=== PATIENT | female | born 1975 | race Caucasian/White ===

== ENCOUNTER 2023-04-07 10:57 | Outpatient (AMB) | payer OTHER, SELFPAY ==
--- NOTE | 2023-04-07 11:19 | MHC.PC.OV ---
Vital Signs 04/07/23 11:20 Height 5 ft 3.75 in Weight 238 lb 6 oz BMI 41.2 BP 120/68 Blood Pressure Location Lt brachial Position Sitting Pulse 79 Pulse Source Pulse Oximeter Temp 96.8 F Temp Source Oral Pulse Oximetry (%) 97 Oxygen Delivery Method Room Air Intake Visit Reasons: New patient-Lower back pain Intake Note: Patient is here as a new patient with lower back pain, she has degenerative disc disease. Allergies amoxicillin [From Augmentin] Adverse Reaction (Mild, Verified 04/07/23 12:15) yeast infection clavulanic acid [From Augmentin] Adverse Reaction (Mild, Verified 04/07/23 12:15) yeast infection amoxicillin Adverse Reaction (Mild, Uncoded 04/07/23 12:15) yeast infection Medication List - Last Reviewed 04/07/23 by Cary Kc, SOBEIDA dextroamphetamine-amphetamine 20 mg (Adderall) 20 mg PO DAILY gabapentin 300 mg PO TID metaxalone 800 mg PO TID phentermine 37.5 mg PO DAILY temazepam 15 mg PO BEDTIME temazepam 7.5 mg PO .PRN for anxiety topiramate (Topamax) 100 mg PO .AM topiramate (Topamax) 50 mg PO .PM tramadol 100 mg PO TID PRN 20 days Tobacco use date assessed: 04/07/23 Dental Screening Dental Screen Date: 04/07/23 Did you have a dental visit in the last 12 months?: No Did you have a dental problem in the last 6 months where you did not have access to dental care?: No Was dental information given to patient?: No HPI HPI Comments History of Present Illness Details 47-year-old female presents to [facility]. She relocated from [place], [place] in Dec, 2022. She notes the last time she her former PCP was in Dec, 2022. She notes she had routine blood work done in November,; her cholesterol levels were elevated. She has PMH significant for LBP secondary to DJD and compression fracture at L4 and L5, ADHD, insomnia, anxiety, and depression. She states she has had LBP for the past 20 years and her symptoms has worsened the past 2 years. She notes she was followed by ortho surgery, PT, and pain management until she moved to [facility]. She states she was on tramadol 100 mg 3 times daily until she relocated in January. She requests referrals for pain management. She notes she is followed by a therapist and a psychiatrist weekly and that her psychiatrist manages her psychotropic medications. [facility] Medical History (Updated 04/07/23 @ 14:27 by Jacoby Francis CNP) Aftercare following right ankle joint replacement surgery Anxiety Degenerative disc disease, lumbar Depression Necrotizing fasciitis Surgical History (Updated 04/07/23 @ 11:39 by Cary Kc CMA) History of throat surgery S/P lumpectomy, right breast Family History (Updated 04/07/23 @ 11:41 by Cary Kc CMA) Mother COPD (chronic obstructive pulmonary disease) Emphysema lung Mental health disorder Social History (Updated 04/07/23 @ 11:44 by Cary Kc CMA) Household Members: Friend(s) Both parents involved: No Caregiver staying overnight: No Housing: House Are you a primary ambulatory care coordinator to a significant other at home: No Do you presently have visiting nurse or other home services: No 75 years or older and lives alone: No Alcohol intake: current Patient Tobacco Use Status: Former Tobacco user e-Cigarette/Vaping Use: Former Use service: No Current occupational status: disabled Cognitive needs: No Hearing needs: No Vision needs: Yes (glasses) Questionnaire PHQ-9 Over the last 2 weeks, how often have you been bothered by any of the following problems? 1. Little interest or pleasure in doing things: more than half the days 2. Feeling down, depressed, or hopeless: several days 3. Trouble falling or staying asleep, or sleeping too much: nearly every day 4. Feeling tired or having little energy: nearly every day 5. Poor appetite or overeating: nearly every day 6. Feeling bad about yourself - or that you are a failure or have let yourself or your family down: nearly every day 7. Trouble concentrating on things, such as reading the newspaper or watching television: several days 8. Moving or speaking so slowly that other people could have noticed. Or the opposite - being so fidgety or restless that you have been moving around a lot more than usual: not at all 9. Thoughts that you would be better off or of hurting yourself in some way: not at all Total score: 16 Depression Screening Interpretation: Positive Depression Screening Follow-up: Existing condition and In treatment Source: Developed by Drs. Contreras Velazquez, Gisselle Reyna, Javed Lee and colleagues, with an educational earline from [employer]. Thrive Questionnaire I am a: Patient What is your living situation today?: I have a steady place to live Within the past 12 months, did the food you bought not last and you didn't have the money to get more?: Never true Within the past 12 months, did you worry whether your food would run out before you got money to buy more?: Never true Do you have trouble paying for medicines?: No Do you have trouble getting transportation to medical appointments?: No Do you have trouble paying your heating and electricity bill?: No Do you have trouble taking care of your child, family member or friend?: No Do you have trouble with day-to-day activities such as bathing, preparing meals, shopping, managing finances, etc.?: No Are you currently unemployed and looking for a job?: No Are you interested in more education?: No BAYRON-7 AMB Questionnaire BAYRON-7 Date BAYRON - 7 assessed: 04/07/23 Feeling nervous, anxious, or on edge: 3 = Nearly every day Not being able to stop or control worryin = Nearly every day Worrying too much about different things: 3 = Nearly every day Trouble relaxin = Nearly every day Being so restless that it is hard to sit still: 1 = Several days Becoming easily annoyed or irritable: 3 = Nearly every day Feeling afraid as if something awful might happen: 3 = Nearly every day Total BAYRON-7 score (0-4 normal; 5-9 mild; 10-14 moderate; 15-21 severe): 19 Source: Developed by Drs. Contreras Velazquez, Javed Alvarez and colleagues, with an educational earline from [employer]. Review of Systems Const Details: Const Denies chills, Denies fatigue, Denies fever(s), Denies headache(s) and Denies weakness ENT Denies dizziness and Denies headache(s) Card Denies chest pain, Denies lightheadedness, Denies dyspnea and Denies other (Palpitations) Resp Denies cough, Denies dyspnea, Denies wheezing and Denies other ( shortness of breath) GI Denies abdominal pain, Denies melena, Denies hematochezia, Denies change in bowel habits, Denies dyspepsia and Denies nausea Denies hematuria and Denies dysuria Musc Reports low back pain, Denies abnormal gait, Denies myalgias, Denies arthralgias, Denies numbness and Denies tingling Skin/Breast Denies rash, Denies unusual bruising and Denies wounds Neuro Denies abnormal gait, Denies dizziness, Denies headache(s), Denies memory loss, Denies numbness, Denies Sensory deficit (Neuro), Denies tingling and Denies weakness Psych Reports anxiety, Reports depression, Denies memory loss Endo Denies cold intolerance, Denies fatigue, Denies heat intolerance, Denies polydipsia and Denies polyuria Aller/Immun Denies wheezing Physical exam (Primary Care) Vital Signs: Last Vital Signs Temp 96.8 F 04/07/23 11:20 Pulse 79 04/07/23 11:20 BP 120/68 04/07/23 11:20 Pulse Ox 97 04/07/23 11:20 Oxygen Delivery Method Room Air 04/07/23 11:20 BMI result Body Mass Index 41.2 Tobacco/Smoking Status: Tobacco use Status Tobacco use date assessed 04/07/23 04/07/23 11:50 Patient Tobacco Use Status Former Tobacco user 04/07/23 11:50 e-Cigarette/Vaping Use Former Use 04/07/23 11:50 PHQ-9: PHQ-9 Score PHQ-9: Total score 16 04/07/23 15:37 Depression Screening Interpretation: Positive Depression Screening Follow-up: Existing condition and In treatment Const Other: General: no acute distress and well developed Nutritional Appearance: well nourished Orientation/consciousness: patient oriented x3 HENMT Head: Yes normocephalic and Yes atraumatic Eyes General: appearance normal, both eyes and all related structures Pupils: Equal, round and reactive pupils present EOM: EOMs intact bilaterally Resp Effort & Inspection: normal respiratory effort Auscultation: clear to auscultation bilaterally Cardio Rate: regular rate Rhythm: regular rhythm Heart sounds: S1 normal heart sound present, S2 normal heart sound present, no gallops, no murmurs and no rubs GI Palpation (GI): No Abdominal aortic bruit present, Soft to palpation, nontender, No hepatosplenomegaly present and No Rebound tenderness present Auscultation: normal bowel sounds General: Yes no CVA tenderness Back/Spine/Pelvis Back: no CVA tenderness Cervical Spine: cervical ROM normal and No Cervical spine tenderness Thoracic/Lumbar Spine: thoraco-lumbar ROM normal, No pain with thoraco-lumbar ROM, thoracic spinal tenderness and lumbar spinal tenderness Extrem General: Yes normal to inspection, No edema and No calf tenderness Negative straight leg raise bilaterally Skin General: warm and dry. Normal skin color. Normal skin turgor Lesions: no lesions Rashes: no rashes Trauma: no lacerations or abrasions Wounds: no wounds Nails: normal Neuro General: patient oriented x3, gait normal and no focal neuro deficit Cranial nerves: Yes Equal, round and reactive pupils present Cognition (Neuro): normal cognition Gait exam (Neuro): Normal gait present Sensory Exam: No Sensory deficit (Neuro) Psych Appearance: grossly normal Affect: normal affect Attitude: cooperative Thought process: Normal thought process present Assessment and Plan Assessment & Plan (1) Chronic back pain: Code(s): M54.9 - Dorsalgia, unspecified; G89.29 - Other chronic pain Plan: Reports chronic LBP for the past 20 years; her symptoms has worsened the past 2 years. She attributes the pain to history of DJD and compression fracture at L4 and L5. Continue with current treatment regimen Tramadol verified by [facility] and refilled. Take as prescribed Warm/cool compresses encouraged Referred to orthopedic surgery and physical therapy Follow-up in 1 month or return sooner with worsening or new symptoms Verbalized understanding and agreed with treatment plan. (2) Morbid obesity with BMI of 40.0-44.9, adult: Code(s): E66.01 - Morbid (severe) obesity due to excess calories; Z68.41 - Body mass index [BMI] 40.0-44.9, adult Plan: Encouraged routine exercise as tolerable Healthy diet encouraged Referred to nutrition/dietitian and with management (3) Depression: Code(s): F32.A - Depression, unspecified Plan: She notes she is followed by a therapist and a psychiatrist weekly and that her psychiatrist manages her psychotropic medications. PHQ-9 and BAYRON-7 scores revealed moderately severe depression and severe anxiety respectively Continue with current treatment regimen Continue follow-up with therapist and psychiatrist as planned Follow-up with worsening or new symptoms Verbalized understanding and agreed with treatment plan. (4) Anxiety: Code(s): F41.9 - Anxiety disorder, unspecified Plan: As above (5) Laboratory tests ordered as part of a complete physical exam (CPE): Code(s): Z00.00 - Encounter for general adult medical examination without abnormal findings Plan: Fasting labs ordered as part of a complete physical exam. Advised to fast for at least 10 hours before getting labs drawn. May drink water Verbalized understanding and agreed with treatment plan. Orders: Orders Comprehensive [place]. Panel Fast Today Z00.00 - Encounter for general adult medical examination without abnormal findings Lipid Panel Today Z00.00 - Encounter for general adult medical examination without abnormal findings TSH reflex Free T4 Today Z00.00 - Encounter for general adult medical examination without abnormal findings Complete Blood Count Auto Diff Today Z00.00 - Encounter for general adult medical examination without abnormal findings UA CC w/rflx Micro + Cult Today Z00.00 - Encounter for general adult medical examination without abnormal findings PT Evaluation and Treatment Today G89.29 - Other chronic pain, M54.9 - Dorsalgia, unspecified Referrals Medical Weight Management Referral E66.01 - Morbid (severe) obesity due to excess calories, Z68.41 - Body mass index [BMI] 40.0-44.9, adult Orthopedics Referral G89.29 - Other chronic pain, M54.9 - Dorsalgia, unspecified Nutrition/Dietitian Referral E66.01 - Morbid (severe) obesity due to excess calories, Z68.41 - Body mass index [BMI] 40.0-44.9, adult Medications: New tramadol 100 mg PO TID PRN 60 tabs 0RF pain tramadol 100 mg PO TID 20 days PRN 60 tabs 0RF pain Coding Level of Care Code New Pt Level 3 (02031) Diagnoses Chronic back pain M54.9; G89.29 Morbid obesity with BMI of 40.0-44.9, adult E66.01; Z68.41 Depression F32.A Anxiety F41.9 Laboratory tests ordered as part of a complete physical exam (CPE) Z00.00 Time Spent (min) 35
[2023-04-07 11:20] VITALS: BP 120/68; PULSE 79; TEMP 36; O2SAT 97; BMI 41.2
== END 2023-04-07 12:45 | disposition home or self-care (01) ==
PROVIDERS: PCP Nurse Practitioner Family; Visit Provider Nurse Practitioner Family
DX: M54.9 Dorsalgia, unspecified (principal); E66.01 Morbid (severe) obesity due to excess calories; Z68.41 Body mass index [BMI] 40.0-44.9, adult; F41.9 Anxiety disorder, unspecified; G89.29 Other chronic pain; F32.A Depression, unspecified
CPT/HCPCS: 99203

== ENCOUNTER 2023-04-28 10:04 | Outpatient (REF) | payer OTHER, SELFPAY ==
--- NOTE | ~2023-04-28 | XR_ITS ---
EXAMINATION: XR FOOT, RIGHT CLINICAL INFORMATION: Aftercare following joint replacement surgery COMPARISON: None available. TECHNIQUE: AP, lateral, and oblique views of the right foot. FINDINGS: No evidence for acute fracture or dislocation. There is hallux valgus deformity. Slight narrowing of the right first MTP joint. No distinct erosive process. The midfoot is intact. Postsurgical changes of the distal right fibula again seen. There is a small plantar calcaneal spur. XR/XR foot RT 2V IMPRESSION: 1. No acute process. Hallux valgus deformity. 2. Slight degenerative changes. 3. Other incidental findings as noted above.
--- NOTE | ~2023-04-28 | XR_ITS ---
EXAMINATION: XR ANKLE, RIGHT CLINICAL INFORMATION: Aftercare following joint replacement surgery. COMPARISON: None available. TECHNIQUE: 3 views of the right ankle. FINDINGS: No acute fracture or dislocation seen. There is a small lucency in the medial dome of the talus which may reflect a small subchondral cyst. Postsurgical changes of the distal right fibula with plate and screw fixation and an obliquely directed screw. No erosive process. The posterior distal tibia appears to be intact. There is a small plantar calcaneal spur. XR/XR ankle RT min 3V IMPRESSION: 1. Postoperative changes of the distal right fibula. No acute fracture or dislocation. 2. Small lucency in the medial dome of the talus may reflect a small subchondral cyst.
--- NOTE | ~2023-04-28 | XR_ITS ---
EXAMINATION: XR CERVICAL SPINE CLINICAL INFORMATION: Radiculopathy, cervical region COMPARISON: None available. TECHNIQUE: 3 views of the cervical spine were obtained. FINDINGS: The odontoid is intact. No prevertebral swelling. There is reversal of normal lordosis which is suggestive of spasm. No acute cervical compression fractures. There is multilevel spondylosis and degenerative disc space narrowing. Slight anterolisthesis C7-T1. Multilevel facet arthrosis observed. XR/XR cervical spine 3V IMPRESSION: 1. Cervical spasm. No acute compression fractures. 2. Multilevel spondylosis and degenerative disc space narrowing. Slight anterolisthesis C7-T1. 3. Multilevel facet arthrosis.
== END 2023-04-28 10:05 | disposition home or self-care (01) ==
LOC: HO.HOSX 10:04
PROVIDERS: PCP Nurse Practitioner Family; Visit Provider Physical Medicine & Rehabilitation
DX: M54.12 Radiculopathy, cervical region (principal); M51.26 Other intervertebral disc displacement, lumbar region; Z47.1 Aftercare following joint replacement surgery; Z96.661 Presence of right artificial ankle joint; Z79.899 Other long term (current) drug therapy
CPT/HCPCS: 72040; 73610; 73620; 99202

== ENCOUNTER 2023-04-28 10:04 | Outpatient (AMB) | payer OTHER, SELFPAY ==
[2023-04-28 10:12] VITALS: BMI 41.2
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
== END 2023-04-28 12:13 | disposition home or self-care (01) ==
PROVIDERS: PCP Nurse Practitioner Family; Visit Provider Physical Medicine & Rehabilitation
DX: M51.26 Other intervertebral disc displacement, lumbar region (principal); M54.12 Radiculopathy, cervical region; Z47.1 Aftercare following joint replacement surgery; Z96.661 Presence of right artificial ankle joint
CPT/HCPCS: 99204

== ENCOUNTER 2023-05-03 07:30 | Outpatient (REF) | payer OTHER, SELFPAY ==
[2023-05-03 11:28] LABS: MANUAL DIFF FLAG NO
[2023-05-03 11:33] LABS: Basophils Absolute Auto 0.1 X10*3/uL (0.0-0.2); Basophils Percent Auto 1.1 % (0-2); Eosinophils Absolute Auto 0.2 X10*3/uL (0.0-0.4); Eosinophils Percent Auto 2.9 % (0-4); Hematocrit 30.9 % (37.0-47.0); Hemoglobin 9.7 g/dl (12.0-16.0); Imm Gran Abs Auto 0.02 X10*3/uL (0.00-0.03); Imm Gran Pct Auto 0.3 % (0.0-0.4); Lymphocytes Absolute Auto 1.6 X10*3/uL (1.2-4.9); Lymphocytes Percent Auto 25.8 % (20-40); Mean Corpuscular HGB Conc 31.4 g/dl (31.0-35.0); Mean Corpuscular Hemoglobin 26.4 pg (27.0-33.0); Mean Corpuscular Volume 84.2 fL (80.0-98.0); Mean Platelet Volume 9.8 fL (9.4-12.3); Monocytes Absolute Auto 0.5 X10*3/uL (0.1-1.2); Monocytes Percent Auto 8.1 % (2-11); Neutrophils Absolute Auto 3.8 x10*3/uL (2.0-8.3); Neutrophils Percent Auto 61.8 % (45-73); Platelet Count 394 X10*3/uL (160-400); Red Blood Count 3.67 X10*6/uL (4.20-5.50); Red Cell Distribution Width 17.2 % (11.0-16.0); White Blood Count 6.2 X10*3/uL (4.8-10.8)
[2023-05-03 11:42] LABS: Appearance Urine Clear; Color Urine Yellow; Glucose Urine UA Negative (Negative); Leukocyte Esterase Urine Small (1+) (Negative); Nitrite Urine Negative (Negative); PH 5.5 (5.0-9.0); Specific Gravity - Urine 1.015 (1.005-1.025); UMIC TRIGGER UACC YES; Urine Blood Negative (Negative); Urine Ketones Negative (Negative); Urine Protein Negative (Neg-Trace)
[2023-05-03 11:55] LABS: Bacteria Urine Trace (None Seen); Hyaline Casts Urine 0-2 /LPF (0-2); RBC Urine 0-2 /HPF (0-2); Squamous Epithelial Cell Urine 0-2 /HPF (0-2); UACC Culture Trigger YES; WBC Urine 0-5 /HPF (0-5)
[2023-05-03 12:47] LABS: Immature Retic Fraction 16.8 % (3.0-15.9); Retic HGB Equivalent 25.6 pg (30.0-35.0); Reticulocyte Percent 1.2 % (0.5-1.8); Reticulocytes Absolute 0.044 X10*6/uL (0.026-0.095)
[2023-05-03 14:56] LABS: Alanine Aminotransferase 12 U/L (0-31); Alkaline Phosphatase 52 U/L (39-117); Anion Gap 10 (12-20); Aspartate Amino Transferase 17 U/L (5-31); Bilirubin Total 0.1 mg/dL (0.0-1.0); Blood Urea Nitrogen 15 mg/dL (9-16); Calcium 9.3 mg/dL (8.4-10.2); Carbon Dioxide 21 mmol/L (22-29); Chloride 112 mmol/L (96-108); Cholesterol 166 mg/dL (<200); Estimated Glomerular Filt Rate > 60; Glucose Fasting 93 mg/dL (60-99); HDL Cholesterol 49 mg/dL (>40); Iron 27 mcg/dL (30-160); LDL Cholesterol Calculated 99 mg/dL (<100); Percent Iron Saturation 7 % (15-50); Potassium 4.3 mmol/L (3.3-5.1); Sodium 139 mmol/L (135-145); TSH reflex Free T4 0.94 uIU/mL (0.32-4.0); Total Iron Binding Capacity 370 mcg/dL (228-428); Total Protein 6.9 g/dL (6.5-8.0); Triglycerides 92 mg/dL (<150); Unsaturated Iron Binding 343 ug/dL
== END 2023-05-03 07:31 | disposition home or self-care (01) ==
LOC: HO.WFDLDS 07:30
PROVIDERS: Visit Provider Nurse Practitioner Family
DX: Z00.00 Encounter for general adult medical examination without abnormal findings (principal); D64.9 Anemia, unspecified
CPT/HCPCS: 36415; 80053; 80061; 81001; 83540; 84443; 85025; 85045; 87086

== ENCOUNTER 2023-05-11 14:15 | Outpatient (AMB) | payer OTHER, SELFPAY ==
--- NOTE | 2023-05-11 14:56 | MHC.OFFVIS ---
Intake Vital Signs 05/11/23 14:58 Height 5 ft 3.75 in Weight 225 lb BMI 38.9 BP 120/84 Blood Pressure Location Rt brachial Position Sitting Respiration 16 Pulse 88 Pulse Source Pulse Oximeter Pulse Oximetry (%) 99 Oxygen Delivery Method Room Air Intake Visit Reasons: Other intervertebral disc displacement Intake Note: patient comes in for initial visit was referred by physiatry Allergies amoxicillin [From Augmentin] Adverse Reaction (Mild, Verified 05/11/23 15:01) yeast infection clavulanic acid [From Augmentin] Adverse Reaction (Mild, Verified 05/11/23 15:01) yeast infection amoxicillin Adverse Reaction (Mild, Uncoded 04/28/23 10:16) yeast infection HPI HPI Comments History of Present Illness Details Cary is very pleasant 47 years old female who presents herself in my office with 2 distinct pain generators. She reports pain in the cervical spine with sensation of the numbness of bilateral upper extremities as well as axial pain in lower back which is aggravated by prolonged standing and sitting and aggravated by flexing back forward but alleviated when she flex her back backwards. She reports that her pain started many years ago however became aggravated recently reports pain in neck 4 to 6/10 and pain in lower back is 10+ out of 10. She reports that that she cannot sleep normally because of her pain cannot do activities of daily living she can take care of herself but she cannot function normally. She reports that she is unemployed. She is self mobile. She reports that cold applications weather changes in movements aggravate her pain and heat applications and topical medications make her pain better. She reports her pain is worse in morning in the evening and the leads severe during the middle of the day. In terms of tissue damage she reports her pain is sharp, cutting, lacerating, tugging, pulling, ranging, hot burning, scalding, searing, suffocating, tiring, staring, freezing. She was under care of pains physician in [facility] she received MRI of the lumbar spine she was not recommended to go for the surgery by neurosurgeon. Never was evaluated by MRI of the cervical spine she is taking gabapentin for her pain and 100 mg 3 times a day maximal does she is taking tramadol 50 mg once a day and muscle relaxant methalaxon. She reports that she received sacroiliac joint injections in the past those were done by Dr. Markham in [facility] she reports very minimal help for 1 or 2 days from steroid sacroiliac joint injection however no prolonged pain relief. She had multiple attempts at physical therapy which aggravated her pain and she refused to go to physical therapy she denies chiropractic manipulations massage therapy or 10s unit. Her past medical history significant for headaches anxiety depression . She reports past medical history of compression fracture probably of the thoracic spine which was treated conservatively, no kyphosis/vertebral plasty was done. She had ankle joint replacement procedure for which she had very significant physical therapy. She brought with herself and MRI done on her lumbar spine in [facility] in [facility] which is suspicious for Modic type changes. I would like to send this MRI disc for the review with Radiology to evaluate this MRI for Modic type changes. Social history she is unemployed individual she states that she stop smoking in December of 2022 she admits rare use of alcohol she drinks 2 cups of coffee daily she denies recreational drugs. [facility] Medical History (Updated 05/11/23 @ 15:52 by Abdelrahman Richards MD) Lumbar disc herniation Aftercare following right ankle joint replacement surgery Necrotizing fasciitis Degenerative disc disease, lumbar Depression Anxiety Surgical History (Updated 04/07/23 @ 11:39 by Cary Kc CMA) History of throat surgery S/P lumpectomy, right breast Family History (Updated 04/07/23 @ 11:41 by Cary Kc CMA) Mother COPD (chronic obstructive pulmonary disease) Emphysema lung Mental health disorder Social History Household Members: Friend(s) Both parents involved: No Caregiver staying overnight: No Housing: House Are you a primary residential care officer to a significant other at home: No Do you presently have visiting nurse or other home services: No 75 years or older and lives alone: No Alcohol intake: current Patient Tobacco Use Status: Former Tobacco user e-Cigarette/Vaping Use: Former Use service: No Current occupational status: disabled 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 Cognitive needs: No Hearing needs: No Vision needs: Yes (glasses) Review of Systems Const All systems reviewed & are unremarkable except as noted in HPI and below Reports no additional complaints and Reports weight gain Card Reports no additional complaints Resp Reports no additional complaints GI Reports no additional complaints Musc Reports as per HPI Neuro Reports as per HPI Psych Reports as per HPI Physical Exam Vital Signs: Last Vital Signs Pulse 88 05/11/23 14:58 Resp 16 05/11/23 14:58 BP 120/84 05/11/23 14:58 Pulse Ox 99 05/11/23 14:58 Oxygen Delivery Method Room Air 05/11/23 14:58 BMI result Body Mass Index 38.9 Constitutional: Patient appears to be in no acute distress, well nourished and well developed. Patient was appropriately conversant and oriented. Good historian. MSK: Inspection reveals appropriate head and neck positioning. No pain with palpation over the neck musculature. Cervical ROM was full. Spurling's sign positive with radiation to left arm. Bilateral shoulder, elbow and wrist ROM WNL. No ligamentous laxity or crepitance. No increased effusion. No specific abnormalities or instability found on inspection and palpation of the spine and extremities. No point tenderness on spinous processes, facets, SI or GT. Unable to do lumbar extension due to pain. Negative SLR. Positive MARCOS for back pain bilateral. Strength is 5/5 in all muscle groups tested. No increased tone noted. Right toes go into spasms while extended with pain. This limits her ankle range of motion. No redness or swelling on right foot or ankle. Neurological: Neurologic examination of the upper and lower extremities was nonfocal with intact sensation, muscle stretch reflexes and without focal motor deficits . Hunter?s negative bilaterally. Babinski was down going bilaterally. Clonus was negative. Gait is non-antalgic without loss of balance. Can stand on heels but cannot do toe walk. No foot drop while seated. Neck Other: Negative Lhermitte sign, positive Spurling sign on the right negative Valsalva maneuver 2 point differentiation is positive on bilateral hands Assessment & Plan Assessment & Plan (1) Lumbar disc herniation: Code(s): M51.26 - Other intervertebral disc displacement, lumbar region Plan: Patient denies pain of the lower extremities radiating down the legs. She admits that pain is mostly axial and stays in her back. She admits that the pain is increased with prolong sitting and standing and greater more increased with flexing forward but not backwards. Fact she reports that flexing backwards greatly alleviates her pain. These are the signs of vertebro genic/discogenic pain. I examined the MRI the patient brought with herself and I think the might be Modic type changes in her back. I will have this MRI to be read by our radiologist department to confirm or deny Modic type changes. (2) Cervical radiculitis: Code(s): M54.12 - Radiculopathy, cervical region Plan: I am very concerned about the numbness which is objective on the exam on bilateral hands. With her pain in the neck with radiation into the bilateral upper extremities likely the pain is coming from secondary to spinal cord compression versus nerve root compressions. In the order to establish that I think it is necessary to send this patient for the MRI of the cervical spine. (3) Spondylosis of lumbar spine: Code(s): M47.816 - Spondylosis without myelopathy or radiculopathy, lumbar region (4) Vertebrogenic low back pain: Code(s): M54.51 - Vertebrogenic low back pain Plan: I will see this patient in the office after MRI will be ready we will discuss cervical changes as well as possibly changes in her lumbar spine. The procedures will be discussed after the patient complete the study. (5) Cervical stenosis of spinal canal: Code(s): M48.02 - Spinal stenosis, cervical region Orders: Orders MR cervical spine wo con Today M48.02 - Spinal stenosis, cervical region, M54.12 - Radiculopathy, cervical region Coding Level of Care Code New Pt Level 4 (36129) Diagnoses Lumbar disc herniation M51.26 Cervical radiculitis M54.12 Spondylosis of lumbar spine M47.816 Vertebrogenic low back pain M54.51 Cervical stenosis of spinal canal M48.02
[2023-05-11 14:58] VITALS: BP 120/84; PULSE 88; RESP 16; O2SAT 99; BMI 38.9
== END 2023-05-11 15:23 | disposition home or self-care (01) ==
PROVIDERS: PCP Nurse Practitioner Family; Visit Provider Anesthesiology
DX: M51.26 Other intervertebral disc displacement, lumbar region (principal); M54.12 Radiculopathy, cervical region; M47.816 Spondylosis without myelopathy or radiculopathy, lumbar region; M48.02 Spinal stenosis, cervical region
CPT/HCPCS: 99204

== ENCOUNTER → 2023-05-11 14:15 | Outpatient (BNVA) | payer OTHER, SELFPAY | PROVIDERS: PCP Nurse Practitioner Family; Visit Provider Anesthesiology ==

== ENCOUNTER 2023-05-12 12:25 | Outpatient (AMB) | payer OTHER, SELFPAY ==
--- NOTE | 2023-05-12 12:40 | A.OFFPC_ITS ---
Vital Signs 05/12/23 12:41 Height 5 ft 3.5 in Weight 228 lb 2 oz BMI 39.8 BP 124/66 Blood Pressure Location Rt brachial Position Sitting Respiration 12 Pulse 86 Pulse Source Pulse Oximeter Temp 97.6 F Temp Source Temporal Artery Scan Pulse Oximetry (%) 99 Oxygen Delivery Method Room Air Intake Visit Reasons: Back pain, mood disorder Intake Note: Patient states that she would like to clear up the quantity issue with her Tramadol and she would like to get that fixed today. Patient states that she will be having procedures and surgery soon and would like her script. Patient also states that she was seen by Ortho and told that they found quite a few things that were concerning (notes should be in chart). Patient PT May 19 @ 3:00 PM for her lower back. 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 Required: No Accompanied by: Self / Same As Patient Allergies amoxicillin [From Augmentin] Adverse Reaction (Mild, Verified 05/12/23 13:02) yeast infection clavulanic acid [From Augmentin] Adverse Reaction (Mild, Verified 05/12/23 13:02) yeast infection amoxicillin Adverse Reaction (Mild, Uncoded 05/12/23 13:02) yeast infection Medication List - Last Reconciled 05/12/23 by Jacoby Francis CNP dextroamphetamine-amphetamine 20 mg (Adderall) 20 mg PO DAILY ferrous sulfate 325 mg PO DAILY 30 days gabapentin 300 mg PO TID metaxalone 800 mg PO TID temazepam 15 mg PO BEDTIME temazepam 7.5 mg PO .PRN for anxiety topiramate (Topamax) 100 mg PO .AM topiramate (Topamax) 50 mg PO .PM tramadol 50 mg PO BID PRN 30 days Tobacco use date assessed: 04/07/23 Dental Screening Dental Screen Date: 05/12/23 Did you have a dental visit in the last 12 months?: No Did you have a dental problem in the last 6 months where you did not have access to dental care?: No Was dental information given to patient?: Patient has dentist HPI HPI Comments History of Present Illness Details 47-year-old female presents for low back and mood disorders follow up. She establish care on 04/07/2023. She was referred to orthopedic surgery and physical therapy for back pain. She was evaluated by orthopedic surgery and referred to physiatry. She was evaluated by physiatry, MRI was ordered, and patient should return for treatment modalities once MRI is complete and reviewed. She notes she is scheduled to start physical therapy later this month. She is on tramadol and metaxalone for pain. She requests that her tramadol ordered be changed back to previous order 3 times daily for 20 days; she notes her health plan will cover two 50 mg tablets 3 times daily instead of 100 mg tablets 3 times daily. She states she continues to follow up with her therapist and psychiatrist weekly. She had blood work done earlier this month; RBC, H&H, and iron levels were low. She was ordered ferrous sulfate which she notes she has been taking as prescribed. [facility] Medical History Lumbar disc herniation Aftercare following right ankle joint replacement surgery Necrotizing fasciitis Degenerative disc disease, lumbar Depression Anxiety Surgical History History of throat surgery S/P lumpectomy, right breast Family History Mother COPD (chronic obstructive pulmonary disease) Emphysema lung Mental health disorder Social History Household Members: Friend(s) Both parents involved: No Caregiver staying overnight: No Housing: House Are you a primary auto care center manager to a significant other at home: No Do you presently have visiting nurse or other home services: No 75 years or older and lives alone: No Alcohol intake: current Patient Tobacco Use Status: Former Tobacco user e-Cigarette/Vaping Use: Former Use service: No Current occupational status: disabled 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 1. Little interest or pleasure in doing things: several days 2. Feeling down, depressed, or hopeless: several days 3. Trouble falling or staying asleep, or sleeping too much: nearly every day 4. Feeling tired or having little energy: nearly every day 5. Poor appetite or overeating: nearly every day 6. Feeling bad about yourself - or that you are a failure or have let yourself or your family down: more than half the days 7. Trouble concentrating on things, such as reading the newspaper or watching television: nearly every day 8. Moving or speaking so slowly that other people could have noticed. Or the opposite - being so fidgety or restless that you have been moving around a lot more than usual: not at all 9. Thoughts that you would be better off or of hurting yourself in some way: not at all Total score: 16 Depression Screening Interpretation: Positive Depression Screening Follow-up: Existing condition and In treatment Source: Developed by Drs. Contreras Velazquez, Gisselle Reyna, Javed Lee and colleagues, with an educational earline from [employer]. BAYRON-7 AMB Questionnaire BAYRON-7 Date BAYRON - 7 assessed: 04/07/23 Feeling nervous, anxious, or on edge: 3 = Nearly every day Not being able to stop or control worryin = Nearly every day Worrying too much about different things: 3 = Nearly every day Trouble relaxin = Nearly every day Being so restless that it is hard to sit still: 3 = Nearly every day Becoming easily annoyed or irritable: 3 = Nearly every day Feeling afraid as if something awful might happen: 3 = Nearly every day Total BAYRON-7 score (0-4 normal; 5-9 mild; 10-14 moderate; 15-21 severe): 21 Source: Developed by Drs. Contreras Velazquez, Giseslle Reyna, Javed Lee and colleagues, with an educational earline from [employer]. Review of Systems Const Details: Const Denies chills, Denies fatigue, Denies fever(s), Denies headache(s) and Denies weakness ENT Denies dizziness and Denies headache(s) Card Denies chest pain, Denies lightheadedness, Denies dyspnea and Denies other ( Palpitations) Resp Denies cough, Denies dyspnea, Denies wheezing and Denies other ( shortness of breath) GI Denies abdominal pain, Denies melena, Denies hematochezia, Denies change in bowel habits, Denies dyspepsia and Denies nausea Denies hematuria and Denies dysuria Musc Reports as per HPI Skin/Breast Denies rash, Denies unusual bruising and Denies wounds Neuro Denies abnormal gait, Denies dizziness, Denies headache(s), Denies memory loss, Denies numbness, Denies Sensory deficit (Neuro), Denies tingling and Denies weakness Psych Reports anxiety, Reports depression, Denies memory loss Endo Denies cold intolerance, Denies fatigue, Denies heat intolerance, Denies polydipsia and Denies polyuria Aller/Immun Denies wheezing Physical exam (Primary Care) Vital Signs: Last Vital Signs Temp 97.6 F 05/12/23 12:41 Pulse 86 05/12/23 12:41 Resp 12 05/12/23 12:41 BP 124/66 05/12/23 12:41 Pulse Ox 99 05/12/23 12:41 Oxygen Delivery Method Room Air 05/12/23 12:41 BMI result Body Mass Index 39.8 Tobacco/Smoking Status: Tobacco use Status Tobacco use date assessed 04/07/23 05/12/23 12:54 Patient Tobacco Use Status Former Tobacco user 05/12/23 12:54 e-Cigarette/Vaping Use Former Use 05/12/23 12:54 PHQ-9: PHQ-9 Score PHQ-9: Total score 16 05/12/23 12:54 Depression Screening Interpretation: Positive Depression Screening Follow-up: Existing condition and In treatment Const Other: General: no acute distress and well developed Nutritional Appearance: well nourished Orientation/consciousness: patient oriented x3 HENMT Head: Yes normocephalic and Yes atraumatic Eyes General: appearance normal, both eyes and all related structures Pupils: Equal, round and reactive pupils present EOM: EOMs intact bilaterally Resp Effort & Inspection: normal respiratory effort Auscultation: clear to auscultation bilaterally Cardio Rate: regular rate Rhythm: regular rhythm Heart sounds: S1 normal heart sound present, S2 normal heart sound present, no gallops, no murmurs and no rubs GI Palpation (GI): No Abdominal aortic bruit present, Soft to palpation, nontender, No hepatosplenomegaly present and No Rebound tenderness present Auscultation: normal bowel sounds General: Yes no CVA tenderness Back/Spine/Pelvis Back: no CVA tenderness Cervical Spine: cervical ROM normal and No Cervical spine tenderness Thoracic/Lumbar Spine: thoraco-lumbar ROM normal, No pain with thoraco-lumbar ROM, No thoracic spinal tenderness and lumbar spinal tenderness Extrem General: Yes normal to inspection, No edema and No calf tenderness Negative straight leg raise bilaterally Skin General: warm and dry. Normal skin color. Normal skin turgor Lesions: no lesions Rashes: no rashes Trauma: no lacerations or abrasions Wounds: no wounds Nails: normal Neuro General: patient oriented x3, gait normal and no focal neuro deficit Cranial nerves: Yes Equal, round and reactive pupils present Cognition (Neuro): normal cognition Gait exam (Neuro): Normal gait present Sensory Exam: No Sensory deficit (Neuro) Psych Appearance: grossly normal Affect: normal affect Attitude: cooperative Thought process: Normal thought process present Assessment and Plan Assessment & Plan (1) Chronic back pain: Code(s): M54.9 - Dorsalgia, unspecified; G89.29 - Other chronic pain Qualifiers: Back pain location: low back pain Sciatica presence: without sciatica Plan: Reports continued low back pain Lumbar spine tenderness to palpation Tramadol, gabapentin, and metaxalone as prescribed Continue follow-up with Orthopedic surgery and physiatry Follow-up with physical therapy as planned Return with worsening or new symptoms Verbalized understanding and agreed with treatment plan. (2) Anxiety: Code(s): F41.9 - Anxiety disorder, unspecified Plan: PHQ-9 and BAYRON-7 scores revealed moderately severe depression and severe anxiety respectively Continue with current treatment regimen Continue follow-up with psychiatrist and therapist as planned Routine exercise encouraged Return with new or worsening symptoms Verbalized understanding and agreed with treatment plan. (3) Depression: Code(s): F32.A - Depression, unspecified Qualifiers: Depression Type: unspecified Qualified Code(s): F32.A - Depression, unspecified Plan: As above (4) Iron deficiency anemia: Code(s): D50.9 - Iron deficiency anemia, unspecified Plan: She had blood work done earlier this month; RBC, H&H, and iron levels were low. She was ordered ferrous sulfate which she notes she has been taking as prescribed. Continue to take ferrous sulfate as prescribed Repeat CBC and iron profile ordered. Advised to get blood work done before next visit Follow-up in 5 weeks for iron deficiency anemia and a complete physical exam Return sooner with symptoms or concerns Verbalized understanding and agreed with treatment plan. Orders: Orders IRON PROFILE 5 Weeks D50.9 - Iron deficiency anemia, unspecified Complete Blood Count no Diff 5 Weeks D50.9 - Iron deficiency anemia, unspecified Ferritin 5 Weeks D50.9 - Iron deficiency anemia, unspecified Medications: Changed From tramadol 50 mg PO BID 30 days PRN 60 tabs 0RF pain To tramadol 100 mg (2 x 50 mg) PO TID 20 days PRN 60 tabs 0RF pain Refilled tramadol 50 mg PO BID 30 days PRN 60 tabs 0RF pain Coding Level of Care Code Est Pt Level 3 (38284) Diagnoses Chronic back pain M54.9; G89.29 Back pain location: low back pain Sciatica presence: without sciatica Anxiety F41.9 Depression, unspecified depression type F32.A Depression Type: unspecified Iron deficiency anemia D50.9
[2023-05-12 12:41] VITALS: BP 124/66; PULSE 86; RESP 12; TEMP 36.4; O2SAT 99; BMI 39.8
== END 2023-05-12 13:29 | disposition home or self-care (01) ==
PROVIDERS: PCP Nurse Practitioner Family; Visit Provider Nurse Practitioner Family
DX: M54.9 Dorsalgia, unspecified (principal); G89.29 Other chronic pain; F41.9 Anxiety disorder, unspecified; F32.A Depression, unspecified; D50.9 Iron deficiency anemia, unspecified
CPT/HCPCS: 99213

== ENCOUNTER 2023-05-25 12:57 | Outpatient (AMB) | payer OTHER, SELFPAY ==
--- NOTE | 2023-05-25 13:02 | MHC.AMNUTRGE ---
Intake VS Expanded 05/25/23 13:05 06/01/23 08:34 Height 5 ft 3.5 in 5 ft 3.5 in Weight 222 lb 14.197 oz 223 lb BMI 38.9 38.9 Intake Visit Reasons: Obesity/lvm Allergies amoxicillin [From Augmentin] Adverse Reaction (Mild, Verified 05/12/23 13:02) yeast infection clavulanic acid [From Augmentin] Adverse Reaction (Mild, Verified 05/12/23 13:02) yeast infection amoxicillin Adverse Reaction (Mild, Uncoded 05/12/23 13:02) yeast infection HPI Nutrition Presentation Details Pt presents for MNT for obesity. The Pt was referred by PCP, Danish Salinas. Pt reports she has started to work on reducing portion sizes. Reports wt in 2012 between 160-170 lbs and gradually gained weight related to lack of physical activity from broken ankle in 2019 and reports having gained about 10 lbs since started Depakote Food frequency fruits: 0-1/d vegetables: 3 -4 serving/d dairy : > 4 serving/d starches > 20 serving/d protein foods > 15 oz/d fluids: water, coffee, diluted juices w water physical activity: sedentary ETOH/SMoking ----- IFA-Pnxhaac-Fj.Jeor Equation Height 5 ft 3.5 in Weight 223 lb Resting Metabolic Rate 1636.16 Calculated Activity Level Sedentary Calories Needed to Maintain Weight 1963.39 Diagnosis Nutrition problem #1 overweight/obesity As related to (etiology) #1 excess energy intake and physical inactivity As evidenced by (sign/symptom) #1 high BMI (38.9 on 05/25/23) Monitoring/Goals Nutrition problem monitoring total energy intake and weight Most Recent Diabetes Results: Cholesterol 166 mg/dL (<200) 05/03/23 HDL Cholesterol 49 mg/dL (>40) 05/03/23 Triglycerides 92 mg/dL (<150) 05/03/23 Creatinine 0.82 mg/dL (0.5-1.4) 05/03/23 Blood Urea Nitrogen 15 mg/dL (9-16) 05/03/23 Sodium 139 mmol/L (135-145) 05/03/23 Potassium 4.3 mmol/L (3.3-5.1) 05/03/23 Chloride 112 mmol/L (96-108) H 05/03/23 Carbon Dioxide 21 mmol/L (22-29) L 05/03/23 Calcium 9.3 mg/dL (8.4-10.2) 05/03/23 AST 17 U/L (5-31) 05/03/23 ALT 12 U/L (0-31) 05/03/23 Total Protein 6.9 g/dL (6.5-8.0) 05/03/23 Albumin 4.0 g/dL (3.5-5.0) 05/03/23 [facility] Medical History (Updated 05/12/23 @ 17:01 by Daksha Adams MD) Lumbar disc herniation Aftercare following right ankle joint replacement surgery Necrotizing fasciitis Degenerative disc disease, lumbar Depression Anxiety Surgical History History of throat surgery S/P lumpectomy, right breast Family History Mother COPD (chronic obstructive pulmonary disease) Emphysema lung Mental health disorder Social History Household Members: Friend(s) Housing: House Are you a primary career and transition teacher to a significant other at home: No Do you presently have visiting nurse or other home services: No Alcohol intake: current Patient Tobacco Use Status: Former Tobacco user e-Cigarette/Vaping Use: Former Use service: No Current occupational status: disabled 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 Cognitive needs: No Hearing needs: No Vision needs: Yes (glasses) Assessment & Plan Assessment & Plan (1) Morbid obesity with BMI of 40.0-44.9, adult: Code(s): E66.01 - Morbid (severe) obesity due to excess calories; Z68.41 - Body mass index [BMI] 40.0-44.9, adult Plan wt 101kg Est kcal needs as per MSJ: 1900 (40% carb, 30% protein/fat) Est fluid needs as per 30 ml/d: 3000 Est prot per day as per 1 g/kg bw: 101 Recommend fiber intake : 8-10 g per day and gradually increase to 25-28 g per day for women and 35-38 g for men or as tolerated Recommend sodium intake per day : less than 2000 mg Educated patient on: ( R = reviewed V = verbalizes understanding N/R = needs review N/A = not applicable Food sources of carbohydrate, adequate serving sizes and its role in various health conditions: R Differences between complex carbohydrates a simple carbohydrates, role of fiber in diet: R protein sources of foods and portion sizes: R Differences between types of fats and role in diet (mono on saturated fat fatty acids, saturated fatty acids, trans fats): NR Food sources of sodium in salt and healthy modifications for heart health in kidney health: NR Vitamins and minerals: R Healthy plate method concept: R V Physical activity: Benefits a precaution: NR Patient Instructions: Work at having 3 meals per day, scheduled Include lean protein in your meals following healthy plate method see 2000 calorie meal plan as reference practice mindful eating strategies Coding Level of Care Code Nutr Indiv Intake (94645) Diagnoses Morbid obesity with BMI of 40.0-44.9, adult E66.01; Z68.41 Time Spent (min) 30
[2023-05-25 13:05] VITALS: BMI 38.9
[2023-06-01 08:34] VITALS: BMI 38.9
== END 2023-05-25 13:35 | disposition home or self-care (01) ==
PROVIDERS: PCP Nurse Practitioner Family; Visit Provider Dietitian, Registered
DX: E66.01 Morbid (severe) obesity due to excess calories (principal); Z68.41 Body mass index [BMI] 40.0-44.9, adult

== ENCOUNTER → 2023-05-25 12:57 | Outpatient (BNVA) | payer OTHER, SELFPAY | PROVIDERS: PCP Nurse Practitioner Family; Visit Provider Dietitian, Registered | DX: E66.01 Morbid (severe) obesity due to excess calories (principal); Z68.38 Body mass index [BMI] 38.0-38.9, adult | CPT/HCPCS: 97802 ==

== ENCOUNTER 2023-06-09 11:23 | Outpatient (REF) | payer OTHER, SELFPAY ==
--- NOTE | ~2023-06-09 | MR_ITS ---
EXAMINATION: MR CERVICAL SPINE WITHOUT CONTRAST CLINICAL INFORMATION: Radiculopathy and neck pain with tingling in arms. COMPARISON: X-ray dated 04/28/2023. TECHNIQUE: Multiplanar, multisequential imaging of the cervical spine was performed without contrast. FINDINGS: VERTEBRAL BODIES AND PARASPINAL SOFT TISSUES: Moderate multilevel disc space narrowing noted throughout the cervicothoracic spine. The marrow signal is mildly heterogeneous with regions of fatty change. There is a leftward curvature of the spine as well. No compression fractures. There are mixed chronic and edematous endplate changes visible at the C3-C4, T2-T3, T3-T4, and T4-T5 levels with disc bulges and endplate spurring. At the upper thoracic levels, there are small right foraminal disc protrusions resulting in moderate foraminal encroachment at the T1-T2, T2-T3, and T3-T4 levels. The paraspinal soft tissues are normal. The vertebral artery flow-voids are maintained. The imaged lung apices are grossly clear. CERVICOMEDULLARY JUNCTION AND VISUALIZED POSTERIOR FOSSA: The craniovertebral junction and imaged portions of the brain parenchyma appear normal. No cord signal abnormality or syrinx is seen. SPINAL LEVELS: C2-C3: No disc pathology. Mild facet arthrosis without central canal stenosis or foraminal narrowing. C3-C4: Moderate loss of disc height and retrosubluxation with a disc-osteophyte complex and mild endplate edema. Severe left foraminal narrowing. No central canal stenosis. C4-C5: Fqimhctc-qk-derkfu loss of disc height and mild posterior subluxation with a shallow disc-osteophyte complex. No central canal stenosis. Irft-qw-qmbdgyou foraminal narrowing, more so on the right side. C5-C6: Disc-osteophyte complex mildly impresses upon the ventral thecal sac without central canal stenosis. Severe left foraminal narrowing and moderate right foraminal encroachment. C6-C7: Rtdljxms-cq-unowjv loss of disc height with a posterior disc bulge and uncovertebral joint spurring resulting in severe left foraminal encroachment. No central canal stenosis. C7-T1: Mild disc bulge and endplate spurring without central canal stenosis. Moderate left foraminal narrowing and milder right foraminal encroachment. MR/MR cervical spine wo con IMPRESSION: Moderate multilevel cervical spondylosis with mixed chronic and edematous endplate changes. No focal disc protrusion or central canal stenosis. Multilevel foraminal narrowing due to disc-osteophyte complexes. Leftward curvature of the cervical spine. Lgyn-iq-ciaoosdg endplate edematous changes lateralized to the right side at the upper thoracic levels with right foraminal disc protrusion resulting in moderate right foraminal encroachment, particularly at the T1-T2, T2-T3, and T3-T4 levels.
== END 2023-06-09 11:24 | disposition home or self-care (01) ==
LOC: HO.MRI 11:23
PROVIDERS: PCP Nurse Practitioner Family; Visit Provider Nurse Practitioner Family
DX: M54.12 Radiculopathy, cervical region (principal); M48.02 Spinal stenosis, cervical region
CPT/HCPCS: 72141

== ENCOUNTER 2023-06-13 13:19 | Outpatient (AMB) | payer OTHER, SELFPAY ==
--- NOTE | 2023-06-13 14:03 | A.OFFVIS_ITS ---
Intake Vital Signs 06/13/23 14:08 Height 5 ft 3.5 in Weight 210 lb BMI 36.6 BP 112/76 Blood Pressure Location Rt brachial Position Sitting Respiration 14 Pulse 86 Pulse Source Pulse Oximeter Pulse Oximetry (%) 100 Oxygen Delivery Method Room Air Intake Visit Reasons: Cervical MRI Results Allergies amoxicillin [From Augmentin] Adverse Reaction (Mild, Verified 06/13/23 14:11) yeast infection clavulanic acid [From Augmentin] Adverse Reaction (Mild, Verified 06/13/23 14:11) yeast infection amoxicillin Adverse Reaction (Mild, Uncoded 05/12/23 13:02) yeast infection HPI HPI Comments History of Present Illness Details Cary is very pleasant 47 years old female who presents herself in my office with 2 distinct pain generators. She went for MRI of the cervical spine and the MRI results dictated as below. There are several levels of severe foraminal stenosis as dictated as below. Considering that this patient has numbness on bilateral upper extremities I will send her for evaluation by neuro surgery. Meanwhile I offered her to perform interlaminar epidural steroid injection which should be done at C6-C7 level. C/o pain in the cervical spine with sensation of the numbness of bilateral upper extremities as well as axial pain in lower back which is aggravated by prolonged standing and sitting and aggravated by flexing back forward but alleviated when she flex her back backwards. She reports that her pain started many years ago however became aggravated recently reports pain in neck 4 to 6/10 and pain in lower back is 10+ out of 10. She was under care of pains physician in [facility] she received MRI of the lumbar spine she was not recommended to go for the surgery by neurosurgeon. Never was evaluated by MRI of the cervical spine she is taking gabapentin for her pain and 100 mg 3 times a day maximal does she is taking tramadol 50 mg once a day and muscle relaxant methalaxon. She reports that she received sacroiliac joint injections in the past those were done by Dr. Markham in [facility] she reports very minimal help for 1 or 2 days from steroid sacroiliac joint injection however no prolonged pain relief. She had multiple attempts at physical therapy which aggravated her pain and she refused to go to physical therapy she denies chiropractic manipulations massage therapy or 10s unit. She brought with herself and MRI done on her lumbar spine in [facility] in [facility] which is suspicious for Modic type changes. I would like to send this MRI disc for the review with Radiology to evaluate this MRI for Modic type changes. [facility] Medical History (Updated 06/13/23 @ 14:42 by Abdelrahman Richards MD) Lumbar disc herniation Aftercare following right ankle joint replacement surgery Necrotizing fasciitis Degenerative disc disease, lumbar Depression Anxiety Surgical History History of throat surgery S/P lumpectomy, right breast Family History Mother COPD (chronic obstructive pulmonary disease) Emphysema lung Mental health disorder Social History Household Members: Friend(s) Both parents involved: No Caregiver staying overnight: No Housing: House Are you a primary healthcare business analyst to a significant other at home: No Do you presently have visiting nurse or other home services: No 75 years or older and lives alone: No Alcohol intake: current Patient Tobacco Use Status: Former Tobacco user e-Cigarette/Vaping Use: Former Use service: No Current occupational status: disabled 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 Patient was appropriately conversant and oriented. Good historian. MSK: Inspection reveals appropriate head and neck positioning. No pain with palpation over the neck musculature. Cervical ROM was full. Spurling's sign positive with radiation to left arm. Bilateral shoulder, elbow and wrist ROM WNL. No ligamentous laxity or crepitance. No increased effusion. No specific abnormalities or instability found on inspection and palpation of the spine and extremities. No point tenderness on spinous processes, facets, SI or GT. Unable to do lumbar extension due to pain. Negative SLR. Positive MARCOS for back pain bilateral. Strength is 5/5 in all muscle groups tested. No increased tone noted. Right toes go into spasms while extended with pain. This limits her ankle range of motion. No redness or swelling on right foot or ankle. Neurological: Neurologic examination of the upper and lower extremities was nonfocal with intact sensation, muscle stretch reflexes and without focal motor deficits . Hunter?s negative bilaterally. Babinski was down going bilaterally. Clonus was negative. Gait is non-antalgic without loss of balance. Can stand on heels but cannot do toe walk. No foot drop while seated. Neck Other: Negative Lhermitte sign, positive Spurling sign on the right negative Valsalva maneuver 2 point differentiation is positive on bilateral hands Back/Spine/Pelvis Other: Flexing forward greatly aggravate her pain. In fact she cannot flex forward more than 45 degrees. Flexing backwards alleviates her pain. Prolonged sitting aggravates her pain. Results Reviewed Results Reviewed: MRI of the cervical spine 06/09/2023: VERTEBRAL BODIES AND PARASPINAL SOFT TISSUES: Moderate multilevel disc space narrowing noted throughout the cervicothoracic spine. The marrow signal is mildly heterogeneous with regions of fatty change. There is a leftward curvature of the spine as well. No compression fractures. There are mixed chronic and edematous endplate changes visible at the C3-C4, T2-T3, T3-T4, and T4-T5 levels with disc bulges and endplate spurring. At the upper thoracic levels, there are small right foraminal disc protrusions resulting in moderate foraminal encroachment at the T1-T2, T2-T3, and T3-T4 levels. The paraspinal soft tissues are normal. The vertebral artery flow-voids are maintained. The imaged lung apices are grossly clear. CERVICOMEDULLARY JUNCTION AND VISUALIZED POSTERIOR FOSSA: The craniovertebral junction and imaged portions of the brain parenchyma appear normal. No cord signal abnormality or syrinx is seen. SPINAL LEVELS: C2-C3: No disc pathology. Mild facet arthrosis without central canal stenosis or foraminal narrowing. C3-C4: Moderate loss of disc height and retrosubluxation with a disc-osteophyte complex and mild endplate edema. Severe left foraminal narrowing. No central canal stenosis. C4-C5: Bhicciqt-yo-mtrcdi loss of disc height and mild posterior subluxation with a shallow disc-osteophyte complex. No central canal stenosis. Qlqg-nv-hqzhitwp foraminal narrowing, more so on the right side. C5-C6: Disc-osteophyte complex mildly impresses upon the ventral thecal sac without central canal stenosis. Severe left foraminal narrowing and moderate right foraminal encroachment. C6-C7: Ehrhuaed-ng-howzmw loss of disc height with a posterior disc bulge and uncovertebral joint spurring resulting in severe left foraminal encroachment. No central canal stenosis. C7-T1: Mild disc bulge and endplate spurring without central canal stenosis. Moderate left foraminal narrowing and milder right foraminal encroachment. MR/MR cervical spine wo con IMPRESSION: Moderate multilevel cervical spondylosis with mixed chronic and edematous endplate changes. No focal disc protrusion or central canal stenosis. Multilevel foraminal narrowing due to disc-osteophyte complexes. Leftward curvature of the cervical spine. Ispv-hb-flhhjgqw endplate edematous changes lateralized to the right side at the upper thoracic levels with right foraminal disc protrusion resulting in moderate right foraminal encroachment, particularly at the T1-T2, T2-T3, and T3-T4 levels. Assessment & Plan Assessment & Plan (1) Lumbar disc herniation: Code(s): M51.26 - Other intervertebral disc displacement, lumbar region Plan: Patient denies pain of the lower extremities radiating down the legs. She admits that pain is mostly axial and stays in her back. She admits that the pain is increased with prolong sitting and standing and greater more increased with flexing forward but not backwards. Fact she reports that flexing backwards greatly alleviates her pain. These are the signs of vertebro genic/discogenic pain. I examined the MRI the patient brought with herself and I think the might be Modic type changes in her back. I will have this MRI to be read by our radiologist department to confirm or deny Modic type changes. (2) Cervical radiculitis: Code(s): M54.12 - Radiculopathy, cervical region Plan: I am very concerned about the numbness which is objective on the exam on bilateral hands. Cervical spine MRI demonstrates several levels of foraminal stenosis especially on C5-C6 and C6-C7 level. I offered her C6-C7 epidural steroid injection interlaminar while I a.m. referring her to a neurosurgeon. She agreed to go for the epidural steroid injection. We need to find out what is the comments on the MRI of the lumbar spine and Modic type changes would be from Radiology Department. I will evaluate this patient after the steroid injection in the cervical spine. (3) Spondylosis of lumbar spine: Code(s): M47.816 - Spondylosis without myelopathy or radiculopathy, lumbar region (4) Vertebrogenic low back pain: Code(s): M54.51 - Vertebrogenic low back pain (5) Cervical stenosis of spinal canal: Code(s): M48.02 - Spinal stenosis, cervical region (6) Degeneration, intervertebral disc, cervical: Code(s): M50.30 - Other cervical disc degeneration, unspecified cervical region Orders: Referrals Neurosurgery Referral M50.30 - Other cervical disc degeneration, unspecified cervical region, M54.12 - Radiculopathy, cervical region Coding Level of Care Code Est Pt Level 4 (98143) Diagnoses Lumbar disc herniation M51.26 Cervical radiculitis M54.12 Spondylosis of lumbar spine M47.816 Vertebrogenic low back pain M54.51 Cervical stenosis of spinal canal M48.02 Degeneration, intervertebral disc, cervical M50.30
[2023-06-13 14:08] VITALS: BP 112/76; PULSE 86; RESP 14; O2SAT 100; BMI 36.6
== END 2023-06-13 14:38 | disposition home or self-care (01) ==
PROVIDERS: PCP Nurse Practitioner Family; Visit Provider Anesthesiology
DX: M54.12 Radiculopathy, cervical region (principal); M47.816 Spondylosis without myelopathy or radiculopathy, lumbar region; M54.51 Vertebrogenic low back pain; M48.02 Spinal stenosis, cervical region; M50.30 Other cervical disc degeneration, unspecified cervical region
CPT/HCPCS: 99214

== ENCOUNTER → 2023-06-13 13:19 | Outpatient (BNVA) | payer OTHER, SELFPAY | PROVIDERS: PCP Nurse Practitioner Family; Visit Provider Anesthesiology | DX: M51.26 Other intervertebral disc displacement, lumbar region (principal); M54.12 Radiculopathy, cervical region; M47.816 Spondylosis without myelopathy or radiculopathy, lumbar region; M54.51 Vertebrogenic low back pain; M48.02 Spinal stenosis, cervical region; M50.30 Other cervical disc degeneration, unspecified cervical region | CPT/HCPCS: 99212 ==

== ENCOUNTER 2023-06-15 11:47 | Outpatient (REF) | payer OTHER, SELFPAY ==
[2023-06-15 14:55] LABS: Hematocrit 34.8 % (37.0-47.0); Mean Corpuscular HGB Conc 31.6 g/dl (31.0-35.0); Mean Corpuscular Hemoglobin 25.9 pg (27.0-33.0); Mean Corpuscular Volume 81.9 fL (80.0-98.0); Mean Platelet Volume 10.3 fL (9.4-12.3); Platelet Count 388 X10*3/uL (160-400); Red Blood Count 4.25 X10*6/uL (4.20-5.50); Red Cell Distribution Width 15.9 % (11.0-16.0)
[2023-06-15 15:29] LABS: Ferritin 5 ng/mL (10-250); Iron 71 mcg/dL (30-160); Percent Iron Saturation 19 % (15-50); Total Iron Binding Capacity 383 mcg/dL (228-428); Unsaturated Iron Binding 312 ug/dL
[2023-06-15 15:38] LABS: Folate 10.3 ng/mL (> or = 4.0); Vitamin B12 702 pg/mL (200-900)
== END 2023-06-15 11:48 | disposition home or self-care (01) ==
LOC: HO.WFDLDS 11:47
PROVIDERS: Visit Provider Nurse Practitioner Family
DX: D50.9 Iron deficiency anemia, unspecified (principal)
CPT/HCPCS: 36415; 82607; 82728; 82746; 83540; 85027

== ENCOUNTER 2023-06-16 10:34 | Outpatient (AMB) | payer OTHER, SELFPAY ==
[2023-06-16 10:47] VITALS: BP 112/74; PULSE 68; RESP 12; TEMP 36.3; O2SAT 99; BMI 36.6
--- NOTE | 2023-06-16 10:47 | A.OFFPC_ITS ---
Vital Signs 06/16/23 10:47 Height 5 ft 3.5 in Weight 210 lb BMI 36.6 BP 112/74 Blood Pressure Location Rt brachial Position Sitting Respiration 12 Pulse 68 Pulse Source Pulse Oximeter Temp 97.4 F Temp Source Temporal Artery Scan Pulse Oximetry (%) 99 Oxygen Delivery Method Room Air Intake Visit Reasons: anemia, CPE Intake Note: Patient states that she got only half of the script that she should of had for tramadol. Patient needs meds rewrote and resent to say that she is taking 2 50 Mg TID for 20 days in order for insurance to cover. Patient states that she is suppose to have 120 ct with that dosing and has only been receiving 60 which is only covering her for 10 days. Cardiology Physician Required: No Accompanied by: Self / Same As Patient Allergies amoxicillin [From Augmentin] Adverse Reaction (Mild, Verified 06/16/23 11:16) yeast infection clavulanic acid [From Augmentin] Adverse Reaction (Mild, Verified 06/16/23 11:16) yeast infection amoxicillin Adverse Reaction (Mild, Uncoded 06/16/23 11:16) yeast infection Medication List - Last Reconciled 06/16/23 by Jacoby Francis, SHERRIE alprazolam 0.5 mg PO DAILY PRN aripiprazole mg PO dextroamphetamine-amphetamine 20 mg (Adderall) 20 mg PO DAILY escitalopram oxalate 15 mg PO DAILY ferrous sulfate 325 mg PO DAILY 30 days gabapentin 300 mg PO TID metaxalone 800 mg PO TID tramadol 100 mg (2 x 50 mg) PO TID PRN 20 days zolpidem ER 12.5 mg PO BEDTIME PRN Tobacco use date assessed: 04/07/23 Dental Screening Dental Screen Date: 06/16/23 Did you have a dental visit in the last 12 months?: No Did you have a dental problem in the last 6 months where you did not have access to dental care?: No Was dental information given to patient?: Patient has dentist HPI HPI Comments History of Present Illness Details 47-year-old female presents for complete physical exam. She establish care in March 2023. She has PMH significant for LBP secondary to DJD and compression fracture at L4 and L5, ADHD, insomnia, anxiety, and depression. She was referred to orthopedics. She is currently followed by Ortho, pain m anagement, and was referred to Neurosurgery by pain management. She is on tramadol and metaxalone for pain. She has been going to PT twice weekly. She had blood work last month which revealed iron deficiency anemia. She was started on ferrous sulfate. Her recent labs revealed marked improvement of her anemia. Her RBC has normalized. H&H has significantly improved but slightly low, 11.0/34.8. Iron profile level has normalized. Ferritin level is low, 5. She reports continued chronic posterior neck and back pain with new onset of tingling and warm sensation from to her BLE (from knees down) which started 2 weeks days. She is working with dietitian for to improve her diet. She states she has not been contacted by management. She notes that she is awaiting to be contacted by neurosurgery to schedule an appointment. She notes that her last pap smear test was 1 year ago: normal [facility] Medical History Lumbar disc herniation Aftercare following right ankle joint replacement surgery Necrotizing fasciitis Degenerative disc disease, lumbar Depression Anxiety Surgical History History of throat surgery S/P lumpectomy, right breast Family History Mother COPD (chronic obstructive pulmonary disease) Emphysema lung Mental health disorder Social History Household Members: Friend(s) Both parents involved: No Caregiver staying overnight: No Housing: House Are you a primary home care music therapist to a significant other at home: No Do you presently have visiting nurse or other home services: No 75 years or older and lives alone: No Alcohol intake: current Patient Tobacco Use Status: Former Tobacco user e-Cigarette/Vaping Use: Former Use service: No Current occupational status: disabled 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 Contreras Velazquez, Gisselle Reyna, Javed Lee and colleagues, with an educational earline from [employer]. Review of Systems Const Details: Denies chills, Denies fatigue, Denies fever(s), Denies headache(s) and Denies weakness HEENT Denies change in vision, Denies dizziness, Denies headache(s), Denies hearing loss, Denies nasal congestion, Denies sinus pain, Denies sinus pressure and Denies sore throat Card Denies chest pain, Denies lightheadedness, Denies dyspnea and Denies other (palpitations) Resp Denies cough, Denies dyspnea and Denies wheezing GI Denies abdominal pain, Denies melena, Denies hematochezia, Denies change in bowel habits, Denies dyspepsia and Denies nausea Denies hematuria and Denies dysuria Musc Reports as per HPI Skin/Breast Denies rash, Denies unusual bruising and Denies wounds Neuro Denies abnormal gait, Denies dizziness, Denies headache(s), Denies memory loss, Denies numbness, Denies Sensory deficit (Neuro), Denies tingling and Denies weakness Psych Denies anxiety, Denies depression and Denies memory loss Endo Denies cold intolerance, Denies fatigue, Denies heat intolerance, Denies polydipsia and Denies polyuria Marc/Lymph Denies easy bleeding and Denies easy bruising Aller/Immun Denies wheezing Physical exam (Primary Care) Vital Signs: Last Vital Signs Temp 97.4 F 06/16/23 10:47 Pulse 68 06/16/23 10:47 Resp 12 06/16/23 10:47 BP 112/74 06/16/23 10:47 Pulse Ox 99 06/16/23 10:47 Oxygen Delivery Method Room Air 06/16/23 10:47 BMI result Body Mass Index 36.6 Tobacco/Smoking Status: Tobacco use Status Tobacco use date assessed 04/07/23 06/16/23 11:04 Patient Tobacco Use Status Former Tobacco user 06/16/23 11:04 e-Cigarette/Vaping Use Former Use 06/16/23 11:04 Const Other: General: no acute distress, well developed, alert and awake Nutritional Appearance: well nourished Orientation/consciousness: patient oriented x3 HENMT Head: Yes normocephalic and Yes atraumatic Ears: hearing grossly normal bilaterally and TM's normal bilaterally General nose exam: Normal external nose present and Normal nares present Mouth: Normal oral and palatal mucosa present and moist mucous membranes Teeth and gingiva: dentition normal Throat: Yes oropharynx normal Eyes Pupils: Equal, round and reactive pupils present and Pupil accommodation reflex normal EOM: EOMs intact bilaterally Neck Neck: Yes normal visual inspection, Yes no lymphadenopathy and Yes trachea midline Thyroid: Thyroid normal Carotids: no bruits Lymphatic: no lymphadenopathy noted Chest Chest palpation & inspection: normal inspection of the chest Resp Effort & Inspection: normal respiratory effort Auscultation: clear to auscultation bilaterally Cardio Rate: regular rate Rhythm: regular rhythm Heart sounds: S1 normal heart sound present, S2 normal heart sound present, no gallops, no murmurs and no rubs Bruits: no abdominal aortic bruits and no carotid bruits GI Palpation (GI): No Abdominal aortic bruit present, Soft to palpation, nontender, No hepatosplenomegaly present and No Rebound tenderness present Auscultation: normal bowel sounds General: Yes no CVA tenderness Back/Spine/Pelvis Back: no CVA tenderness Cervical Spine: cervical ROM normal and Cervical spine tenderness Thoracic/Lumbar Spine: thoraco-lumbar ROM normal, No pain with thoraco-lumbar ROM, No thoracic spinal tenderness and lumbar spinal tenderness Skin General: warm and dry. Normal skin color. Normal skin turgor Lesions: no lesions Rashes: no rashes Trauma: no lacerations or abrasions Wounds: no wounds Nails: normal Neuro General: patient oriented x3, gait normal and CN's II-XI intact bilaterally Cranial nerves: Yes Equal, round and reactive pupils present Cognition (Neuro): normal cognition Gait exam (Neuro): Normal gait present Motor exam (neuro): 5/5 motor strength present throughout Sensory Exam: No Sensory deficit (Neuro) Deep tendon reflexes (DTR's): Right patellar reflex intensity grade: 2+ and Left patellar reflex intensity grade: 2+ Extrem General: Yes normal to inspection, No edema and No calf tenderness Psych Appearance: grossly normal Affect: normal affect Attitude: cooperative Thought process: Normal thought process present Assessment and Plan Assessment & Plan (1) Normal physical examination, routine: Code(s): Z00.00 - Encounter for general adult medical examination without abnormal findings Plan: Mild physical restrictions or limitations noted due to chronic pain Advised to get blood work done before her next visit Follow-up for iron deficiency anemia in 2 months Return with symptoms or concerns Verbalized understanding and agreed with treatment plan. (2) Anemia: Code(s): D64.9 - Anemia, unspecified Qualifiers: Anemia type: iron deficiency Plan: She had blood work last month which revealed iron deficiency anemia. She was started on ferrous sulfate. Her recent labs revealed marked improvement of her anemia. Her RBC has normalized. H&H has significantly improved but slightly low, 11.0/34.8. Iron profile level has normalized. Ferritin level is low, 5. Continue to take ferrous sulfate as prescribed Will repeat CBC, iron profile, and ferritin levels. Perform blood work before next visit Follow-up in 2 months or return sooner with symptoms or concerns Verbalized understanding and agreed with treatment plan. (3) Chronic back pain: Code(s): M54.9 - Dorsalgia, unspecified; G89.29 - Other chronic pain Qualifiers: Back pain location: low back pain Sciatica presence: without sciatica Plan: She reports continued chronic posterior neck and back pain with new onset of tingling and warm sensation from to her BLE (from knees down) which started 2 weeks days. Tenderness to palpation of the cervical and lumbar spine Metaxalone, gabapentin, and tramadol as prescribed Physical therapy as planned Follow-up with Ortho and physiatry as planned Schedule an appointment with Neurosurgery with contacted and follow-up Return with worsening or new symptoms Verbalized understanding and agreed with treatment plan. (4) Cervical radiculitis: Code(s): M54.12 - Radiculopathy, cervical region Plan: She reports continued chronic posterior neck and back pain with new onset of tingling and warm sensation from to her BLE (from knees down) which started 2 weeks days. Metaxalone, gabapentin, and tramadol as prescribed Follow-up with Ortho and physiatry as planned Schedule an appointment with Neurosurgery with contacted and follow-up Return with worsening or new symptoms Verbalized understanding and agreed with treatment plan. (5) Morbid obesity with BMI of 40.0-44.9, adult: Code(s): E66.01 - Morbid (severe) obesity due to excess calories; Z68.41 - Body mass index [BMI] 40.0-44.9, adult Plan: She is working with dietitian for to improve her diet. She states she has not b een contacted by management. Healthy diet and routine exercise encouraged Continue follow-up with dietitian as planned Informed that weight reduction may alleviate spine/back pain The MA contacted weight management on was informed that the patient has a current appointment with dietitian has to cancel that appointment in order to be followed by weight management. Patient informed. She notes that she would contact weight management to remedy the situation Verbalized understanding and agreed with treatment plan. Orders: Orders IRON PROFILE 2 Months D64.9 - Anemia, unspecified Complete Blood Count no Diff 2 Months D64.9 - Anemia, unspecified Ferritin 2 Months D64.9 - Anemia, unspecified Medications: Refilled tramadol 100 mg (2 x 50 mg) PO TID 20 days PRN 120 tabs 0RF pain Coding Level of Care Code Est Pt Prev Care 40-64y(67619) Diagnoses Normal physical examination, routine Z00.00 Anemia D64.9 Anemia type: iron deficiency Chronic back pain M54.9; G89.29 Back pain location: low back pain Sciatica presence: without sciatica Cervical radiculitis M54.12 Morbid obesity with BMI of 40.0-44.9, adult E66.01; Z68.41
== END 2023-06-16 11:50 | disposition home or self-care (01) ==
PROVIDERS: PCP Nurse Practitioner Family; Visit Provider Nurse Practitioner Family
DX: Z00.00 Encounter for general adult medical examination without abnormal findings (principal); E66.01 Morbid (severe) obesity due to excess calories; Z68.41 Body mass index [BMI] 40.0-44.9, adult; D64.9 Anemia, unspecified; M54.9 Dorsalgia, unspecified; G89.29 Other chronic pain; M54.12 Radiculopathy, cervical region
CPT/HCPCS: 99396

== ENCOUNTER 2023-06-27 11:00 | Outpatient (RCR) | payer OTHER, SELFPAY ==
--- NOTE | 2023-05-27 16:27 | MHC.PT.EP ---
[facility] [place] [facility] [place] [facility] [place] [facility] [address] [place] [address] [phone] F: [phone] F: [phone] F: [phone] F: [phone] Physical Therapy Plan of Care Date of Evaluation: 05/27/23 Date of Surgery: Diagnosis: dorsalgia, chronic back pain (MD Dx) Hx of scoliosis, lumbar DDD, lumbar disc protrusions (pt unclear what levels, awaiting new MRI) (PT Dx) Assessment: Patient is a pleasant 47 y.o. female who is referred to PT by Dr. Jacoby Francis MD (pt also seen by Dr. Maurice MD) with Dx of dorsalgia, chronic back pain. PT diagnosis is Hx of scoliosis, lumbar DDD, lumbar disc protrusions (pt unclear what levels, awaiting new MRI). Patient also presents with cervical radiculopathy (not referred for PT for this but will impact treatment). Patient impairments include pain, poor posture, weak core and hips, limited lumbar AROM, scoliosis. Patient current functional limitations are unable to stand more than 10 mins to wash dishes, difficulty sleeping/needs to change positions, walking long distances, unable to work. Patient will benefit from skilled PT to address aforementioned impairments and functional limitations to meet established goals. Frequency and Duration: The patient will be seen 2x/week for 4 weeks Short Term Goals: 2 weeks Patient demonstrates consistency and independence with HEP to self manage symptoms. Senior Care Goals: 4 weeks Patient presents with increased bilateral glute med strength 4+/5 to improve standing tolerance to wash dishes. Patient presents with increased lumbar extension 15 degrees to improve walking endurance. Treatment Plan: Modalities to reduce pain, spasms and effusion. Manual therapy to restore motion and function. Therapeutic exercise to improve strength and flexibility. Neuromuscular re-education for posture and balance. Therapeutic activities to return to functional activities of daily living. Electronically signed by: Tanesha Chun, PT, DPT Please sign and return to therapist. Thank you for your referral.
--- NOTE | 2023-08-04 14:34 | MHC.PT.DC ---
[facility] [place] Office [place] Office [place] Office [address] [place] [address] [phone] F: [phone] F: [phone] F: [phone] F: [phone] Physical Therapy Discharge Report Diagnosis: dorsalgia, chronic back pain (MD Dx) Hx of scoliosis, lumbar DDD, lumbar disc protrusions (pt unclear what levels, awaiting new MRI) (PT Dx) Date of Surgery: Date of Evaluation: 05/27/23 Date of Discharge: 08/04/23 Treatments to Date: 6 Cancellations to Date: No Shows to Date: Discharge Status: Patient Elected to Stop Recommend MD Follow-up Discharge Summary: Cary ceased attended PT after visit on 06/27/23 as she was receiving C5-C6 intralaminar epidural steroid injection on 06/28/23 for pain management. She was also awaiting more treatment from pain management and visit to Spine Surgeon once MRI of lumbar spine was re-read. Due to this she is discharged from PT at this time. Electronically signed by: Tanesha Chun, PT, DPT Please sign and return to therapist. Thank you for your referral.
== END 2023-08-04 14:35 | disposition home or self-care (01) ==
LOC: HO.PT 11:00
PROVIDERS: PCP Nurse Practitioner Family; Visit Provider Nurse Practitioner Family
DX: M54.9 Dorsalgia, unspecified (principal); G89.29 Other chronic pain
CPT/HCPCS: 97014; 97110; 97140; 97162

== ENCOUNTER 2023-06-28 06:11 | Outpatient (REF) | payer OTHER, SELFPAY ==
--- NOTE | ~2023-06-28 | FL_ITS ---
EXAMINATION: XR FLUOROSCOPY WITH IMAGES CLINICAL INFORMATION: Radiculopathy, cervical region. COMPARISON: None available. TECHNIQUE: Fluoroscopy Supervised By: Dr. Abdelrahman Richards. Fluoroscopy Time: 0.3 minutes. Cumulative Dose: 11.1 mGy. DAP: 0.0815 Gycm2. Images: 2. FINDINGS: Image demonstrates needle projecting over the midline cervical spine. FL/FL guidance in treatment room IMPRESSION: Fluoroscopy guidance for pain management procedure
== END 2023-06-28 06:12 | disposition home or self-care (01) ==
LOC: CF 06:11
PROVIDERS: Visit Provider Anesthesiology
DX: M54.12 Radiculopathy, cervical region (principal); M50.30 Other cervical disc degeneration, unspecified cervical region; M48.02 Spinal stenosis, cervical region
CPT/HCPCS: 62321; J1100; J2795; Q9967

== ENCOUNTER 2023-06-28 08:02 | Outpatient (AMB) | payer OTHER, SELFPAY ==
[2023-06-28 08:09] VITALS: BP 110/66; PULSE 89; RESP 12; O2SAT 100; BMI 36.6
--- NOTE | 2023-06-28 08:09 | MHC.OFFVIS ---
Intake Vital Signs 06/28/23 08:09 06/28/23 09:43 Height 5 ft 3.5 in 5 ft 3.5 in Weight 210 lb 210 lb BMI 36.6 36.6 BP 110/66 104/68 Blood Pressure Location Rt brachial Lt brachial Position Sitting Sitting Respiration 12 12 Pulse 89 73 Pulse Source Pulse Oximeter Pulse Oximeter Pulse Oximetry (%) 100 100 Oxygen Delivery Method Room Air Room Air Comment pre-op post-op Intake Visit Reasons: C6-C7 CARMEN/LOCAL Allergies amoxicillin [From Augmentin] Adverse Reaction (Mild, Verified 06/28/23 08:10) yeast infection clavulanic acid [From Augmentin] Adverse Reaction (Mild, Verified 06/28/23 08:10) yeast infection amoxicillin Adverse Reaction (Mild, Uncoded 06/28/23 08:10) yeast infection PFSH Medical History Lumbar disc herniation Aftercare following right ankle joint replacement surgery Necrotizing fasciitis Degenerative disc disease, lumbar Depression Anxiety Surgical History History of throat surgery S/P lumpectomy, right breast Family History Mother COPD (chronic obstructive pulmonary disease) Emphysema lung Mental health disorder Social History Household Members: Friend(s) Both parents involved: No Caregiver staying overnight: No Housing: House Are you a primary overnight caregiver to a significant other at home: No Do you presently have visiting nurse or other home services: No 75 years or older and lives alone: No Alcohol intake: current Patient Tobacco Use Status: Former Tobacco user e-Cigarette/Vaping Use: Former Use service: No Current occupational status: disabled 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 ?Informed consent was explained to the patient. All questions were explained and answered.? The patient was taken inside the operating room where she was positioned prone on the operating table. Time-out was performed delineating correct site, side, the nature of the procedure, patient's allergy, preoperative antibiotic if needed.? All operating room staff was participating in OR time-out procedure. The back of the neck and upper back were prepped with ChloraPrep and draped with sterile towels.? Sterilely draped C-arm was brought over the operating field and sq picture of? C4-C5-C6 -C7 vertebrae were delineated on the screen.? The planned C6- C7 intervertebral interval appeared to be too narrow to needle advancement . The decision was made to address one level above C5- C6. Upper border of the right C6 lamina was chosen as a target of the needle advancement. The projection of the point of interest to the skin was injected with 4 mls of lidocaine 1% PF using 25 g 1 inch needle. After that 22g Touhy needle was inserted through the skin wheal and advanced to the point of interest under intermittent AP, contralateral oblique and lateral views. When the tip of the needle contacted the bone the needle was deviated cephalad and further advancement into the epidural space was made on the lateral view using KAILEE to saline technique. When the loss of resistance was felt the contrast was injected into the needle demonstrating posterior epidurogram. After that injection of treatment solution of NS 0.9% 5 mls mixed with dexamethasone 10 mg was made into the needle . After that the needle was removed and bandaid was applied. The patient tolerated the procedure well, she was taken to recovery room where she recovered uneventfully. Orders: Orders FL guidance in treatment room Today M54.12 - Radiculopathy, cervical region Coding Level of Care Code Procedure Only Diagnoses Degeneration, intervertebral disc, cervical M50.30 Cervical stenosis of spinal canal M48.02
[2023-06-28 09:43] VITALS: BP 104/68; PULSE 73; RESP 12; O2SAT 100; BMI 36.6
== END 2023-06-28 09:04 | disposition home or self-care (01) ==
LOC: HO.PMCPRC 08:02
PROVIDERS: PCP Nurse Practitioner Family; Visit Provider Anesthesiology
DX: M54.12 Radiculopathy, cervical region (principal); M48.02 Spinal stenosis, cervical region
CPT/HCPCS: 62321

== ENCOUNTER 2023-07-06 10:58 | Outpatient (AMB) | payer OTHER, SELFPAY ==
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
[2023-07-06 11:23] VITALS: BMI 36.6
== END 2023-07-06 11:53 | disposition home or self-care (01) ==
PROVIDERS: PCP Nurse Practitioner Family; Visit Provider Physical Medicine & Rehabilitation
DX: M47.812 Spondylosis without myelopathy or radiculopathy, cervical region (principal); M53.3 Sacrococcygeal disorders, not elsewhere classified; M79.18 Myalgia, other site; R20.0 Anesthesia of skin
CPT/HCPCS: 20553; 99214

== ENCOUNTER → 2023-07-06 10:58 | Outpatient (BNVA) | payer OTHER, SELFPAY | PROVIDERS: PCP Nurse Practitioner Family; Visit Provider Physical Medicine & Rehabilitation | DX: M79.18 Myalgia, other site (principal); M47.812 Spondylosis without myelopathy or radiculopathy, cervical region; M53.3 Sacrococcygeal disorders, not elsewhere classified; R20.0 Anesthesia of skin | CPT/HCPCS: 20553; 99212 ==

== ENCOUNTER 2023-07-27 10:19 | Outpatient (AMB) | payer OTHER, SELFPAY ==
--- NOTE | 2023-07-27 11:03 | HO.SPINEOV ---
Intake Intake Visit Reasons: neck pain Intake Note: Ms. Sanchez is here today c/o neck pain radiating into both arms and low and mid back pain. MRI done @ [facility]. 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 HPI: This 47-year-old female states that she went to see a physician for her back pain in February of this year. The doctor had a move her head in a certain direction and since that time she suffering from a discomfort in the cervicothoracic area and with tingling down her arms. To focus of attention switched to the cervical spine instead of the lumbar spine and an MRI of the cervical spine was ordered. She underwent a cervical injection which helped with the right arm tingling. Currently she only has mild tingling in the right thumb . The left arm displays tingling all the way down into the dorsum of her hand. She denies weakness. She denies dropping objects. She scheduled to undergo an EMG to rule out carpal tunnel syndrome. Her main complaint is actually her lower spine with low back pain and radiation into both legs for which she is being evaluated by of pain management. s PMH: Echo to sizing fasciitis, lumpectomy, focal cord repair Medications: Gabapentin, Ambien, Adderall, escitalopram, iron, tramadol, aripiprazole Allergies: NKDA Social history: Nonsmoker Physical Exam: Pleasant female. She is able to move her neck in all directions without difficulties. She can elicit mild discomfort in the cervicothoracic area with lateral flexion towards the left side an extension. Motor exam is 5/5 throughout. Sensory exam produces paresthesias in her right thumb and over the dorsum of her left hand. Reflexes are symmetrically intact. No pathological reflexes. She has an antalgic gait from back pain. She is wearing a back brace Radiological Studies: MRI done at [facility] shows cervical degenerative disc disease with bilateral C6 nerve root compression where the left side is more affected than the right side. In addition there is a left C7 nerve compression. Impression/Plan: This patient is possibly suffering from a bilateral C6 radiculopathy although this is not her main complaint. Her main issue is back pain with bilateral leg discomfort. My advice is to focus on the back discomfort for now with pain management. She will return to my office if her neck symptoms reached a point where she would consider surgery. Thank you for allowing me to participate in your patients care. total time spent was 50 minutes in counseling ,coordination of plan, personal review of imaging, surgical decision making and subsequent plan Moses Coon MD, PhD Spine Fellowship Trained Neurosurgeon Director, [facility] (2) Numbness in both hands: Code(s): R20.0 - Anesthesia of skin Coding Level of Care Code New Pt Level 4 (23915) Diagnoses Cervical spondylosis M47.812 Numbness in both hands R20.0
== END 2023-07-27 12:02 | disposition home or self-care (01) ==
PROVIDERS: PCP Nurse Practitioner Family; Referring Provider Anesthesiology; Visit Provider Neurological Surgery
DX: M47.812 Spondylosis without myelopathy or radiculopathy, cervical region (principal); R20.0 Anesthesia of skin
CPT/HCPCS: 99204

== ENCOUNTER → 2023-07-27 10:19 | Outpatient (BNVA) | payer OTHER, SELFPAY | PROVIDERS: PCP Nurse Practitioner Family; Referring Provider Anesthesiology; Visit Provider Neurological Surgery | DX: M47.812 Spondylosis without myelopathy or radiculopathy, cervical region (principal); R20.0 Anesthesia of skin | CPT/HCPCS: 99202 ==

== ENCOUNTER 2023-08-01 11:23 | Outpatient (AMB) | payer OTHER, SELFPAY ==
--- NOTE | 2023-08-01 11:52 | A.OFFVIS_ITS ---
Intake Vital Signs 08/01/23 12:02 Height 5 ft 3.5 in Weight 215 lb BMI 37.5 BP 122/74 Blood Pressure Location Rt brachial Position Sitting Respiration 14 Pulse 77 Pulse Source Pulse Oximeter Pulse Oximetry (%) 98 Oxygen Delivery Method Room Air Intake Visit Reasons: C6-C7 CARMEN 06/28/23/lvm Allergies amoxicillin [From Augmentin] Adverse Reaction (Mild, Verified 08/01/23 12:03) yeast infection clavulanic acid [From Augmentin] Adverse Reaction (Mild, Verified 08/01/23 12:03) yeast infection amoxicillin Adverse Reaction (Mild, Uncoded 07/06/23 11:23) yeast infection HPI HPI Comments History of Present Illness Details Cary is very pleasant 47 years old female who presents herself in my office with 2 distinct pain generators. She went for MRI of the cervical spine and the MRI results dictated as below. There are several levels of severe foraminal stenosis as dictated as below. I performed epidural steroid injection on the level C6-C7 for this patient and she reported significant pain improvement and significant numbness in tingling improvement in the right upper extremity. She reports less improvement in the left upper extremity. She would like to consider these injection again in the future. As of her lower back pain the MRI disc was submitted to the Radiology Department however it is not uploaded, neither it is read for Modic type changes as it was requested. Prior: C/o pain in the cervical spine with sensation of the numbness of bilateral upper extremities as well as axial pain in lower back which is aggravated by prolonged standing and sitting and aggravated by flexing back forward but alleviated when she flex her back backwards. She reports that her pain started many years ago however became aggravated recently reports pain in neck 4 to 6/10 and pain in lower back is 10+ out of 10. She was under care of pains physician in [facility] she received MRI of the lumbar spine she was not recommended to go for the surgery by neurosurgeon. Never was evaluated by MRI of the cervical spine she is taking gabapentin for her pain and 100 mg 3 times a day maximal does she is taking tramadol 50 mg once a day and muscle relaxant methalaxon. She reports that she received sacroiliac joint injections in the past those were done by Dr. Markham in [facility] she reports very minimal help for 1 or 2 days from steroid sacroiliac joint injection however no prolonged pain relief. She had multiple attempts at physical therapy which aggravated her pain and she refused to go to physical therapy she denies chiropractic manipulations massage therapy or 10s unit. She brought with herself and MRI done on her lumbar spine in [facility] in [facility] which is suspicious for Modic type changes. I would like to send this MRI disc for the review with Radiology to evaluate this MRI for Modic type changes. [facility] Medical History (Updated 07/06/23 @ 11:57 by Daksha Adams MD) Sacroiliac joint dysfunction Cervical spondylosis Myofascial pain Lumbar disc herniation Aftercare following right ankle joint replacement surgery Necrotizing fasciitis Degenerative disc disease, lumbar Depression Anxiety Surgical History History of throat surgery S/P lumpectomy, right breast Family History Mother COPD (chronic obstructive pulmonary disease) Emphysema lung Mental health disorder Social History Household Members: Friend(s) Both parents involved: No Caregiver staying overnight: No Housing: House Are you a primary patient care secretary to a significant other at home: No Do you presently have visiting nurse or other home services: No 75 years or older and lives alone: No Alcohol intake: current Patient Tobacco Use Status: Former Tobacco user e-Cigarette/Vaping Use: Former Use service: No Current occupational status: disabled 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 Patient was appropriately conversant and oriented. Good historian. MSK: Inspection reveals appropriate head and neck positioning. No pain with palpation over the neck musculature. Cervical ROM was full. Spurling's sign positive with radiation to left arm. Bilateral shoulder, elbow and wrist ROM WNL. No ligamentous laxity or crepitance. No increased effusion. No specific abnormalities or instability found on inspection and palpation of the spine and extremities. No point tenderness on spinous processes, facets, SI or GT. Unable to do lumbar extension due to pain. Negative SLR. Positive MARCOS for back pain bilateral. Strength is 5/5 in all muscle groups tested. No increased tone noted. Right toes go into spasms while extended with pain. This limits her ankle range of motion. No redness or swelling on right foot or ankle. Neurological: Neurologic examination of the upper and lower extremities was nonfocal with intact sensation, muscle stretch reflexes and without focal motor deficits . Hunter?s negative bilaterally. Babinski was down going bilaterally. Clonus was negative. Gait is non-antalgic without loss of balance. Can stand on heels but cannot do toe walk. No foot drop while seated. Neck Other: Negative Lhermitte sign, positive Spurling sign on the right negative Valsalva maneuver 2 point differentiation is positive on bilateral hands Back/Spine/Pelvis Other: Flexing forward greatly aggravate her pain. In fact she cannot flex forward more than 45 degrees. Flexing backwards alleviates her pain. Prolonged sitting aggravates her pain. Assessment & Plan Assessment & Plan (1) Degeneration, intervertebral disc, cervical: Code(s): M50.30 - Other cervical disc degeneration, unspecified cervical region (2) Cervical stenosis of spinal canal: Code(s): M48.02 - Spinal stenosis, cervical region Plan: C5-C6 interlaminar epidural steroid injection. Good results of the interlaminar C6-C7 epidural steroid injection. The numbness and tingling in the right upper extremity is all but gone. There are some residual numbness and tingling in the left upper extremity. Considering that the injection was done more on the right side this is typical finding. We can repeat this procedure in the future. (3) Lumbar disc herniation: Code(s): M51.26 - Other intervertebral disc displacement, lumbar region Plan: Patient admits that pain the lower back is mostly axial and stays in her back. She admits that the pain is increased with prolong sitting and standing and greater more increased with flexing forward but not backwards. Fact she reports that flexing backwards greatly alleviates her pain. These are the signs of vertebro genic/discogenic pain. I examined the MRI the patient brought with herself and I think the might be Modic type changes in her back. I brought this MRI to be read by our Radiology Department however it is not uploaded nor it is read he yet. (4) Cervical radiculitis: Code(s): M54.12 - Radiculopathy, cervical region Plan: She was sent for evaluation by neuro surgery, her major concern at that office was about her lower back pain. She was referred back to our office for further management of her pain. (5) Spondylosis of lumbar spine: Code(s): M47.816 - Spondylosis without myelopathy or radiculopathy, lumbar region (6) Vertebrogenic low back pain: Code(s): M54.51 - Vertebrogenic low back pain Plan Patient Instructions: I here by testify that I spent 30 minutes in conversation with this patient as well as planning her care organizing her note and discussing with Radiology missing report. Coding Level of Care Code Est Pt Level 4 (37565) Diagnoses Degeneration, intervertebral disc, cervical M50.30 Cervical stenosis of spinal canal M48.02 Lumbar disc herniation M51.26 Cervical radiculitis M54.12 Spondylosis of lumbar spine M47.816 Vertebrogenic low back pain M54.51
[2023-08-01 12:02] VITALS: BP 122/74; PULSE 77; RESP 14; O2SAT 98; BMI 37.5
== END 2023-08-01 12:40 | disposition home or self-care (01) ==
PROVIDERS: PCP Nurse Practitioner Family; Visit Provider Anesthesiology
DX: M50.30 Other cervical disc degeneration, unspecified cervical region (principal); M48.02 Spinal stenosis, cervical region; M51.26 Other intervertebral disc displacement, lumbar region; M54.12 Radiculopathy, cervical region; M47.816 Spondylosis without myelopathy or radiculopathy, lumbar region; M54.51 Vertebrogenic low back pain
CPT/HCPCS: 99214

== ENCOUNTER → 2023-08-01 11:23 | Outpatient (BNVA) | payer OTHER, SELFPAY | PROVIDERS: PCP Nurse Practitioner Family; Visit Provider Anesthesiology | DX: M50.30 Other cervical disc degeneration, unspecified cervical region (principal); M48.02 Spinal stenosis, cervical region; M54.12 Radiculopathy, cervical region; M47.816 Spondylosis without myelopathy or radiculopathy, lumbar region; M54.51 Vertebrogenic low back pain | CPT/HCPCS: 99212 ==

== ENCOUNTER 2023-08-17 14:30 | Outpatient (REF) | payer OTHER, SELFPAY ==
--- NOTE | 2023-08-17 14:33 | EMG_ITS ---
Chief complaint: Since last time I saw her, she reports that cervical epidural injection finally kicked in. There is no more numbness on the left upper extremity. Still with numbness in right upper extremity, noted with bringing up her hands. Reason for referral: Evaluate for Carpal Tunnel Syndrome versus radiculopathy Procedure done: Bilateral upper extremities NCS/EMG Precautions and/or limitations: None The limb temperature was monitored continuously and remained between 32-36 degrees C during the performance of the NCS. Nerve Conduction Studies Anti Sensory Summary Table ?Stim Site NR Onset (ms) Norm Onset (ms) Peak (ms) Norm Peak (ms) O-P Amp (?V) Norm O-P Amp Site1 Site2 Delta-0 (ms) Dist (cm) Jose Ramon (m/s) Norm Jose Ramon (m/s) Left Median Anti Sensory (2nd Digit) Wrist ? 2.6 3.3 <3.6 31.0 >10 Wrist 2nd Digit 2.6 14.0 54 Right Median Anti Sensory (2nd Digit) Wrist ? 2.7 3.3 <3.6 22.1 >10 Wrist 2nd Digit 2.7 14.0 52 Right Radial Anti Sensory (Thumb) Forearm ? 0.9 1.8 <3.1 22.9 Forearm Thumb 0.9 0.0 Left Ulnar Anti Sensory (5th Digit) Wrist ? 2.7 3.3 <3.7 15.4 >15.0 Wrist 5th Digit 2.7 14.0 52 Right Ulnar Anti Sensory (5th Digit) Wrist ? 2.6 3.1 <3.7 7.6 >15.0 Wrist 5th Digit 2.6 14.0 54 Motor Summary Table ?Stim Site NR Onset (ms) Norm Onset (ms) O-P Amp (mV) Norm O-P Amp iAmp (mV) Amp (1st) (%) Site1 Site2 Delta-0 (ms) Dist (cm) Jose Ramon (m/s) Norm Jose Ramon (m/s) Left Median Motor (Abd Poll Brev) Wrist ? 3.5 <3.9 8.0 >4.5 9.2 100.0 Elbow Wrist 3.7 20.0 54 >45 Elbow ? 7.2 7.4 8.5 92.5 Right Median Motor (Abd Poll Brev) Wrist ? 3.3 <3.9 12.2 >4.5 15.3 100.0 Elbow Wrist 3.3 19.5 59 >45 Elbow ? 6.6 11.1 14.2 91.0 Left Ulnar Motor (Abd Dig Minimi) Wrist ? 2.4 <3.0 9.0 >5 10.1 100.0 B Elbow Wrist 3.0 16.0 53 >45 B Elbow ? 5.4 8.2 9.5 91.1 A Elbow B Elbow 1.2 10.0 83 >45 A Elbow ? 6.6 8.8 10.4 97.8 Right Ulnar Motor (Abd Dig Minimi) Wrist ? 2.5 <3.0 11.4 >5 14.3 100.0 B Elbow Wrist 2.9 18.0 62 >45 B Elbow ? 5.4 9.9 12.6 86.8 A Elbow B Elbow 1.3 10.0 77 >45 A Elbow ? 6.7 9.7 12.4 85.1 EMG ?Side Muscle Nerve Root Ins Act Fibs Psw Amp Dur Poly Recrt Int Pat Comment Right 1stDorInt Ulnar C8-T1 Nml Nml Nml Nml Nml 0 Nml Complete Right FlexCarRad Median C6-7 Nml Nml Nml Nml Nml 0 Nml Complete Right Biceps Musculocut C5-6 Nml Nml Nml Nml Nml 0 Nml Complete Right Triceps Radial C6-7-8 Nml Nml Nml Nml Nml 0 Nml Complete Right Deltoid Axillary C5-6 Nml Nml Nml Nml Nml 0 Nml Complete Left 1stDorInt Ulnar C8-T1 Nml Nml Nml Nml Nml 0 Nml Complete Left FlexCarRad Median C6-7 Nml Nml Nml Nml Nml 0 Nml Complete Left Biceps Musculocut C5-6 Nml Nml Nml Nml Nml 0 Nml Complete Left Triceps Radial C6-7-8 Nml Nml Nml Nml Nml 0 Nml Complete Left Deltoid Axillary C5-6 Nml Nml Nml Nml Nml 0 Nml Complete FINDINGS: All motor and sensory nerves tested showed normal latencies, amplitudes and conduction velocities. Concentric needle EMG was performed in selected muscles of the bilateral upper extremities. Study did not reveal signs of electric abnormalities as shown in the table below. IMPRESSION: 1. This is a normal study. 2. There is no electrodiagnostic evidence for median neuropathy, ulnar neuropathy, brachial plexopathy, or cervical radiculopathy. Thank you for your kind referral. Daksha Adams MD, MÓNICA Board Certified, [place] Board of Physical [employer] and Rehabilitation (ABPMR) Board Certified, [place] Board of Electrodiagnostic Medicine (ABEM) CODIN [id number] x2 MTDD
== END 2023-08-17 14:31 | disposition home or self-care (01) ==
LOC: HO.NEURO 14:30
PROVIDERS: PCP Nurse Practitioner Family; Visit Provider Physical Medicine & Rehabilitation
DX: R20.0 Anesthesia of skin (principal)
CPT/HCPCS: 95886; 95911

== ENCOUNTER → 2023-08-17 14:33 | Outpatient (BNV) | payer OTHER, SELFPAY | PROVIDERS: PCP Nurse Practitioner Family; Visit Provider Physical Medicine & Rehabilitation | DX: R20.2 Paresthesia of skin (principal) | CPT/HCPCS: 95886; 95911 ==

== ENCOUNTER 2023-08-18 08:32 | Outpatient (RCR) | payer OTHER, SELFPAY ==
--- NOTE | 2023-08-18 13:58 | MHC.PT.EP ---
[facility] [place] Office [place] Office [place] Office [address] [place] [address] [phone] F: [phone] F: [phone] F: [phone] F: [phone] Physical Therapy Plan of Care Date of Evaluation: 08/18/23 Date of Surgery: 2020 Diagnosis: right foot pain (RL) Assessment: pt is a 47 y/o female presenting to physical therapy w/ referring diagnosis of right foot pain. pt presents w/ signs and symptoms consistent w/ plantar fasciopathy. Impairments include pain, decreased range of motion, decreased strength, impaired functional mobility, impaired postural awareness, and altered ambulation mechanics. pt is a fair candidate for skilled PT due to age, potential remediation of impairments, typical disease/condition progression and prognosis, comorbidities, and motivation. pt would benefit from skilled PT intervention to provide a tailored strengthening and stretching exercise program, functional training, gait training, postural re-training, neuromuscular re-education, modalities as needed for pain, equipment safety demonstration. Frequency and Duration: The patient will be seen 2x/wk for 4 wks Short Term Goals: pt will be I w/ HEP to promote self-management of condition. pt will improve B dorsiflexion by at least 10 degrees to normalize gait pattern on even ground. Halfway Goals: pt will improve B PF strength by 1 MMT grade to promote ease w/ stair navigation. pt will report a statistically significant improvement in self-reported outcome measure, LEFI, to promote return to PLOF. Treatment Plan: Modalities to reduce pain, spasms and effusion. Manual therapy to restore motion and function. Therapeutic exercise to improve strength and flexibility. Neuromuscular re-education for posture and balance. Therapeutic activities to return to functional activities of daily living. Electronically signed by: Lina Corona PT, DPT Please sign and return to therapist. Thank you for your referral.
--- NOTE | 2023-09-09 11:22 | MHC.PT.DC ---
[facility] [place] Office [place] Office [place] Office [address] [place] [address] [facility] [phone] F: [phone] F: [phone] F: [phone] F: [phone] Physical Therapy Discharge Report Diagnosis: right foot pain (RL) Date of Surgery: 2020 Date of Evaluation: 08/18/23 Date of Discharge: 09/09/23 Treatments to Date: 1 Cancellations to Date: 2 No Shows to Date: 3 Discharge Status: Visit Non-compliance Discharge Summary: The patient has missed five consecutive visits with three of them being no shows. Per [facility] attendance policy the patient is being discharged for visit non-compliance. Electronically signed by: Lina Corona PT, DPT Please sign and return to therapist. Thank you for your referral.
== END 2023-09-09 11:22 | disposition home or self-care (01) ==
LOC: HO.PT 08:32
PROVIDERS: PCP Nurse Practitioner Family; Visit Provider Physical Medicine & Rehabilitation
DX: Z96.661 Presence of right artificial ankle joint (principal)
CPT/HCPCS: 97110; 97162

== ENCOUNTER 2023-09-09 09:55 | Outpatient (REF) | payer OTHER, SELFPAY ==
[2023-09-09 11:39] LABS: Appearance Urine Clear; Color Urine Yellow; Glucose Urine UA Negative (Negative); Leukocyte Esterase Urine Trace (Negative); Nitrite Urine Negative (Negative); PH 5.5 (5.0-9.0); UMIC TRIGGER UACC YES; Urine Blood Negative (Negative); Urine Ketones Negative (Negative); Urine Protein Negative (Neg-Trace)
[2023-09-09 11:40] LABS: Hematocrit 30.8 % (37.0-47.0); Mean Corpuscular HGB Conc 32.5 g/dl (31.0-35.0); Mean Corpuscular Hemoglobin 28.2 pg (27.0-33.0); Mean Corpuscular Volume 86.8 fL (80.0-98.0); Mean Platelet Volume 9.6 fL (9.4-12.3); Platelet Count 194 X10*3/uL (160-400); Red Blood Count 3.55 X10*6/uL (4.20-5.50); Red Cell Distribution Width 15.2 % (11.0-16.0); White Blood Count 5.9 X10*3/uL (4.8-10.8)
[2023-09-09 11:43] LABS: Bacteria Urine None Seen (None Seen); Hyaline Casts Urine 0-2 /LPF (0-2); RBC Urine 0-2 /HPF (0-2); Squamous Epithelial Cell Urine 0-2 /HPF (0-2); WBC Urine 0-5 /HPF (0-5)
[2023-09-09 12:25] LABS: Iron 34 mcg/dL (30-160); Percent Iron Saturation 10 % (15-50); Total Iron Binding Capacity 345 mcg/dL (228-428); Unsaturated Iron Binding 311 ug/dL
[2023-09-09 12:36] LABS: Ferritin 10 ng/mL (10-250)
== END 2023-09-09 09:56 | disposition home or self-care (01) ==
LOC: HO.WFDLDS 09:55
PROVIDERS: Visit Provider Nurse Practitioner Family
DX: Z00.00 Encounter for general adult medical examination without abnormal findings (principal); D64.9 Anemia, unspecified
CPT/HCPCS: 36415; 81001; 82728; 83540; 85027

== ENCOUNTER 2023-09-12 16:59 | Outpatient (AMB) | payer OTHER, SELFPAY ==
[2023-09-12 17:11] VITALS: BP 100/64; PULSE 89; TEMP 35.9; O2SAT 99
--- NOTE | 2023-09-12 17:11 | A.OFFPC_ITS ---
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 Required: No Master Control Supervisor: Offered and Declined Accompanied by: Self / Same As Patient Allergies amoxicillin [From Augmentin] Adverse Reaction (Mild, Verified 09/12/23 17:22) yeast infection clavulanic acid [From Augmentin] Adverse Reaction (Mild, Verified 09/12/23 17:22) yeast infection amoxicillin Adverse Reaction (Mild, Uncoded 09/12/23 17:22) yeast infection Medication List - Last Reconciled 09/12/23 by Jacoby Francis CNP alprazolam 0.5 mg PO DAILY PRN aripiprazole mg PO dextroamphetamine-amphetamine 20 mg (Adderall) 20 mg PO DAILY escitalopram oxalate 15 mg PO DAILY ferrous sulfate 325 mg PO DAILY 30 days gabapentin 300 mg PO TID 30 days metaxalone 800 mg PO TID tramadol 100 mg (2 x 50 mg) PO TID PRN 20 days zolpidem ER 12.5 mg PO BEDTIME PRN Tobacco use date assessed: 04/07/23 Dental Screening Did you have a dental visit in the last 12 months?: Yes HPI HPI Comments History of Present Illness Details 48-year-old female presents for anemia f ollow-up She notes that she has been taking Ferrous Sulfate 5 times instead of 7 times per week in the past 4 weeks, as advised by her pharmacist, due to constipation and stomach discomfort. She notes she has been taking OTC stool softener, eating fruits and vegetables without relief Her current RBC and H&H level are low and trending down, 3.55 and 10.0/30.8 respectively, iron level is low, 10 She denies acute symptoms at this time [facility] Medical History (Updated 07/06/23 @ 11:57 by Daksha Adams MD) Sacroiliac joint dysfunction Cervical spondylosis Myofascial pain Lumbar disc herniation Aftercare following right ankle joint replacement surgery Necrotizing fasciitis Degenerative disc disease, lumbar Depression Anxiety Surgical History History of throat surgery S/P lumpectomy, right breast Family History Mother COPD (chronic obstructive pulmonary disease) Emphysema lung Mental health disorder Social History Household Members: Friend(s) Both parents involved: No Caregiver staying overnight: No Housing: House Are you a primary healthcare management consultant to a significant other at home: No Do you presently have visiting nurse or other home services: No 75 years or older and lives alone: No Alcohol intake: current Patient Tobacco Use Status: Former Tobacco user e-Cigarette/Vaping Use: Former Use service: No Current occupational status: disabled 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 Contreras Velazquez, Gisselle Reyna, Javed Lee and colleagues, with an educational earline from [employer]. Review of Systems Const Details: Const Denies chills, Denies fatigue, Denies fever(s), Denies headache(s) and Denies weakness ENT Denies dizziness and Denies headache(s) Card Denies chest pain, Denies lightheadedness, Denies dyspnea and Denies other (Palpitations) Resp Denies cough, Denies dyspnea, Denies wheezing and Denies other ( shortness of breath) GI Denies abdominal pain, Denies melena, Denies hematochezia, Denies change in bowel habits, Denies dyspepsia and Denies nausea Denies hematuria and Denies dysuria Musc Denies abnormal gait, Denies myalgias, Denies arthralgias, Denies numbness and Denies tingling Skin/Breast Denies rash, Denies unusual bruising and Denies wounds Neuro Denies abnormal gait, Denies dizziness, Denies headache(s), Denies memory loss, Denies numbness, Denies Sensory deficit (Neuro), Denies tingling and Denies weakness Psych Denies anxiety, Denies depression, Denies memory loss Endo Denies cold intolerance, Denies fatigue, Denies heat intolerance, Denies polydipsia and Denies polyuria Aller/Immun Denies wheezing Physical exam (Primary Care) Vital Signs: Last Vital Signs Temp 96.7 F L 09/12/23 17:11 Pulse 89 09/12/23 17:11 BP 100/64 09/12/23 17:11 Pulse Ox 99 09/12/23 17:11 Oxygen Delivery Method Room Air 09/12/23 17:11 Tobacco/Smoking Status: Tobacco use Status Tobacco use date assessed 04/07/23 09/12/23 17:19 Patient Tobacco Use Status Former Tobacco user 09/12/23 17:19 e-Cigarette/Vaping Use Former Use 09/12/23 17:19 Const Other: General: no acute distress and well developed Nutritional Appearance: well nourished Orientation/consciousness: patient oriented x3 HENMT Head: Yes normocephalic and Yes atraumatic Eyes General: appearance normal, both eyes and all related structures Pupils: Equal, round and reactive pupils present EOM: EOMs intact bilaterally Resp Effort & Inspection: normal respiratory effort Auscultation: clear to auscultation bilaterally Cardio Rate: regular rate Rhythm: regular rhythm Heart sounds: S1 normal heart sound present, S2 normal heart sound present, no gallops, no murmurs and no rubs GI Palpation (GI): No Abdominal aortic bruit present, Soft to palpation, nontender, No hepatosplenomegaly present and No Rebound tenderness present Auscultation: normal bowel sounds General: Yes no CVA tenderness Back/Spine/Pelvis Back: no CVA tenderness Cervical Spine: cervical ROM normal and No Cervical spine tenderness Thoracic/Lumbar Spine: thoraco-lumbar ROM normal, No pain with thoraco-lumbar ROM, No thoracic spinal tenderness and No lumbar spinal tenderness Extrem General: Yes normal to inspection, No edema and No calf tenderness Skin General: warm and dry. Normal skin color. Normal skin turgor Neuro General: patient oriented x3, gait normal and no focal neuro deficit Cranial nerves: Yes Equal, round and reactive pupils present Cognition (Neuro): normal cognition Gait exam (Neuro): Normal gait present Sensory Exam: No Sensory deficit (Neuro) Psych Appearance: grossly normal Affect: normal affect Attitude: cooperative Thought process: Normal thought process present Assessment and Plan Assessment & Plan (1) Iron deficiency anemia: Code(s): D50.9 - Iron deficiency anemia, unspecified Plan: Current RBC and H&H level are low and trending down, 3.55 and 10.0/30.8 respectively, iron level is low, 10 Will increase ferrous sulfate to 325 mg twice daily. Take as prescribed Continue to take [id number] stool softener and include fruits and vegetable in diet Will recheck CBC, iron profile, and retic count in 6 weeks Referred to Hematology Follow-up in 6 weeks or return sooner with symptoms or concerns Verbalized understanding and agreed with treatment plan Orders: Orders Complete Blood Count no Diff 6 Weeks D50.9 - Iron deficiency anemia, unspecified Reticulocyte Count 6 Weeks D50.9 - Iron deficiency anemia, unspecified IRON PROFILE 6 Weeks D50.9 - Iron deficiency anemia, unspecified Referrals Hematology & Oncology Referral D50.9 - Iron deficiency anemia, unspecified Medications: Changed From ferrous sulfate 325 mg PO DAILY 30 days 30 tabs 3RF To ferrous sulfate 325 mg PO BID 60 tabs 3RF 30 days Coding Level of Care Code Est Pt Level 3 (52023) Diagnoses Iron deficiency anemia D50.9
== END 2023-09-12 17:42 | disposition home or self-care (01) ==
PROVIDERS: PCP Nurse Practitioner Family; Visit Provider Nurse Practitioner Family
DX: D50.9 Iron deficiency anemia, unspecified (principal)
CPT/HCPCS: 99213

== ENCOUNTER → 2023-09-29 10:30 | Outpatient (BNV) | payer OTHER, SELFPAY | PROVIDERS: PCP Nurse Practitioner Family; Visit Provider Internal Medicine Medical Oncology | DX: D64.9 Anemia, unspecified (principal) | CPT/HCPCS: 99204; 99213 ==

== ENCOUNTER 2023-10-05 11:20 | Outpatient (REF) | payer OTHER, SELFPAY | END 2023-10-05 11:21 | disposition home or self-care (01) | LOC: HO.MDS 11:20 | PROVIDERS: Visit Provider Internal Medicine Medical Oncology | DX: D50.9 Iron deficiency anemia, unspecified (principal) | CPT/HCPCS: 96365; J1756 ==

== ENCOUNTER 2023-10-19 11:20 | Outpatient (REF) | payer OTHER, SELFPAY | END 2023-10-19 11:21 | disposition home or self-care (01) | LOC: HO.MDS 11:20 | PROVIDERS: Visit Provider Internal Medicine Medical Oncology | DX: D50.9 Iron deficiency anemia, unspecified (principal) | CPT/HCPCS: 96365; J1756 ==

== ENCOUNTER 2023-11-02 11:38 | Outpatient (AMB) | payer OTHER, SELFPAY ==
--- NOTE | 2023-11-02 11:44 | A.OFFVIS_ITS ---
Intake Vital Signs 11/02/23 11:46 Height 5 ft 3 in Weight 213 lb BMI 37.7 BP 135/89 Blood Pressure Location Lt brachial Position Sitting Pulse 116 H Intake Visit Reasons: Colonoscopy screening Intake Note: Patient new consult for 1st pre Colonoscopy screening. Patient cc: Anemia, and some abdominal pain due a miscarriage. Denies any other GI issues. [employer] Teacher Required: No Accompanied by: Self / Same As Patient Allergies amoxicillin [From Augmentin] Adverse Reaction (Mild, Verified 11/02/23 11:43) yeast infection clavulanic acid [From Augmentin] Adverse Reaction (Mild, Verified 11/02/23 11:43) yeast infection amoxicillin Adverse Reaction (Mild, Uncoded 09/29/23 10:45) yeast infection Medication List - Last Reconciled 11/02/23 by Danuta Pathak PA-C alprazolam 0.5 mg PO DAILY PRN aripiprazole 10 mg PO DAILY dextroamphetamine-amphetamine 20 mg (Adderall) 20 mg PO DAILY escitalopram oxalate 15 mg PO DAILY ferrous sulfate 325 mg PO BID 30 days gabapentin 300 mg PO TID 30 days tramadol 100 mg (2 x 50 mg) PO TID PRN 20 days zolpidem ER 12.5 mg PO BEDTIME PRN HPI HPI Comments History of Present Illness Details A 48-year-old female with anemia referred for screening colonoscopy. She expresses her dislike to the idea- of procedure -maternal aunt CRC@ 58- currently being txd However she has been seen by Hematology Her appetite is not great, she associates to bad anxiety and depression she says she is lost about 30 lb over the past 5 months or so, intentionally.. However she has been exercising more, since back pain bettter controlled She has heavy menses they seem to have somewhat decreased of recent. But she has just undergoing miscarriage currenlty- she says this is her 7th- over the years She had a positive home test 10/14 and has been bleeding since- She has been taking oral iron supplements back a few months ago she increased to taking 2 daily however caused her nausea and abdominal cramping. Since Dc'd - iron infusions weekly- She does note dizziness if she stands up quickly, she does have headaches in which she is taking Topamax for however takes Aleve as well She typically has a constipated stool pattern- however has improved bowel pattern since dc'd oral iron. Arthralgias most her life. No further nausea,vomiting,acid reflux, abdomianl pain- fever chills PFSH Medical History (Updated 11/03/23 @ 15:04 by Danuta Pathak PA-C) Sacroiliac joint dysfunction Cervical spondylosis Myofascial pain Lumbar disc herniation Aftercare following right ankle joint replacement surgery Necrotizing fasciitis Degenerative disc disease, lumbar Depression Anxiety Surgical History History of throat surgery S/P lumpectomy, right breast Family History Mother COPD (chronic obstructive pulmonary disease) Emphysema lung Mental health disorder Social History Household Members: Friend(s) Housing: House Are you a primary critical care clinical nurse specialist to a significant other at home: No Do you presently have visiting nurse or other home services: No Alcohol intake: current Patient Tobacco Use Status: Former Tobacco user e-Cigarette/Vaping Use: Former Use service: No Current occupational status: disabled 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 Cognitive needs: No Hearing needs: No Vision needs: Yes (glasses) Review of Systems Const All systems reviewed & are unremarkable except as noted in HPI and below Denies chills, Denies fever(s) and Reports headache(s) ENT Reports dizziness and Reports headache(s) Card Denies chest pain, Denies chest pain at rest, Denies diaphoresis, Denies syncope, Denies rapid heart rate and Denies dyspnea Resp Denies dyspnea GI Denies melena, Denies hematochezia, Denies constipation, Denies heartburn, Denies diarrhea, Denies nausea and Denies vomiting Reports as per HPI, Reports abnormal vaginal bleeding, Denies hematuria and Denies urinary frequency Neuro Reports dizziness, Denies syncope and Reports headache(s) Physical Exam Vital Signs: Last Vital Signs Pulse 116 H 11/02/23 11:46 BP 135/89 11/02/23 11:46 BMI result Body Mass Index 37.7 Const General: cooperative Nutritional Appearance: overweight Orientation/consciousness: patient oriented x3 Limitations: no limitations Resp Effort & Inspection: normal respiratory effort and able to speak in complete sentences Auscultation: clear to auscultation bilaterally, no rales, no rhonchi and no wheezes Cardio Rate: regular rate (APR92) Rhythm: regular rhythm Heart sounds: S1 normal heart sound present and S2 normal heart sound present GI Palpation (GI): Soft to palpation and nontender Auscultation: normal bowel sounds Neuro General: patient oriented x3 Extrem General: Yes full ROM Psych Speech and movement: Clear speech present Affect: Labile affect present Attitude: cooperative and Guarded attititude/behavior present Assessment & Plan Assessment & Plan (1) Anemia: Comment: heavy menses/ 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 - unclear- get HCG- call her w/ result Code(s): D64.9 - Anemia, unspecified Qualifiers: Anemia type: iron deficiency Plan: HCG - if neg- colon- (2) Encounter for screening colonoscopy: Comment: index screening-discussed procedure, rare risks need for escorted due to anes thesia Code(s): Z12.11 - Encounter for screening for malignant neoplasm of colon Plan: MG prep Plan colonoscopy MG prep Orders: Orders HCG Quantitative Today R11.0 - Nausea Colonoscopy - GI Use Only 11/02/23 Z12.11 - Encounter for screening for malignant neoplasm of colon Medications: New polyethylene glycol 3350 (Miralax) Take as directed by mouth the day before your procedure. 238 grams PO ONCE 1 day PRN 238 grams 0RF laxative effect bisacodyl (Dulcolax (bisacodyl)) Day before procedure @ 12 noon Take 4 tablets by mouth followed by large glass of water 20 mg (4 x 5 mg) PO ONCE 1 day PRN 4 tabs 0RF colonoscopy prep Z12.11 - Encounter for screening for malignant neoplasm of colon Patient Instructions: HCG if neg proceed to colonoscopy- Discussed procedure, rare MiraLax Gatorade prep, reviewed literature given Encouraged to call questions or concerns Reinforced importance of following up with humanities and languages professor Importance of follow back with Dr. Negron as scheduled Declines EGD-if reconsiders may add Coding Level of Care Code New Pt Level 4 (36737) Diagnoses Anemia D64.9 Anemia type: iron deficiency Encounter for screening colonoscopy Z12.11 Time Spent (min) 35
[2023-11-02 11:46] VITALS: BP 135/89; PULSE 116; BMI 37.7
== END 2023-11-02 12:28 | disposition home or self-care (01) ==
PROVIDERS: PCP Nurse Practitioner Family; Visit Provider Physician Assistant
DX: D64.9 Anemia, unspecified (principal); Z12.11 Encounter for screening for malignant neoplasm of colon
CPT/HCPCS: 99204

== ENCOUNTER → 2023-11-02 11:38 | Outpatient (BNVA) | payer OTHER, SELFPAY | PROVIDERS: PCP Nurse Practitioner Family; Visit Provider Physician Assistant | DX: Z12.11 Encounter for screening for malignant neoplasm of colon (principal); D64.9 Anemia, unspecified | CPT/HCPCS: 99202 ==

== ENCOUNTER 2023-11-03 11:21 | Outpatient (REF) | payer OTHER, SELFPAY ==
[2023-11-03 11:23] VITALS: BP 149/83; PULSE 97; RESP 18; TEMP 36.6; O2SAT 100
[2023-11-03] MEDS: Iron Sucrose Complex 200 MG in 0.9 % Sodium Chloride 100 ML 440 MG IV (11:30)
[2023-11-03 13:42] LABS: HCG Quantitative < 2 mIU/mL
== END 2023-11-03 11:22 | disposition home or self-care (01) ==
LOC: HO.MDS 11:21
PROVIDERS: Physician Assistant; Visit Provider Internal Medicine Medical Oncology
DX: D50.9 Iron deficiency anemia, unspecified (principal); R11.0 Nausea
CPT/HCPCS: 36415; 84702; 96372; 96374; J1756

== ENCOUNTER 2023-11-11 12:56 | Outpatient (REF) | payer OTHER, SELFPAY ==
[2023-11-11 13:02] VITALS: BP 115/68; PULSE 100; RESP 20; TEMP 36.7; O2SAT 96
[2023-11-11] MEDS: Iron Sucrose Complex 200 MG in 0.9 % Sodium Chloride 100 ML 440 MG IV (13:25)
--- NOTE | 2023-11-11 13:48 | HO.INF ---
blood work after 4th dose of venofer - lab collected at 13:54pm
[2023-11-11 13:52] LABS: MANUAL DIFF FLAG NO
[2023-11-11 13:54] LABS: Basophils Absolute Auto 0.1 X10*3/uL (0.0-0.2); Eosinophils Absolute Auto 0.1 X10*3/uL (0.0-0.4); Eosinophils Percent Auto 1.1 % (0-4); Hematocrit 27.1 % (37.0-47.0); Hemoglobin 8.9 g/dl (12.0-16.0); Imm Gran Abs Auto 0.05 X10*3/uL (0.00-0.03); Imm Gran Pct Auto 0.8 % (0.0-0.4); Lymphocytes Absolute Auto 1.5 X10*3/uL (1.2-4.9); Lymphocytes Percent Auto 24.1 % (20-40); Mean Corpuscular HGB Conc 32.8 g/dl (31.0-35.0); Mean Corpuscular Volume 91.2 fL (80.0-98.0); Mean Platelet Volume 8.5 fL (9.4-12.3); Monocytes Absolute Auto 0.6 X10*3/uL (0.1-1.2); Monocytes Percent Auto 9.4 % (2-11); Neutrophils Absolute Auto 3.9 x10*3/uL (2.0-8.3); Neutrophils Percent Auto 63.6 % (45-73); Platelet Count 272 X10*3/uL (160-400); Red Blood Count 2.97 X10*6/uL (4.20-5.50); Red Cell Distribution Width 17.9 % (11.0-16.0); White Blood Count 6.1 X10*3/uL (4.8-10.8)
[2023-11-11 14:28] LABS: Ferritin 50 ng/mL (10-250)
== END 2023-11-11 12:57 | disposition home or self-care (01) ==
LOC: HO.MDS 12:56
PROVIDERS: Visit Provider Internal Medicine Medical Oncology
DX: D50.9 Iron deficiency anemia, unspecified (principal)
CPT/HCPCS: 36415; 82728; 85025; 96365; J1756

== ENCOUNTER 2023-11-15 13:34 | Outpatient (REF) | payer OTHER, SELFPAY ==
[2023-11-15 13:39] VITALS: BP 140/78; PULSE 97; RESP 20; TEMP 36.6; O2SAT 99
[2023-11-15] MEDS: Iron Sucrose Complex 200 MG in 0.9 % Sodium Chloride 100 ML 440 MG IV (13:47)
== END 2023-11-15 13:35 | disposition home or self-care (01) ==
LOC: HO.MDS 13:34
PROVIDERS: Visit Provider Internal Medicine Medical Oncology
DX: D50.9 Iron deficiency anemia, unspecified (principal)
CPT/HCPCS: 96374; J1756

== ENCOUNTER 2023-11-22 13:25 | Outpatient (REF) | payer OTHER, SELFPAY ==
[2023-11-22 14:13] VITALS: BP 142/92; PULSE 75; RESP 20; TEMP 36.8; O2SAT 97
[2023-11-22] MEDS: Iron Sucrose Complex 200 MG in 0.9 % Sodium Chloride 100 ML 440 MG IV (14:22)
== END 2023-11-22 13:26 | disposition home or self-care (01) ==
LOC: HO.MDS 13:25
PROVIDERS: Visit Provider Internal Medicine Medical Oncology
DX: D50.9 Iron deficiency anemia, unspecified (principal)
CPT/HCPCS: 96365; J1756

== ENCOUNTER 2023-12-06 06:16 | Outpatient (REF) | payer OTHER, SELFPAY ==
--- NOTE | ~2023-12-06 | FL_ITS ---
EXAMINATION: XR FLUOROSCOPY WITH IMAGES CLINICAL INFORMATION: Cervical degenerative disc disease. COMPARISON: Intraoperative fluoroscopy dated 06/28/2023. TECHNIQUE: Fluoroscopy Supervised By: Dr. Abdelrahman Richards. Fluoroscopy Time: 0.2 minutes. Cumulative Dose: 7.5. mGy. DAP: 1.55 Gycm2. Images: 2. FINDINGS: The submitted images show an injection needle projecting over the mid cervical spine. FL/FL guidance in treatment room IMPRESSION: Intraoperative fluoroscopic guidance is provided during cervical pain management procedure. Please see the patient's Operative Report for full procedural details.
== END 2023-12-06 06:17 | disposition home or self-care (01) ==
LOC: CF 06:16
PROVIDERS: Visit Provider Anesthesiology
DX: M50.30 Other cervical disc degeneration, unspecified cervical region (principal); M48.02 Spinal stenosis, cervical region
CPT/HCPCS: 62321; J1100; Q9967

== ENCOUNTER 2023-12-06 10:53 | Outpatient (AMB) | payer OTHER, SELFPAY ==
[2023-12-06 10:54] VITALS: BP 120/62; PULSE 73; RESP 14; O2SAT 100
--- NOTE | 2023-12-06 10:54 | MHC.OFFVIS ---
Intake Vital Signs 12/06/23 10:54 12/06/23 11:54 BP 120/62 138/82 Blood Pressure Location Lt brachial Lt brachial Position Sitting Sitting Respiration 14 14 Pulse 73 61 Pulse Source Pulse Oximeter Pulse Oximeter Pulse Oximetry (%) 100 99 Oxygen Delivery Method Room Air Room Air Intake Visit Reasons: C6,C7 INTERLAMINAR CARMEN Allergies amoxicillin [From Augmentin] Adverse Reaction (Mild, Verified 12/06/23 10:54) yeast infection clavulanic acid [From Augmentin] Adverse Reaction (Mild, Verified 12/06/23 10:54) yeast infection amoxicillin Adverse Reaction (Mild, Uncoded 12/06/23 10:54) yeast infection PFSH Medical History (Updated 11/03/23 @ 15:04 by Danuta Pathak PA-C) Sacroiliac joint dysfunction Cervical spondylosis Myofascial pain Lumbar disc herniation Aftercare following right ankle joint replacement surgery Necrotizing fasciitis Degenerative disc disease, lumbar Depression Anxiety Surgical History History of throat surgery S/P lumpectomy, right breast Family History Mother COPD (chronic obstructive pulmonary disease) Emphysema lung Mental health disorder Social History Household Members: Friend(s) Housing: House Are you a primary transitions rn care coordinator to a significant other at home: No Do you presently have visiting nurse or other home services: No Alcohol intake: current Patient Tobacco Use Status: Former Tobacco user e-Cigarette/Vaping Use: Former Use service: No Current occupational status: disabled 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 ?Informed consent was explained to the patient. All questions were explained and answered.? The patient was taken inside the operating room where she was positioned prone on the operating table. Time-out was performed delineating correct site, side, the nature of the procedure, patient's allergy, preoperative antibiotic if needed.? All operating room staff was participating in OR time-out procedure. The back of the neck and upper back were prepped with ChloraPrep and draped with sterile towels.? Sterilely draped C-arm was brought over the operating field and sq picture of? C4-C5-C6 -C7 vertebrae were delineated on the screen.? The planned C6- C7 intervertebral interval appeared to be too narrow to needle advancement . The decision was made to address one level above C5- C6. Upper border of the right C6 lamina was chosen as a target of the needle advancement. The projection of the point of interest to the skin was injected with 4 mls of lidocaine 1% PF using 25 g 1 inch needle. After that 22g Touhy needle was inserted through the skin wheal and advanced to the point of interest under intermittent AP, contralateral oblique and lateral views. When the tip of the needle contacted the bone the needle was deviated cephalad and further advancement into the epidural space was made on the lateral view using KAILEE to air technique. When the loss of resistance was felt the contrast was injected into the needle demonstrating posterior epidurogram. After that injection of treatment solution of NS 0.9% 5 mls mixed with dexamethasone 10 mg was made into the needle . After that the needle was removed and bandaid was applied. The patient tolerated the procedure well, she was taken to recovery room where she recovered uneventfully. Plan 1 the procedure was performed as above Orders: Orders FL guidance in treatment room 12/06/23 M50.30 - Other cervical disc degeneration, unspecified cervical region Coding Level of Care Code Procedure Only Diagnoses Degeneration, intervertebral disc, cervical M50.30 Cervical stenosis of spinal canal M48.02
[2023-12-06 11:54] VITALS: BP 138/82; PULSE 61; RESP 14; O2SAT 99
== END 2023-12-06 11:54 | disposition home or self-care (01) ==
LOC: HO.PMCPRC 10:53
PROVIDERS: PCP Nurse Practitioner Family; Visit Provider Anesthesiology
DX: M54.12 Radiculopathy, cervical region (principal)
CPT/HCPCS: 62321

== ENCOUNTER 2023-12-06 12:30 | Outpatient (RCR) | payer OTHER, SELFPAY ==
[2023-11-29 13:15] VITALS: BP 151/107; PULSE 86; RESP 18; TEMP 36.3; O2SAT 100; BMI 37.7
[2023-11-29] MEDS: Iron Sucrose Complex 200 MG in 0.9 % Sodium Chloride 100 ML 440 MG IV (13:22)
[2023-12-06 12:02] VITALS: BP 145/69; PULSE 81; RESP 16; TEMP 36.3; O2SAT 100
[2023-12-06] MEDS: Iron Sucrose Complex 200 MG in 0.9 % Sodium Chloride 100 ML 440 MG IV (12:10)
[2023-12-06 12:27] LABS: MANUAL DIFF FLAG NO
[2023-12-06 12:35] LABS: Basophils Percent Auto 0.8 % (0-2); Eosinophils Absolute Auto 0.1 X10*3/uL (0.0-0.4); Hematocrit 33.2 % (37.0-47.0); Hemoglobin 10.7 g/dl (12.0-16.0); Imm Gran Abs Auto 0.02 X10*3/uL (0.00-0.03); Imm Gran Pct Auto 0.4 % (0.0-0.4); Lymphocytes Absolute Auto 1.4 X10*3/uL (1.2-4.9); Lymphocytes Percent Auto 27.7 % (20-40); Mean Corpuscular HGB Conc 32.2 g/dl (31.0-35.0); Mean Corpuscular Hemoglobin 29.6 pg (27.0-33.0); Mean Platelet Volume 9.1 fL (9.4-12.3); Monocytes Absolute Auto 0.5 X10*3/uL (0.1-1.2); Monocytes Percent Auto 9.8 % (2-11); Neutrophils Percent Auto 59.3 % (45-73); Platelet Count 292 X10*3/uL (160-400); Red Blood Count 3.61 X10*6/uL (4.20-5.50); Red Cell Distribution Width 15.3 % (11.0-16.0)
[2023-12-06 13:21] LABS: Ferritin 79 ng/mL (10-250)
== END 2023-12-06 12:31 | disposition home or self-care (01) ==
LOC: HO.INF 12:30
PROVIDERS: Visit Provider Internal Medicine Medical Oncology
DX: D50.9 Iron deficiency anemia, unspecified (principal)
CPT/HCPCS: 36415; 82728; 85025; 96365; J1756

== ENCOUNTER 2023-12-14 13:29 | Outpatient (AMB) | payer OTHER, SELFPAY ==
--- NOTE | 2023-12-14 13:44 | A.OFFVIS_ITS ---
Intake Vital Signs 12/14/23 13:49 Height 5 ft 3 in Weight 240 lb BMI 42.5 BP 136/77 Blood Pressure Location Lt brachial Position Sitting Respiration 18 Pulse 89 Pulse Source Pulse Oximeter Pulse Oximetry (%) 98 Oxygen Delivery Method Room Air Intake Visit Reasons: increased lower back pain Intake Note: Patient comes in for increased lower back pain. Reports pain 10/10. Allergies amoxicillin [From Augmentin] Adverse Reaction (Mild, Verified 12/14/23 13:48) yeast infection clavulanic acid [From Augmentin] Adverse Reaction (Mild, Verified 12/14/23 13:48) yeast infection amoxicillin Adverse Reaction (Mild, Uncoded 12/06/23 10:54) yeast infection HPI HPI Comments History of Present Illness Details Cary is very pleasant 47 years old female who presents herself in my office with 2 distinct pain generators. She went for MRI of the cervical spine and the MRI results dictated as below. There are several levels of severe foraminal stenosis as dictated as below. I performed epidural steroid injection on the level C6-C7 for this patient and she reported significant pain improvement and significant numbness in tingling improvement in the right upper extremity. She reports less improvement in the left upper extremity. She would like to consider these injection again in the future. As of her lower back pain MRI is available and then there are subtle Modic type changes on the MRI. The mostly pronounced MRI changes are at L2-L3 maybe L4 level however the patient reports pain mostly in the projection of the sacral bone. Shaji test, Gaenslen test, pelvic compression and pelvic distraction tests bilaterally positive. I suspect the patient has sacroiliitis. Alternatively radiculopathy of the sacral vertebra could not be excluded. We decided that I will start her treatment diagnostic procedure by performing bilateral diagnostic sacroiliac joint injection. If this injection will be negative for pain resolution I will offer her caudal dural steroid injection. Neuromodulation with retrograde inserted [employer] scientific stimulator into caudal canal could be discussed if none of the above will be helpful for the patient. Prior: C/o pain in the cervical spine with sensation of the numbness of bilateral upper extremities as well as axial pain in lower back which is aggravated by prolonged standing and sitting and aggravated by flexing back forward but alleviated when she flex her back backwards. She reports that her pain started many years ago however became aggravated recently reports pain in neck 4 to 6/10 and pain in lower back is 10+ out of 10. She was under care of pains physician in [facility] she received MRI of the lumbar spine she was not recommended to go for the surgery by neurosurgeon. Never was evaluated by MRI of the cervical spine she is taking gabapentin for her pain and 100 mg 3 times a day maximal does she is taking tramadol 50 mg once a day and muscle relaxant methalaxon. She reports that she received sacroiliac joint injections in the past those were done by Dr. Markham in [facility] she reports very minimal help for 1 or 2 days from steroid sacroiliac joint injection however no prolonged pain relief. She had multiple attempts at physical therapy which aggravated her pain and she refused to go to physical therapy she denies chiropractic manipulations massage therapy or 10s unit. She brought with herself and MRI done on her lumbar spine in [facility] in [facility] which is suspicious for Modic type changes. I would like to send this MRI disc for the review with Radiology to evaluate this MRI for Modic type changes. [facility] Medical History (Updated 11/03/23 @ 15:04 by Danuta Pathak PA-C) Sacroiliac joint dysfunction Cervical spondylosis Myofascial pain Lumbar disc herniation Aftercare following right ankle joint replacement surgery Necrotizing fasciitis Degenerative disc disease, lumbar Depression Anxiety Surgical History History of throat surgery S/P lumpectomy, right breast Family History Mother COPD (chronic obstructive pulmonary disease) Emphysema lung Mental health disorder Social History Household Members: Friend(s) Both parents involved: No Caregiver staying overnight: No Housing: House Are you a primary complex care nurse practitioner to a significant other at home: No Do you presently have visiting nurse or other home services: No 75 years or older and lives alone: No Alcohol intake: current Patient Tobacco Use Status: Former Tobacco user e-Cigarette/Vaping Use: Former Use service: No Current occupational status: disabled 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 Patient was appropriately conversant and oriented. Good historian. MSK: Inspection reveals appropriate head and neck positioning. No pain with palpation over the neck musculature. Cervical ROM was full. Spurling's sign positive with radiation to left arm. Bilateral shoulder, elbow and wrist ROM WNL. No ligamentous laxity or crepitance. No increased effusion. No specific abnormalities or instability found on inspection and palpation of the spine and extremities. No point tenderness on spinous processes, facets, SI or GT. Unable to do lumbar extension due to pain. Negative SLR. Positive MARCOS for back pain bilateral. Strength is 5/5 in all muscle groups tested. No increased tone noted. Right toes go into spasms while extended with pain. This limits her ankle range of motion. No redness or swelling on right foot or ankle. Neurological: Neurologic examination of the upper and lower extremities was nonfocal with intact sensation, muscle stretch reflexes and without focal motor deficits . Hunter?s negative bilaterally. Babinski was down going bilaterally. Clonus was negative. Gait is non-antalgic without loss of balance. Can stand on heels but cannot do toe walk. No foot drop while seated. Neck Other: Negative Lhermitte sign, positive Spurling sign on the right negative Valsalva maneuver 2 point differentiation is positive on bilateral hands Back/Spine/Pelvis Other: Flexing forward greatly aggravate her pain. In fact she cannot flex forward more than 45 degrees. Flexing backwards alleviates her pain. Prolonged sitting aggravates her pain. Shaji test is positive bilaterally, Gaenslen test is positive bilaterally, pelvic distraction and pelvis compression test as well as 14 finger test are positive bilaterally. Assessment & Plan Assessment & Plan (1) Degeneration, intervertebral disc, cervical: Code(s): M50.30 - Other cervical disc degeneration, unspecified cervical region (2) Cervical stenosis of spinal canal: Code(s): M48.02 - Spinal stenosis, cervical region (3) Lumbar disc herniation: Code(s): M51.26 - Other intervertebral disc displacement, lumbar region Plan: The Modic type changes a very subtle on the MRI and mostly pronounced in L2-L3 maybe L4 vertebra. However the pain of the patient complains on the pain in the projection of the sacral bone. The tests for sacroiliitis are positive as above. Sacroiliac joint injection bilateral diagnostic will be scheduled. Radiculopathy of the sacral nerve roots can not be excluded either. I will consider caudal epidural steroid injection if SI joint injection will not be helpful for the pain control of this patient. (4) Cervical radiculitis: Code(s): M54.12 - Radiculopathy, cervical region Plan: She was sent for evaluation by neuro surgery, her major concern at that office was about her lower back pain. She was referred back to our office for further management of her pain. (5) Spondylosis of lumbar spine: Code(s): M47.816 - Spondylosis without myelopathy or radiculopathy, lumbar region (6) Vertebrogenic low back pain: Code(s): M54.51 - Vertebrogenic low back pain Plan Patient Instructions: I here by testify that I spent 34 minutes in conversation with this patient as well as planning her care evaluating her prior records and diagnostic studies and organizing this note. Coding Level of Care Code Est Pt Level 4 (29575) Diagnoses Degeneration, intervertebral disc, cervical M50.30 Cervical stenosis of spinal canal M48.02 Lumbar disc herniation M51.26 Cervical radiculitis M54.12 Spondylosis of lumbar spine M47.816 Vertebrogenic low back pain M54.51
[2023-12-14 13:49] VITALS: BP 136/77; PULSE 89; RESP 18; O2SAT 98; BMI 42.5
== END 2023-12-14 14:37 | disposition home or self-care (01) ==
PROVIDERS: PCP Nurse Practitioner Family; Visit Provider Anesthesiology
DX: M46.1 Sacroiliitis, not elsewhere classified (principal); M53.3 Sacrococcygeal disorders, not elsewhere classified; M50.30 Other cervical disc degeneration, unspecified cervical region; M48.02 Spinal stenosis, cervical region; M51.26 Other intervertebral disc displacement, lumbar region; M54.12 Radiculopathy, cervical region; M47.816 Spondylosis without myelopathy or radiculopathy, lumbar region; M54.51 Vertebrogenic low back pain
CPT/HCPCS: 99214

== ENCOUNTER → 2023-12-14 13:29 | Outpatient (BNVA) | payer OTHER, SELFPAY | PROVIDERS: PCP Nurse Practitioner Family; Visit Provider Anesthesiology | DX: M50.30 Other cervical disc degeneration, unspecified cervical region (principal); M48.02 Spinal stenosis, cervical region; M51.26 Other intervertebral disc displacement, lumbar region; M54.12 Radiculopathy, cervical region; M47.816 Spondylosis without myelopathy or radiculopathy, lumbar region; M54.51 Vertebrogenic low back pain | CPT/HCPCS: 99212 ==

== ENCOUNTER 2024-01-02 10:50 | Outpatient (AMB) | payer OTHER, SELFPAY ==
--- NOTE | 2024-01-02 10:53 | A.OFFVIS_ITS ---
Vital Signs 01/02/24 10:58 Height 5 ft 3 in Weight 236 lb 8 oz BMI 41.9 BP 140/96 H Blood Pressure Location Lt brachial Position Sitting Respiration 18 Pulse 100 Pulse Source Pulse Oximeter Pulse Oximetry (%) 96 Oxygen Delivery Method Room Air Intake Visit Reasons: C6,C7 INTERLAMINAR CARMEN Intake Note: Patient comes in for post-op appointment. Reports pain 03/07. Allergies amoxicillin [From Augmentin] Adverse Reaction (Mild, Verified 01/02/24 10:58) yeast infection clavulanic acid [From Augmentin] Adverse Reaction (Mild, Verified 01/02/24 10:58) yeast infection amoxicillin Adverse Reaction (Mild, Uncoded 12/06/23 10:54) yeast infection HPI Comments Details: Cary is very pleasant 47 years old female who presents herself in my office with 2 distinct pain generators. She went for MRI of the cervical spine and the MRI results dictated as below. There are several levels of severe foraminal stenosis dictated as below. I performed epidural steroid injection on the level C6-C7 for this patient and she reported significant pain improvement and significant numbness in tingling improvement in the right upper extremity. This is the 2nd injection and it again demonstrates very good results. However unfortunately the patient was denied by her insurance company sacroiliac joint injection. They denied sacroiliac joint injection based on the fact that patient did not have physical therapy. In fact the patient had 3 months ago very extensive physical therapy for her lower back with stretching, aerobic exercises, core strength improvement, mobility and occupational therapy modifications. She in fact continues those exercises at this time. I will schedule her again for diagnostic bilateral sacroiliac joint injection. As of her lower back pain MRI is available and then there are subtle Modic type changes on the MRI. The mostly pronounced MRI changes are at L2-L3 maybe L4 level however the patient reports pain mostly in the projection of the sacral bone. Shaji test, Gaenslen test, pelvic compression and pelvic distraction tests bilaterally positive. I suspect the patient has sacroiliitis. Alternatively radiculopathy of the sacral vertebra could not be excluded. We decided that I will start her treatment diagnostic procedure by performing bilateral diagnostic sacroiliac joint injection. If this injection will be negative for pain resolution I will offer her caudal dural steroid injection. Neuromodulation with retrograde inserted [employer] stimulator into caudal canal could be discussed if none of the above will be helpful for the patient. Prior: C/o pain in the cervical spine with sensation of the numbness of bilateral upper extremities as well as axial pain in lower back which is aggravated by prolonged standing and sitting and aggravated by flexing back forward but alleviated when she flex her back backwards. She reports that her pain started many years ago however became aggravated recently reports pain in neck 4 to 6/10 and pain in lower back is 10+ out of 10. She was under care of pains physician in [facility] she received MRI of the lumbar spine she was not recommended to go for the surgery by neurosurgeon. Never was evaluated by MRI of the cervical spine she is taking gabapentin for her pain and 100 mg 3 times a day maximal does she is taking tramadol 50 mg once a day and muscle relaxant methalaxon. She reports that she received sacroiliac joint injections in the past those were done by Dr. Markham in [facility] she reports very minimal help for 1 or 2 days from steroid sacroiliac joint injection however no prolonged pain relief. She had multiple attempts at physical therapy which aggravated her pain and she refused to go to physical therapy she denies chiropractic manipulations massage therapy or 10s unit. She brought with herself and MRI done on her lumbar spine in [facility] in [facility] which is suspicious for Modic type changes. I would like to send this MRI disc for the review with Radiology to evaluate this MRI for Modic type changes. [facility] Medical History (Updated 01/02/24 @ 11:14 by Abdelrahman Richards MD) Sacroiliac joint dysfunction Cervical spondylosis Myofascial pain Lumbar disc herniation Aftercare following right ankle joint replacement surgery Necrotizing fasciitis Degenerative disc disease, lumbar Depression Anxiety Surgical History History of throat surgery S/P lumpectomy, right breast Family History Mother COPD (chronic obstructive pulmonary disease) Emphysema lung Mental health disorder Social History Household Members: Friend(s) Both parents involved: No Caregiver staying overnight: No Housing: House Are you a primary personal care home administrator to a significant other at home: No Do you presently have visiting nurse or other home services: No 75 years or older and lives alone: No Alcohol intake: current Patient Tobacco Use Status: Former Tobacco user e-Cigarette/Vaping Use: Former Use service: No Current occupational status: disabled 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 Patient was appropriately conversant and oriented. Good historian. MSK: Inspection reveals appropriate head and neck positioning. No pain with palpation over the neck musculature. Cervical ROM was full. Spurling's sign positive with radiation to left arm. Bilateral shoulder, elbow and wrist ROM WNL. No ligamentous laxity or crepitance. No increased effusion. No specific abnormalities or instability found on inspection and palpation of the spine and extremities. No point tenderness on spinous processes, facets, SI or GT. Unable to do lumbar extension due to pain. Negative SLR. Positive MARCOS for back pain bilateral. Strength is 5/5 in all muscle groups tested. No increased tone noted. Right toes go into spasms while extended with pain. This limits her ankle range of motion. No redness or swelling on right foot or ankle. Neurological: Neurologic examination of the upper and lower extremities was nonfocal with intact sensation, muscle stretch reflexes and without focal motor deficits . Hunter?s negative bilaterally. Babinski was down going bilaterally. Clonus was negative. Gait is non-antalgic without loss of balance. Can stand on heels but cannot do toe walk. No foot drop while seated. Neck Other: Negative Lhermitte sign, positive Spurling sign on the right negative Valsalva maneuver 2 point differentiation is positive on bilateral hands Back/Spine/Pelvis Other: Flexing forward greatly aggravate her pain. In fact she cannot flex forward more than 45 degrees. Flexing backwards alleviates her pain. Prolonged sitting aggravates her pain. Shaji test is positive bilaterally, Gaenslen test is positive bilaterally, pelvic distraction and pelvis compression test as well as 14 finger test are positive bilaterally. Results Reviewed Results Reviewed: MRI of the cervical spine 06/09/2023: VERTEBRAL BODIES AND PARASPINAL SOFT TISSUES: Moderate multilevel disc space narrowing noted throughout the cervicothoracic spine. The marrow signal is mildly heterogeneous with regions of fatty change. There is a leftward curvature of the spine as well. No compression fractures. There are mixed chronic and edematous endplate changes visible at the C3-C4, T2-T3, T3-T4, and T4-T5 levels with disc bulges and endplate spurring. At the upper thoracic levels, there are small right foraminal disc protrusions resulting in moderate foraminal encroachment at the T1-T2, T2-T3, and T3-T4 levels. The paraspinal soft tissues are normal. The vertebral artery flow-voids are maintained. The imaged lung apices are grossly clear. CERVICOMEDULLARY JUNCTION AND VISUALIZED POSTERIOR FOSSA: The craniovertebral junction and imaged portions of the brain parenchyma appear normal. No cord signal abnormality or syrinx is seen. SPINAL LEVELS: C2-C3: No disc pathology. Mild facet arthrosis without central canal stenosis or foraminal narrowing. C3-C4: Moderate loss of disc height and retrosubluxation with a disc-osteophyte complex and mild endplate edema. Severe left foraminal narrowing. No central canal stenosis. C4-C5: Yclhizsf-cm-ulkgyr loss of disc height and mild posterior subluxation with a shallow disc-osteophyte complex. No central canal stenosis. Agby-jn-yqipzjbr foraminal narrowing, more so on the right side. C5-C6: Disc-osteophyte complex mildly impresses upon the ventral thecal sac without central canal stenosis. Severe left foraminal narrowing and moderate right foraminal encroachment. C6-C7: Dnnyiole-be-ooaeiy loss of disc height with a posterior disc bulge and uncovertebral joint spurring resulting in severe left foraminal encroachment. No central canal stenosis. C7-T1: Mild disc bulge and endplate spurring without central canal stenosis. Moderate left foraminal narrowing and milder right foraminal encroachment. MR/MR cervical spine wo con IMPRESSION: Moderate multilevel cervical spondylosis with mixed chronic and edematous endplate changes. No focal disc protrusion or central canal stenosis. Multilevel foraminal narrowing due to disc-osteophyte complexes. Leftward curvature of the cervical spine. Twov-je-firljhsh endplate edematous changes lateralized to the right side at the upper thoracic levels with right foraminal disc protrusion resulting in moderate right foraminal encroachment, particularly at the T1-T2, T2-T3, and T3-T4 levels. Assessment & Plan Assessment & Plan (1) Degeneration, intervertebral disc, cervical: Code(s): M50.30 - Other cervical disc degeneration, unspecified cervical region Category: Medical (2) Cervical stenosis of spinal canal: Code(s): M48.02 - Spinal stenosis, cervical region Category: Medical (3) Lumbar disc herniation: Code(s): M51.26 - Other intervertebral disc displacement, lumbar region Category: Medical Plan: The Modic type changes a very subtle on the MRI and mostly pronounced in L2-L3 maybe L4 vertebra. However the pain of the patient complains on the pain in the projection of the sacral bone. The tests for sacroiliitis are positive as above. Sacroiliac joint injection bilateral diagnostic will be scheduled. Radiculopathy of the sacral nerve roots can not be excluded either. I will consider caudal epidural steroid injection if SI joint injection will not be helpful for the pain control of this patient. (4) Cervical radiculitis: Code(s): M54.12 - Radiculopathy, cervical region Category: Medical Plan: She was sent for evaluation by neuro surgery, her major concern at that office was about her lower back pain. She was referred back to our office for further management of her pain. (5) Spondylosis of lumbar spine: Code(s): M47.816 - Spondylosis without myelopathy or radiculopathy, lumbar region Category: Medical (6) Vertebrogenic low back pain: Code(s): M54.51 - Vertebrogenic low back pain Category: Medical (7) Chronic sacroiliac joint pain: Code(s): M53.3 - Sacrococcygeal disorders, not elsewhere classified; G89.29 - Other chronic pain Category: Medical (8) Sacroiliitis: Code(s): M46.1 - Sacroiliitis, not elsewhere classified Category: Medical Plan This patient was very much involved in extensive course of physical therapy at least 8 weeks of exercises at the office at least twice a week and she is well continued home exercise program which she reports doing at least 2 to 3 times a day at least 15-20 minutes at a time. She still reports severe pain in the projection of the lower lumbar spine. I will attempt to schedule her again for diagnostic sacroiliac joint injection in the office injection area. Very good results of therapeutic C6-C7 epidural steroid injection. The patient reports disappearance of pins and needles tingling and burning sensation in bilateral extremities, much better pain in the lower cervical spine. Reports pain in the base of her skull with had motions. She probably has arthritis in this area. I recommended her some stretching exercises for her neck as well. Coding Level of Care Code Est Pt Level 3 (60988) Diagnoses Degeneration, intervertebral disc, cervical M50.30 Cervical stenosis of spinal canal M48.02 Lumbar disc herniation M51.26 Cervical radiculitis M54.12 Spondylosis of lumbar spine M47.816 Vertebrogenic low back pain M54.51 Chronic sacroiliac joint pain M53.3; G89.29 Sacroiliitis M46.1
[2024-01-02 10:58] VITALS: BP 140/96; PULSE 100; RESP 18; O2SAT 96; BMI 41.9
== END 2024-01-02 11:30 | disposition home or self-care (01) ==
PROVIDERS: PCP Nurse Practitioner Family; Visit Provider Anesthesiology
DX: M50.30 Other cervical disc degeneration, unspecified cervical region (principal); M48.02 Spinal stenosis, cervical region; M51.26 Other intervertebral disc displacement, lumbar region; M54.12 Radiculopathy, cervical region; M47.816 Spondylosis without myelopathy or radiculopathy, lumbar region; M54.51 Vertebrogenic low back pain; M53.3 Sacrococcygeal disorders, not elsewhere classified; G89.29 Other chronic pain; M46.1 Sacroiliitis, not elsewhere classified
CPT/HCPCS: 99213

== ENCOUNTER → 2024-01-02 10:50 | Outpatient (BNVA) | payer OTHER, SELFPAY | PROVIDERS: PCP Nurse Practitioner Family; Visit Provider Anesthesiology | DX: M50.30 Other cervical disc degeneration, unspecified cervical region (principal); M48.02 Spinal stenosis, cervical region; M51.26 Other intervertebral disc displacement, lumbar region; M54.12 Radiculopathy, cervical region; M47.816 Spondylosis without myelopathy or radiculopathy, lumbar region; M54.51 Vertebrogenic low back pain; M53.3 Sacrococcygeal disorders, not elsewhere classified; M46.1 Sacroiliitis, not elsewhere classified; G89.29 Other chronic pain | CPT/HCPCS: 99212 ==

== ENCOUNTER 2024-01-24 11:36 | Outpatient (AMB) | payer OTHER, SELFPAY ==
[2024-01-24 11:47] VITALS: BP 134/80; PULSE 106; RESP 14; TEMP 36.6; O2SAT 93; BMI 43.0
--- NOTE | 2024-01-24 11:47 | A.OFFPC_ITS ---
Vital Signs 01/24/24 11:47 Height 5 ft 3 in Weight 243 lb BMI 43.0 BP 134/80 Blood Pressure Location Rt brachial Position Sitting Respiration 14 Pulse 106 H Pulse Source Pulse Oximeter Temp 97.8 F Temp Source Temporal Artery Scan Pulse Oximetry (%) 93 Oxygen Delivery Method Room Air Intake Visit Reasons: Med management Manager Intensive Care Required: No Accompanied by: Self / Same As Patient Allergies amoxicillin [From Augmentin] Adverse Reaction (Mild, Verified 01/24/24 12:31) yeast infection clavulanic acid [From Augmentin] Adverse Reaction (Mild, Verified 01/24/24 12:31) yeast infection amoxicillin Adverse Reaction (Mild, Uncoded 01/24/24 12:31) yeast infection Medication List - Last Reconciled 01/24/24 by Jacoby Francis CNP alprazolam 0.5 mg PO DAILY PRN aripiprazole 10 mg PO DAILY bisacodyl (Dulcolax (bisacodyl)) 20 mg (4 x 5 mg) PO ONCE PRN 1 day dextroamphetamine-amphetamine 20 mg (Adderall) 20 mg PO DAILY escitalopram oxalate 15 mg PO DAILY ferrous sulfate 325 mg PO BID 30 days gabapentin 900 mg (3 x 300 mg) PO TID 30 days polyethylene glycol 3350 (Miralax) 238 grams PO ONCE PRN 1 day tramadol 100 mg (2 x 50 mg) PO TID PRN 20 days zolpidem ER 12.5 mg PO BEDTIME PRN Tobacco use date assessed: 01/24/24 Dental Screening Dental Screen Date: 01/24/24 Did you have a dental visit in the last 12 months?: Yes Did you have a dental problem in the last 6 months where you did not have access to dental care?: No Was dental information given to patient?: Patient has dentist HPI HPI Comments History of Present Illness Details 48 y/o female presents for chronic persi stent low back pain follow up She is on Tramadol 100mg TID PRN which she admits to taking as prescribed without adverse reactions; she still has a few doses left. She is followed [facility] pain management. She notes that she is awaiting her health plan to approve epidural steroid injection for her lower back She admits to making healthy dietary choices and walking daily. She notes she has on a wait list for [facility] weight management. She notes that her goal is to eventually come off pain medications She is followed by [facility] hematology. The plan is to initiate IV iron therapy She is followed by a psychiatrist once a month and a therapist weekly for mental illness [facility] Medical History Sacroiliac joint dysfunction Cervical spondylosis Myofascial pain Lumbar disc herniation Aftercare following right ankle joint replacement surgery Necrotizing fasciitis Degenerative disc disease, lumbar Depression Anxiety Surgical History History of throat surgery S/P lumpectomy, right breast Family History Mother COPD (chronic obstructive pulmonary disease) Emphysema lung Mental health disorder Social History Household Members: Friend(s) Both parents involved: No Caregiver staying overnight: No Housing: House Are you a primary child care center administrator to a significant other at home: No Do you presently have visiting nurse or other home services: No 75 years or older and lives alone: No Alcohol intake: current Patient Tobacco Use Status: Former Tobacco user e-Cigarette/Vaping Use: Former Use service: No Current occupational status: disabled 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 Contreras Velazquez, Gisselle Reyna, Javed Lee and colleagues, with an educational earline from [employer]. Review of Systems Const Details: Const Denies chills, Denies fatigue, Denies fever(s), Denies headache(s) and Denies weakness ENT Denies dizziness and Denies headache(s) Card Denies chest pain, Denies lightheadedness, Denies dyspnea and Denies other (Palpitations) Resp Denies cough, Denies dyspnea, Denies wheezing and Denies other ( shortness of breath) GI Denies abdominal pain, Denies melena, Denies hematochezia, Denies change in bowel habits, Denies dyspepsia and Denies nausea Denies hematuria and Denies dysuria Musc Reports low back pain, Denies abnormal gait, Denies numbness and Denies tingling Skin/Breast Denies rash, Denies unusual bruising and Denies wounds Neuro Denies abnormal gait, Denies dizziness, Denies headache(s), Denies memory loss, Denies numbness, Denies Sensory deficit (Neuro), Denies tingling and Denies weakness Psych Denies anxiety, Denies depression, Denies memory loss Endo Denies cold intolerance, Denies fatigue, Denies heat intolerance, Denies polydipsia and Denies polyuria Aller/Immun Denies wheezing Physical exam (Primary Care) Vital Signs: Last Vital Signs Temp 97.8 F 01/24/24 11:47 Pulse 106 H 01/24/24 11:47 Resp 14 01/24/24 11:47 BP 134/80 01/24/24 11:47 Pulse Ox 93 01/24/24 11:47 Oxygen Delivery Method Room Air 01/24/24 11:47 BMI result Body Mass Index 43.0 Tobacco/Smoking Status: Tobacco use Status Tobacco use date assessed 01/24/24 01/24/24 11:59 Patient Tobacco Use Status Former Tobacco user 01/24/24 11:59 e-Cigarette/Vaping Use Former Use 01/24/24 11:59 Const Other: General: no acute distress and well developed Nutritional Appearance: well nourished Orientation/consciousness: patient oriented x3 HENMT Head: Yes normocephalic and Yes atraumatic Eyes General: appearance normal, both eyes and all related structures Pupils: Equal, round and reactive pupils present EOM: EOMs intact bilaterally Resp Effort & Inspection: normal respiratory effort Auscultation: clear to auscultation bilaterally Cardio Rate: regular rate Rhythm: regular rhythm Heart sounds: S1 normal heart sound present, S2 normal heart sound present, no gallops, no murmurs and no rubs GI Palpation (GI): No Abdominal aortic bruit present, Soft to palpation, nontender, No hepatosplenomegaly present and No Rebound tenderness present Auscultation: normal bowel sounds General: Yes no CVA tenderness Back/Spine/Pelvis Back: no CVA tenderness Cervical Spine: cervical ROM normal and No Cervical spine tenderness Thoracic/Lumbar Spine: thoraco-lumbar ROM normal, No pain with thoraco-lumbar ROM, No thoracic spinal tenderness and No lumbar spinal tenderness Extrem General: Yes normal to inspection, No edema and No calf tenderness Skin General: warm and dry. Normal skin color. Normal skin turgor Neuro General: patient oriented x3, gait normal and no focal neuro deficit Cranial nerves: Yes Equal, round and reactive pupils present Cognition (Neuro): normal cognition Gait exam (Neuro): Normal gait present Sensory Exam: No Sensory deficit (Neuro) Psych Appearance: grossly normal Affect: normal affect Attitude: cooperative Thought process: Normal thought process present Assessment and Plan Assessment & Plan (1) Chronic back pain: Code(s): M54.9 - Dorsalgia, unspecified; G89.29 - Other chronic pain Qualifiers: Back pain location: low back pain Sciatica presence: without sciatica Plan: Chronic persistent low back pain Continue to take tramadol as prescribed Random urine collected for [facility]ox screen. Will refill tramadol based on [facility]ox screen screen results Routine exercise encouraged Advised to call [facility] weight management regarding place on wait list Continue follow-up with pain management as planned Return in 5 months for an extended physical exam or sooner with symptoms or concerns Verbalized understanding and agreed with treatment plan (2) Morbid obesity with BMI of 40.0-44.9, adult: Code(s): E66.01 - Morbid (severe) obesity due to excess calories; Z68.41 - Body mass index [BMI] 40.0-44.9, adult Plan: She currently weighs 243 lb, BMI is 43.0 Informed that weight loss may alleviate back pain Routine exercise encouraged Advised to call [facility] weight management regarding place on wait list Verbalized understanding and agreed with the plan Orders: Orders AMB 12 Panel Urine Drug Screen Today Z51.81 - Encounter for therapeutic drug level monitoring Coding Level of Care Code Est Pt Level 4 (24625) Complex EM visit Add On G2211 Diagnoses Chronic back pain M54.9; G89.29 Back pain location: low back pain Sciatica presence: without sciatica Morbid obesity with BMI of 40.0-44.9, adult E66.01; Z68.41
== END 2024-01-24 12:56 | disposition home or self-care (01) ==
PROVIDERS: PCP Nurse Practitioner Family; Visit Provider Nurse Practitioner Family
DX: M54.9 Dorsalgia, unspecified (principal); G89.29 Other chronic pain; E66.01 Morbid (severe) obesity due to excess calories; Z68.41 Body mass index [BMI] 40.0-44.9, adult
CPT/HCPCS: 99214; G2211

== ENCOUNTER 2024-01-24 14:49 | Outpatient (REF) | payer OTHER, SELFPAY ==
[2024-01-24 15:31] LABS: Appearance Urine Clear; Color Urine Yellow; Glucose Urine UA Negative (Negative); Leukocyte Esterase Urine Moderate (2+) (Negative); Nitrite Urine Negative (Negative); Specific Gravity - Urine <= 1.005 (1.005-1.025); UMIC TRIGGER UACC YES; Urine Blood Large (3+) (Negative); Urine Ketones Negative (Negative); Urine Protein Negative (Neg-Trace)
[2024-01-24 15:56] LABS: Bacteria Urine Trace (None Seen); Hyaline Casts Urine 0-2 /LPF (0-2); UACC Culture Trigger YES
== END 2024-01-24 14:50 | disposition home or self-care (01) ==
LOC: HO.LNP 14:49
PROVIDERS: Visit Provider Nurse Practitioner Family
DX: Z51.81 Encounter for therapeutic drug level monitoring (principal)
CPT/HCPCS: 81001; 81003; 87086

== ENCOUNTER 2024-04-23 10:00 | Outpatient (RCR) | payer OTHER, SELFPAY ==
[2024-03-05 10:04] VITALS: BP 129/81; PULSE 82; RESP 14; TEMP 36.3; O2SAT 96
[2024-03-05] MEDS: Iron Sucrose Complex 200 MG in 0.9 % Sodium Chloride 100 ML 440 MG IV (10:16)
[2024-03-05] MEDS: 0.9 % Sodium Chloride Flush 10 ML SYRINGE 5 ML IVFLUSH (10:37)
[2024-03-12 14:58] VITALS: BP 124/80; PULSE 82; RESP 18; TEMP 36.1; O2SAT 98
[2024-03-12] MEDS: Iron Sucrose Complex 200 MG in 0.9 % Sodium Chloride 100 ML 440 MG IV (15:00)
--- NOTE | 2024-03-12 15:15 | PC.NURSE ---
SPOKE WITH DR LUI MULTIPLE NEEDLE STITCHER RE PTS NEW ORDER MAKING 9 TOTAL IN[address] PT AWARE [address] LUI WROTE NEW ORDER LAST WK FOR 8 MORE INFUSIONS AFTER RECIEVING A DOSE ON 03/05
[2024-03-12] MEDS: 0.9 % Sodium Chloride Flush 10 ML SYRINGE 5 ML IVFLUSH (15:26)
[2024-03-19 12:14] VITALS: BP 136/66; PULSE 83; RESP 18; TEMP 36.4; O2SAT 97
[2024-03-19] MEDS: Iron Sucrose Complex 200 MG in 0.9 % Sodium Chloride 100 ML 440 MG IV (12:22)
[2024-03-19] MEDS: 0.9 % Sodium Chloride Flush 10 ML SYRINGE 5 ML IVFLUSH (12:43)
[2024-03-26 09:52] VITALS: BP 131/71; PULSE 83; RESP 20; TEMP 36.9; O2SAT 98
[2024-03-26] MEDS: Iron Sucrose Complex 200 MG in 0.9 % Sodium Chloride 100 ML 440 MG IV (10:09)
--- NOTE | 2024-03-26 10:12 | HO.INF ---
10:10AM- LAB IN - BLOOD DRAWN.
[2024-03-26 10:28] LABS: MANUAL DIFF FLAG NO
[2024-03-26] MEDS: 0.9 % Sodium Chloride Flush 10 ML SYRINGE 5 ML IVFLUSH (10:28)
[2024-03-26 10:31] LABS: Basophils Percent Auto 0.6 % (0-2); Eosinophils Absolute Auto 0.2 X10*3/uL (0.0-0.4); Eosinophils Percent Auto 2.6 % (0-4); Hematocrit 32.6 % (37.0-47.0); Hemoglobin 10.3 g/dl (12.0-16.0); Imm Gran Abs Auto 0.03 X10*3/uL (0.00-0.03); Imm Gran Pct Auto 0.5 % (0.0-0.4); Lymphocytes Absolute Auto 1.9 X10*3/uL (1.2-4.9); Lymphocytes Percent Auto 28.8 % (20-40); Mean Corpuscular HGB Conc 31.6 g/dl (31.0-35.0); Mean Corpuscular Hemoglobin 28.1 pg (27.0-33.0); Mean Corpuscular Volume 89.1 fL (80.0-98.0); Mean Platelet Volume 9.6 fL (9.4-12.3); Monocytes Absolute Auto 0.7 X10*3/uL (0.1-1.2); Monocytes Percent Auto 10.4 % (2-11); Neutrophils Absolute Auto 3.8 x10*3/uL (2.0-8.3); Neutrophils Percent Auto 57.1 % (45-73); Platelet Count 315 X10*3/uL (160-400); Red Blood Count 3.66 X10*6/uL (4.20-5.50); Red Cell Distribution Width 17.5 % (11.0-16.0); White Blood Count 6.6 X10*3/uL (4.8-10.8)
[2024-03-26 11:07] LABS: Ferritin 68 ng/mL (10-250)
[2024-04-02 11:17] VITALS: BP 123/80; PULSE 79; RESP 18; TEMP 36.8; O2SAT 97
[2024-04-02] MEDS: Iron Sucrose Complex 200 MG in 0.9 % Sodium Chloride 100 ML 440 MG IV (11:35)
[2024-04-02] MEDS: 0.9 % Sodium Chloride Flush 10 ML SYRINGE 5 ML IVFLUSH (12:05)
[2024-04-09 09:48] VITALS: BP 143/79; PULSE 72; RESP 18; TEMP 36.1; O2SAT 98
[2024-04-09] MEDS: Iron Sucrose Complex 200 MG in 0.9 % Sodium Chloride 100 ML 440 MG IV (10:04)
[2024-04-09] MEDS: 0.9 % Sodium Chloride Flush 10 ML SYRINGE 5 ML IVFLUSH (10:21)
[2024-04-16 10:00] VITALS: BP 121/62; PULSE 80; RESP 14; TEMP 36.6; O2SAT 93
[2024-04-16] MEDS: Iron Sucrose Complex 200 MG in 0.9 % Sodium Chloride 100 ML 440 MG IV (11:25)
[2024-04-16] MEDS: 0.9 % Sodium Chloride Flush 10 ML SYRINGE 5 ML IVFLUSH (11:45)
[2024-04-23 10:06] VITALS: BP 138/79; PULSE 79; RESP 20; TEMP 36.6; O2SAT 97
[2024-04-23] MEDS: Iron Sucrose Complex 200 MG in 0.9 % Sodium Chloride 100 ML 440 MG IV (10:20)
--- NOTE | 2024-04-23 10:37 | HO.INF ---
phlebotomy at bedside for lab draw
[2024-04-23 10:43] LABS: MANUAL DIFF FLAG NO
[2024-04-23 10:44] LABS: Basophils Absolute Auto 0.1 X10*3/uL (0.0-0.2); Basophils Percent Auto 0.9 % (0-2); Eosinophils Absolute Auto 0.2 X10*3/uL (0.0-0.4); Eosinophils Percent Auto 2.3 % (0-4); Hematocrit 33.8 % (37.0-47.0); Imm Gran Abs Auto 0.02 X10*3/uL (0.00-0.03); Imm Gran Pct Auto 0.3 % (0.0-0.4); Lymphocytes Absolute Auto 1.7 X10*3/uL (1.2-4.9); Lymphocytes Percent Auto 26.1 % (20-40); Mean Corpuscular HGB Conc 32.5 g/dl (31.0-35.0); Mean Corpuscular Hemoglobin 29.6 pg (27.0-33.0); Mean Corpuscular Volume 90.9 fL (80.0-98.0); Monocytes Absolute Auto 0.6 X10*3/uL (0.1-1.2); Monocytes Percent Auto 8.8 % (2-11); Neutrophils Percent Auto 61.6 % (45-73); Platelet Count 312 X10*3/uL (160-400); Red Blood Count 3.72 X10*6/uL (4.20-5.50); Red Cell Distribution Width 17.5 % (11.0-16.0); White Blood Count 6.6 X10*3/uL (4.8-10.8)
[2024-04-23 11:19] LABS: Ferritin 119 ng/mL (10-250)
== END 2024-04-23 10:40 | disposition home or self-care (01) ==
LOC: HO.INF 10:00
PROVIDERS: Visit Provider Internal Medicine Medical Oncology
DX: D50.9 Iron deficiency anemia, unspecified (principal)
CPT/HCPCS: 36415; 82728; 85025; 96365; 96374; J1756

== ENCOUNTER 2024-05-10 11:16 | Outpatient (AMB) | payer OTHER, SELFPAY ==
[2024-05-10 11:21] VITALS: BP 141/72; PULSE 112; O2SAT 99
--- NOTE | 2024-05-10 11:21 | A.OFFVIS_ITS ---
Vital Signs 05/10/24 11:21 Weight 246 lb BP 141/72 H Blood Pressure Location Rt brachial Position Sitting Pulse 112 H Pulse Source Pulse Oximeter Pulse Oximetry (%) 99 Oxygen Delivery Method Room Air Intake Visit Reasons: F/U for injections Allergies amoxicillin [From Augmentin] Adverse Reaction (Mild, Verified 05/10/24 11:22) yeast infection clavulanic acid [From Augmentin] Adverse Reaction (Mild, Verified 05/10/24 11:22) yeast infection amoxicillin Adverse Reaction (Mild, Uncoded 05/10/24 11:22) yeast infection Medication List - Last Reconciled 05/10/24 by Nicole Feliciano aripiprazole 10 mg PO DAILY bisacodyl (Dulcolax (bisacodyl)) 20 mg (4 x 5 mg) PO ONCE PRN 1 day dextroamphetamine-amphetamine 20 mg (Adderall) 20 mg PO DAILY escitalopram oxalate 15 mg PO DAILY ferrous sulfate 325 mg PO BID 30 days gabapentin 900 mg (3 x 300 mg) PO TID 30 days polyethylene glycol 3350 (Miralax) 238 grams PO ONCE PRN 1 day tramadol 100 mg (2 x 50 mg) PO TID PRN 20 days zolpidem ER 12.5 mg PO BEDTIME PRN HPI Comments Details: Cary returns to the office today for follow-up to discuss her chronic back pain She underwent epidural steroid injection at C6-7 4 months ago, she had great relief with improvement in the burning, numbness and tingling that was radiating down her left hand. For reports the numbness and tingling is starting to return, pain is also starting to increase. She would like to repeat the injection Pain today is rated as a 910, constant, worse in the evenings and at night Previously on Robaxin that provided her good relief. This was discontinued due to black box warnings. She has not tried any other muscle relaxers. Has been taking ibuprofen twice daily as needed with some improvement but pain has progressively get worse. Prior visit with Dr. Richards: Cary is very pleasant 47 years old female who presents herself in my office with 2 distinct pain generators. She went for MRI of the cervical spine and the MRI results dictated as below. There are several levels of severe foraminal stenosis dictated as below. I performed epidural steroid injection on the level C6-C7 for this patient and she reported significant pain improvement and significant numbness in tingling improvement in the right upper extremity. This is the 2nd injection and it again demonstrates very good results. However unfortunately the patient was denied by her insurance company sacroiliac joint injection. They denied sacroiliac joint injection based on the fact that patient did not have physical therapy. In fact the patient had 3 months ago very extensive physical therapy for her lower back with stretching, aerobic exercises, core strength improvement, mobility and occupational therapy modifications. She in fact continues those exercises at this time. I will schedule her again for diagnostic bilateral sacroiliac joint injection. As of her lower back pain MRI is available and then there are subtle Modic type changes on the MRI. The mostly pronounced MRI changes are at L2-L3 maybe L4 level however the patient reports pain mostly in the projection of the sacral bone. Shaji test, Gaenslen test, pelvic compression and pelvic distraction tests bilaterally positive. I suspect the patient has sacroiliitis. Alternatively radiculopathy of the sacral vertebra could not be excluded. We decided that I will start her treatment diagnostic procedure by performing bilateral diagnostic sacroiliac joint injection. If this injection will be negative for pain resolution I will offer her caudal dural steroid injection. Neuromodulation with retrograde inserted WIDIP stimulator into caudal canal could be discussed if none of the above will be helpful for the patient. Prior: C/o pain in the cervical spine with sensation of the numbness of bilateral upper extremities as well as axial pain in lower back which is aggravated by prolonged standing and sitting and aggravated by flexing back forward but alleviated when she flex her back backwards. She reports that her pain started many years ago however became aggravated recently reports pain in neck 4 to 6/10 and pain in lower back is 10+ out of 10. She was under care of pains physician in [facility] she received MRI of the lumbar spine she was not recommended to go for the surgery by neurosurgeon. Never was evaluated by MRI of the cervical spine she is taking gabapentin for her pain and 100 mg 3 times a day maximal does she is taking tramadol 50 mg once a day and muscle relaxant methalaxon. She reports that she received sacroiliac joint injections in the past those were done by Dr. Markham in [facility] she reports very minimal help for 1 or 2 days from steroid sacroiliac joint injection however no prolonged pain relief. She had multiple attempts at physical therapy which aggravated her pain and she refused to go to physical therapy she denies chiropractic manipulations massage therapy or 10s unit. She brought with herself and MRI done on her lumbar spine in [facility] in [facility] which is suspicious for Modic type changes. I would like to send this MRI disc for the review with Radiology to evaluate this MRI for Modic type changes. [facility] Medical History Sacroiliac joint dysfunction Cervical spondylosis Myofascial pain Lumbar disc herniation Aftercare following right ankle joint replacement surgery Necrotizing fasciitis Degenerative disc disease, lumbar Depression Anxiety Surgical History History of throat surgery S/P lumpectomy, right breast Family History Mother COPD (chronic obstructive pulmonary disease) Emphysema lung Mental health disorder Social History Household Members: Friend(s) Both parents involved: No Caregiver staying overnight: No Housing: House Are you a primary date night caregiver to a significant other at home: No Do you presently have visiting nurse or other home services: No 75 years or older and lives alone: No Alcohol intake: current Patient Tobacco Use Status: Former Tobacco user e-Cigarette/Vaping Use: Former Use service: No Current occupational status: disabled 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 Answers questions appropriately. Fully engaged in examination. Skin: warm, dry, intact HEENT: Normocephalic. Hearing intact. Cardiac: External chest normal in appearance. Respiratory: No cough, audible wheezing or stridor. Abdomen: without gross distension. MS: No obvious swelling or deformities. Decreased cervical range of motion in all planes Tenderness to palpation bilateral upper middle trapezius Spurling positive Neurological: Oriented to person, place, time and situation. Thought process intact. No gait abnormalities appreciated. Psychiatric: Appropriate mood and affect. Good judgment and insight. Results Reviewed Results Reviewed: MRI of the cervical spine 06/09/2023: VERTEBRAL BODIES AND PARASPINAL SOFT TISSUES: Moderate multilevel disc space narrowing noted throughout the cervicothoracic spine. The marrow signal is mildly heterogeneous with regions of fatty change. There is a leftward curvature of the spine as well. No compression fractures. There are mixed chronic and edematous endplate changes visible at the C3-C4, T2-T3, T3-T4, and T4-T5 levels with disc bulges and endplate spurring. At the upper thoracic levels, there are small right foraminal disc protrusions resulting in moderate foraminal encroachment at the T1-T2, T2-T3, and T3-T4 levels. The paraspinal soft tissues are normal. The vertebral artery flow-voids are maintained. The imaged lung apices are grossly clear. CERVICOMEDULLARY JUNCTION AND VISUALIZED POSTERIOR FOSSA: The craniovertebral junction and imaged portions of the brain parenchyma appear normal. No cord signal abnormality or syrinx is seen. SPINAL LEVELS: C2-C3: No disc pathology. Mild facet arthrosis without central canal stenosis or foraminal narrowing. C3-C4: Moderate loss of disc height and retrosubluxation with a disc-osteophyte complex and mild endplate edema. Severe left foraminal narrowing. No central canal stenosis. C4-C5: Ikpuwfmh-ak-kdkvfz loss of disc height and mild posterior subluxation with a shallow disc-osteophyte complex. No central canal stenosis. Jizk-gq-llywdpjt foraminal narrowing, more so on the right side. C5-C6: Disc-osteophyte complex mildly impresses upon the ventral thecal sac without central canal stenosis. Severe left foraminal narrowing and moderate right foraminal encroachment. C6-C7: Dkzhscfp-bi-dpgbnj loss of disc height with a posterior disc bulge and uncovertebral joint spurring resulting in severe left foraminal encroachment. No central canal stenosis. C7-T1: Mild disc bulge and endplate spurring without central canal stenosis. Moderate left foraminal narrowing and milder right foraminal encroachment. MR/MR cervical spine wo con IMPRESSION: Moderate multilevel cervical spondylosis with mixed chronic and edematous endplate changes. No focal disc protrusion or central canal stenosis. Multilevel foraminal narrowing due to disc-osteophyte complexes. Leftward curvature of the cervical spine. Evav-aw-cmaabjco endplate edematous changes lateralized to the right side at the upper thoracic levels with right foraminal disc protrusion resulting in moderate right foraminal encroachment, particularly at the T1-T2, T2-T3, and T3-T4 levels. Assessment & Plan Assessment & Plan (1) Degeneration, intervertebral disc, cervical: Code(s): M50.30 - Other cervical disc degeneration, unspecified cervical region Category: Medical (2) Cervical stenosis of spinal canal: Code(s): M48.02 - Spinal stenosis, cervical region Category: Medical Plan Patient presented to the office today for follow-up cervical radiculopathy Excellent results with previous C6-7 epidural steroid injection. She would like to repeat this procedure. Will schedule for fluoroscopy guided left C6-7 parasagittal CARMEN with local anesthetic Methocarbamol 500 mg p.o. t.i.d. as needed. Questions and concerns were answered, patient agrees with the plan. Follow up after procedure, sooner if needed. Coding Level of Care Code Est Pt Level 3 (23034) Complex EM visit Add On G2211 Diagnoses Degeneration, intervertebral disc, cervical M50.30 Cervical stenosis of spinal canal M48.02
== END 2024-05-10 11:34 | disposition home or self-care (01) ==
PROVIDERS: PCP Nurse Practitioner Family; Visit Provider Registered Nurse Emergency
DX: M50.30 Other cervical disc degeneration, unspecified cervical region (principal); M48.02 Spinal stenosis, cervical region
CPT/HCPCS: 99213; G2211

== ENCOUNTER → 2024-05-10 11:16 | Outpatient (BNVA) | payer OTHER, SELFPAY | PROVIDERS: PCP Nurse Practitioner Family; Visit Provider Registered Nurse Emergency | DX: M50.30 Other cervical disc degeneration, unspecified cervical region (principal); M48.02 Spinal stenosis, cervical region | CPT/HCPCS: 99212 ==

== ENCOUNTER 2024-05-29 06:18 | Outpatient (REF) | payer OTHER, SELFPAY | END 2024-05-29 06:19 | disposition home or self-care (01) | LOC: CF 06:18 | PROVIDERS: Visit Provider Anesthesiology | DX: M46.1 Sacroiliitis, not elsewhere classified (principal); M53.3 Sacrococcygeal disorders, not elsewhere classified; G89.29 Other chronic pain | CPT/HCPCS: 27096; J2795; Q9967 ==

== ENCOUNTER 2024-05-29 13:27 | Outpatient (AMB) | payer OTHER, SELFPAY ==
--- NOTE | 2024-05-29 13:34 | A.OFFVIS_ITS ---
Vital Signs 05/29/24 14:07 05/29/24 14:08 Height 5 ft 3 in 5 ft 3 in Weight 252 lb 252 lb BMI 44.6 44.6 BP 148/84 H 109/77 Blood Pressure Location Lt brachial Lt brachial Position Sitting Sitting Respiration 16 16 Pulse 87 76 Pulse Source Pulse Oximeter Pulse Oximeter Pulse Oximetry (%) 97 100 Oxygen Delivery Method Room Air Room Air Comment pre-op post-op Intake Visit Reasons: BILATERAL DIAGNOSTIC SIJ INJECTIONS Allergies amoxicillin [From Augmentin] Adverse Reaction (Mild, Verified 05/29/24 14:09) yeast infection clavulanic acid [From Augmentin] Adverse Reaction (Mild, Verified 05/29/24 14:09) yeast infection amoxicillin Adverse Reaction (Mild, Uncoded 05/15/24 10:56) yeast infection PFSH Medical History Sacroiliac joint dysfunction Cervical spondylosis Myofascial pain Lumbar disc herniation Aftercare following right ankle joint replacement surgery Necrotizing fasciitis Degenerative disc disease, lumbar Depression Anxiety Surgical History History of throat surgery S/P lumpectomy, right breast Family History Mother COPD (chronic obstructive pulmonary disease) Emphysema lung Mental health disorder Social History Household Members: Friend(s) Both parents involved: No Caregiver staying overnight: No Housing: House Are you a primary school childcare attendant to a significant other at home: No Do you presently have visiting nurse or other home services: No 75 years or older and lives alone: No Alcohol intake: current Patient Tobacco Use Status: Former Tobacco user e-Cigarette/Vaping Use: Former Use service: No Current occupational status: disabled 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 All questions about benefits and risks for the procedure were answered. Patient came to the operating room and was positioned prone on the operating table with the pillow under the abdomen. The lower back and buttocks of the patient were prepped with ChloraPrep prepped and draped with sterile utility towels.? Sterilely draped C-arm was brought over the operating field and sq picture of patient's pelvis was demonstrated on the screen.? For the right joint tilting C-arm contralateral to the site of the joint the most posterior portion of the joints was superimposed with anterior silhouette of the joint.? Skin was injected in the projection of the joint slightly medial to the location of the joint with 25 gauge 1/2 inch needle using local lidocaine 2% . After that 22 gauge 3 and 1/2 inch needle was driven to the right joint in tunnel vision fashion.? When needle entered the joint capsule injection of the contrast was performed demonstrating intra-articular and minimally periarticular spread of the contrast.? After that 4 cc. of ropivacaine 0.5% was injected in the joint. After that procedure was repeated on the left side in mirroring fashion. Same dose of ropivacaine was injected into the joint. Upon completion of the injections the needle was removed and Band-Aid was applied.? Upon completion of the injection patient was taken outside of the operating room to the recovery room where recovered uneventfully. Orders: Orders FL guidance in treatment room Today M46.1 - Sacroiliitis, not elsewhere classified Coding Level of Care Code Procedure Only Diagnoses Chronic sacroiliac joint pain M53.3; G89.29
[2024-05-29 14:07] VITALS: BP 148/84; PULSE 87; RESP 16; O2SAT 97; BMI 44.6
[2024-05-29 14:08] VITALS: BP 109/77; PULSE 76; RESP 16; O2SAT 100; BMI 44.6
== END 2024-05-29 14:12 | disposition home or self-care (01) ==
LOC: HO.PMCPRC 13:27
PROVIDERS: PCP Nurse Practitioner Family; Visit Provider Anesthesiology
DX: M53.3 Sacrococcygeal disorders, not elsewhere classified (principal); G89.29 Other chronic pain
CPT/HCPCS: 27096

== ENCOUNTER 2024-05-31 08:52 | Outpatient (AMB) | payer OTHER, SELFPAY ==
[2024-05-31 09:18] VITALS: BMI 43.1
--- NOTE | 2024-05-31 09:18 | A.OFFVIS_ITS ---
VS Expanded 05/31/24 09:18 05/31/24 09:23 Height 5 ft 3 in 5 ft 3 in Weight 243 lb 2.718 oz 243 lb BMI 43.1 43.0 Intake Visit Reasons: Obesity/CONFIRMED Allergies amoxicillin [From Augmentin] Adverse Reaction (Mild, Verified 05/29/24 14:09) yeast infection clavulanic acid [From Augmentin] Adverse Reaction (Mild, Verified 05/29/24 14:09) yeast infection amoxicillin Adverse Reaction (Mild, Uncoded 05/15/24 10:56) yeast infection Nutrition Presentation Details: Pt presents for MNT for obesity Pt reports having no meal routine or having one meal a day and large cup of coffee in AM Food frequency fruits: 0-1/d ve serving/d dairy> 5 serving/d fish not including starches > 20 serving/d physical activity: daily life activities BS Monitoring Most Recent Diabetes Results: Creatinine 0.75 mg/dL (0.5-1.4) 05/15/24 Blood Urea Nitrogen 17 mg/dL (9-16) H 05/15/24 Sodium 137 mmol/L (135-145) 05/15/24 Potassium 4.2 mmol/L (3.3-5.1) 05/15/24 Chloride 103 mmol/L (96-108) 05/15/24 Carbon Dioxide 25 mmol/L (22-29) 05/15/24 Calcium 9.6 mg/dL (8.4-10.2) 05/15/24 AST 18 U/L (5-31) 05/15/24 ALT 15 U/L (0-31) 05/15/24 Total Protein 7.1 g/dL (6.5-8.0) 05/15/24 Albumin 4.2 g/dL (3.5-5.0) 05/15/24 ARR-Ekzjytu-Ru.Jeor Equation Height: 5 ft 3 in Weight: 243 lb Resting Metabolic Rate: 1713.93 Calculated Activity Level: Sedentary Calories Needed to Maintain Weight: 6.72 Diagnosis Nutrition problem #1: excessive energy intake As related to (etiology) #1: diagnosis As evidenced by (sign/symptom) #1: knowledge deficit of diet [facility] Medical History Sacroiliac joint dysfunction Cervical spondylosis Myofascial pain Lumbar disc herniation Aftercare following right ankle joint replacement surgery Necrotizing fasciitis Degenerative disc disease, lumbar Depression Anxiety Surgical History History of throat surgery S/P lumpectomy, right breast Family History Mother COPD (chronic obstructive pulmonary disease) Emphysema lung Mental health disorder Social History Household Members: Friend(s) Both parents involved: No Caregiver staying overnight: No Housing: House Are you a primary childbirth and infant care teacher to a significant other at home: No Do you presently have visiting nurse or other home services: No 75 years or older and lives alone: No Alcohol intake: current Patient Tobacco Use Status: Former Tobacco user e-Cigarette/Vaping Use: Former Use service: No Current occupational status: disabled 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 Cognitive needs: No Hearing needs: No Vision needs: Yes (glasses) Assessment & Plan Assessment & Plan (1) Morbid obesity with BMI of 40.0-44.9, adult: Code(s): E66.01 - Morbid (severe) obesity due to excess calories; Z68.41 - Body mass index [BMI] 40.0-44.9, adult Category: Medical Plan: Wt: 110 Kg ( 05/2024 ) Est kcal needs as per MSJ: 2000 (40% carb, 30% protein/fat) Est fluid needs as per 25-30 ml/d: 3300 Est prot per day as per 1 g/kg bw: 110 Recommend fiber intake : 8-10 g per day and gradually increase to 25-28 g per day for women and 35-38 g for men or as tolerated Recommend sodium intake per day : l less than 2300 mg Educated patient on: ( R = reviewed V = verbalizes understanding N/R = needs review N/A = not applicable * Food sources of carbohydrate, adequate serving sizes and its role in various health conditions: R V N/R * Differences between complex carbohydrates a simple carbohydrates, role of fiber in diet: R V N/R * Lean protein sources of foods: R V NR * Differences between types of fats and role in diet (mono on saturated fat fatty acids, saturated fatty acids, trans fats): R V N/R * Food sources of sodium in salt and healthy modifications for heart health in kidney health: R V R/V * Vitamins and minerals: R V N/R * Healthy plate method concept: R * Physical activity: Benefits a precaution: R V N/R * Patient Instructions: HAve a meal replacement at lunch - see list of options , instead of skipping the meal Coding Level of Care Code Nutr Indiv Intake (68906) Diagnoses Morbid obesity with BMI of 40.0-44.9, adult E66.01; Z68.41 Time Spent (min) 30
[2024-05-31 09:23] VITALS: BMI 43.0
== END 2024-05-31 09:32 | disposition home or self-care (01) ==
PROVIDERS: PCP Nurse Practitioner Family; Visit Provider Dietitian, Registered
DX: E66.01 Morbid (severe) obesity due to excess calories (principal); Z68.41 Body mass index [BMI] 40.0-44.9, adult

== ENCOUNTER → 2024-05-31 08:52 | Outpatient (BNVA) | payer OTHER, SELFPAY | PROVIDERS: PCP Nurse Practitioner Family; Visit Provider Dietitian, Registered | DX: E66.01 Morbid (severe) obesity due to excess calories (principal); Z68.41 Body mass index [BMI] 40.0-44.9, adult | CPT/HCPCS: 97802 ==

== ENCOUNTER 2024-06-04 13:40 | Outpatient (AMB) | payer OTHER, SELFPAY ==
--- NOTE | 2024-06-04 13:43 | A.OFFVIS_ITS ---
Vital Signs 06/04/24 13:50 Height 5 ft 3 in Weight 243 lb BMI 43.0 BP 142/70 H Blood Pressure Location Lt brachial Position Sitting Respiration 16 Pulse 87 Pulse Source Pulse Oximeter Pulse Oximetry (%) 99 Oxygen Delivery Method Room Air Intake Visit Reasons: BILATERAL DIAGNOSTIC SIJ INJECTIONS Intake Note: Patient come sin for post-op. Reports pain 10/08. Allergies amoxicillin [From Augmentin] Adverse Reaction (Mild, Verified 06/04/24 13:49) yeast infection clavulanic acid [From Augmentin] Adverse Reaction (Mild, Verified 06/04/24 13:49) yeast infection amoxicillin Adverse Reaction (Mild, Uncoded 05/15/24 10:56) yeast infection HPI Comments Details: Cary is back in my office to discuss results of diagnostic bilateral sacroiliac joint injection was performed on 05/29/2024. She reports that immediately after the injection she felt absolutely no pain. She reported excellent mobility good activities of daily living good social interactions. She still experiences significant pain relief from those injections. I explained to her about sacroiliac joint steroid injections, I briefly mentioned sacroiliac joint innervation stimulation and sacroiliac joint fusion if steroid injections will not help for extended period of time. The patient will call us and schedule appointment for the follow-up and we will schedule her for the sacroiliac joint injection with steroids as soon as her pain will return. Prior: She underwent epidural steroid injection at C6-7 4 months ago, she had great relief with improvement in the burning, numbness and tingling that was radiating down her left hand. For reports the numbness and tingling is starting to return, pain is also starting to increase. She would like to repeat the injection Pain today is rated as a 910, constant, worse in the evenings and at night Previously on Robaxin that provided her good relief. This was discontinued due to black box warnings. She has not tried any other muscle relaxers. Has been taking ibuprofen twice daily as needed with some improvement but pain has progressively get worse. Cary is very pleasant 47 years old female who presents herself in my office with 2 distinct pain generators. She went for MRI of the cervical spine and the MRI results dictated as below. There are several levels of severe foraminal stenosis dictated as below. I performed epidural steroid injection on the level C6-C7 for this patient and she reported significant pain improvement and significant numbness in tingling improvement in the right upper extremity. This is the 2nd injection and it again demonstrates very good results. However unfortunately the patient was denied by her insurance company sacroiliac joint injection. They denied sacroiliac joint injection based on the fact that patient did not have physical therapy. In fact the patient had 3 months ago very extensive physical therapy for her lower back with stretching, aerobic exercises, core strength improvement, mobility and occupational therapy modifications. She in fact continues those exercises at this time. I will schedule her again for diagnostic bilateral sacroiliac joint injection. As of her lower back pain MRI is available and then there are subtle Modic type changes on the MRI. The mostly pronounced MRI changes are at L2-L3 maybe L4 level however the patient reports pain mostly in the projection of the sacral bone. Shaji test, Gaenslen test, pelvic compression and pelvic distraction tests bilaterally positive. I suspect the patient has sacroiliitis. Alternatively radiculopathy of the sacral vertebra could not be excluded. We decided that I will start her treatment diagnostic procedure by performing bilateral diagnostic sacroiliac joint injection. If this injection will be negative for pain resolution I will offer her caudal dural steroid injection. Neuromodulation with retrograde inserted Taxi 24/7 stimulator into caudal canal could be discussed if none of the above will be helpful for the patient. Prior: C/o pain in the cervical spine with sensation of the numbness of bilateral upper extremities as well as axial pain in lower back which is aggravated by prolonged standing and sitting and aggravated by flexing back forward but alleviated when she flex her back backwards. She reports that her pain started many years ago however became aggravated recently reports pain in neck 4 to 6/10 and pain in lower back is 10+ out of 10. She was under care of pains physician in [facility] she received MRI of the lumbar spine she was not recommended to go for the surgery by neurosurgeon. Never was evaluated by MRI of the cervical spine she is taking gabapentin for her pain and 100 mg 3 times a day maximal does she is taking tramadol 50 mg once a day and muscle relaxant methalaxon. She reports that she received sacroiliac joint injections in the past those were done by Dr. Markham in [facility] she reports very minimal help for 1 or 2 days from steroid sacroiliac joint injection however no prolonged pain relief. She had multiple attempts at physical therapy which aggravated her pain and she refused to go to physical therapy she denies chiropractic manipulations massage therapy or 10s unit. She brought with herself and MRI done on her lumbar spine in [place] in [facility] which is suspicious for Modic type changes. I would like to send this MRI disc for the review with Radiology to evaluate this MRI for Modic type changes. [facility] [place] Medical History Sacroiliac joint dysfunction Cervical spondylosis Myofascial pain Lumbar disc herniation Aftercare following right ankle joint replacement surgery Necrotizing fasciitis Degenerative disc disease, lumbar Depression Anxiety Surgical History History of throat surgery S/P lumpectomy, right breast Family History Mother COPD (chronic obstructive pulmonary disease) Emphysema lung Mental health disorder Social History Household Members: Friend(s) Both parents involved: No Caregiver staying overnight: No Housing: House Are you a primary customer care representative to a significant other at home: No Do you presently have visiting nurse or other home services: No 75 years or older and lives alone: No Alcohol intake: current Patient Tobacco Use Status: Former Tobacco user e-Cigarette/Vaping Use: Former Use service: No Current occupational status: disabled 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 Patient was appropriately conversant and oriented. Good historian. MSK: Inspection reveals appropriate head and neck positioning. No pain with palpation over the neck musculature. Cervical ROM was full. Spurling's sign positive with radiation to left arm. Bilateral shoulder, elbow and wrist ROM WNL. No ligamentous laxity or crepitance. No increased effusion. No specific abnormalities or instability found on inspection and palpation of the spine and extremities. No point tenderness on spinous processes, facets, SI or GT. Unable to do lumbar extension due to pain. Negative SLR. Positive MARCOS for back pain bilateral. Strength is 5/5 in all muscle groups tested. No increased tone noted. Right toes go into spasms while extended with pain. This limits her ankle range of motion. No redness or swelling on right foot or ankle. Neurological: Neurologic examination of the upper and lower extremities was nonfocal with intact sensation, muscle stretch reflexes and without focal motor deficits . Hunter?s negative bilaterally. Babinski was down going bilaterally. Clonus was negative. Gait is non-antalgic without loss of balance. Can stand on heels but cannot do toe walk. No foot drop while seated. Neck Other: Negative Lhermitte sign, positive Spurling sign on the right negative Valsalva maneuver 2 point differentiation is positive on bilateral hands Back/Spine/Pelvis Other: Flexing forward greatly aggravate her pain. In fact she cannot flex forward more than 45 degrees. Flexing backwards alleviates her pain. Prolonged sitting aggravates her pain. Shaji test is positive bilaterally, Gaenslen test is positive bilaterally, pelvic distraction and pelvis compression test as well as 14 finger test are positive bilaterally. Assessment & Plan Assessment & Plan (1) Degeneration, intervertebral disc, cervical: Code(s): M50.30 - Other cervical disc degeneration, unspecified cervical region Category: Medical (2) Cervical stenosis of spinal canal: Code(s): M48.02 - Spinal stenosis, cervical region Category: Medical (3) Lumbar disc herniation: Code(s): M51.26 - Other intervertebral disc displacement, lumbar region Category: Medical Plan: The Modic type changes a very subtle on the MRI and mostly pronounced in L2-L3 maybe L4 vertebra. However the pain of the patient complains on the pain in the projection of the sacral bone. The tests for sacroiliitis are positive as above. Excellent results of the sacroiliac joint injection. Patient denies pain in the projection of sacroiliac joint after 4-5 cc of ropivacaine injected into the joint. She was explained about sacroiliac joint steroid injections when her pain will be back. She also was explained about SI joint fusion briefly. Now we can say with certainty that most of her pain in the lower back is coming from sacroiliac joints. (4) Cervical radiculitis: Code(s): M54.12 - Radiculopathy, cervical region Category: Medical Plan: She was sent for evaluation by neuro surgery, her major concern at that office was about her lower back pain. She was referred back to our office for further management of her pain. (5) Spondylosis of lumbar spine: Code(s): M47.816 - Spondylosis without myelopathy or radiculopathy, lumbar region Category: Medical (6) Vertebrogenic low back pain: Code(s): M54.51 - Vertebrogenic low back pain Category: Medical (7) Chronic sacroiliac joint pain: Code(s): M53.3 - Sacrococcygeal disorders, not elsewhere classified; G89.29 - Other chronic pain Category: Medical (8) Sacroiliitis: Code(s): M46.1 - Sacroiliitis, not elsewhere classified Category: Medical Plan This patient was very much involved in extensive course of physical therapy at least 8 weeks of exercises at the office at least twice a week and she is well continued home exercise program which she reports doing at least 2 to 3 times a day at least 15-20 minutes at a time. She still reports severe pain in the projection of the lower lumbar spine. Sacroiliac joint injection diagnostic resulted with very profound pain relief. It lasted up to 6 days for now. We agreed that next time we will perform therapeutic SI joint injection when her pain will be back. Next appointment will be scheduled when her pain returns. Very good results of therapeutic C6-C7 epidural steroid injection. The patient reports disappearance of pins and needles tingling and burning sensation in bilateral extremities, much better pain in the lower cervical spine. Reports pain in the base of her skull with had motions. She probably has arthritis in this area. I recommended her some stretching exercises for her neck as well. Coding Level of Care Code Est Pt Level 3 (30219) Diagnoses Degeneration, intervertebral disc, cervical M50.30 Cervical stenosis of spinal canal M48.02 Lumbar disc herniation M51.26 Cervical radiculitis M54.12 Spondylosis of lumbar spine M47.816 Vertebrogenic low back pain M54.51 Chronic sacroiliac joint pain M53.3; G89.29 Sacroiliitis M46.1
[2024-06-04 13:50] VITALS: BP 142/70; PULSE 87; RESP 16; O2SAT 99; BMI 43.0
== END 2024-06-04 13:53 | disposition home or self-care (01) ==
PROVIDERS: PCP Nurse Practitioner Family; Visit Provider Anesthesiology
DX: M50.30 Other cervical disc degeneration, unspecified cervical region (principal); M48.02 Spinal stenosis, cervical region; M51.26 Other intervertebral disc displacement, lumbar region; M54.12 Radiculopathy, cervical region; M47.816 Spondylosis without myelopathy or radiculopathy, lumbar region; M54.51 Vertebrogenic low back pain; M53.3 Sacrococcygeal disorders, not elsewhere classified; G89.29 Other chronic pain; M46.1 Sacroiliitis, not elsewhere classified
CPT/HCPCS: 99213

== ENCOUNTER → 2024-06-04 13:40 | Outpatient (BNVA) | payer OTHER, SELFPAY | PROVIDERS: PCP Nurse Practitioner Family; Visit Provider Anesthesiology | DX: M48.02 Spinal stenosis, cervical region (principal); M50.30 Other cervical disc degeneration, unspecified cervical region; M46.1 Sacroiliitis, not elsewhere classified; M53.3 Sacrococcygeal disorders, not elsewhere classified; G89.29 Other chronic pain; M51.26 Other intervertebral disc displacement, lumbar region; M54.12 Radiculopathy, cervical region; M47.816 Spondylosis without myelopathy or radiculopathy, lumbar region | CPT/HCPCS: 99212 ==

== ENCOUNTER 2024-06-19 09:59 | Outpatient (AMB) | payer OTHER, SELFPAY ==
--- NOTE | 2024-06-19 10:02 | MHC.PC.OV ---
Vital Signs 06/19/24 10:08 Height 5 ft 3 in Weight 245 lb 6 oz BMI 43.5 BP 118/72 Blood Pressure Location Lt brachial Position Sitting Respiration 16 Pulse 73 Pulse Source Pulse Oximeter Temp 98.8 F Temp Source Oral Pulse Oximetry (%) 98 Oxygen Delivery Method Room Air Intake Visit Reasons: Physical Intake Note: patient is here for CPE College Sports [employer] Required: No Is last menstrual period known: Yes Last menstrual period: 06/05/24 Post menopausal: No Patient : No Allergies amoxicillin [From Augmentin] Adverse Reaction (Mild, Verified 06/19/24 10:17) yeast infection clavulanic acid [From Augmentin] Adverse Reaction (Mild, Verified 06/19/24 10:17) yeast infection amoxicillin Adverse Reaction (Mild, Uncoded 06/19/24 10:17) yeast infection Medication List - Last Reconciled 06/19/24 by Jacoby Francis CNP bisacodyl (Dulcolax (bisacodyl)) 20 mg (4 x 5 mg) PO ONCE PRN 1 day dextroamphetamine-amphetamine 20 mg (Adderall) 20 mg PO DAILY escitalopram oxalate 15 mg PO DAILY gabapentin 900 mg (3 x 300 mg) PO TID 30 days methocarbamol 500 mg PO TID PRN polyethylene glycol 3350 (Miralax) 238 grams PO ONCE PRN 1 day tramadol 100 mg (2 x 50 mg) PO TID PRN 20 days zolpidem ER 12.5 mg PO BEDTIME PRN Tobacco use date assessed: 06/19/24 Dental Screening Dental Screen Date: 06/19/24 Did you have a dental visit in the last 12 months?: Yes Did you have a dental problem in the last 6 months where you did not have access to dental care?: No Was dental information given to patient?: Patient has dentist HPI HPI Comments History of Present Illness Details 48-year-old female presents for complete physical exam She has PMH significant for LBP secondary to DJD and compression fracture at L4 and L5, ADHD, insomnia, anxiety, and depression. She admits to taking her medications as prescribed without adverse reactions She admits to making healthy lifestyle changes, including diet and exercise. She notes that she sleeps an average of 3-4 hours nightly and her sleep is usually interrupted. Zolpidem helps her fall asleep but not maintain sleep.l Sleep hygiene has not improved. Her psychiatrist ordered sleep study and she notes that she is on a wait list sleep at [facility] for sleep study Reports anxiety and depressive symptoms. However, she notes that her anxiety and depressive symptoms are well manage Former smoker. She drinks 2 glasses of rum 1-2 times yearly . No recreational drug She is followed by a therapist weekly and [facility] She is followed by pain management, hematology/oncology, and dietitian She is on a wait list for [facility] [place] [place] weight management Last eye exam 2 months ago with Jayda karen [facility]. She will sign a release or her PCP to obtain record She is never had a colonoscopy. She is scheduled for a colonoscopy in 2 days Last pap smear test was at [facility] a year ago. She will sign a release for her PCP to obtain record Last tetanus vaccine was 4 years ago She has not been vaccinated for covid and flu this season and does not want the vaccines [facility] Medical History Sacroiliac joint dysfunction Cervical spondylosis Myofascial pain Lumbar disc herniation Aftercare following right ankle joint replacement surgery Necrotizing fasciitis Degenerative disc disease, lumbar Depression Anxiety Surgical History History of throat surgery S/P lumpectomy, right breast Family History (Updated 06/19/24 @ 10:13 by Priscilla Gutierrez MA) Mother COPD (chronic obstructive pulmonary disease) Emphysema lung Mental health disorder Social History Household Members: Friend(s) Both parents involved: No Caregiver staying overnight: No Housing: House Are you a primary intensive care anaesthetist to a significant other at home: No Do you presently have visiting nurse or other home services: No 75 years or older and lives alone: No Alcohol intake: current Patient Tobacco Use Status: Former Tobacco user e-Cigarette/Vaping Use: Former Use Second Hand Smoke Exposure: No service: No Current occupational status: disabled 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 1. Little interest or pleasure in doing things: nearly every day 2. Feeling down, depressed, or hopeless: nearly every day 3. Trouble falling or staying asleep, or sleeping too much: nearly every day 4. Feeling tired or having little energy: nearly every day 5. Poor appetite or overeating: nearly every day 6. Feeling bad about yourself - or that you are a failure or have let yourself or your family down: nearly every day 7. Trouble concentrating on things, such as reading the newspaper or watching television: nearly every day 8. Moving or speaking so slowly that other people could have noticed. Or the opposite - being so fidgety or restless that you have been moving around a lot more than usual: nearly every day 9. Thoughts that you would be better off or of hurting yourself in some way: not at all Total score: 24 Depression Screening Interpretation: Positive Depression Screening Follow-up: Existing condition and In treatment Depression Screening Done: Yes 32298 - PHQ-9 Billing: Yes Source: Developed by Drs. Contreras Velazquez, Gisselle Reyna, Javed Lee and colleagues, with an educational earline from [employer]. Thrive Questionnaire Date Thrive assessed: 06/19/24 I am a: Patient What is your living situation today?: I have a steady place to live Within the past 12 months, did the food you bought not last and you didn't have the money to get more?: Never true Within the past 12 months, did you worry whether your food would run out before you got money to buy more?: Never true Do you have trouble paying for medicines?: No Do you have trouble getting transportation to medical appointments?: No Do you have trouble paying your heating and electricity bill?: No Do you have trouble taking care of your child, family member or friend?: No Do you have trouble with day-to-day activities such as bathing, preparing meals, shopping, managing finances, etc.?: No Are you currently unemployed and looking for a job?: No Are you interested in more education?: No Please select the resources that you would like help with: None Currently or been in a relationship where the following occur: No concerns reported THRIVE Score: 0 AUDIT C Alcohol Use Questionnaire (AUDIT-C) 1. How often do you have a drink containing alcohol?: Monthly or less 2. How many drinks containing alcohol do you have on a typical day when you are drinking?: 1 or 2 3. How often do you have six or more drinks on one occasion?: Never Total Score: 1 BAYRON-7 AMB Questionnaire BAYRON-7 Date BAYRON - 7 assessed: 06/19/24 Feeling nervous, anxious, or on edge: 3 = Nearly every day Not being able to stop or control worryin = Nearly every day Worrying too much about different things: 3 = Nearly every day Trouble relaxin = Nearly every day Being so restless that it is hard to sit still: 3 = Nearly every day Becoming easily annoyed or irritable: 3 = Nearly every day Feeling afraid as if something awful might happen: 3 = Nearly every day Total BAYRON-7 score (0-4 normal; 5-9 mild; 10-14 moderate; 15-21 severe): 21 Source: Developed by Drs. Contreras Velazquez, Gisselle Reyna, Javed Lee and colleagues, with an educational earline from [employer]. BAYRON-7 Assessment Billing BAYRON-7 Assessment Tool: BAYRON-7 Assessment 21394 Review of Systems Const Details: Denies chills, Denies fatigue, Denies fever(s), Denies headache(s) and Denies weakness HEENT Denies change in vision, Denies dizziness, Denies headache(s), Denies hearing loss, Denies nasal congestion, Denies sinus pain, Denies sinus pressure and Denies sore throat Card Denies chest pain, Denies lightheadedness, Denies dyspnea and Denies other (palpitations) Resp Denies cough, Denies dyspnea and Denies wheezing GI Denies abdominal pain, Denies melena, Denies hematochezia, Denies change in bowel habits, Denies dyspepsia and Denies nausea Denies hematuria and Denies dysuria Musc Denies abnormal gait, Denies myalgias, Denies arthralgias, Denies numbness and Denies tingling Skin/Breast Denies rash, Denies unusual bruising and Denies wounds Neuro Denies abnormal gait, Denies dizziness, Denies headache(s), Denies memory loss, Denies numbness, Denies Sensory deficit (Neuro), Denies tingling and Denies weakness Psych Reports anxiety, Reports depression and Denies memory loss Endo Denies cold intolerance, Denies fatigue, Denies heat intolerance, Denies polydipsia and Denies polyuria Marc/Lymph Denies easy bleeding and Denies easy bruising Aller/Immun Denies wheezing Physical exam (Primary Care) Vital Signs: Last Vital Signs Temp 98.8 F 06/19/24 10:08 Pulse 73 06/19/24 10:08 Resp 16 06/19/24 10:08 BP 118/72 06/19/24 10:08 Pulse Ox 98 06/19/24 10:08 Oxygen Delivery Method Room Air 06/19/24 10:08 BMI result Body Mass Index 43.5 Tobacco/Smoking Status: Tobacco use Status Tobacco use date assessed 06/19/24 06/19/24 10:07 Patient Tobacco Use Status Former Tobacco user 06/19/24 10:04 e-Cigarette/Vaping Use Former Use 06/19/24 10:04 PHQ-9: PHQ-9 Score PHQ-9: Total score 24 06/19/24 10:49 Depression Screening Interpretation: Positive Depression Screening Follow-up: Existing condition and In treatment Thrive Assessment: Date of Thrive Assessment Date Thrive assessed 06/19/24 06/19/24 10:14 Currently or been in a relationship where the following occur: No concerns reported Const Other: General: no acute distress, well developed, alert and awake Nutritional Appearance: well nourished Orientation/consciousness: patient oriented x3 HENMT Head: Yes normocephalic and Yes atraumatic Ears: hearing grossly normal bilaterally and TM's normal bilaterally General nose exam: Normal external nose present and Normal nares present Mouth: Normal oral and palatal mucosa present and moist mucous membranes Teeth and gingiva: dentition normal Throat: Yes oropharynx normal Eyes Pupils: Equal, round and reactive pupils present and Pupil accommodation reflex normal EOM: EOMs intact bilaterally Neck Neck: Yes normal visual inspection, Yes no lymphadenopathy and Yes trachea midline Thyroid: Thyroid normal Carotids: no bruits Lymphatic: no lymphadenopathy noted Chest Chest palpation & inspection: normal inspection of the chest Resp Effort & Inspection: normal respiratory effort Auscultation: clear to auscultation bilaterally Cardio Rate: regular rate Rhythm: regular rhythm Heart sounds: S1 normal heart sound present, S2 normal heart sound present, no gallops, no murmurs and no rubs Bruits: no abdominal aortic bruits and no carotid bruits GI Palpation (GI): No Abdominal aortic bruit present, Soft to palpation, nontender, No hepatosplenomegaly present and No Rebound tenderness present Auscultation: normal bowel sounds General: Yes no CVA tenderness Back/Spine/Pelvis Back: no CVA tenderness Cervical Spine: cervical ROM normal and + Cervical spine tenderness Thoracic/Lumbar Spine: thoraco-lumbar ROM normal, No pain with thoraco-lumbar ROM, No thoracic spinal tenderness and + lumbar spinal tenderness Skin General: warm and dry. Normal skin color. Normal skin turgor Lesions: no lesions Rashes: no rashes Trauma: no lacerations or abrasions Wounds: no wounds Nails: normal Neuro General: patient oriented x3, gait normal and CN's II-XI intact bilaterally Cranial nerves: Yes Equal, round and reactive pupils present Cognition (Neuro): normal cognition Gait exam (Neuro): Normal gait present Motor exam (neuro): 5/5 motor strength present throughout Sensory Exam: No Sensory deficit (Neuro) Deep tendon reflexes (DTR's): Right patellar reflex intensity grade: 2+ and Left patellar reflex intensity grade: 2+ Extrem General: Yes normal to inspection, No edema and No calf tenderness Psych Appearance: grossly normal Affect: normal affect Attitude: cooperative Thought process: Normal thought process present Coding Level of Care Code Est Pt Prev Care 40-64y(58864) Diagnoses Normal physical examination, routine Z00.00 Anxiety F41.9 Depression, unspecified depression type F32.A Depression Type: unspecified Cervical radiculitis M54.12 Lumbar disc herniation M51.26 Morbid obesity with BMI of 40.0-44.9, adult E66.01; Z68.41 Laboratory tests ordered as part of a complete physical exam (CPE) Z00.00 Additional Codes BAYRON-7 Assessment Billing - BAYRON-7 Assessment Tool: BAYRON-7 Assessment 04242 ([id number]) Assessment & Plan Assessment & Plan (1) Normal physical examination, routine: Code(s): Z00.00 - Encounter for general adult medical examination without abnormal findings Category: Medical Plan: Normal physical exam except for cervical and lumbar spine tenderness to palpation Continue current treatment regimen Healthy diet and routine exercise encouraged Advised to get lab work done and follow-up in 2-3 weeks for telehealth visit for labs review Return sooner with symptoms or concerns Verbalized understanding and agreed with treatment plan (2) Anxiety: Code(s): F41.9 - Anxiety disorder, unspecified Category: Medical Plan: She notes that her anxiety and depressive symptoms are well managed PHQ-9 and BAYRON-7 scores revealed severe depression and anxiety Continue current treatment regimen Follow-up with psychiatrist and therapist as planned Verbalized understanding and agreed with the treatment plan (3) Depression: Code(s): F32.A - Depression, unspecified Category: Medical Qualifiers: Depression Type: unspecified Qualified Code(s): F32.A - Depression, unspecified Plan: Plan as above (4) Cervical radiculitis: Code(s): M54.12 - Radiculopathy, cervical region Category: Medical Plan: She has chronic pain to her spine Cervical and lumbar spine tenderness with palpation Continue current treatment regimen Follow-up with pain management as planned Return with worsening or new symptoms Verbalized understanding and agreed with treatment plan (5) Lumbar disc herniation: Code(s): M51.26 - Other intervertebral disc displacement, lumbar region Category: Medical Plan: Plan as above (6) Morbid obesity with BMI of 40.0-44.9, adult: Code(s): E66.01 - Morbid (severe) obesity due to excess calories; Z68.41 - Body mass index [BMI] 40.0-44.9, adult Category: Medical Plan: He currently weighs 245 lb, BMI is 43.5 Healthy diet and routine exercise encouraged He is on a wait list with [facility] [place] [place] weight management Continue follow-up with dietitian as planned Verbalized understanding and agreed with the plan (7) Laboratory tests ordered as part of a complete physical exam (CPE): Code(s): Z00.00 - Encounter for general adult medical examination without abnormal findings Category: Medical Plan: Fasting labs ordered as part of a complete physical exam. Advised to fast for at least 10 hours before getting labs drawn. May drink water Verbalized understanding and agreed with treatment plan. Orders: Orders Lipid Panel Today Z00.00 - Encounter for general adult medical examination without abnormal findings TSH reflex Free T4 Today Z00.00 - Encounter for general adult medical examination without abnormal findings Microalbumin, Random (w Creat) Today Z00.00 - Encounter for general adult medical examination without abnormal findings UA CC w/rflx Micro + Cult Today Z00.00 - Encounter for general adult medical examination without abnormal findings
[2024-06-19 10:08] VITALS: BP 118/72; PULSE 73; RESP 16; TEMP 37.1; O2SAT 98; BMI 43.5
== END 2024-06-19 10:45 | disposition home or self-care (01) ==
PROVIDERS: PCP Nurse Practitioner Family; Visit Provider Nurse Practitioner Family
DX: Z00.00 Encounter for general adult medical examination without abnormal findings (principal); E66.01 Morbid (severe) obesity due to excess calories; Z68.41 Body mass index [BMI] 40.0-44.9, adult; F41.9 Anxiety disorder, unspecified; F32.A Depression, unspecified; M54.12 Radiculopathy, cervical region; M51.26 Other intervertebral disc displacement, lumbar region

== ENCOUNTER → 2024-06-19 09:59 | Outpatient (BNVA) | payer OTHER, SELFPAY | PROVIDERS: PCP Nurse Practitioner Family; Visit Provider Nurse Practitioner Family | DX: Z00.00 Encounter for general adult medical examination without abnormal findings (principal); F41.9 Anxiety disorder, unspecified; F32.A Depression, unspecified; M54.12 Radiculopathy, cervical region; M51.26 Other intervertebral disc displacement, lumbar region; E66.01 Morbid (severe) obesity due to excess calories; Z68.41 Body mass index [BMI] 40.0-44.9, adult | CPT/HCPCS: 96127; 99396 ==

== ENCOUNTER 2024-06-21 07:26 | Day surgery (SDC) | payer OTHER, SELFPAY ==
[2024-06-19 14:05] VITALS: BMI 43.4
--- NOTE | 2024-06-20 10:52 | P.CONAN_ITS ---
HPI - Anesthesia Eval Consult details Narrative: 48yo F for Colonoscopy PMFSH Active Problems Active Problems: All Active Problems Sacroiliitis (Acute) Chronic sacroiliac joint pain (Acute) Encounter for screening colonoscopy (Acute) Numbness in both hands (Acute) Normal physical examination, routine (Acute) Degeneration, intervertebral disc, cervical (Acute) Cervical stenosis of spinal canal (Acute) Vertebrogenic low back pain (Acute) Spondylosis of lumbar spine (Acute) Iron deficiency anemia (Acute) Anemia (Acute) Cervical radiculitis (Acute) Morbid obesity with BMI of 40.0-44.9, adult (Acute) Chronic back pain (Acute) Laboratory tests ordered as part of a complete physical exam (CPE) (Acute) Aftercare following right ankle joint replacement surgery (Acute) Sacroiliac joint dysfunction (Acute) Cervical spondylosis (Acute) Myofascial pain (Acute) Lumbar disc herniation (Acute) Depression (Acute) Anxiety (Acute) Past Medical History Medical History Sacroiliac joint dysfunction Cervical spondylosis Myofascial pain Lumbar disc herniation Necrotizing fasciitis Degenerative disc disease, lumbar Depression Anxiety Family History Family History Mother COPD (chronic obstructive pulmonary disease) Emphysema lung Mental health disorder Surgical History Surgical History History of throat surgery S/P lumpectomy, right breast Social History Social History Household Members: Friend(s) Housing: House Are you a primary career development facilitator to a significant other at home: No Do you presently have visiting nurse or other home services: No Alcohol intake: current Alcohol intake frequency: holidays/special occasions only Patient Tobacco Use Status: Former Tobacco user Tobacco use type: Cigarette e-Cigarette/Vaping Use: Former Use Second Hand Smoke Exposure: No service: No Current occupational status: disabled 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 Cognitive needs: No Hearing needs: No Vision needs: Yes (glasses) Meds Allergies Allergy/AdvReac Type Severity Reaction Status Date / Time amoxicillin [From Augmentin] AdvReac Mild yeast Verified 06/21/24 09:04 infection clavulanic acid AdvReac Mild yeast Verified 06/21/24 09:04 [From Augmentin] infection Home Medications ?Medication ?Instructions ?Recorded ?Confirmed ?Last Taken ?Type dextroamphetamine-amphetamine 20 20 mg PO DAILY 04/07/23 06/21/24 Unknown History mg tablet (Adderall) escitalopram oxalate 10 mg tablet 15 mg PO DAILY 06/16/23 06/21/24 Unknown History zolpidem 12.5 mg tablet,extended 12.5 mg PO BEDTIME PRN Sleep 06/16/23 06/21/24 Unknown History release,multiphase Exam Height,Weight and Vital Signs: Height 5 ft 3 in Weight 111.13 kg Pertinent Lab Results Pertinent Lab Results: Laboratory Tests 05/15/24 10:55 WBC 6.4 Hgb 11.5 L Hct 34.4 L Plt Count 327 Sodium 137 Potassium 4.2 Chloride 103 Carbon Dioxide 25 BUN 17 H Creatinine 0.75 Assessment and Plan Assessment Anesthesia Assessment: Chart Reviewed
[2024-06-21 08:57] LABS: UPreg QC Valid YES; Urine Pregnancy NEGATIVE (NEGATIVE)
--- NOTE | 2024-06-21 09:00 | MHC.SHP ---
Pre-Procedural Eval Section A - 24 Hr Update-Section A only Date of Service: 06/21/24 Section B - Complete if H&P > 30 days Chief Complaint: screening Details of Present Illness: History of throat surgery S/P lumpectomy, right breast Family History Mother COPD (chronic obstructive pulmonary disease) Emphysema lung Mental health disorder Allergies: Allergies Allergy/AdvReac Type Severity Reaction Status Date / Time amoxicillin [From Augmentin] AdvReac Mild yeast Verified 06/19/24 10:17 infection clavulanic acid AdvReac Mild yeast Verified 06/19/24 10:17 [From Augmentin] infection Review of Systems Review of Systems Comment: Ten point ROS negative Exam Exam Comment: Gen appear: No acute distress HEENT: no icterus Chest: No overt resp distress Abd: soft, nontender, nondistended Psych: Stable affect, answering questions appropriately Neuro: A/Ox3 noted to move all extremities spontaneously Ext: no peripheral edema Plan Diagnosis/Plan: Unchanged I have reviewed the history and physical and performed a pertinent physical examination on my patient. No changes have occurred unless specified. Time Spent With Patient Time: Total time managing care of this patient today ____ minutes.
[2024-06-21 09:04] VITALS: BP 140/85; PULSE 87; RESP 18; TEMP 36.6; O2SAT 100; BMI 42.9
--- NOTE | 2024-06-21 09:13 | HO.ANESPROP2 ---
[facility] Active Problems Active Problems: All Active Problems Sacroiliitis (Acute) Chronic sacroiliac joint pain (Acute) Encounter for screening colonoscopy (Acute) Numbness in both hands (Acute) Normal physical examination, routine (Acute) Degeneration, intervertebral disc, cervical (Acute) Cervical stenosis of spinal canal (Acute) Vertebrogenic low back pain (Acute) Spondylosis of lumbar spine (Acute) Iron deficiency anemia (Acute) Anemia (Acute) Cervical radiculitis (Acute) Morbid obesity with BMI of 40.0-44.9, adult (Acute) Chronic back pain (Acute) Laboratory tests ordered as part of a complete physical exam (CPE) (Acute) Aftercare following right ankle joint replacement surgery (Acute) Sacroiliac joint dysfunction (Acute) Cervical spondylosis (Acute) Myofascial pain (Acute) Lumbar disc herniation (Acute) Depression (Acute) Anxiety (Acute) Past Medical History Medical History Sacroiliac joint dysfunction Cervical spondylosis Myofascial pain Lumbar disc herniation Necrotizing fasciitis Degenerative disc disease, lumbar Depression Anxiety Functional capacity: independent ambulation Patient : No Family History Family History Mother COPD (chronic obstructive pulmonary disease) Emphysema lung Mental health disorder Family history of problems with anesthesia: No Surgical History Surgical History History of throat surgery S/P lumpectomy, right breast History of Problems with Anesthesia: No Social History Social History Household Members: Friend(s) Housing: House Are you a primary care advocate to a significant other at home: No Do you presently have visiting nurse or other home services: No Alcohol intake: current Alcohol intake frequency: holidays/special occasions only Patient Tobacco Use Status: Former Tobacco user Tobacco use type: Cigarette e-Cigarette/Vaping Use: Former Use Second Hand Smoke Exposure: No service: No Current occupational status: disabled 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 Cognitive needs: No Hearing needs: No Vision needs: Yes (glasses) Meds Allergies Allergy/AdvReac Type Severity Reaction Status Date / Time amoxicillin [From Augmentin] AdvReac Mild yeast Verified 10/24/24 09:04 infection clavulanic acid AdvReac Mild yeast Verified 06/21/24 09:04 [From Augmentin] infection Active Medications: Current Medications Lactated Ringer's (Lr) 1,000 mls @ 100 mls/hr IVCONT .Q10H WAQAS Home Medications ?Medication ?Instructions ?Recorded ?Confirmed ?Last Taken ?Type dextroamphetamine-amphetamine 20 20 mg PO DAILY 04/07/23 06/21/24 Unknown History mg tablet (Adderall) escitalopram oxalate 10 mg tablet 15 mg PO DAILY 06/16/23 06/21/24 Unknown History zolpidem 12.5 mg tablet,extended 12.5 mg PO BEDTIME PRN Sleep 06/16/23 06/21/24 Unknown History release,multiphase Exam Height,Weight and Vital Signs: Height 5 ft 3 in Weight 109.769 kg Last Vital Signs Temp 97.9 F 06/21/24 09:04 Pulse 87 06/21/24 09:04 Resp 18 06/21/24 09:04 BP 140/85 H 06/21/24 09:04 Pulse Ox 100 06/21/24 09:04 O2 Del Method Room Air 06/21/24 09:04 Pertinent Lab Results Pertinent Lab Results: Laboratory Tests 06/21/24 08:40 Urine Test NEGATIVE Airway Mallampati Class: III TM Dist: >3cm Neck ROM: Full Heart: RRR Lungs: CTA Assessment and Plan Assessment Anesthesia Assessment: Anesthesia Plan Discussed and Chart Reviewed Final Anesthetic Review Family History of Problems with Anesthesia: No History of Problems with Anesthesia: No NPO: Yes ASA Class: III Final Preanesthetic Review: Meds/Allgs Chart Reviewed, Consent Obtained/Reviewed and Anes Risks/Benef Reviewed Patient Risk: Intermediate Procedure Risk: Low Anesthetic Plan Anesthetic Plan: MAC: Disposition: Standard PACU
[2024-06-21] MEDS: Lactated Ringers 1,000 ML 100 ML IVCONT (09:15)
[2024-06-21 10:01] VITALS: BP 125/77; PULSE 78; RESP 18; TEMP 36.8; O2SAT 100
--- NOTE | 2024-06-21 10:07 | P.OPN-COLO_ITS ---
Colonoscopy Operative Note Operative Note Date of Service: 06/21/24 Narrative: Procedure: Colonoscopy Indication: Screening Endoscopist: Kelle Walton MD Anesthesia Provider: Dr Zara Chang Anesthesia type: MAC Instrument: Olympus [id number]-[id number] Consent: Indication, risks vs benefits, and alternatives were discussed with the patient who gave written informed consent to proceed. Monitoring: EKG, pulse, pulse oximetry and blood pressure were monitored throughout the procedure. Please see anesthesia flowsheet. Procedure: The patient was brought to the procedure room and placed in the left lateral decubitus position. IV medications were administered by the anesthesia provider in attendance. A digital rectal exam was performed which was abnormal due to finding of hemorrhoids. A distal attachment cap was affixed to the tip of the colonoscope which was then inserted through the anus and advanced through the colon to the cecum at 75 cm,and terminal ileum. Appendiceal orifice and ileocecal valve were identified. Mucosa was carefully examined under high definition white light as the instrument was slowly withdrawn in a retrograde panoramic fashion. Retroflexion was performed in rectum. The procedure was not difficult. There were no immediate obvious complications. The quality of the prep was BBPS: 2+2+3 = adequate Withdrawal time 11 minutes. Limitations: No limitations. Findings: Mucosa: Normal to cecum and terminal ileum. Protruding lesions: * Small internal hemorrhoids without stigmata of recent bleeding. Excavated lesions: * Mild diverticulosis of sigmoid colon. Impression: 1. Normal colon and terminal ileum mucosa 2. Internal hemorrhoids 3. Diverticulosis Recommendations: - Repeat colonoscopy in 10 years for asymptomatic colorectal ca screening.
[2024-06-21 10:16] VITALS: BP 116/77; PULSE 83; RESP 18; TEMP 36.6; O2SAT 100
--- NOTE | 2024-06-21 11:19 | HO.POSTANES ---
Post Anesthesia Evaluation Post Anesthesia Evaluation Date of Service: 06/21/24 Vital Signs: Vital Signs Temp Pulse Resp BP Pulse Ox O2 Del Method 06/21/24 10:16 97.9 F 83 18 116/77 100 Room Air 06/21/24 10:01 98.2 F 78 18 125/77 100 Room Air 06/21/24 09:04 97.9 F 87 18 140/85 H 100 Room Air Anesthesia: Monitored Mental Status: Awake Pain Control: Satisfactory Nausea/Vomiting: None Hydration: Adequate Anesthesia-Related Issues: No Anes. Related Issues
== END 2024-06-21 10:52 | disposition home or self-care (01) ==
PROVIDERS: Nurse Practitioner; PCP Nurse Practitioner Family; Visit Provider Internal Medicine
PROC: 0DJD8ZZ Inspection of Lower Intestinal Tract, Via Natural or Artificial Opening Endoscopic (ICD-10-PCS; CPT 45378; principal; 2024-06-21 10:10)
DX: Z12.11 Encounter for screening for malignant neoplasm of colon (principal); K57.30 Diverticulosis of large intestine without perforation or abscess without bleeding; K64.8 Other hemorrhoids; D64.9 Anemia, unspecified; M53.3 Sacrococcygeal disorders, not elsewhere classified; M51.369 Other intervertebral disc degeneration, lumbar region without mention of lumbar back pain or lower extremity pain; F32.A Depression, unspecified; F41.9 Anxiety disorder, unspecified; N92.0 Excessive and frequent menstruation with regular cycle; Z79.899 Other long term (current) drug therapy; Z88.1 Allergy status to other antibiotic agents; Z87.891 Personal history of nicotine dependence; Z98.890 Other specified postprocedural states
CPT/HCPCS: 45378; 81025; J2003; J2704

== ENCOUNTER → 2024-06-21 07:26 | Outpatient (BNV) | payer OTHER, SELFPAY | PROVIDERS: PCP Nurse Practitioner Family; Visit Provider Internal Medicine | DX: Z12.11 Encounter for screening for malignant neoplasm of colon (principal); K64.8 Other hemorrhoids; K57.30 Diverticulosis of large intestine without perforation or abscess without bleeding | CPT/HCPCS: 45378 ==

== ENCOUNTER 2024-06-27 08:42 | Outpatient (REF) | payer OTHER, SELFPAY ==
[2024-06-27 11:35] LABS: Appearance Urine Clear; Color Urine Yellow; Glucose Urine UA Negative (Negative); Leukocyte Esterase Urine Trace (Negative); Nitrite Urine Negative (Negative); PH >= 9.0 (5.0-9.0); UMIC TRIGGER UACC YES; Urine Blood Negative (Negative); Urine Ketones Negative (Negative); Urine Protein Negative (Neg-Trace)
[2024-06-27 11:39] LABS: Bacteria Urine 2+ (None Seen); Hyaline Casts Urine 0-2 /LPF (0-2); RBC Urine 0-2 /HPF (0-2); UACC Culture Trigger YES
[2024-06-27 12:04] LABS: Creatinine Urine 103.49 mg/dL; Microalbum/Creatinine Ratio Ur 9.6 ug/mg cr (<30)
[2024-06-27 12:26] LABS: Cholesterol 186 mg/dL (<200); HDL Cholesterol 49 mg/dL (>40); LDL Cholesterol Calculated 113 mg/dL (<100); Triglycerides 121 mg/dL (<150)
[2024-06-27 13:00] LABS: TSH reflex Free T4 0.74 uIU/mL (0.32-4.0)
== END 2024-06-27 08:43 | disposition home or self-care (01) ==
LOC: HO.WFDLDS 08:42
PROVIDERS: Visit Provider Nurse Practitioner Family
DX: Z00.00 Encounter for general adult medical examination without abnormal findings (principal)
CPT/HCPCS: 36415; 80061; 81001; 82043; 82570; 84443; 87086

== ENCOUNTER 2024-07-12 09:25 | Outpatient (AMB) | payer OTHER, SELFPAY ==
[2024-07-12 09:31] VITALS: BMI 43.0
--- NOTE | 2024-07-12 09:31 | A.OFFVIS_ITS ---
VS Expanded 07/12/24 09:31 Height 5 ft 3 in Weight 242 lb 15.19 oz BMI 43.0 Intake Visit Reasons: obesity/CONFIRMED Allergies amoxicillin [From Augmentin] Adverse Reaction (Mild, Verified 06/21/24 09:04) yeast infection clavulanic acid [From Augmentin] Adverse Reaction (Mild, Verified 06/21/24 09:04) yeast infection Nutrition Presentation Details: Pt presents for MNT f/u for obesity Pt reports no diet modifications walking 3 times a day , 3 miles BS Monitoring Most Recent Diabetes Results: Microalb/Creat Ratio 9.6 ug/mg cr (<30) 06/27/24 Cholesterol 186 mg/dL (<200) 06/27/24 HDL Cholesterol 49 mg/dL (>40) 06/27/24 Triglycerides 121 mg/dL (<150) 06/27/24 PFSH Medical History Sacroiliac joint dysfunction Cervical spondylosis Myofascial pain Lumbar disc herniation Necrotizing fasciitis Degenerative disc disease, lumbar Depression Anxiety Surgical History History of throat surgery S/P lumpectomy, right breast Family History Mother COPD (chronic obstructive pulmonary disease) Emphysema lung Mental health disorder Social History Household Members: Friend(s) Both parents involved: No Caregiver staying overnight: No Housing: House Are you a primary infant caregiver to a significant other at home: No Do you presently have visiting nurse or other home services: No 75 years or older and lives alone: No Alcohol intake: current Alcohol intake frequency: holidays/special occasions only Patient Tobacco Use Status: Former Tobacco user Tobacco use type: Cigarette e-Cigarette/Vaping Use: Former Use Second Hand Smoke Exposure: No service: No Current occupational status: disabled 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 Cognitive needs: No Hearing needs: No Vision needs: Yes (glasses) Assessment & Plan Assessment & Plan (1) Morbid obesity with BMI of 40.0-44.9, adult: Code(s): E66.01 - Morbid (severe) obesity due to excess calories; Z68.41 - Body mass index [BMI] 40.0-44.9, adult Category: Medical Plan: Wt: 110 Kg ( 05/2024 ), 07/22 Est kcal needs as per MSJ: 2000 (40% carb, 30% protein/fat) Est fluid needs as per 25-30 ml/d: 3300 Est prot per day as per 1 g/kg bw: 110 Recommend fiber intake : 8-10 g per day and gradually increase to 25-28 g per day for women and 35-38 g for men or as tolerated Recommend sodium intake per day : l less than 2300 mg Educated patient on: ( R = reviewed V = verbalizes understanding N/R = needs review N/A = not applicable * Food sources of carbohydrate, adequate serving sizes and its role in various health conditions: R V N/R * Differences between complex carbohydrates a simple carbohydrates, role of fiber in diet: R V N/R * Lean protein sources of foods: R * Differences between types of fats and role in diet (mono on saturated fat fatty acids, saturated fatty acids, trans fats): R V N/R * Food sources of sodium in salt and healthy modifications for heart health in kidney health: R V R/V * Vitamins and minerals: R V N/R * Healthy plate method concept: R * Physical activity: Benefits a precaution: R * Patient Instructions: keep a food record (phone julianne, tracking calories) Have a yogurt with nuts at 11 am including probiotic Coding Level of Care Code Nutr Indiv Subseq (91027) Diagnoses Morbid obesity with BMI of 40.0-44.9, adult E66.01; Z68.41 Time Spent (min) 20
== END 2024-07-12 09:52 | disposition home or self-care (01) ==
PROVIDERS: PCP Nurse Practitioner Family; Visit Provider Dietitian, Registered
DX: E66.01 Morbid (severe) obesity due to excess calories (principal); Z68.41 Body mass index [BMI] 40.0-44.9, adult

== ENCOUNTER → 2024-07-12 09:25 | Outpatient (BNVA) | payer OTHER, SELFPAY | PROVIDERS: PCP Nurse Practitioner Family; Visit Provider Dietitian, Registered | DX: E66.01 Morbid (severe) obesity due to excess calories (principal); Z71.3 Dietary counseling and surveillance; Z68.43 Body mass index [BMI] 50.0-59.9, adult | CPT/HCPCS: 97803 ==

== ENCOUNTER 2024-08-27 12:05 | Emergency (ER) | payer OTHER, SELFPAY ==
--- NOTE | ~2024-08-27 | CT_ITS ---
CLINICAL HISTORY: ?Left peritonsillar abscess CT soft tissue neck with IV contrast. COMPARISON: None FINDINGS: Diffuse enlargement of the left palatine tonsil with the adjacent edema. Organizing fluid collection along the inferior aspect with peripheral enhancement measuring 1.8 x 0.9 x 1.6 cm (series 3, image 234 and series coronal/6, image 36). There is mild mass effect upon the oropharynx by the enlarged palatine tonsil. Visualized lung apices are clear. Normal thyroid gland. There is mild edema along the left submandibular gland. Parotid glands appear unremarkable. Orbital soft tissues are unremarkable. Mild edema within the parapharyngeal fat pad on the left. Normal epiglottis. Visualized portions of the trachea and esophagus are unremarkable. Multiple normal-sized and prominent jugular chain and submandibular lymph nodes, [id number]-right. Leftward curvature of the upper thoracic spine. [id number] spondylosis. No acute fracture identified. Major vascular structures enhance normally. Visualized intracranial structures are unremarkable. IMPRESSION: 1. Probable peritonsillar abscess along the inferior aspect of the left palatine tonsil measuring 1.8 x 0.9 x 1.6 cm. There is associated diffuse enlargement of the left palatine tonsil with the adjacent edema and mass effect upon the oropharynx consistent with tonsillitis. 2. Multiple normal-sized and prominent jugular chain and submandibular lymph nodes on the left, likely reactive. This document has been electronically signed by: Owen Tafoya MD on 08/27/2024 19:22:50
[2024-08-27 12:51] VITALS: BP 135/97; PULSE 114; RESP 18; TEMP 36.8; O2SAT 93; BMI 44.4
--- NOTE | 2024-08-27 12:53 | ED_ITS ---
HPI - General Adult General Chief complaint: General Medical Stated complaint: Strep Throat Diff Breathing Time Seen by Provider: 08/27/24 17:12 History of Present Illness ED Provider: Juana VASQUES narrative: The patient is a 48-year-old woman who has had a worsening sore throat over the last 4 or 5 days. It has been very severe over the last 2 days. She feels it more in the left side. She has felt mildly feverish but has not measured any actual fever. She has never had a sore throat like this before. She went to an urgent care center where she was diagnosed with strep throat but because of her complaint of difficulty swallowing and a sense in a change of her voice she was advised to come to the emergency room for further evaluation. Related Data Home Medications ?Medication ?Instructions ?Recorded ?Confirmed dextroamphetamine-amphetamine 20 20 mg PO DAILY 04/07/23 06/21/24 mg tablet (Adderall) escitalopram oxalate 10 mg tablet 15 mg PO DAILY 06/16/23 06/21/24 zolpidem 12.5 mg tablet,extended 12.5 mg PO BEDTIME PRN Sleep 06/16/23 06/21/24 release,multiphase Previous Rx's ?Medication ?Instructions ?Recorded methocarbamol 500 mg tablet 500 mg PO TID PRN muscle spasm #90 05/11/24 tabs gabapentin 300 mg capsule 900 mg (3 x 300 mg) PO TID 30 days 07/17/24 #270 caps tramadol 50 mg tablet 100 mg (2 x 50 mg) PO TID PRN pain 08/23/24 20 days #120 tabs amoxicillin 875 mg-potassium 1 tab PO BID #20 tabs 08/27/24 clavulanate 125 mg tablet fluconazole 150 mg tablet 150 mg PO ONCE 1 day #1 tab 08/27/24 ibuprofen 400 mg tablet 400 mg PO Q6H PRN pain #14 tabs 08/27/24 morphine 15 mg immediate release 15 mg PO Q6H PRN pain #14 tabs 08/27/24 tablet Allergies Allergy/AdvReac Type Severity Reaction Status Date / Time amoxicillin [From Augmentin] AdvReac Mild yeast Verified 08/27/24 12:54 infection clavulanic acid AdvReac Mild yeast Verified 08/27/24 12:54 [From Augmentin] infection Review of Systems 2 Review of Systems: Yes all other systems are reviewed and are negative PMFSH Past Medical History Medical History Sacroiliac joint dysfunction Cervical spondylosis Myofascial pain Lumbar disc herniation Necrotizing fasciitis Degenerative disc disease, lumbar Depression Anxiety Surgical History History of throat surgery S/P lumpectomy, right breast Family History Family History Mother COPD (chronic obstructive pulmonary disease) Emphysema lung Mental health disorder Social History Social History Household Members: Friend(s) Both parents involved: No Caregiver staying overnight: No Housing: House Are you a primary rn coronary care unit to a significant other at home: No Do you presently have visiting nurse or other home services: No 75 years or older and lives alone: No Alcohol intake: current Alcohol intake frequency: holidays/special occasions only Patient Tobacco Use Status: Former Tobacco user Tobacco use type: Cigarette e-Cigarette/Vaping Use: Former Use Second Hand Smoke Exposure: No service: No Current occupational status: disabled 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 She has a normal mental status. She has a hot potato voice. She does not appear short of breath. She seems to swallow her secretions adequately but has visible discomfort when swallowing. HENMT Other: The patient does not have marked trismus. She has significant swelling to the left soft palate. Eyes General: appearance normal, both eyes and all related structures Neck Other: The patient has left jugular digastric tenderness. Resp Effort & Inspection: normal respiratory effort Auscultation: clear to auscultation bilaterally Cardio Rate: regular rate Rhythm: regular rhythm Heart sounds: S1 normal heart sound present and S2 normal heart sound present Skin Other: Skin is dry and unremarkable Neuro Other: the patient is awake and alert with normal mental status. She has a hot potato voice but her speech is clear and comprehensible. The face is symmetrical. She moves her extremities normally. Extrem Other: No peripheral edema Course Course Course Narrative: RME, this is a rapid medical exam performed by Hank Lacey please refer to primary provider for complete H&P- 48-year-old female presents for evaluation of throat pain and difficulty breathing. She was diagnosed with strep throat 4 days ago. She reports taking cephalexin without any improvement. She reports that having difficulty breathing. Difficult to visualize retropharynx in triage Medications Administered Discontinued Medications Generic Name Dose Route Start Last Admin Trade Name Freq PRN Reason Stop Dose Admin Amoxicillin/Clavulanate Potassium 875 mg 08/27/24 20:08 08/27/24 20:25 Amoxicillin/Potassium Clav 875 Mg Tablet PO 08/27/24 20:09 875 mg ONCE ONE Administration Dexamethasone Sodium Phosphate 10 mg 08/27/24 17:18 08/27/24 18:17 Dexamethasone Sod Phosphate 10 Mg/Ml Vial IVPUSH 08/27/24 17:19 10 mg ONCE ONE Administration Hydromorphone HCl 0.5 mg 08/27/24 19:39 08/27/24 20:20 Hydromorphone Hcl 0.5 Mg/0.5 Ml Syringe IVPUSH 08/27/24 19:40 0.5 mg ONCE ONE Administration Protocol Ampicillin Sodium/Sulbactam 100 mls @ 200 mls/hr 08/27/24 17:18 08/27/24 18:30 Sodium 3 gm/ Sodium Chloride IV 08/27/24 17:47 Infused ONCE ONE Infusion Sodium Chloride 1,000 mls @ 999 mls/hr 08/27/24 17:30 08/27/24 19:30 Ns IV 08/27/24 18:30 Infused .Q1H1M WAQAS Infusion Iohexol 100 ml 08/27/24 18:48 08/27/24 18:48 Iohexol 350 Mg/Ml 100 Ml Infus..Btl IV 08/27/24 18:49 60 ml ONCE ONE Administration Ketorolac Tromethamine 10 mg 08/27/24 17:18 08/27/24 18:17 Ketorolac Tromethamine 15 Mg/Ml Vial IVPUSH 08/27/24 17:19 10 mg ONCE ONE Administration Lidocaine/Epinephrine 10 ml 08/27/24 17:23 08/27/24 18:17 Lidocaine Hcl 1%/Epi 1:100,000 10 Ml Vial INFILTRATI 08/27/24 17:24 10 ml ONCE ONE Administration Medical Decision Making Medical Decision Making [facility] Narrative: the patient is a 48-year-old woman who presents with 5 days of worsening sore throat, particularly bad over the last 2 days. She went to an urgent care center and was diagnosed with strep but was advised to come the emergency room because of a hot potato voice. On physical exam the patient has significant swelling of the left soft palate suggestive of a peritonsillar abscess. Interestingly the patient said that she has felt a pop sensation a little time before my evaluation which gave her some relief of the discomfort she had been having previously. She says that since the pop she has been able to open her mouth more easily. Since the patient's clinical exam was clearly suggestive of a left-sided peritonsillar abscess I attempted bedside drainage after first ordering IV antibiotics, dexamethasone, and ketorolac. The patient has amoxicillin and clavulanic acid listed as an allergy. She says that she does not actually have an allergy she simply has a tendency to get yeast infections. We therefore proceeded with Unasyn as an antibiotic. After the patient had received ketorolac and dexamethasone and her 1st dose of antibiotics she was feeling somewhat better and allowed me to attempt a bedside drainage. I used a 30 gauge needle to inject 1% lidocaine with epinephrine in several places on the left soft palate which was very full and plump. I then used an 18 gauge needle to attempt to aspirate pus from several locations in the soft palate. On none of these passes of the needle did I aspirate any pus. I began superiorly near the midline and moved laterally and inferiorly with several passes of the 18 gauge needle but all of these passes revealed no pus. After my attempt had needle aspiration I then ordered a CT of the soft tissue of the neck with IV contrast. This revealed what the radiologist thought was a left-sided peritonsillar abscess that was very low down, near the level of the epiglottis. It measured 1.8 x 0.9 x 1.6 cm. I re-examined the patient. I did not think I would likely be successful in any additional attempts at needle aspiration or drainage. By that time the patient had been in the emergency room for many hours and was feeling considerably better. Her voice sounded more normal. She was swallowing her secretions more easily. At that point the patient did not wish for me to make any additional attempts at drainage. Since there is some evidence that peritonsillar abscesses of less than 2 cm in diameter can do well with medical management alone I felt that a trial of antibiotics was not unreasonable. She will be discharged with a prescription for Augmentin. She also requested a prescription for fluconazole in case she develops yeast infection. If she worsens she should probably go to a hospital which has ENT coverage. She was then discharged. Lab Data 08/27/24 14:18 08/27/24 14:18 Labs: Lab Results 08/27/24 Range/Units 14:18 WBC 20.6 H (4.8-10.8) X10*3/uL RBC 3.85 L (4.20-5.50) X10*6/uL Hgb 11.3 L (12.0-16.0) g/dl Hct 33.5 L (37.0-47.0) % MCV 87.0 (80.0-98.0) fL MCH 29.4 (27.0-33.0) pg MCHC 33.7 (31.0-35.0) g/dl RDW 12.5 (11.0-16.0) % Plt Count 349 (160-400) X10*3/uL MPV 8.8 L (9.4-12.3) fL Immature Gran % (Auto) 0.5 H (0.0-0.4) % Neut % (Auto) 87.4 H (45-73) % Lymph % (Auto) 4.8 L (20-40) % [place] % (Auto) 7.1 (2-11) % Eos % (Auto) 0.0 (0-4) % Baso % (Auto) 0.2 (0-2) % Lymph # (Auto) 1.0 L (1.2-4.9) X10*3/uL [place] # (Auto) 1.5 H (0.1-1.2) X10*3/uL Eos # (Auto) 0.0 (0.0-0.4) X10*3/uL Baso # (Auto) 0.1 (0.0-0.2) X10*3/uL Abs Immat Gran (auto) 0.11 H (0.00-0.03) X10*3/uL Absolute Neuts (auto) 18.0 H (2.0-8.3) x10*3/uL Absolute Nucleated RBC 0.000 (0.0-0.012) X10*3/uL Nucleated RBC % (auto) 0.0 (0.0-0.2) /100WBC Sodium 137 (135-145) mmol/L Potassium 3.9 (3.3-5.1) mmol/L Chloride 103 (96-108) mmol/L Carbon Dioxide 26 (22-29) mmol/L Anion Gap 12 (12-20) BUN 6 L (9-16) mg/dL Creatinine 0.65 (0.5-1.4) mg/dL Estim Creat Clear Calc 131.2 Estimated GFR > 60 Random Glucose 116 H (60-115) mg/dL Calcium 9.4 (8.4-10.2) mg/dL Total Bilirubin 0.5 (0.0-1.0) mg/dL AST 20 (5-31) U/L ALT 10 (0-31) U/L Alkaline Phosphatase 94 (39-117) U/L Total Protein 7.9 (6.5-8.0) g/dL Albumin 4.3 (3.5-5.0) g/dL Lipase 6 L (8-78) U/L Beta HCG, Quant < 2 mIU/mL Monoscreen Negative (Negative) Discharge Plan Discharge Clinical Impression: Peritonsillar abscess Patient Disposition: Home, Self-Care Instructions: Peritonsillar Abscess (ED) Additional Instructions: You seem to have a peritonsillar abscess. On CT scan it seems this is below the area where I attempted to drain the abscess with a needle. Since you were doing better I am not certain that you will require any additional procedure to try to drain this abscess. It is possible you will do well with antibiotics alone at this point. Please take your next dose of antibiotic at around 08:00 in the morning. Your prescriptions have been sent to the [facility] on [address] in [place]. Please bulk picker your prescriptions this evening so that you will have all of your prescriptions including your pain medications. You may use the ibuprofen prescribed every 6 hours as needed. There is also a prescription for morphine tablets that you may use as well. Do your best to try to take fluids. A prescription for a tablet of fluconazole has been sent in case you feel you develop a yeast infection on the antibiotics. Please contact Dr. Galarza's office for a follow up appointment. He has an ENT doctor but he does not do work in the emergency room or in the hospital. Please try to get an outpatient appointment to see him. If at any point you feel that your throat is getting significantly worse and that you were having either worsening trouble swallowing or breathing or talking you should go [facility] directly. Prescriptions: New ibuprofen 400 mg tablet 400 mg PO Q6H PRN (Reason: pain) Qty: 14 0RF morphine 15 mg tablet 15 mg PO Q6H PRN (Reason: pain) Qty: 14 0RF Rx Instructions: Partial Fill upon patient request. fluconazole 150 mg tablet 150 mg PO ONCE 1 Days Qty: 1 0RF amoxicillin-pot clavulanate 875-125 mg tablet 1 tab PO BID Qty: 20 0RF No Action gabapentin 300 mg capsule 900 mg PO TID 30 Days Qty: 270 3RF Rx Instructions: 3 tabs 3 times a day. tramadol 50 mg tablet 100 mg PO TID PRN (Reason: pain) 20 Days Qty: 120 0RF dextroamphetamine-amphetamine [Adderall] 20 mg tablet 20 mg PO DAILY zolpidem 12.5 mg tablet,ext release multiphase 12.5 mg PO BEDTIME PRN (Reason: Sleep) escitalopram oxalate 10 mg tablet 15 mg PO DAILY methocarbamol 500 mg tablet 500 mg PO TID PRN (Reason: muscle spasm) Qty: 90 1RF Rx Instructions: No driving while taking this medication. Do no take with alcohol or other MEDIA JOB TITLES Depressants Referrals: Nahum Galarza [Physician] - (Peritonsillar abscess) Jacoby Francis CNP [Primary Care Provider] - (peritonsillar abscess) Interventions: ED Discharge Assessment Last Done: 08/27/24 20:39 Discharge Date/Time: 08/27/24 20:39 Print Language: Norwegian
[2024-08-27 14:23] LABS: MANUAL DIFF FLAG NO
[2024-08-27 14:27] LABS: Basophils Absolute Auto 0.1 X10*3/uL (0.0-0.2); Basophils Percent Auto 0.2 % (0-2); Hematocrit 33.5 % (37.0-47.0); Hemoglobin 11.3 g/dl (12.0-16.0); Imm Gran Abs Auto 0.11 X10*3/uL (0.00-0.03); Imm Gran Pct Auto 0.5 % (0.0-0.4); Lymphocytes Percent Auto 4.8 % (20-40); Mean Corpuscular HGB Conc 33.7 g/dl (31.0-35.0); Mean Corpuscular Hemoglobin 29.4 pg (27.0-33.0); Mean Platelet Volume 8.8 fL (9.4-12.3); Monocytes Absolute Auto 1.5 X10*3/uL (0.1-1.2); Monocytes Percent Auto 7.1 % (2-11); Neutrophils Percent Auto 87.4 % (45-73); Platelet Count 349 X10*3/uL (160-400); Red Blood Count 3.85 X10*6/uL (4.20-5.50); Red Cell Distribution Width 12.5 % (11.0-16.0); White Blood Count 20.6 X10*3/uL (4.8-10.8)
[2024-08-27 14:38] LABS: Alanine Aminotransferase 10 U/L (0-31); Albumin Level 4.3 g/dL (3.5-5.0); Alkaline Phosphatase 94 U/L (39-117); Anion Gap 12 (12-20); Aspartate Amino Transferase 20 U/L (5-31); Bilirubin Total 0.5 mg/dL (0.0-1.0); Blood Urea Nitrogen 6 mg/dL (9-16); Calcium 9.4 mg/dL (8.4-10.2); Carbon Dioxide 26 mmol/L (22-29); Chloride 103 mmol/L (96-108); Creatinine Clr Calc Pharmacy 131.2; Estimated Glomerular Filt Rate > 60; Glucose Random 116 mg/dL (60-115); Lipase 6 U/L (8-78); Potassium 3.9 mmol/L (3.3-5.1); Sodium 137 mmol/L (135-145); Total Protein 7.9 g/dL (6.5-8.0)
[2024-08-27 14:58] LABS: Monotest Negative (Negative)
[2024-08-27 17:40] LABS: HCG Quantitative < 2 mIU/mL
[2024-08-27] MEDS: Ampicillin Sodium/Sulbactam Na 3 GM in 0.9 % Sodium Chloride 100 ML IV (17:54)
[2024-08-27] MEDS: 0.9 % Sodium Chloride 1,000 ML 999 ML IV (17:54)
[2024-08-27] MEDS: Lidocaine HCl 1%/Epi 1:100,000 10 ML VIAL INFILTRATI (18:17)
[2024-08-27] MEDS: dexAMETHasone sod phosphate 10 MG/ML VIAL IVPUSH (18:17)
[2024-08-27] MEDS: Ketorolac Tromethamine 15 MG/ML VIAL 10 MG IVPUSH (18:17)
--- NOTE | 2024-08-27 18:38 | PC.NURSE ---
No blood cultures orders Per MD at this time.
[2024-08-27] MEDS: iohexoL 350 MG/ML 100 ML INFUS..BTL IV (18:48)
[2024-08-27 19:47] VITALS: BP 140/89; PULSE 99; RESP 16; TEMP 36.3; O2SAT 96
[2024-08-27] MEDS: HYDROmorphone HCl 0.5 MG/0.5 ML SYRINGE IVPUSH (20:20)
[2024-08-27] MEDS: Amoxicillin/Potassium Clav 875 MG TABLET PO (20:25)
[2024-08-27 20:39] VITALS: BP 140/89; PULSE 99; RESP 16; TEMP 36.3; O2SAT 96
== END 2024-08-27 20:39 | disposition home or self-care (01) ==
PROVIDERS: Physician Assistant; Emergency Provider Emergency Medicine; PCP Nurse Practitioner Family
DX: J36 Peritonsillar abscess (principal); Z79.899 Other long term (current) drug therapy
CPT/HCPCS: 36415; 42700; 70491; 80053; 83690; 84702; 85025; 86308; 96361; 96374; 96375; 99284; J0295; J1100; J1171; J1885; J2004; Q9967

== ENCOUNTER → 2024-08-27 18:35 | Outpatient (BNV) | payer OTHER, SELFPAY | PROVIDERS: Emergency Provider Emergency Medicine; PCP Nurse Practitioner Family; Visit Provider Radiology Diagnostic Radiology | DX: J02.0 Streptococcal pharyngitis (principal) | CPT/HCPCS: 70491 ==

== ENCOUNTER 2024-09-03 12:48 | Outpatient (AMB) | payer OTHER, SELFPAY ==
--- NOTE | 2024-09-03 12:54 | A.OFFPC_ITS ---
Vital Signs 09/03/24 13:04 Height 5 ft 3 in Weight 252 lb 4 oz BMI 44.7 BP 132/77 Blood Pressure Location Rt brachial Position Sitting Respiration 16 Pulse 96 Pulse Source Pulse Oximeter Temp 97.9 F Temp Source Oral Pulse Oximetry (%) 96 Oxygen Delivery Method Room Air Intake Visit Reasons: ED F/U Strep Throat Intake Note: patient here for ER follow up on strep throat. still having some sore throat Repeater Chief Required: No Is last menstrual period known: Yes Last menstrual period: 08/29/24 Post menopausal: No Patient : No Allergies No Known Allergies Allergy (Verified 09/03/24 13:35) Medication List - Last Reconciled 09/03/24 by Jacoby Francis CNP amoxicillin-pot clavulanate 875-125 mg 1 tab PO BID dextroamphetamine-amphetamine 20 mg (Adderall) 20 mg PO DAILY escitalopram oxalate 15 mg PO DAILY fluconazole 150 mg PO ONCE 1 day gabapentin 900 mg (3 x 300 mg) PO TID 30 days ibuprofen 400 mg PO Q6H PRN methocarbamol 500 mg PO TID PRN tramadol 100 mg (2 x 50 mg) PO TID PRN 20 days zolpidem ER 12.5 mg PO BEDTIME PRN Tobacco use date assessed: 09/03/24 Dental Screening Dental Screen Date: 09/03/24 Did you have a dental visit in the last 12 months?: Yes Did you have a dental problem in the last 6 months where you did not have access to dental care?: No Was dental information given to patient?: Patient has dentist HPI HPI Comments History of Present Illness Details 48-year-old female presents for ED follo w-up visit. She was evaluated and treated at [facility] ED on 08/27/2024 for peritonsillar abscess. She was discharged home on Augmentin and recommendations to follow-up with [facility] Monterroso. She notes that her sore throat have significantly improved and has been mild. She has not had difficulty breathing or swallowing. She has been taking her pain meds and Augmentin as prescribed and has 2 days coverage left for Augmentin. Red plan declined ONDINA Monterroso. She continues to experience anxiety and depressive symptoms. Symptoms her severe when she leaves the house and is around people. She denies SI or HI. She continues to follow her psychiatrist once a month and therapist weekly. She intends to lose weight. She has been on the [facility] weight management clinic wait list and calls them monthly for updates. She requests phentermine for weight management. [facility] Medical History Sacroiliac joint dysfunction Cervical spondylosis Myofascial pain Lumbar disc herniation Necrotizing fasciitis Degenerative disc disease, lumbar Depression Anxiety Surgical History History of throat surgery S/P lumpectomy, right breast Family History Mother COPD (chronic obstructive pulmonary disease) Emphysema lung Mental health disorder Social History Household Members: Friend(s) Housing: House Are you a primary child care provider to a significant other at home: No Do you presently have visiting nurse or other home services: No Alcohol intake: current Alcohol intake frequency: holidays/special occasions only Patient Tobacco Use Status: Former Tobacco user Tobacco use type: Cigarette e-Cigarette/Vaping Use: Former Use Second Hand Smoke Exposure: No service: No Current occupational status: disabled 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 1. Little interest or pleasure in doing things: more than half the days 2. Feeling down, depressed, or hopeless: nearly every day 3. Trouble falling or staying asleep, or sleeping too much: nearly every day 4. Feeling tired or having little energy: more than half the days 5. Poor appetite or overeating: nearly every day 6. Feeling bad about yourself - or that you are a failure or have let yourself or your family down: nearly every day 7. Trouble concentrating on things, such as reading the newspaper or watching television: nearly every day 8. Moving or speaking so slowly that other people could have noticed. Or the opposite - being so fidgety or restless that you have been moving around a lot more than usual: nearly every day 9. Thoughts that you would be better off or of hurting yourself in some way: not at all Total score: 22 Depression Screening Interpretation: Positive Depression Screening Follow-up: Existing condition and In treatment Depression Screening Done: Yes Source: Developed by Drs. Contreras Velazquez, Gisselle Reyna, Javed Lee and colleagues, with an educational earline from [employer]. Thrive Questionnaire Date Thrive assessed: 08/31/24 I am a: Patient What is your living situation today?: I have a steady place to live Within the past 12 months, did the food you bought not last and you didn't have the money to get more?: Never true Within the past 12 months, did you worry whether your food would run out before you got money to buy more?: Never true Do you have trouble paying for medicines?: No Do you have trouble getting transportation to medical appointments?: No Do you have trouble paying your heating and electricity bill?: No Do you have trouble taking care of your child, family member or friend?: No Do you have trouble with day-to-day activities such as bathing, preparing meals, shopping, managing finances, etc.?: No Are you currently unemployed and looking for a job?: No Are you interested in more education?: No Please select the resources that you would like help with: None Currently or been in a relationship where the following occur: No concerns reported THRIVE Score: 0 AUDIT C Alcohol Use Questionnaire (AUDIT-C) 1. How often do you have a drink containing alcohol?: Monthly or less 2. How many drinks containing alcohol do you have on a typical day when you are drinking?: 1 or 2 3. How often do you have six or more drinks on one occasion?: Never Total Score: 1 BAYRON-7 AMB Questionnaire BAYRON-7 Date BAYRON - 7 assessed: 06/19/24 Feeling nervous, anxious, or on edge: 3 = Nearly every day Not being able to stop or control worryin = Nearly every day Worrying too much about different things: 3 = Nearly every day Trouble relaxin = Nearly every day Being so restless that it is hard to sit still: 3 = Nearly every day Becoming easily annoyed or irritable: 3 = Nearly every day Feeling afraid as if something awful might happen: 2 = More than half the days Total BAYRON-7 score (0-4 normal; 5-9 mild; 10-14 moderate; 15-21 severe): 20 Source: Developed by Drs. Contreras Velazquez, Gisselle Reyna, Javed Lee and colleagues, with an educational earline from [employer]. Review of Systems Const Details: Const Denies chills, Denies fatigue, Denies fever(s), Denies headache(s) and Denies weakness ENT Reports as per HPI Card Denies chest pain, Denies lightheadedness, Denies dyspnea and Denies other (Palpitations) Resp Denies cough, Denies dyspnea, Denies wheezing and Denies other ( shortness of breath) GI Denies abdominal pain, Denies melena, Denies hematochezia, Denies change in bowel habits, Denies dyspepsia and Denies nausea Denies hematuria and Denies dysuria Musc Denies abnormal gait, Denies myalgias, Denies arthralgias, Denies numbness and Denies tingling Skin/Breast Denies rash, Denies unusual bruising and Denies wounds Neuro Denies abnormal gait, Denies dizziness, Denies headache(s), Denies memory loss, Denies numbness, Denies Sensory deficit (Neuro), Denies tingling and Denies weakness Psych Reports anxiety, Reports depression, Denies memory loss Endo Denies cold intolerance, Denies fatigue, Denies heat intolerance, Denies polydipsia and Denies polyuria Aller/Immun Denies wheezing Physical exam (Primary Care) Vital Signs: Last Vital Signs Temp 97.9 F 09/03/24 13:04 Pulse 96 09/03/24 13:04 Resp 16 09/03/24 13:04 BP 132/77 09/03/24 13:04 Pulse Ox 96 09/03/24 13:04 Oxygen Delivery Method Room Air 09/03/24 13:04 BMI result Body Mass Index 44.7 Tobacco/Smoking Status: Tobacco use Status Tobacco use date assessed 09/03/24 09/03/24 13:07 Patient Tobacco Use Status Former Tobacco user 09/03/24 12:55 Tobacco use type Cigarette 09/03/24 12:55 e-Cigarette/Vaping Use Former Use 09/03/24 12:55 PHQ-9: PHQ-9 Score PHQ-9: Total score 22 09/03/24 12:55 Depression Screening Interpretation: Positive Depression Screening Follow-up: Existing condition and In treatment Thrive Assessment: Date of Thrive Assessment Date Thrive assessed 08/31/24 09/03/24 12:55 Currently or been in a relationship where the following occur: No concerns reported Const Other: General: no acute distress and well developed Nutritional Appearance: well nourished Orientation/consciousness: patient oriented x3 HENMT Head is normocephalic Bilateral ear canal and TM are normal Nasal turbinates and oropharynx are pink and moist Sinuses are nontender with palpation No auricular or cervical lymphadenopathy Eyes General: appearance normal, both eyes and all related structures Pupils: Equal, round and reactive pupils present EOM: EOMs intact bilaterally Resp Effort & Inspection: normal respiratory effort Auscultation: clear to auscultation bilaterally Cardio Rate: regular rate Rhythm: regular rhythm Heart sounds: S1 normal heart sound present, S2 normal heart sound present, no gallops, no murmurs and no rubs GI Palpation (GI): No Abdominal aortic bruit present, Soft to palpation, nontender, No hepatosplenomegaly present and No Rebound tenderness present Auscultation: normal bowel sounds General: Yes no CVA tenderness Back/Spine/Pelvis Back: no CVA tenderness Cervical Spine: cervical ROM normal and No Cervical spine tenderness Thoracic/Lumbar Spine: thoraco-lumbar ROM normal, No pain with thoraco-lumbar ROM, No thoracic spinal tenderness and No lumbar spinal tenderness Extrem General: Yes normal to inspection, No edema and No calf tenderness Skin General: warm and dry. Normal skin color. Normal skin turgor Neuro General: patient oriented x3, gait normal and no focal neuro deficit Cranial nerves: Yes Equal, round and reactive pupils present Cognition (Neuro): normal cognition Gait exam (Neuro): Normal gait present Sensory Exam: No Sensory deficit (Neuro) Psych Appearance: grossly normal Affect: normal affect Attitude: cooperative Thought process: Normal thought process present Coding Level of Care Code Est Pt Level 4 (42515) Diagnoses Peritonsillar abscess J36 Leukocytosis D72.829 Elevated LDL cholesterol level E78.00 Iron deficiency anemia D50.9 Anxiety F41.9 Depression, unspecified depression type F32.A Depression Type: unspecified Encounter for weight management Z76.89 Assessment & Plan Assessment & Plan (1) Peritonsillar abscess: Code(s): J36 - Peritonsillar abscess Category: Medical Plan: Sore throat significantly improved since his ED discharge. She has not experienced any new difficulty swallowing or breathing. Normal throat exam. She was referred to Dr. Galarza, ENT; however, her health denied cover. Continue current treatment regimen. Advised to contact her health plan for list of ENT specialists that are covered and notify PCP to make a referral. Follow- up with worsening or new symptoms. Verbalized understanding and agreed with treatment plan. (2) Leukocytosis: Code(s): D72.829 - Elevated white blood cell count, unspecified Category: Medical Plan: Recent WBC in the ED is significantly elevated, 20.6; likely due to peritonsillar bacterial infection. Will repeat CBC and make changes as needed. Verbalized understanding and agreed with the plan. (3) Elevated LDL cholesterol level: Code(s): E78.00 - Pure hypercholesterolemia, unspecified Category: Medical Plan: Recent LDL level is slightly elevated, 113. Advised to limit foods high in saturated fat and avoid foods high in trans fat. Routine exercise encouraged. Will monitor lipid panel levels periodically or if symptomatic. Verbalized understanding and agreed with the plan. (4) Iron deficiency anemia: Code(s): D50.9 - Iron deficiency anemia, unspecified Category: Medical Plan: Recent RBC and H&H level are low. Her RBC and H&H levels have been chronically stable. No acute symptoms. She is followed by [facility] hematology/oncology. Follow-up with symptoms or concerns. Verbalized understanding and agreed with the plan. (5) Anxiety: Code(s): F41.9 - Anxiety disorder, unspecified Category: Medical Plan: Continued anxiety depressive symptoms. PHQ-9 and BAYRON-7 scores revealed severe depression and anxiety respectively. No SI/HI. Continue current treatment regimen. Routine exercise encouraged. Follow-up with therapist and psychiatrist as planned. Return with symptoms or concerns. Verbalized understanding and agreed with the plan. (6) Depression: Code(s): F32.A - Depression, unspecified Category: Medical Qualifiers: Depression Type: unspecified Qualified Code(s): F32.A - Depression, unspecified Plan: Plan as above. (7) Encounter for weight management: Code(s): Z76.89 - Persons encountering health services in other specified circumstances Category: Medical Plan: She intends to lose weight. She has been making healthy dietary choices. She has been on the [facility] weight management clinic wait list and calls them monthly for updates. Phentermine 15 mg daily ordered for weight management. Healthy diet and routine exercise encouraged. Informed that taking phentermine and Adderall may increase her blood pressure. Follow-up in 1 month for weight management and blood pressure monitoring or sooner with symptoms or concerns. Verbalized understanding and agreed with the plan. Orders: Orders WBC ONLY Today D72.829 - Elevated white blood cell count, unspecified
[2024-09-03 13:04] VITALS: BP 132/77; PULSE 96; RESP 16; TEMP 36.6; O2SAT 96; BMI 44.7
== END 2024-09-03 14:16 | disposition home or self-care (01) ==
PROVIDERS: PCP Nurse Practitioner Family; Visit Provider Nurse Practitioner Family
DX: J36 Peritonsillar abscess (principal); D72.829 Elevated white blood cell count, unspecified; E78.00 Pure hypercholesterolemia, unspecified; D50.9 Iron deficiency anemia, unspecified; F41.9 Anxiety disorder, unspecified; F32.A Depression, unspecified; Z76.89 Persons encountering health services in other specified circumstances

== ENCOUNTER → 2024-09-03 12:48 | Outpatient (BNVA) | payer OTHER, SELFPAY | PROVIDERS: PCP Nurse Practitioner Family; Visit Provider Nurse Practitioner Family ==

== ENCOUNTER 2024-09-03 14:12 | Outpatient (REF) | payer OTHER, SELFPAY ==
[2024-09-03 17:56] LABS: Neutrophils Absolute Auto 6.1 x10*3/uL (2.0-8.3); White Blood Count 9.8 X10*3/uL (4.8-10.8)
== END 2024-09-03 14:13 | disposition home or self-care (01) ==
LOC: HO.WFDLDS 14:12
PROVIDERS: Visit Provider Nurse Practitioner Family
DX: D72.829 Elevated white blood cell count, unspecified (principal); J36 Peritonsillar abscess; E78.00 Pure hypercholesterolemia, unspecified; D50.9 Iron deficiency anemia, unspecified; F41.9 Anxiety disorder, unspecified; F32.A Depression, unspecified; Z76.89 Persons encountering health services in other specified circumstances
CPT/HCPCS: 36415; 85048; 99212

== ENCOUNTER 2024-10-08 14:36 | Outpatient (AMB) | payer OTHER, SELFPAY ==
--- NOTE | 2024-10-08 14:39 | MHC.OFFVIS ---
Vital Signs 10/08/24 14:41 Height 5 ft 3 in Weight 262 lb BMI 46.4 BP 174/91 H Blood Pressure Location Lt brachial Position Sitting Respiration 16 Pulse 100 Pulse Source Pulse Oximeter Pulse Oximetry (%) 99 Oxygen Delivery Method Room Air Intake Visit Reasons: Neck Pain/Discuss Neck Inj Allergies No Known Allergies Allergy (Verified 10/08/24 14:42) Medication List - Last Reconciled 10/08/24 by Tanja Machado LPN aripiprazole 20 mg PO DAILY dextroamphetamine-amphetamine 20 mg (Adderall) 20 mg PO DAILY escitalopram oxalate 15 mg PO DAILY gabapentin 900 mg (3 x 300 mg) PO TID 30 days ibuprofen 400 mg PO Q6H PRN methocarbamol 500 mg PO TID PRN phentermine 15 mg PO DAILY 30 days topiramate XR (Qudexy XR) mg PO tramadol 100 mg (2 x 50 mg) PO TID PRN 20 days zolpidem ER 12.5 mg PO BEDTIME PRN HPI Comments Details: Cary is back in my office to discuss worsening of her pain syndrome. She reported today that she is scheduled for therapeutic bilateral sacroiliac joint steroid injection on 11/20/2024. However her main problem cervicalgia cervical pain. She was under my care for C6-C7 epidural steroid injections received in about 10 months ago. However if I will perform therapeutic sacroiliac joint on 11/20/2024 I will not be able to perform cervical injections sooner than 12/21/2024. Patient agreed with the plan. She also would like to see Dr. Amador about her cervicalgia. Prior: She underwent epidural steroid injection at C6-7 4 months ago, she had great relief with improvement in the burning, numbness and tingling that was radiating down her left hand. For reports the numbness and tingling is starting to return, pain is also starting to increase. She would like to repeat the injection Pain today is rated as a 910, constant, worse in the evenings and at night Previously on Robaxin that provided her good relief. This was discontinued due to black box warnings. She has not tried any other muscle relaxers. Has been taking ibuprofen twice daily as needed with some improvement but pain has progressively get worse. Cary is very pleasant 47 years old female who presents herself in my office with 2 distinct pain generators. She went for MRI of the cervical spine and the MRI results dictated as below. There are several levels of severe foraminal stenosis dictated as below. I performed epidural steroid injection on the level C6-C7 for this patient and she reported significant pain improvement and significant numbness in tingling improvement in the right upper extremity. This is the 2nd injection and it again demonstrates very good results. However unfortunately the patient was denied by her insurance company sacroiliac joint injection. They denied sacroiliac joint injection based on the fact that patient did not have physical therapy. In fact the patient had 3 months ago very extensive physical therapy for her lower back with stretching, aerobic exercises, core strength improvement, mobility and occupational therapy modifications. She in fact continues those exercises at this time. I will schedule her again for diagnostic bilateral sacroiliac joint injection. As of her lower back pain MRI is available and then there are subtle Modic type changes on the MRI. The mostly pronounced MRI changes are at L2-L3 maybe L4 level however the patient reports pain mostly in the projection of the sacral bone. Shaji test, Gaenslen test, pelvic compression and pelvic distraction tests bilaterally positive. I suspect the patient has sacroiliitis. Alternatively radiculopathy of the sacral vertebra could not be excluded. We decided that I will start her treatment diagnostic procedure by performing bilateral diagnostic sacroiliac joint injection. If this injection will be negative for pain resolution I will offer her caudal dural steroid injection. Neuromodulation with retrograde inserted [employer] scientific stimulator into caudal canal could be discussed if none of the above will be helpful for the patient. Prior: C/o pain in the cervical spine with sensation of the numbness of bilateral upper extremities as well as axial pain in lower back which is aggravated by prolonged standing and sitting and aggravated by flexing back forward but alleviated when she flex her back backwards. She reports that her pain started many years ago however became aggravated recently reports pain in neck 4 to 6/10 and pain in lower back is 10+ out of 10. She was under care of pains physician in [facility] she received MRI of the lumbar spine she was not recommended to go for the surgery by neurosurgeon. Never was evaluated by MRI of the cervical spine she is taking gabapentin for her pain and 100 mg 3 times a day maximal does she is taking tramadol 50 mg once a day and muscle relaxant methalaxon. She reports that she received sacroiliac joint injections in the past those were done by Dr. Markham in [facility] she reports very minimal help for 1 or 2 days from steroid sacroiliac joint injection however no prolonged pain relief. She had multiple attempts at physical therapy which aggravated her pain and she refused to go to physical therapy she denies chiropractic manipulations massage therapy or 10s unit. She brought with herself and MRI done on her lumbar spine in [facility] in [facility] which is suspicious for Modic type changes. I would like to send this MRI disc for the review with Radiology to evaluate this MRI for Modic type changes. [facility] Medical History Sacroiliac joint dysfunction Cervical spondylosis Myofascial pain Lumbar disc herniation Necrotizing fasciitis Degenerative disc disease, lumbar Depression Anxiety Surgical History History of throat surgery S/P lumpectomy, right breast Family History Mother COPD (chronic obstructive pulmonary disease) Emphysema lung Mental health disorder Social History Household Members: Friend(s) Both parents involved: No Caregiver staying overnight: No Housing: House Are you a primary care program resident to a significant other at home: No Do you presently have visiting nurse or other home services: No 75 years or older and lives alone: No Alcohol intake: current Alcohol intake frequency: holidays/special occasions only Patient Tobacco Use Status: Former Tobacco user Tobacco use type: Cigarette e-Cigarette/Vaping Use: Former Use Second Hand Smoke Exposure: No service: No Current occupational status: disabled 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 Patient was appropriately conversant and oriented. Good historian. MSK: Inspection reveals appropriate head and neck positioning. No pain with palpation over the neck musculature. Cervical ROM was full. Spurling's sign positive with radiation to left arm. Bilateral shoulder, elbow and wrist ROM WNL. No ligamentous laxity or crepitance. No increased effusion. No specific abnormalities or instability found on inspection and palpation of the spine and extremities. No point tenderness on spinous processes, facets, SI or GT. Unable to do lumbar extension due to pain. Negative SLR. Positive MARCOS for back pain bilateral. Strength is 5/5 in all muscle groups tested. No increased tone noted. Right toes go into spasms while extended with pain. This limits her ankle range of motion. No redness or swelling on right foot or ankle. Neurological: Neurologic examination of the upper and lower extremities was nonfocal with intact sensation, muscle stretch reflexes and without focal motor deficits . Hunter?s negative bilaterally. Babinski was down going bilaterally. Clonus was negative. Gait is non-antalgic without loss of balance. Can stand on heels but cannot do toe walk. No foot drop while seated. Neck Other: Negative Lhermitte sign, positive Spurling sign on the right negative Valsalva maneuver 2 point differentiation is positive on bilateral hands Back/Spine/Pelvis Other: Flexing forward greatly aggravate her pain. In fact she cannot flex forward more than 45 degrees. Flexing backwards alleviates her pain. Prolonged sitting aggravates her pain. Shaji test is positive bilaterally, Gaenslen test is positive bilaterally, pelvic distraction and pelvis compression test as well as 14 finger test are positive bilaterally. Assessment & Plan Assessment & Plan (1) Degeneration, intervertebral disc, cervical: Code(s): M50.30 - Other cervical disc degeneration, unspecified cervical region Category: Medical (2) Cervical stenosis of spinal canal: Code(s): M48.02 - Spinal stenosis, cervical region Category: Medical (3) Lumbar disc herniation: Code(s): M51.26 - Other intervertebral disc displacement, lumbar region Category: Medical Plan: The Modic type changes a very subtle on the MRI and mostly pronounced in L2-L3 maybe L4 vertebra. However the pain of the patient complains on the pain in the projection of the sacral bone. The tests for sacroiliitis are positive as above. Excellent results of the sacroiliac joint injection. Patient denies pain in the projection of sacroiliac joint after 4-5 cc of ropivacaine injected into the joint. She was explained about sacroiliac joint steroid injections when her pain will be back. The procedure is scheduled on 11/20/2024. However she complains mostly on the pain in the neck today. She requests me to repeat therapeutic C6-C7 interlaminar epidural steroid injection as we were doing in the past for her. Patient agreed with the plan I will schedule her for the interlaminar C6-C7 CARMEN procedure after 12/21/2024. (4) Cervical radiculitis: Code(s): M54.12 - Radiculopathy, cervical region Category: Medical (5) Spondylosis of lumbar spine: Code(s): M47.816 - Spondylosis without myelopathy or radiculopathy, lumbar region Category: Medical (6) Vertebrogenic low back pain: Code(s): M54.51 - Vertebrogenic low back pain Category: Medical (7) Chronic sacroiliac joint pain: Code(s): M53.3 - Sacrococcygeal disorders, not elsewhere classified; G89.29 - Other chronic pain Category: Medical (8) Sacroiliitis: Code(s): M46.1 - Sacroiliitis, not elsewhere classified Category: Medical Plan This patient was very much involved in extensive course of physical therapy at least 8 weeks of exercises at the office at least twice a week and she is well continued home exercise program which she reports doing at least 2 to 3 times a day at least 15-20 minutes at a time. She still reports severe pain in the projection of the lower lumbar spine. Sacroiliac joint injection diagnostic resulted with very profound pain relief. It lasted up to 6 days for now. We agreed that next time we will perform therapeutic SI joint injection when her pain will be back. Next appointment will be scheduled when her pain returns. Coding Level of Care Code Est Pt Level 3 (49193) Diagnoses Degeneration, intervertebral disc, cervical M50.30 Cervical stenosis of spinal canal M48.02 Lumbar disc herniation M51.26 Cervical radiculitis M54.12 Spondylosis of lumbar spine M47.816 Vertebrogenic low back pain M54.51 Chronic sacroiliac joint pain M53.3; G89.29 Sacroiliitis M46.1
[2024-10-08 14:41] VITALS: BP 174/91; PULSE 100; RESP 16; O2SAT 99; BMI 46.4
== END 2024-10-08 14:49 | disposition home or self-care (01) ==
PROVIDERS: PCP Nurse Practitioner Family; Visit Provider Anesthesiology
DX: M50.30 Other cervical disc degeneration, unspecified cervical region (principal); M48.02 Spinal stenosis, cervical region; M51.26 Other intervertebral disc displacement, lumbar region; M54.12 Radiculopathy, cervical region; M47.816 Spondylosis without myelopathy or radiculopathy, lumbar region; M54.51 Vertebrogenic low back pain; M53.3 Sacrococcygeal disorders, not elsewhere classified; G89.29 Other chronic pain; M46.1 Sacroiliitis, not elsewhere classified
CPT/HCPCS: 99213

== ENCOUNTER → 2024-10-08 14:36 | Outpatient (BNVA) | payer OTHER, SELFPAY | PROVIDERS: PCP Nurse Practitioner Family; Visit Provider Anesthesiology | DX: M50.30 Other cervical disc degeneration, unspecified cervical region (principal); M48.02 Spinal stenosis, cervical region; M51.26 Other intervertebral disc displacement, lumbar region; M54.12 Radiculopathy, cervical region; M47.816 Spondylosis without myelopathy or radiculopathy, lumbar region; M54.51 Vertebrogenic low back pain; M53.3 Sacrococcygeal disorders, not elsewhere classified; M46.1 Sacroiliitis, not elsewhere classified; G89.29 Other chronic pain | CPT/HCPCS: 99212 ==

== ENCOUNTER 2024-10-10 15:05 | Outpatient (AMB) | payer OTHER, SELFPAY ==
--- NOTE | 2024-10-10 15:08 | A.OFFPC_ITS ---
Vital Signs 10/10/24 15:12 10/10/24 15:52 Height 5 ft 3 in Weight 266 lb BMI 47.1 BP 140/92 H 124/82 Blood Pressure Location Rt brachial Rt brachial Position Sitting Sitting Respiration 16 Pulse 83 Pulse Source Pulse Oximeter Temp 99.0 F Temp Source Oral Pulse Oximetry (%) 97 Oxygen Delivery Method Room Air Intake Visit Reasons: 1 month weight management/bp Intake Note: patient here for 1 month weight and BP management Student Counsellor Required: No Is last menstrual period known: Yes Last menstrual period: 09/22/24 Post menopausal: No Patient : No Allergies No Known Allergies Allergy (Verified 10/10/24 15:47) Medication List - Last Reconciled 10/10/24 by Jacoby Francis CNP aripiprazole 20 mg PO DAILY dextroamphetamine-amphetamine 20 mg (Adderall) 20 mg PO DAILY escitalopram oxalate 15 mg PO DAILY gabapentin 900 mg (3 x 300 mg) PO TID 30 days ibuprofen 400 mg PO Q6H PRN methocarbamol 500 mg PO TID PRN phentermine 15 mg PO DAILY 30 days topiramate XR (Qudexy XR) mg PO tramadol 100 mg (2 x 50 mg) PO TID PRN 20 days zolpidem ER 12.5 mg PO BEDTIME PRN Tobacco use date assessed: 10/10/24 Dental Screening Dental Screen Date: 10/10/24 Did you have a dental visit in the last 12 months?: Yes Did you have a dental problem in the last 6 months where you did not have access to dental care?: No Was dental information given to patient?: Patient has dentist HPI HPI Comments History of Present Illness Details 50-year-old female presents for weight m anagement and blood pressure monitoring. She admits to taking her medications as prescribed without adverse reactions. She is frustrated that she gained 14 lb in about 3 weeks despite maintaining a healthy diet and walking routinely. She is on a wait list at [facility] weight management. She has significant, chronic neck pain and lower back pressure. She notes associated tingling to her hands. No numbness or loss of sensation. [facility] Medical History Sacroiliac joint dysfunction Cervical spondylosis Myofascial pain Lumbar disc herniation Necrotizing fasciitis Degenerative disc disease, lumbar Depression Anxiety Surgical History History of throat surgery S/P lumpectomy, right breast Family History Mother COPD (chronic obstructive pulmonary disease) Emphysema lung Mental health disorder Social History Household Members: Friend(s) Both parents involved: No Caregiver staying overnight: No Housing: House Are you a primary care team coordinator scheduler to a significant other at home: No Do you presently have visiting nurse or other home services: No 75 years or older and lives alone: No Alcohol intake: current Alcohol intake frequency: holidays/special occasions only Patient Tobacco Use Status: Former Tobacco user Tobacco use type: Cigarette e-Cigarette/Vaping Use: Former Use Second Hand Smoke Exposure: No service: No Current occupational status: disabled 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 Current occupational exposures/hazards: No Cognitive needs: No Hearing needs: No Vision needs: Yes (glasses) Female Reproductive History Menstrual Date of last menstrual period: 09/22/24 Questionnaire Thrive Questionnaire Date Thrive assessed: 08/31/24 I am a: Patient What is your living situation today?: I have a steady place to live Within the past 12 months, did the food you bought not last and you didn't have the money to get more?: Never true Within the past 12 months, did you worry whether your food would run out before you got money to buy more?: Never true Do you have trouble paying for medicines?: No Do you have trouble getting transportation to medical appointments?: No Do you have trouble paying your heating and electricity bill?: No Do you have trouble taking care of your child, family member or friend?: No Do you have trouble with day-to-day activities such as bathing, preparing meals, shopping, managing finances, etc.?: No Are you currently unemployed and looking for a job?: No Are you interested in more education?: No Please select the resources that you would like help with: None Currently or been in a relationship where the following occur: No concerns reported THRIVE Score: 0 BAYRON-7 AMB Questionnaire BAYRON-7 Date BAYRON - 7 assessed: 06/19/24 Source: Developed by Drs. Contreras Velazquez, Gisselle Reyna, Javde Lee and colleagues, with an educational earline from [employer]. Review of Systems Const Details: Const Denies chills, Denies fatigue, Denies fever(s), Denies headache(s) and Denies weakness ENT Denies dizziness and Denies headache(s) Card Denies chest pain, Denies lightheadedness, Denies dyspnea and Denies other (Palpitations) Resp Denies cough, Denies dyspnea, Denies wheezing and Denies other ( shortness of breath) GI Denies abdominal pain, Denies melena, Denies hematochezia, Denies change in bowel habits, Denies dyspepsia and Denies nausea Denies hematuria and Denies dysuria Musc Reports neck pain, Report back pain, Denies abnormal gait, Denies numbness, Reports tingling Skin/Breast Denies rash, Denies unusual bruising and Denies wounds Neuro Denies abnormal gait, Denies dizziness, Denies headache(s), Denies memory loss, Denies numbness, Denies Sensory deficit (Neuro), Denies tingling and Denies weak ness Psych Denies anxiety, Denies depression, Denies memory loss Endo Denies cold intolerance, Denies fatigue, Denies heat intolerance, Denies polydip david and Denies polyuria Aller/Immun Denies wheezing Physical exam (Primary Care) Vital Signs: Last Vital Signs Temp 99.0 F 10/10/24 15:12 Pulse 83 10/10/24 15:12 Resp 16 10/10/24 15:12 BP 140/92 H 10/10/24 15:12 Pulse Ox 97 10/10/24 15:12 Oxygen Delivery Method Room Air 10/10/24 15:12 BMI result Body Mass Index 47.1 Tobacco/Smoking Status: Tobacco use Status Tobacco use date assessed 10/10/24 10/10/24 15:15 Patient Tobacco Use Status Former Tobacco user 10/10/24 15:09 Tobacco use type Cigarette 10/10/24 15:09 e-Cigarette/Vaping Use Former Use 10/10/24 15:09 Thrive Assessment: Date of Thrive Assessment Date Thrive assessed 08/31/24 10/10/24 15:09 Currently or been in a relationship where the following occur: No concerns reported Const Other: General: no acute distress and well developed Nutritional Appearance: well nourished Orientation/consciousness: patient oriented x3 HENMT Head: Yes normocephalic and Yes atraumatic Eyes General: appearance normal, both eyes and all related structures Pupils: Equal, round and reactive pupils present EOM: EOMs intact bilaterally Resp Effort & Inspection: normal respiratory effort Auscultation: clear to auscultation bilaterally Cardio Rate: regular rate Rhythm: regular rhythm Heart sounds: S1 normal heart sound present, S2 normal heart sound present, no gallops, no murmurs and no rubs GI Palpation (GI): No Abdominal aortic bruit present, Soft to palpation, nontender, No hepatosplenomegaly present and No Rebound tenderness present Auscultation: normal bowel sounds General: Yes no CVA tenderness Back/Spine/Pelvis Back: no CVA tenderness Cervical Spine: cervical ROM normal and No Cervical spine tenderness Thoracic/Lumbar Spine: thoraco-lumbar ROM normal, No pain with thoraco-lumbar ROM, No thoracic spinal tenderness and No lumbar spinal tenderness Extrem General: Yes normal to inspection, No edema and No calf tenderness Skin General: warm and dry. Normal skin color. Normal skin turgor Neuro General: patient oriented x3, gait normal and no focal neuro deficit Cranial nerves: Yes Equal, round and reactive pupils present Cognition (Neuro): normal cognition Gait exam (Neuro): Normal gait present Sensory Exam: No Sensory deficit (Neuro) Psych Appearance: grossly normal Affect: normal affect Attitude: cooperative Thought process: Normal thought process present Coding Level of Care Code Est Pt Level 4 (16795) Diagnoses Morbid obesity with BMI of 45.0-49.9, adult E66.01; Z68.42 Leukocytosis D72.829 Degeneration, intervertebral disc, cervical M50.30 Chronic back pain M54.9; G89.29 Back pain location: low back pain Sciatica presence: without sciatica Assessment & Plan Assessment & Plan (1) Morbid obesity with BMI of 45.0-49.9, adult: Code(s): E66.01 - Morbid (severe) obesity due to excess calories; Z68.42 - Body mass index [BMI] 45.0-49.9, adult Category: Medical Plan: She gained 14 lb in the past 3 weeks despite making healthy dietary choices and walking routinely. Continue to take phentermine as prescribed. Healthy diet and routine exercise encouraged. She has on a wait list with [facility] weight management for several months. She was followed by bilingual executive assistant without improvement. Will refer to [facility] weight management. Follow-up in 2 months or sooner with symptoms or concerns. Verbalized understanding and agreed with treatment plan. (2) Leukocytosis: Code(s): D72.829 - Elevated white blood cell count, unspecified Category: Medical Plan: Resolved. Recent WBCs 9.8. (3) Degeneration, intervertebral disc, cervical: Code(s): M50.30 - Other cervical disc degeneration, unspecified cervical region Category: Medical Plan: Significant chronic neck pain and lower back pressure with associated tingling to her hands. No numbness or loss of sensation. Will increase gabapentin to 1200 mg 3 times daily; advised to take as prescribed. Continue to take tramadol, methocarbamol, and ibuprofen as prescribed She also uses lidocaine patch daily. Warm/cool compresses encouraged. Continue follow-up with [facility] weight management as planned. Return with worsening or new symptoms. Verbalized understanding and agreed with treatment plan. (4) Chronic back pain: Code(s): M54.9 - Dorsalgia, unspecified; G89.29 - Other chronic pain Category: Medical Qualifiers: Back pain location: low back pain Sciatica presence: without sciatica Plan: Plan as above. Orders: Referrals Medical Weight Management Referral E66.01 - Morbid (severe) obesity due to excess calories, Z68.42 - Body mass index [BMI] 45.0-49.9, adult Medications: New gabapentin 1,200 mg (2 x 600 mg) PO TID 30 days 180 tabs 3RF Discontinued gabapentin 3 tabs 3 times a day. Discontinued Reason: Doctor's Order 900 mg (3 x 300 mg) PO TID 30 days 270 caps 3RF
[2024-10-10 15:12] VITALS: BP 140/92; PULSE 83; RESP 16; TEMP 37.2; O2SAT 97; BMI 47.1
[2024-10-10 15:52] VITALS: BP 124/82
--- OUTSIDE RECORDS SUMMARY | 2024-10-10 16:10 | XMS_ITS | Continuity of Care Document ---
Author Organization [place] - [facility], [facility] Address [address] [place] [address] Assessment Encounter Date Assessment Date Assessment LastModified by Organization Details LastModified Time 10/04/2024 10/04/2024 Patient has recovered well from her left sided peritonsillar abscess that she experienced at the end of July. She has no further pain in her throat although occasionally when she gets anxious she describes she has difficulty with swallowing. On examination her tonsils are small, she has no palpable lymphadenopathy. I did not recommend removal of her tonsils as this was her first peritonsillar abscess. I explained if she has another with any ear that I would typically recommend proceeding to surgery. I described the risks and expectations of surgery and she was in agreement not to pursue at this time. She stopped smoking 2 yrs ago [email or web address] Not available 10/04/2024 09:06:59 Plan of Treatment Reminders Order Date Submit Date Provider Last Modified By Organization Details Last Modified Time Details Appointments None record ed. Lab None record ed. Referral None record ed. Procedures None record ed. Surgeries None record ed. Imaging None record ed. Medication Orders None record ed. Patient TargetsNo targets recorded. Patient InstructionsNo instructions recorded. Reason for Referral None Reported. Problems Name Problem SNOMED Code Status Onset Date Resolution Date Notes Provider Name and Address Organization Details Recorded Time Peritonsillar abscess [id number] Active 2024 GRIFFIN ALANIS MD [address] [place] [address], [id number] [place] - [facility] 09:05:51 Problem Notes None recorded. Medical Equipment None Reported. Medications Name Sig Start Date Stop Date Status Note LastModified by Organization Details LastModified Time methocarbamo l 500 mg tablet 600 mg as needed by oral route. active Not Available Not Available Not Available fluconazole 150 mg tablet TAKE 1 TABLET ORALLY ONCE FOR 1 DAY active Not Available Not Available No t Available phentermine 15 mg capsule TAKE ONE CAPSULE ORALLY DAILY FOR 30 DAYS MUST ADMINISTER 2 HOURS AFTER BREAKFAST active Not Available Not Available No t Available hydroxyzine HCl 50 mg tablet TAKE 2 TABLETS BY MOUTH AT BEDTIME active Not Available Not Available No t Available tramadol 50 mg tablet TAKE 2 TABLETS BY MOUTH 3 TIMES A DAY NEEDED FOR PAIN FOR 20 DAYS active Not Available Not Available Not Available ziprasidone 20 mg capsule TAKE 1 CAPSULE BY MOUTH TWICE A DAY active Not Available Not Available No t Available dextroamphet amine-amphet amine 20 mg tablet TAKE 1 TABLET BY MOUTH EVERY DAY active Not Available Not Available No t Available ibuprofen 400 mg tablet TAKE 1 TABLET BY MOUTH EVERY 6 HOURS NEEDED FOR PAIN active Not Available Not Available No t Available gabapentin 300 mg capsule TAKE 3 CAPSULES BY MOUTH 3 TIMES A DAY active Not Available Not Available Not Available cephalexin 500 mg tablet TAKE 1 TABLET BY MOUTH TWICE A DAY FOR 10 DAYS active Not Available Not Available No t Available bisacodyl 5 mg tablet,delay ed release THE DAY BEFORE COLONOSCOPY TAKE 2 PILLS AT 12PM AND 2 PILLS AT 5PM WITH PLENTY OF WATER active Not Available Not Available No t Available ziprasidone 40 mg capsule TAKE 1 CAPSULE BY MOUTH TWICE A DAY active Not Available Not Available No t Available morphine 15 mg immediate release tablet TAKE 1 TABLET BY MOUTH EVERY 6 HOURS NEEDED FOR PAIN. NOT COVERED active Not Available Not Available No t Available Ambien 10 mg tablet 10 mg as needed by oral route. active Not Available Not Available Not Available amoxicillin 875 mg-potassium clavulanate 125 mg tablet TAKE 1 TABLET BY MOUTH TWICE A DAY active Not Available Not Available No t Available hydroxyzine pamoate 25 mg capsule TAKE 1-2 CAPSULES BY MOUTH DIRECTED 1 TO 3 TIMES DAILY NEEDED active Not Available Not Available No t Available escitalopram 10 mg tablet TAKE 1 AND 1/2 TABLETS DAILY BY MOUTH active Not Available Not Available No t Available escitalopram 20 mg tablet TAKE 1 TABLET BY MOUTH EVERY DAY active Not Available Not Available No t Available aripiprazole 10 mg tablet TAKE 1/2 TAB BY MOUTH DAILY FOR 1 WEEK THEN INCREASE TO 1 TAB ONCE DAILY active Not Available Not Available No t Available aripiprazole 20 mg tablet 20 mg as needed by oral route. active Not Available Not Available Not Available tramadol hydrochlorid e (bulk) active Not Available Not Available Not Available phentermine HCl (bulk) 100 % powder 15 g every 24 hours by miscell. route. active Not Available Not Available No t Available Gavilax 17 gram/dose oral powder TAKE DIRECTED BY MOUTH THE DAY BEFORE YOUR PROCEDURE.M IX ENTIRE 238 GRAMS IN BEVERAGE DIRECTED active Not Available Not Available Not Available gabapentin enacarbil active Not Available Not Available No t Available Qudexy XR 200 mg capsule sprinkle,ext ended release TAKE 1 CAPSULE BY MOUTH EVERY DAY active Not Available Not Available No t Available escitalopram oxalate (bulk) 100 % powder 20 g every 24 hours by miscell. route. active Not Available Not Available No t Available Vitals Date Recorded Body height Body mass index (BMI) Body weight Provider Name and Address Organization Details Last Updated DateTime 10/04/2024 162.56 cm 42.6 kg/m2 434290.91 g Rosy Hutchins [place] - [facility] 10/04/2024 08:52:33 Social History None recorded. Functional Status None recorded. Mental Status None recorded. Family History Nothing Reported. Medical History Condition Response Allergies/Hayfever N Heart Problems N Anxiety Y Tonsil Infections N Emphysema N Migraines Y Thyroid Problems N Depression Y COPD N Developmental Delay N Glaucoma N Nasal or Sinus Problems N Anemia Y Immune System Disorder N Anesthesia Complications N Heart Attack (DC) N Other Skin Condition N Diabetes N Rhinitis N Bleeding Disorder N Food Allergy N Hearing Loss N Arthritis N Hyperlipidemia N Cancer N Stroke N Dementia N Nasal polyps N Asthma N Sleep Disorder Y High Cholesterol N GERD/Reflux N Liver Disease N Headaches Y Fibromyalgia N Hypertension N Speech Delay N Kidney Disease N Gynecological HistoryNo gynecological history recorded. Obstetrics History GPAL:G 0 P 0 0 0 0 Past Encounters Encounter ID Performer Location Encounter Start Date Encounter Closed Date Diagnosis/Indication Diagnosis SNOMED-CT Code Diagnosis ICD10 Code Diagnosis Note [id number] GRIFFIN ALANIS MD [facility] [address] [address] 10/04/2024 08:49:00 10/04/2024 09:06:59 Peritonsillar abscess 92680418 J36 Health Concerns Section Related Observation LastModified by Organization Detai ls LastModified Time None Recorded Concern Status LastModified by Organization Details LastModified Time None Recorded Payers Encounter Date Sequence Insurance Name Policy Number Policy Raygoza Covered Member ID Raygoza Member ID Guarantor Name 10/04/2024 1 [facility] - HEALTH NET PLAN (MEDICAID HMO) RADHA Sanchez [id number] Cary Sanchez Notes Date Note Type Note Provider Name and Address Organization Details Recorded Time 10/04/2024 text/html f/u PTA08/24/24 urgent care strep tonsil nlcerv17/30/24 [place] [facility] strep tonsillitis, rx augmentin and prednisoneCT neck w con left inferior peritonsillar abscess [id number] collectionunable to drain with needle aspiration in ER, but eventually imroved with medicineWBC 20.6was referred to Dr Galarza but he did not take her insurancetobacco stopped 2022 GRIFFIN ALANIS MD [address] [place] [address], [place], [address], [facility] - [facility] 10/04/2024 09:07:26 OBGyn Episode No OBEpisode recorded.
--- OUTSIDE RECORDS SUMMARY | 2024-10-10 16:10 | XMS_ITS | Continuity of Care Document ---
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 Name Role Phone Unavailable Unavailable Unavailable Allergies, Adverse Reactions, Alerts Substance Reaction Status Criticality No Known Allergies Active No Inform ation Procedures Procedure Date PREV VISIT, NEW, AGE 18-39 OFFICE/OUTPATIENT VISIT, EST Advance Directives Directive Yes / No Effective Date File Name No Information Encounters Encounter Description Practice Location Reason(s) For Visit Diagnoses Date Provider Providers Copied on Encounter [facility], [address] [place] [address],[address], [place], [place], [id number], tel:[phone] [facility] No Information No Information PREV VISIT, NEW, AGE 18-39 ankush [facility], [address] [place] [address],[address], [place], [place], [id number], tel:[phone] [facility] Follow Up of ED back pain [...]
--- OUTSIDE RECORDS SUMMARY | 2024-10-10 16:10 | XMS_ITS | Data Portability ---
Author Organization [place] - [facility], Allergy Address [address] [address] Assessment Encounter Date Assessment Date Assessment LastModified [...] Address Organization Details Recorded Time Peritonsillar abscess 37238471 Active 2024 GRIFFIN ALANIS MD [address], [address], [place] - [facility] 09:05:51 Problem Notes None recorded. Medical [...] Updated DateTime 10/04/2024 162.56 cm 42.6 kg/m2 316434.91 g Rosy Hutchins [place] - [facility] 10/04/2024 08:52:33 Social History None recorded. Functional Status None recorded. Mental Status None recorded. Family History Nothing Reported. Medical History Condition Response Allergies/Hayfever N Heart Problems N Anxiety Y Tonsil Infections N Emphysema N Migraines Y Thyroid Problems N Glaucoma N Depression Y COPD N Developmental Delay N Nasal or Sinus Problems N Anemia Y Immune System Disorder N Anesthesia Complications N Heart Attack (NM) N Other Skin Condition N Diabetes N Rhinitis N Bleeding Disorder N Food Allergy N Arthritis N Hearing Loss N Hyperlipidemia N Cancer N Stroke N Dementia N Nasal polyps N Asthma N Sleep Disorder Y GERD/Reflux N High Cholesterol N Liver Disease N Headaches Y Fibromyalgia N Hypertension N Speech Delay N Kidney Disease N Gynecological HistoryNo gynecological history recorded. Obstetrics History GPAL:G 0 P 0 0 0 0 Past Encounters Encounter ID Performer Location Encounter Start Date Encounter Closed Date Diagnosis/Indication Diagnosis SNOMED-CT Code Diagnosis ICD10 Code Diagnosis Note [id number] GRIFFIN ALANIS MD [facility] [address] [address] 10/04/2024 08:49:00 10/04/2024 09:06:59 Peritonsillar abscess [id number] J36 Health Concerns Section Related Observation LastModified by Organization Detai ls LastModified Time None Recorded Concern Status LastModified by Organization Details LastModified Time None Recorded Advance Directives Directive None Recorded Payers Encounter Date Sequence Insurance Name Policy Number Policy Raygoza Covered Member ID Raygoza Member ID Guarantor Name 10/04/2024 1 [facility] - HEALTH NET PLAN (MEDICAID HMO) RADHA Sanchez [id number] Cary Sanchez Notes Date Note Type Note Provider Name and Address Organization Details Recorded Time 10/04/2024 text/html f/u PTA08/24/24 urgent care strep tonsil fkhebv71/30/24 [place] [facility] strep tonsillitis, rx augmentin and prednisoneCT neck w con left inferior peritonsillar abscess [id number] collectionunable to drain with needle aspiration in ER, but eventually imroved with medicineWBC 20.6was referred to Dr Galarza but he did not take her insurancetobacco stopped 2022 GRIFFIN ALANIS MD [address] [place] [address], [address], [facility] - [facility] 10/04/2024 09:07:26 OBGyn Episode No OBEpisode recorded.
--- OUTSIDE RECORDS SUMMARY | 2024-10-10 16:10 | XMS_ITS | Patient Health Record ---
Author Organization [facility] Address [address] [facility] [address] [place] [address] Care Team Providers Care Director Of Medicare Name Role Phone Jovani Suárez Primary Care Provider Yang Blas MD MSc, Gisselle Unavailable [phone] Allergies Allergen (clinical drug ingredient) Drug/Non Drug Allergy documented on EMR Reaction Allergy Type Onset Date Status amoxicillin Amoxicillin rash Drug Allergy Act galina Penicillin rash Drug Allergy Active Substance with sulfonamide structure and antibacterial mechanism of action (substance) Sulfa Antibiotics rash Drug Allergy Active Reason For Referral No Information Medications Medication SIG (Take, Route, Frequency, Duration) Notes Start Date End Date Status lamoTRIgine 25 MG 2 tablet Orally Once a day Active Divalproex Sodium 500 MG 2 tablet Orally BID Active tiZANidine HCl 2 MG 1 tablet as needed Orally Three times a day Not-Taking Propranolol HCl 10 MG 1 tablet Orally On ce a day for 30 day(s) Not-Taking traMADol HCl 100 MG 1 tablet as needed Orally TID Active Gabapentin 300 MG 3 capsule Orally TID Active Topiramate 100 MG 1 tablet Orally Once a day for 30 day(s) Active ARIPiprazole 2 MG 1 tablet Orally Once a day for 30 day(s) Not-Taking Meloxicam 15 MG 1 tablet Orally Once a day for 30 day(s) Active Metaxalone 800 MG 1 tablet Orally Thre e times a day for 30 day(s) Active hydrOXYzine HCl 25 MG 1 tablet at bedtim e as needed Orally TID Not-Taking Ziprasidone HCl 60 MG 1 capsule with mercedes d Orally Twice a day for 30 day(s) Active Phentermine HCl 37.5 MG 1 capsule Orally Once a day Active [place] Carbonate 300 MG 1 tablet at bed time Orally Once a day for 30 day(s) Not-Taking Lithobid 300 MG 1 tablet at bedtime Orally Once a day for 30 day(s) Not-Taking Nicoderm CQ 21 MG/24HR 1 patch to skin Transdermal Once a day for 30 day(s) Not-Taking Calcium & Magnesium Carbonates Not-Taking Deltasone Active oxyCODONE HCl 5 MG 1-2 tablets Orally every 4 hrs Not-Taking Social History Alcohol screen Question Answer Notes Did you have a drink containing alcohol in the p ast year? Yes How often did you have a dri nk containing alcohol in the past year? Monthly or less How many drinks did you have on a typical day when you were drinking in the past year? 1 or 2 How often did you have six o r more drinks on one occasion in the past year? Never Points 1 Drug Question Answer Notes Have you used drugs other th an those for medical reasons in the past 12 months? No Problems Problem Type SNOMED Code ICD Code Onset Dates Problem Status W/U Status Risk Notes Problem 633392607 Low back pain, unspecified (M54.50) Active confirmed Plan Of Treatment Pending Test Test Name Order Date [facility] [facility] Profile 06/24/2022 Insurance Providers Payer Name Payer Address Payer Phone Subscriber Number Group Number Insured Name Patient Relationship to Insured Coverage Start Date Coverage End Date [facility] [address] [place] [phone] [id number] Cary Cedillo Self - patient is the insured Medical (General) History Medical History History ICD Code ADHD Lumbago with sciatica Insomnia Anxiety Bipolar Dz Surgical History Surgery Date(Month/Year) [facility] after miscarriage Right breast lumpectomy 2006 Necrotizing fasciitis x6 2012 larynx repair 2019 Right ankle rods placed 06/2020
== END 2024-10-10 16:11 | disposition home or self-care (01) ==
PROVIDERS: PCP Nurse Practitioner Family; Visit Provider Nurse Practitioner Family
DX: E66.01 Morbid (severe) obesity due to excess calories (principal); Z68.42 Body mass index [BMI] 45.0-49.9, adult; D72.829 Elevated white blood cell count, unspecified; M50.30 Other cervical disc degeneration, unspecified cervical region; M54.9 Dorsalgia, unspecified; G89.29 Other chronic pain

== ENCOUNTER → 2024-10-10 15:05 | Outpatient (BNVA) | payer OTHER, SELFPAY | PROVIDERS: PCP Nurse Practitioner Family; Visit Provider Nurse Practitioner Family | DX: E66.01 Morbid (severe) obesity due to excess calories (principal); Z68.42 Body mass index [BMI] 45.0-49.9, adult; D72.829 Elevated white blood cell count, unspecified; M50.30 Other cervical disc degeneration, unspecified cervical region; M54.9 Dorsalgia, unspecified; G89.29 Other chronic pain; Z71.3 Dietary counseling and surveillance | CPT/HCPCS: 99212 ==

== ENCOUNTER 2024-11-20 06:09 | Outpatient (REF) | payer OTHER, SELFPAY ==
--- NOTE | ~2024-11-20 | FL_ITS ---
EXAMINATION: FL GUIDANCE ONLY HISTORY: M46.1 - Sacroiliitis, not elsewhere classified COMPARISON: None available. TECHNIQUE: Fluoroscopy time: 0.2 minutes. Cumulative Dose: 7.79 mGy. DAP: 0.0728 mGym2 Images: 4. FINDINGS: Images demonstrate needles and contrast material in the regions of the bilateral sacroiliac joints. FL/FL guidance in treatment room IMPRESSION: Fluoroscopy during procedure. Please see procedure report for additional information. Electronically signed by: Contreras Hernandez MD 11/20/2024 08:46 AM EDT
== END 2024-11-20 06:10 | disposition home or self-care (01) ==
LOC: CF 06:09
PROVIDERS: Visit Provider Anesthesiology
DX: M46.1 Sacroiliitis, not elsewhere classified (principal); M53.3 Sacrococcygeal disorders, not elsewhere classified; G89.29 Other chronic pain
CPT/HCPCS: 27096; J2003; J2795; J3301; Q9967

== ENCOUNTER 2024-11-20 07:53 | Outpatient (AMB) | payer OTHER, SELFPAY ==
--- NOTE | 2024-11-20 08:00 | A.OFFVIS_ITS ---
Vital Signs 11/20/24 08:01 11/20/24 08:39 BP 147/81 H 137/78 Blood Pressure Location Lt brachial Lt brachial Position Sitting Sitting Pulse 88 82 Pulse Source Pulse Oximeter Pulse Oximeter Pulse Oximetry (%) 100 100 Oxygen Delivery Method Room Air Room Air Comment Pre-procedure Post-Procedure Intake Visit Reasons: BILATERAL THERAPEUTIC SIJ INJECTIONS Allergies No Known Allergies Allergy (Verified 11/12/24 11:59) PFSH Medical History Sacroiliac joint dysfunction Cervical spondylosis Myofascial pain Lumbar disc herniation Necrotizing fasciitis Degenerative disc disease, lumbar Depression Anxiety Surgical History History of throat surgery S/P lumpectomy, right breast Family History Mother COPD (chronic obstructive pulmonary disease) Emphysema lung Mental health disorder Social History Household Members: Friend(s) Both parents involved: No Caregiver staying overnight: No Housing: House Are you a primary career development associate to a significant other at home: No Do you presently have visiting nurse or other home services: No 75 years or older and lives alone: No Alcohol intake: current Alcohol intake frequency: holidays/special occasions only Patient Tobacco Use Status: Former Tobacco user Tobacco use type: Cigarette e-Cigarette/Vaping Use: Former Use Second Hand Smoke Exposure: No service: No Current occupational status: disabled 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 Current occupational exposures/hazards: No Cognitive needs: No Hearing needs: No Vision needs: Yes (glasses) Physical Exam Vital Signs: Last Vital Signs Pulse 82 11/20/24 08:39 BP 137/78 11/20/24 08:39 Pulse Ox 100 11/20/24 08:39 Oxygen Delivery Method Room Air 11/20/24 08:39 Assessment & Plan Assessment & Plan (1) Chronic sacroiliac joint pain: Code(s): M53.3 - Sacrococcygeal disorders, not elsewhere classified; G89.29 - Other chronic pain Category: Medical (2) Sacroiliitis: Code(s): M46.1 - Sacroiliitis, not elsewhere classified Category: Medical Plan Bilateral therapeutic sacroiliac joint injection. Informed consent was thoroughly explained to the patient before the procedure.? The patient came to the operating room.? She was positioned prone on operating table with a pillow under her abdomen.? Time-out was performed delineating correct site and side of the procedure, nature of the injection, name and date of of the patient. The lower back and upper buttocks of the patient was prepped with ChloraPrep and draped with sterile utility towels.? C-arm was brought over the operating field the image of the sacroiliac joint was demonstrated on the screen. Significant sacroiliac joint diastasis was noted on the screen more on the left but also on the right. Sacroiliac joint instability most likely is the cause of this patient's pain. Tilting machine contralateral to the left the anterior portion of sacroiliac joint was superimposed of the posterior portion of the sacroiliac joint. After that projection of the sacroiliac joint to the skin was injected with mixture of lidocaine 2 % and ropivacaine 0.5% to form a skin wheal. After that 22 gauge 3-1/2 inch needle was inserted through the skin wheal and advanced to the sacroiliac joint. After that injection of the contrast was performed delineating intrathecal spread of the contrast. After that injection of the ropivacaine 0.5% 5 cc mixed with Kenalog 40 mg was performed into the joint. Af ter that the procedure was repeated on the left side in the mirroring fashion. The needle was removed sterile Band-Aid was applied. Patient tolerated the procedure well Orders: Orders FL guidance in treatment room Today M46.1 - Sacroiliitis, not elsewhere classified Coding Level of Care Code Procedure Only Diagnoses Chronic sacroiliac joint pain M53.3; G89.29 Sacroiliitis M46.1
[2024-11-20 08:01] VITALS: BP 147/81; PULSE 88; O2SAT 100
[2024-11-20 08:39] VITALS: BP 137/78; PULSE 82; O2SAT 100
== END 2024-11-20 08:40 | disposition home or self-care (01) ==
PROVIDERS: PCP Nurse Practitioner Family; Visit Provider Anesthesiology
DX: M53.3 Sacrococcygeal disorders, not elsewhere classified (principal); G89.29 Other chronic pain; M46.1 Sacroiliitis, not elsewhere classified
CPT/HCPCS: 27096

== ENCOUNTER 2024-12-11 09:55 | Outpatient (AMB) | payer OTHER, SELFPAY ==
--- NOTE | 2024-12-11 09:58 | A.OFFPC_ITS ---
Vital Signs 12/11/24 10:02 Height 5 ft 3 in Weight 279 lb 4 oz BMI 49.5 BP 138/68 Blood Pressure Location Rt brachial Position Sitting Respiration 16 Pulse 85 Pulse Source Pulse Oximeter Temp 98.6 F Temp Source Oral Pulse Oximetry (%) 98 Oxygen Delivery Method Room Air Intake Visit Reasons: 2 mos weight management Intake Note: patient here for 2 months follow up on weight management Revenue Director Required: No Is last menstrual period known: Yes Last menstrual period: 12/11/24 Post menopausal: No Patient : No Allergies No Known Allergies Allergy (Verified 12/11/24 10:01) Tobacco use date assessed: 12/11/24 Dental Screening Dental Screen Date: 12/11/24 Did you have a dental visit in the last 12 months?: Yes Did you have a dental problem in the last 6 months where you did not have access to dental care?: No Was dental information given to patient?: Patient has dentist HPI HPI Comments History of Present Illness Details 49-year-old female presents for weight m anagement follow-up. She has been making healthy dietary choices and walking regularly. Her exercise is limited due to chronic low back pain. She currently weighs 279 lb, BMI is 49.5. She gained 13 lb since her last visit. She has an appointment tomorrow to be in a study for Zepbound trial. Only she has an appointment with [facility] weight management clinic in May. She has a follow-up appointment with pain management next week. No acute symptoms at this time. [facility] Medical History Sacroiliac joint dysfunction Cervical spondylosis Myofascial pain Lumbar disc herniation Necrotizing fasciitis Degenerative disc disease, lumbar Depression Anxiety Surgical History History of throat surgery S/P lumpectomy, right breast Family History Mother COPD (chronic obstructive pulmonary disease) Emphysema lung Mental health disorder Social History Household Members: Friend(s) Both parents involved: No Caregiver staying overnight: No Housing: House Are you a primary healthcare advisory services manager to a significant other at home: No Do you presently have visiting nurse or other home services: No 75 years or older and lives alone: No Alcohol intake: current Alcohol intake frequency: holidays/special occasions only Patient Tobacco Use Status: Former Tobacco user Tobacco use type: Cigarette e-Cigarette/Vaping Use: Former Use Second Hand Smoke Exposure: No Patient : No service: No Current occupational status: disabled 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 Contreras Velazquez, Gisselle Reyna, Javed Lee and colleagues, with an educational earline from [employer]. Review of Systems Const Details: Const Denies chills, Denies fatigue, Denies fever(s), Denies headache(s) and Denies weakness ENT Denies dizziness and Denies headache(s) Card Denies chest pain, Denies lightheadedness, Denies dyspnea and Denies other (Palpitations) Resp Denies cough, Denies dyspnea, Denies wheezing and Denies other ( shortness of breath) GI Denies abdominal pain, Denies melena, Denies hematochezia, Denies change in bowel habits, Denies dyspepsia and Denies nausea Denies hematuria and Denies dysuria Musc Reports as per HPI Skin/Breast Denies rash, Denies unusual bruising and Denies wounds Neuro Denies abnormal gait, Denies dizziness, Denies headache(s), Denies memory loss, Denies numbness, Denies Sensory deficit (Neuro), Denies tingling and Denies weakness Psych Denies anxiety, Denies depression, Denies memory loss Endo Denies cold intolerance, Denies fatigue, Denies heat intolerance, Denies polydipsia and Denies polyuria Aller/Immun Denies wheezing Physical exam (Primary Care) Vital Signs: Last Vital Signs Temp 98.6 F 12/11/24 10:02 Pulse 85 12/11/24 10:02 Resp 16 12/11/24 10:02 BP 138/68 12/11/24 10:02 Pulse Ox 98 12/11/24 10:02 Oxygen Delivery Method Room Air 12/11/24 10:02 BMI result Body Mass Index 49.5 Tobacco/Smoking Status: Tobacco use Status Tobacco use date assessed 12/11/24 12/11/24 10:04 Patient Tobacco Use Status Former Tobacco user 12/11/24 10:00 Tobacco use type Cigarette 12/11/24 10:00 e-Cigarette/Vaping Use Former Use 12/11/24 10:00 Thrive Assessment: Date of Thrive Assessment Date Thrive assessed 08/31/24 12/11/24 10:00 Const Other: General: no acute distress and well developed Nutritional Appearance: well nourished Orientation/consciousness: patient oriented x3 HENMT Head: Yes normocephalic and Yes atraumatic Eyes General: appearance normal, both eyes and all related structures Pupils: Equal, round and reactive pupils present EOM: EOMs intact bilaterally Resp Effort & Inspection: normal respiratory effort Auscultation: clear to auscultation bilaterally Cardio Rate: regular rate Rhythm: regular rhythm Heart sounds: S1 normal heart sound present, S2 normal heart sound present, no gallops, no murmurs and no rubs GI Palpation (GI): No Abdominal aortic bruit present, Soft to palpation, nontender, No hepatosplenomegaly present and No Rebound tenderness present Auscultation: normal bowel sounds General: Yes no CVA tenderness Back/Spine/Pelvis Back: no CVA tenderness Cervical Spine: cervical ROM normal and No Cervical spine tenderness Thoracic/Lumbar Spine: thoraco-lumbar ROM normal, No pain with thoraco-lumbar ROM, No thoracic spinal tenderness and No lumbar spinal tenderness Extrem General: Yes normal to inspection, No edema and No calf tenderness Skin General: warm and dry. Normal skin color. Normal skin turgor Neuro General: patient oriented x3, gait normal and no focal neuro deficit Cranial nerves: Yes Equal, round and reactive pupils present Cognition (Neuro): normal cognition Gait exam (Neuro): Normal gait present Sensory Exam: No Sensory deficit (Neuro) Psych Appearance: grossly normal Affect: normal affect Attitude: cooperative Thought process: Normal thought process present Coding Level of Care Code Est Pt Level 3 (18076) Diagnoses Encounter for weight management Z76.89 Spondylosis of lumbar spine M47.816 Assessment & Plan Assessment & Plan (1) Encounter for weight management: Code(s): Z76.89 - Persons encountering health services in other specified circumstances Category: Medical Plan: She has been making healthy dietary choices and walking regularly. Her exercise is limited due to chronic low back pain. She currently weighs 279 lb, BMI is 49.5. She gained 13 lb since her last visit. She has an appointment tomorrow to be in a study for Zepbound trial. Only she has an appointment with [facility] weight management clinic in May. Healthy diet and routine exercise encouraged. Follow-up with with management as planned. Return as needed. She has an appointment scheduled for an extended physical exam in March. Verbalized understanding and agreed with the plan. (2) Spondylosis of lumbar spine: Code(s): M47.816 - Spondylosis without myelopathy or radiculopathy, lumbar region Category: Medical Plan: Continue current treatment regimen. Follow-up with pain management as planned.
[2024-12-11 10:02] VITALS: BP 138/68; PULSE 85; RESP 16; TEMP 37; O2SAT 98; BMI 49.5
--- OUTSIDE RECORDS SUMMARY | 2024-12-11 11:29 | XMS_ITS | Patient Health Record ---
Author Organization [facility] Address [address] [facility] [address] [place] [address] Care Team Providers Care Automation Driver Name Role Phone Jovani Suárez Primary Care Provider Yang Blas MD MSc, Gisselle Unavailable [phone] Allergies Allergen (clinical drug ingredient) Drug/Non Drug [...] 1 capsule Orally Once a day Active [place] Carbonate 300 MG 1 tablet at bed [...] Problem Status W/U Status Risk Notes Problem [id number] Low back pain, unspecified (M54.50) Active confirmed Plan Of Treatment Pending Test Test Name Order Date [facility] Profile 06/24/2022 Insurance Providers Payer Name Payer Address Payer Phone Subscriber Number Group Number Insured Name Patient Relationship to Insured Coverage Start Date Coverage End Date [facility] [address] [place] [phone] [id number] Cary Cedillo Self - patient is the insured Medical (General) History Medical History History ICD Code ADHD Lumbago with sciatica Insomnia Anxiety Bipolar Dz Surgical History Surgery Date(Month/Year) [facility] after miscarriage Right breast lumpectomy 2006 Necrotizing fasciitis x6 2012 larynx repair 2019 Right ankle rods placed 06/2020
--- OUTSIDE RECORDS SUMMARY | 2024-12-11 11:29 | XMS_ITS | Clinical Summary ---
Author Organization [address] [place] [address] Address [address] [place] [address] Phone Care Team Providers Care Heel Padder Name Role Phone Jacoby Francis CHEMICAL STRENGTH TESTER Primary Care Provider [phone] Social History Tobacco Use Types Packs/Day Years Used Date Smoking Tobacco: Never Assessed Comments Unknown Sex and Gender Information Value Date Recorded Sex Assigned at Not on file Legal Sex Female 10:25 AM EST Gender Identity Not on file Sexual Orientation Not on file Plan of Treatment Upcoming Encounters Date Type Department Care Team ([facility] Contact Info) Description 06/25/2025 10:30 AM EDT Office Visit Bariatric Surgery [address] [address] Samantha Jones PA [address] [id number] Health Maintenance Due Date Last Done Comments Breast Cancer Screening 1977 DTaP,Tdap,and Td Vaccines (1 - Tdap) 1996 Hepatitis B Vaccines (1 of 3 - 19+ 3-dose series) 1996 Cervical Cancer Screening: P ap Smear 1998 COVID-19 Vaccine ( - 2023-2 5 season) 2024 Colorectal Cancer Screening: Colonoscopy 10/18/2024 Depression Screening 10/18/2024 HIV Screening 10/18/2024 Hepatitis C Screening 10/18/2024 Social Influencers of Health Screening 10/18/2024 Influenza Vaccine (Season Ended) 2025 HIB Vaccines Aged Out No longer eligi ble based on patient's age to complete this topic HPV Vaccines Aged Out No longer eligi ble based on patient's age to complete this topic Hepatitis A Vaccines Aged Out No long er eligible based on patient's age to complete this topic IPV Vaccines Aged Out No longer eligi ble based on patient's age to complete this topic MMR Vaccines Aged Out No longer eligi ble based on patient's age to complete this topic Meningococcal ACWY Vaccine Aged Out N o longer eligible based on patient's age to complete this topic Meningococcal B Vaccine Aged Out No l onger eligible based on patient's age to complete this topic Pneumococcal Vaccine: Pediat rics (0 to 5 Years) and At-Risk Patients (6 to 64 Years) Aged Out No longer eligible b ased on patient's age to complete this topic RSV Immunization Patients Un denis 20 months Aged Out No longer eligible b ased on patient's age to complete this topic Varicella Vaccines Aged Out No longer eligible based on patient's age to complete this topic Insurance [facility] Care Teams Heel Padder Relationship Specialty Start Date End Date Jacoby Francis FNP [address] [place] [address] PCP - General Family Medicine 10/18/24
== END 2024-12-11 10:43 | disposition home or self-care (01) ==
LOC: HO.HMCFM 09:55
PROVIDERS: PCP Nurse Practitioner Family; Visit Provider Nurse Practitioner Family
DX: Z76.89 Persons encountering health services in other specified circumstances (principal); M47.816 Spondylosis without myelopathy or radiculopathy, lumbar region

== ENCOUNTER → 2024-12-11 09:55 | Outpatient (BNVA) | payer OTHER, SELFPAY | PROVIDERS: PCP Nurse Practitioner Family; Visit Provider Nurse Practitioner Family | DX: M47.816 Spondylosis without myelopathy or radiculopathy, lumbar region (principal); Z76.89 Persons encountering health services in other specified circumstances | CPT/HCPCS: 99212 ==

== ENCOUNTER 2024-12-19 13:33 | Outpatient (AMB) | payer OTHER, SELFPAY ==
--- NOTE | 2024-12-19 13:40 | MHC.OFFVIS ---
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[employer] Operator Required: No Allergies No Known Allergies Allergy (Verified 12/19/24 13:43) Medication List - Last Reconciled 12/19/24 by Tanja Machado LPN aripiprazole 20 mg PO DAILY dextroamphetamine-amphetamine 20 mg (Adderall) 20 mg PO DAILY escitalopram oxalate 15 mg PO DAILY gabapentin 1,200 mg (2 x 600 mg) PO TID 30 days ibuprofen 400 mg PO Q6H PRN methocarbamol 500 mg PO TID PRN phentermine 15 mg PO DAILY 30 days topiramate XR (Qudexy XR) 200 mg PO DAILY tramadol 100 mg (2 x 50 mg) PO TID PRN 20 days zolpidem ER 12.5 mg PO BEDTIME PRN HPI Comments Details: Cary is in my office after therapeutic sacroiliac joint injection. She reported pain relief in the projection of the sacral bone, she reports that she does not feel pain there anymore. However now she states that her pain in the projection of the L4 and L5 vertebra is getting worse. She used to reports that her pain was aggravated by flexing forward. Now she feels that flexing forward actually alleviate her pain and it is flexing backwards which makes her pain worse. Loading test is positive bilaterally. I suspected that this patient has combination of the arthritis of the sacroiliac joints and arthritis of the lumbar spine. I will schedule her for diagnostic medial branch block L3, L4, dorsal ramus L5. Patient also reports that she is gaining weight. She is on strict diet. The weight gain might be related to water retention. I recommended her to go to primary care physician and sort out and possibly treat her water retention with diuretics. If it would not help stop of the gabapentin might help if her water retention related to gabapentin intake. Prior: She underwent epidural steroid injection at C6-7 4 months ago, she had great relief with improvement in the burning, numbness and tingling that was radiating down her left hand. For reports the numbness and tingling is starting to return, pain is also starting to increase. She would like to repeat the injection Pain today is rated as a 910, constant, worse in the evenings and at night Previously on Robaxin that provided her good relief. This was discontinued due to black box warnings. She has not tried any other muscle relaxers. Has been taking ibuprofen twice daily as needed with some improvement but pain has progressively get worse. Prior: C/o pain in the cervical spine with sensation of the numbness of bilateral upper extremities as well as axial pain in lower back which is aggravated by prolonged standing and sitting and aggravated by flexing back forward but alleviated when she flex her back backwards. She reports that her pain started many years ago however became aggravated recently reports pain in neck 4 to 6/10 and pain in lower back is 10+ out of 10. She was under care of pains physician in [facility] she received MRI of the lumbar spine she was not recommended to go for the surgery by neurosurgeon. Never was evaluated by MRI of the cervical spine she is taking gabapentin for her pain and 100 mg 3 times a day maximal does she is taking tramadol 50 mg once a day and muscle relaxant methalaxon. She reports that she received sacroiliac joint injections in the past those were done by Dr. Markham in [facility] she reports very minimal help for 1 or 2 days from steroid sacroiliac joint injection however no prolonged pain relief. She had multiple attempts at physical therapy which aggravated her pain and she refused to go to physical therapy she denies chiropractic manipulations massage therapy or 10s unit. She brought with herself and MRI done on her lumbar spine in [facility] in [facility] which is suspicious for Modic type changes. I would like to send this MRI disc for the review with Radiology to evaluate this MRI for Modic type changes. [facility] Medical History Sacroiliac joint dysfunction Cervical spondylosis Myofascial pain Lumbar disc herniation Necrotizing fasciitis Degenerative disc disease, lumbar Depression Anxiety Surgical History History of throat surgery S/P lumpectomy, right breast Family History Mother COPD (chronic obstructive pulmonary disease) Emphysema lung Mental health disorder Social History Household Members: Friend(s) Both parents involved: No Caregiver staying overnight: No Housing: House Are you a primary care technician to a significant other at home: No Do you presently have visiting nurse or other home services: No 75 years or older and lives alone: No Alcohol intake: current Alcohol intake frequency: holidays/special occasions only Patient Tobacco Use Status: Former Tobacco user Tobacco use type: Cigarette e-Cigarette/Vaping Use: Former Use Second Hand Smoke Exposure: No service: No Current occupational status: disabled 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 Patient was appropriately conversant and oriented. Good historian. MSK: Inspection reveals appropriate head and neck positioning. No pain with palpation over the neck musculature. Cervical ROM was full. Spurling's sign positive with radiation to left arm. Bilateral shoulder, elbow and wrist ROM WNL. No ligamentous laxity or crepitance. No increased effusion. No specific abnormalities or instability found on inspection and palpation of the spine and extremities. No point tenderness on spinous processes, facets, SI or GT. Unable to do lumbar extension due to pain. Negative SLR. Loading test is positive bilaterally. Positive MARCOS for back pain bilateral. Strength is 5/5 in all muscle groups tested. No increased tone noted. Right toes go into spasms while extended with pain. This limits her ankle range of motion. No redness or swelling on right foot or ankle. Neurological: Neurologic examination of the upper and lower extremities was nonfocal with intact sensation, muscle stretch reflexes and without focal motor deficits . Hunter?s negative bilaterally. Babinski was down going bilaterally. Clonus was negative. Gait is non-antalgic without loss of balance. Can stand on heels but cannot do toe walk. No foot drop while seated. Neck Other: Negative Lhermitte sign, positive Spurling sign on the right negative Valsalva maneuver 2 point differentiation is positive on bilateral hands Back/Spine/Pelvis Other: Flexing forward greatly aggravate her pain. In fact she cannot flex forward more than 45 degrees. Flexing backwards alleviates her pain. Prolonged sitting aggravates her pain. Shaji test is positive bilaterally, Gaenslen test is positive bilaterally, pelvic distraction and pelvis compression test as well as 14 finger test are positive bilaterally. Results Reviewed Results Reviewed: MRI of the cervical spine 06/09/2023: VERTEBRAL BODIES AND PARASPINAL SOFT TISSUES: Moderate multilevel disc space narrowing noted throughout the cervicothoracic spine. The marrow signal is mildly heterogeneous with regions of fatty change. There is a leftward curvature of the spine as well. No compression fractures. There are mixed chronic and edematous endplate changes visible at the C3-C4, T2-T3, T3-T4, and T4-T5 levels with disc bulges and endplate spurring. At the upper thoracic levels, there are small right foraminal disc protrusions resulting in moderate foraminal encroachment at the T1-T2, T2-T3, and T3-T4 levels. The paraspinal soft tissues are normal. The vertebral artery flow-voids are maintained. The imaged lung apices are grossly clear. CERVICOMEDULLARY JUNCTION AND VISUALIZED POSTERIOR FOSSA: The craniovertebral junction and imaged portions of the brain parenchyma appear normal. No cord signal abnormality or syrinx is seen. SPINAL LEVELS: C2-C3: No disc pathology. Mild facet arthrosis without central canal stenosis or foraminal narrowing. C3-C4: Moderate loss of disc height and retrosubluxation with a disc-osteophyte complex and mild endplate edema. Severe left foraminal narrowing. No central canal stenosis. C4-C5: Skeppmqg-rs-guncqg loss of disc height and mild posterior subluxation with a shallow disc-osteophyte complex. No central canal stenosis. Tyos-yr-xrmseobn foraminal narrowing, more so on the right side. C5-C6: Disc-osteophyte complex mildly impresses upon the ventral thecal sac without central canal stenosis. Severe left foraminal narrowing and moderate right foraminal encroachment. C6-C7: Kflmayqf-qo-hcuqlh loss of disc height with a posterior disc bulge and uncovertebral joint spurring resulting in severe left foraminal encroachment. No central canal stenosis. C7-T1: Mild disc bulge and endplate spurring without central canal stenosis. Moderate left foraminal narrowing and milder right foraminal encroachment. MR/MR cervical spine wo con IMPRESSION: Moderate multilevel cervical spondylosis with mixed chronic and edematous endplate changes. No focal disc protrusion or central canal stenosis. Multilevel foraminal narrowing due to disc-osteophyte complexes. Leftward curvature of the cervical spine. Hmsm-fj-scnjiuqr endplate edematous changes lateralized to the right side at the upper thoracic levels with right foraminal disc protrusion resulting in moderate right foraminal encroachment, particularly at the T1-T2, T2-T3, and T3-T4 levels. Assessment & Plan Assessment & Plan (1) Degeneration, intervertebral disc, cervical: Code(s): M50.30 - Other cervical disc degeneration, unspecified cervical region Category: Medical (2) Cervical stenosis of spinal canal: Code(s): M48.02 - Spinal stenosis, cervical region Category: Medical (3) Lumbar disc herniation: Code(s): M51.26 - Other intervertebral disc displacement, lumbar region Category: Medical (4) Cervical radiculitis: Code(s): M54.12 - Radiculopathy, cervical region Category: Medical (5) Spondylosis of lumbar spine: Code(s): M47.816 - Spondylosis without myelopathy or radiculopathy, lumbar region Category: Medical (6) Vertebrogenic low back pain: Code(s): M54.51 - Vertebrogenic low back pain Category: Medical Plan: The Modic type changes a very subtle on the MRI and mostly pronounced in L2-L3 maybe L4 vertebra. However the pain of the patient complains on the pain in the projection of the sacral bone and lower lumbar spine. This patient was very much involved in extensive course of physical therapy at least 8 weeks of exercises at the office at least twice a week and she is well continued home exercise program which she reports doing at least 2 to 3 times a day at least 15-20 minutes at a time. Diagnostic sacroiliac joint injection resulted in very print found good pain relief. However now after the therapeutic sacroiliac joint injection she reports absence of pain in the projection of the sacral bone but severe pain in the projection of the L4 and L5 vertebra. See the full discussion as above. I will schedule her for the diagnostic medial branch block L3, L4, dorsal ramus L5. The procedure will be bilateral. We did not discuss pain in the neck today. We were planning interlaminar C6-C7 CARMEN procedure to treat her pain in the neck in the past.. (7) Chronic sacroiliac joint pain: Code(s): M53.3 - Sacrococcygeal disorders, not elsewhere classified; G89.29 - Other chronic pain Category: Medical (8) Sacroiliitis: Code(s): M46.1 - Sacroiliitis, not elsewhere classified Category: Medical (9) Spondylosis of lumbar region without myelopathy or radiculopathy: Code(s): M47.816 - Spondylosis without myelopathy or radiculopathy, lumbar region Category: Medical Plan see as above Coding Level of Care Code Est Pt Level 3 (36937) Diagnoses Degeneration, intervertebral disc, cervical M50.30 Cervical stenosis of spinal canal M48.02 Lumbar disc herniation M51.26 Cervical radiculitis M54.12 Spondylosis of lumbar spine M47.816 Vertebrogenic low back pain M54.51 Chronic sacroiliac joint pain M53.3; G89.29 Sacroiliitis M46.1 Spondylosis of lumbar region without myelopathy or radiculopathy M47.816
[2024-12-19 13:41] VITALS: BP 181/91; PULSE 120; RESP 16; O2SAT 95; BMI 49.4
--- OUTSIDE RECORDS SUMMARY | 2024-12-19 16:09 | XMS_ITS | Clinical Summary ---
Author Organization [address] [place] [address] Address [address] [place] [address] Phone Care Team Providers Care Tank Wagon Operator Name Role Phone Jacoby Francis MANAGER IT TRAINING Primary Care Provider [phone] Social History Tobacco Use Types Packs/Day Years Used Date Smoking Tobacco: Never Assessed Comments Unknown Sex and Gender Information Value Date Recorded Sex Assigned at Not on file Legal Sex Female 10:25 AM EST Gender Identity Not on file Sexual Orientation Not on file Plan of Treatment Upcoming Encounters Date Type Department Care Team ([facility] Contact Info) Description 06/25/2025 10:30 AM EDT Office Visit Bariatric Surgery [address] [address] Samantha Jones PA [address] [phone] Health Maintenance Due Date Last Done Comments [...] patient's age to complete this topic Insurance [facility] PLAN Care Teams Tank Wagon Operator Relationship Specialty Start Date End Date Jacoby Francis FNP [address] [place] [address] PCP - General Family Medicine 10/18/24
--- OUTSIDE RECORDS SUMMARY | 2024-12-19 16:09 | XMS_ITS | Continuity of Care Document ---
Author Organization [facility] Address [address] [facility] [address] [place] [address] Phone Care Team Providers Care Sales Performance Manager Name Role Phone Unavailable Unavailable Unavailable Allergies, Adverse Reactions, Alerts Substance Reaction Status Criticality No Known Allergies Active No Inform ation Procedures Procedure Date PREV VISIT, NEW, AGE 18-39 OFFICE/OUTPATIENT VISIT, EST Advance Directives Directive Yes / No Effective Date File Name No Information Encounters Encounter Description Practice Location Reason(s) For Visit Diagnoses Date Provider Providers Copied on Encounter [facility], [address] [place] [address] 2,[address], [place], [place], [id number], tel:[phone] [facility] No Information No Information PREV VISIT, NEW, AGE 18-39 ankush [facility], [address] [place] [address] 2,[address], [place], [place], [id number], tel:[phone] [facility] Follow Up of ED back pain (chief complaint) iunitial visit (chief complaint) Routine adult health maintenanceLow back painTobacco abuseStatus post breast lumpectomy No Information Family History Family Member Type Diagnosis Age At Onset No Information Immunizations Vaccine Date Status Comments Td (adult) preservative free administered Note: per patient ; Source: Source Unspecified Payers Payer name Insurance type Covered republican ID Authoriza tion(s) No Information Social History [...]
== END 2024-12-19 13:53 | disposition home or self-care (01) ==
LOC: HO.PMC 13:34
PROVIDERS: PCP Nurse Practitioner Family; Visit Provider Anesthesiology
DX: M50.30 Other cervical disc degeneration, unspecified cervical region (principal); M48.02 Spinal stenosis, cervical region; M51.26 Other intervertebral disc displacement, lumbar region; M54.12 Radiculopathy, cervical region; M47.816 Spondylosis without myelopathy or radiculopathy, lumbar region; M54.51 Vertebrogenic low back pain; M53.3 Sacrococcygeal disorders, not elsewhere classified; G89.29 Other chronic pain; M46.1 Sacroiliitis, not elsewhere classified
CPT/HCPCS: 99213

== ENCOUNTER → 2024-12-19 13:33 | Outpatient (BNVA) | payer OTHER, SELFPAY | PROVIDERS: PCP Nurse Practitioner Family; Visit Provider Anesthesiology | DX: M50.30 Other cervical disc degeneration, unspecified cervical region (principal); M48.02 Spinal stenosis, cervical region; M51.26 Other intervertebral disc displacement, lumbar region; M54.12 Radiculopathy, cervical region; M47.816 Spondylosis without myelopathy or radiculopathy, lumbar region; M53.3 Sacrococcygeal disorders, not elsewhere classified; G89.29 Other chronic pain; M46.1 Sacroiliitis, not elsewhere classified | CPT/HCPCS: 99212 ==

== ENCOUNTER 2025-01-16 10:46 | Emergency (ER) | payer OTHER, SELFPAY ==
[2025-01-16 11:25] VITALS: BP 187/104; PULSE 102; RESP 18; TEMP 36.3; O2SAT 94; BMI 48.1
--- NOTE | 2025-01-16 11:25 | ED.BACK ---
HPI - Back Pain/Injury General Chief Complaint: Back Pain/Injury Stated Complaint: Lower Back Pain Time Seen by Provider: 01/16/25 13:18 Source: patient Mode of arrival: ambulatory Limitations: no limitations History of Present Illness ED Provider: Art Johnson PA-C HPI Narrative: 49 yo female with history of chronic back and neck pain on chronic opiates, being followed by Dr. Richards the pain management clinic, history of morbid obesity who presents to the ER for evaluation of worsening lower back pain for the last 2 days. She reports she is on chronic tramadol, gabapentin, ibuprofen, Robaxin, lidocaine patches with plan to get a nerve block done in the office on January 29. She reports for the last week or so she has had increase in her low back pain. The last 2 days has been significantly worse. She reports inability to stand up straight or walk without severe pain. She states the pain across her entire lower back, pressure and burning in nature. It is worse on the right. It does not radiate down her legs. No bowel or bladder issues. No weakness in her legs. No saddle paresthesias. No fall or trauma recently. She is here due to severe pain with inability to manage on her home p.o. meds. She denies any urinary symptoms MD elicited complaint: back pain Pertinent past history: prior back pain Onset (ago): day(s) Timing: progressively worsening Severity: severe Similar Symptoms Previously: Yes Quality: burning and dull Location: lumbar spine, right lower back and left lower back Radiation: none Exacerbating factors: movement and walking Relieving factors: immobilization, medication and sitting upright Context: unknown Associated symptoms: denies other symptoms Treatments prior to arrival: other medications and prescription analgesics Work related injury: No Related Data Home Medications ?Medication ?Instructions ?Recorded ?Confirmed dextroamphetamine-amphetamine 20 20 mg PO DAILY 04/07/23 12/19/24 mg tablet (Adderall) escitalopram oxalate 10 mg tablet 15 mg PO DAILY 06/16/23 12/19/24 zolpidem 12.5 mg tablet,extended 12.5 mg PO BEDTIME PRN Sleep 06/16/23 12/19/24 release,multiphase aripiprazole 20 mg tablet 20 mg PO DAILY 10/08/24 12/19/24 topiramate 200 mg capsule 200 mg PO DAILY 10/08/24 12/19/24 sprinkle,extended release 24 hr (Qudexy XR) Previous Rx's ?Medication ?Instructions ?Recorded ibuprofen 400 mg tablet 400 mg PO Q6H PRN pain #14 tabs 08/27/24 gabapentin 600 mg tablet 1,200 mg (2 x 600 mg) PO TID 30 10/10/24 days #180 tabs methocarbamol 500 mg tablet 500 mg PO TID PRN muscle spasm #90 12/27/24 tabs phentermine 15 mg capsule 15 mg PO DAILY 30 days #30 caps 01/07/25 tramadol 50 mg tablet 100 mg (2 x 50 mg) PO TID PRN pain 01/07/25 20 days #120 tabs lidocaine 5 % topical patch 1 patch topical DAILY #30 ea 01/15/25 Allergies Allergy/AdvReac Type Severity Reaction Status Date / Time No Known Allergies Allergy Verified 01/16/25 11:27 Review of Systems Review of Systems: Yes all other systems are reviewed and are negative PMFSH Past Medical History Medical History Sacroiliac joint dysfunction Cervical spondylosis Myofascial pain Lumbar disc herniation Necrotizing fasciitis Degenerative disc disease, lumbar Depression Anxiety Surgical History History of throat surgery S/P lumpectomy, right breast Family History Family History Mother COPD (chronic obstructive pulmonary disease) Emphysema lung Mental health disorder Social History Social History Household Members: Friend(s) Housing: House Are you a primary rn homecare to a significant other at home: No Do you presently have visiting nurse or other home services: No Alcohol intake: current Alcohol intake frequency: holidays/special occasions only Patient Tobacco Use Status: Former Tobacco user Tobacco use type: Cigarette Smoked in Last 30 Days: No e-Cigarette/Vaping Use: Former Use Second Hand Smoke Exposure: No Use of substances other than those prescribed or required for medical reasons: No Advance Directives: No Advance Directives Information Provided: Yes Do you have a plan to hurt others: No Plan Patient : No service: No Current occupational status: disabled 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 Oriented X3. Patient tearful, sitting up straight on the bedside stool, appears uncomfortable HEENT: Normal external inspection Neck: Normal inspection. CVS: Normal heart rate and rhythm. Pulses normal. Respiratory: No respiratory distress. Breath sounds normal. Abdomen: Soft and nontender. +BS x4 Back: Normal inspection. No midline tenderness of the thoracic spine. There is soft tissue tenderness of the entire lumbar area, worse on the right. Midline tenderness of the lumbar spine. Skin: Skin warm and dry. Normal skin color. Normal skin turgor. No rashes. Extremities: No lower extremity edema. No joint swelling. Neuro/psych: Oriented X 3. No motor deficit. No sensory deficit. CN II-XII intact. Normal speech and cognition. Slow but steady gait Course Course Course Narrative: This is a Rapid Medical Exam performed in triage by Sarah Jean-Baptiste PA-C. Full HPI, ROS and PE to be performed by primary ED provider. 49 yo F with past medical history of sacroiliac joint dysfunction, degenerative disc disease, depression, anxiety, presenting to the ED c/o low back pain x few days, worsening. denies injury/fall or trauma, incontinence/retention, fever PE: ambulating with slow steady gait, no midline spinous ttp, + reproducible paraspinal tenderness > right. HTNsive - likely from pain, denies hx HTN Plan: pain control Medications Administered Discontinued Medications Generic Name Dose Route Start Last Admin Trade Name Freq PRN Reason Stop Dose Admin Hydromorphone HCl 2 mg 01/16/25 13:35 01/16/25 13:56 Hydromorphone Hcl 2 Mg/Ml Vial IM 01/16/25 13:36 2 mg ONCE ONE Administration Protocol Ketorolac Tromethamine 30 mg 01/16/25 13:35 01/16/25 13:55 Ketorolac Tromethamine 30 Mg/Ml Vial IM 01/16/25 13:36 30 mg ONCE ONE Administration Medical Decision Making Medical Decision Making [facility] Narrative: 49-year-old female with history of chronic low back pain, degenerative disc disease who is managed in the pain management Clinic and with Dr. Griffith in the spine Clinic presents to the ER for evaluation of exacerbation of chronic pain. It has been worse the last couple of days. Unclear if playing with her to new dog has exacerbated things are not. She can not recall a specific injury. No red flag symptoms of low back pain. No trauma, no role for lumbar spine x-ray today. Patient was treated with intramuscular Dilaudid and Toradol with significant improvement in her pain. She is feeling much better. We discussed further management of her exacerbated pain with possible course of steroids however she reports whenever she gets steroids she has not have pain relief and has trouble sleeping. She has an appointment in 2 weeks with the pain management clinic. Will plan to continue her previously prescribed pain regimen and have her follow-up with them in the office. Stable for discharge home. Differential Diagnosis Differential Diagnoses: The differential diagnosis associated with the presentation includes Inflammatory disorders, malignancy, trauma, osteoporosis, nerve root compression, radiculopathy, plexopathy, degenerative disc disease, disc herniation, spinal stenosis, sacroiliac joint dysfunction, facet joint injury, and less likely infection?like abscess or diskitis External Record Review External record reviewed: Office record, Outpatient record, Prior outpatient labs and Prior outpatient radiology Tests considered The following testing was considered but not selected: Considered CT scan of the lumbar spine verses x-ray of the lumbar spine, no emergent need for this imaging today Prescription Management I considered prescription management with: Pain Medication Chronic Conditions Patient?s care impacted by: Other (Morbid obesity, chronic pain) Critical Care Time Critical Care Time Critical Care Time: No Discharge Plan Discharge Clinical Impression: Low back pain Patient Disposition: Home, Self-Care Instructions: Acute Low Back Pain (ED) Additional Instructions: Continue your tramadol, gabapentin, Robaxin, ibuprofen and Lidoderm for your back pain. Follow-up with the pain management doctor and the spinal doctor as soon as possible. Use ice several times a day for the next 48 hours and then change to heat. Rest, no heavy lifting or bending. If you develop new or worsening symptoms call 911 or come back to the ER for further evaluation. Prescriptions: No Action methocarbamol 500 mg tablet 500 mg PO TID PRN (Reason: muscle spasm) Qty: 90 1RF Rx Instructions: No driving while taking this medication. 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 PROPOSAL SPECIALIST Depressants tramadol 50 mg tablet 100 mg PO TID PRN (Reason: pain) 20 Days Qty: 120 0RF phentermine 15 mg capsule 15 mg PO DAILY 30 Days Qty: 30 3RF Rx Instructions: must administer 2 hours after breakfast lidocaine 5 % adhesive patch,medicated 1 patch topical DAILY Qty: 30 3RF Rx Instructions: leave on most painful area for up to 12 hrs ibuprofen 400 mg tablet 400 mg PO Q6H PRN (Reason: pain) Qty: 14 0RF dextroamphetamine-amphetamine [Adderall] 20 mg tablet 20 mg PO DAILY zolpidem 12.5 mg tablet,ext release multiphase 12.5 mg PO BEDTIME PRN (Reason: Sleep) escitalopram oxalate 10 mg tablet 15 mg PO DAILY aripiprazole 20 mg tablet 20 mg PO DAILY topiramate [Qudexy XR] 200 mg capsule,sprinkle,ER 24hr 200 mg PO DAILY gabapentin 600 mg tablet 1,200 mg PO TID 30 Days Qty: 180 3RF Interventions: ED Discharge Assessment Last Done: 01/16/25 15:17 Discharge Date/Time: 01/16/25 15:17 Print Language: Khmer
--- OUTSIDE RECORDS SUMMARY | 2025-01-16 13:48 | XMS_ITS | Data Portability ---
Author Organization [place] - [facility], Allergy Address [address] [address] Assessment Encounter Date Assessment Date Assessment LastModified [...] Address Organization Details Recorded Time Peritonsillar abscess 20709334 Active 2024 GRIFFIN ALANIS MD [address], [address], [place] - [facility] 09:05:51 Problem Notes None recorded. Medical [...] Updated DateTime 10/04/2024 162.56 cm 42.6 kg/m2 994761.91 g Rosy Hutchins [place] - [facility] 10/04/2024 08:52:33 Social History None recorded. Functional Status None recorded. Mental Status None recorded. Family History Nothing Reported. Medical History Condition Response Allergies/Hayfever N Heart Problems N Anxiety Y Tonsil Infections N Emphysema N Migraines Y Thyroid Problems N Glaucoma N Developmental Delay N Depression Y COPD N Nasal or Sinus Problems N Anemia Y Immune System Disorder N Anesthesia Complications N Heart Attack (PA) N Other Skin Condition N Diabetes N [...] SNOMED-CT Code Diagnosis ICD10 Code Diagnosis Note [id number] GRIFFIN ALANIS MD [facility] [address] [address] 10/04/2024 08:49:00 10/04/2024 09:06:59 Peritonsillar abscess [id number] J36 Health Concerns Section Related Observation LastModified by Organization Detai ls LastModified Time None Recorded Concern Status LastModified by Organization Details LastModified Time None Recorded Advance Directives Directive None Recorded Payers Insurance Date Sequence Insurance Name Policy Number Policy Arygoza Covered Member ID Raygoza Member ID Guarantor Name 10/04/2024 1 [facility] Cary Phoenix Daniel [id number] Cary Phoenix Charisseona 10/04/2024 1 [facility] (MEDICAID HMO) JELENANACKatheryn Cary Phoenix Anderspadona [id number] Cary Sanchez Notes Date Note Type Note Provider Name and Address Organization Details Recorded Time 10/04/2024 text/html f/u PTA08/24/24 urgent care strep tonsil ucidtl90/30/24 [place] [facility] strep tonsillitis, rx augmentin and prednisoneCT neck w con left inferior peritonsillar abscess [id number] collectionunable to drain with needle aspiration in ER, but eventually imroved with medicineWBC 20.6was referred to Dr Galarza but he did not take her insurancetobacco stopped 2022 GRIFFIN ALANIS MD [address] [place] [address], [place], [address], [facility] - [facility] 10/04/2024 09:07:26 OBGyn Episode No OBEpisode recorded.
--- OUTSIDE RECORDS SUMMARY | 2025-01-16 13:48 | XMS_ITS | Continuity of Care Document ---
Author Organization [facility] Address [address] [facility] [address] [place] [address] Phone Care Team Providers Care Clerical And Office Support Workers Name Role Phone Unavailable Unavailable Unavailable Allergies, Adverse Reactions, Alerts Substance Reaction Status Criticality No Known Allergies Active No Inform ation Procedures Procedure Date PREV VISIT, NEW, AGE 18-39 OFFICE/OUTPATIENT VISIT, EST Advance Directives Directive Yes / No Effective Date File Name No Information Encounters Encounter Description Practice Location Reason(s) For Visit Diagnoses Date Provider Providers Copied on Encounter [facility], [address] [place] [address] 2,[address], [place], [place], [id number], tel:[phone] [facility] No Information No Information PREV VISIT, NEW, AGE 18-39 ankush [facility], [address] [place] [address] 2,[address], [place], [place], [id number], tel:[phone] [facility] Follow Up of ED back pain (chief [...]
--- OUTSIDE RECORDS SUMMARY | 2025-01-16 13:48 | XMS_ITS | Clinical Summary ---
Author Organization [address] [place] [address] Address [address] [place] [address] Phone Care Team Providers Care Automatic Casting Machine Operator Name Role Phone Jacoby Francis CONSULTING SERVICES PROJECT MANAGER Primary Care Provider Social History Tobacco Use Types Packs/Day Years Used Date Smoking Tobacco: Never Assessed Comments Unknown Sex and Gender Information Value Date Recorded Sex Assigned at Not on file Legal Sex Female 10:25 AM EST Gender Identity Not on file Sexual Orientation Not on file Plan of Treatment Upcoming Encounters Date Type Department Care Team ([facility] Contact Info) Description 06/25/2025 10:30 AM EDT Office Visit Bariatric Surgery [address] [address] Samantha Jones PA [address] [phone] Health Maintenance Due Date Last Done Comments [...] patient's age to complete this topic Insurance [facility] PLAN Care Teams Automatic Casting Machine Operator Relationship Specialty Start Date End Date Jacoby Francis FNP [address] [place] [address] PCP - General Family Medicine 10/18/24
--- OUTSIDE RECORDS SUMMARY | 2025-01-16 13:48 | XMS_ITS | Patient Health Record ---
Author Organization [facility] Address [address] [facility] [address] [place] [address] Care Team Providers Care Transfer Station Attendant Name Role Phone Jovani Suárez Primary Care Provider Yang Blas MD MSc, Gisselle Unavailable [phone] Allergies Allergen (clinical drug ingredient) Drug/Non Drug [...] 1 capsule Orally Once a day Active Marfa Carbonate 300 MG 1 tablet at bed [...] Problem Status W/U Status Risk Notes Problem [id number] Low back pain, unspecified (M54.50) Active confirmed Plan Of Treatment Pending Test Test Name Order Date [employer] Pain[employer] Profile 06/24/2022 Insurance Providers Payer Name Payer Address Payer Phone Subscriber Number Group Number Insured Name Patient Relationship to Insured Coverage Start Date Coverage End Date [facility] [address] [place] [phone] [id number] Cary Cedillo Self - patient is the insured Medical (General) History Medical History History ICD Code ADHD Lumbago with sciatica Insomnia Anxiety Bipolar Dz Surgical History Surgery Date(Month/Year) [facility] after miscarriage Right breast lumpectomy 2006 Necrotizing fasciitis x6 2012 larynx repair 2019 Right ankle rods placed 06/2020
[2025-01-16] MEDS: Ketorolac Tromethamine 30 MG/ML VIAL IM (13:55)
[2025-01-16 13:56] VITALS: RESP 18
[2025-01-16] MEDS: HYDROmorphone HCl 2 MG/ML VIAL IM (13:56)
[2025-01-16 14:57] VITALS: BP 127/88; PULSE 91; RESP 18; TEMP 36.6; O2SAT 97
[2025-01-16 15:17] VITALS: BP 127/88; PULSE 91; RESP 18; TEMP 36.6; O2SAT 97
== END 2025-01-16 15:17 | disposition home or self-care (01) ==
PROVIDERS: Emergency Provider Emergency Medicine; PCP Nurse Practitioner Family
DX: M54.50 Low back pain, unspecified (principal); Z87.891 Personal history of nicotine dependence; Z79.899 Other long term (current) drug therapy
CPT/HCPCS: 96372; 99284; J1171; J1885

== ENCOUNTER 2025-01-29 06:20 | Outpatient (REF) | payer OTHER, SELFPAY ==
--- NOTE | ~2025-01-29 | FL_ITS ---
EXAMINATION: FL GUIDANCE ONLY HISTORY: M47.816 - Spondylosis without myelopathy or radiculopathy, lumbar region COMPARISON: None available. TECHNIQUE: Fluoroscopy time: 0.6 minutes. Cumulative Dose: 23.0 mGy. DAP: 0.400 mGym2 Images: 6. FINDINGS: Fluoroscopic spot films of the lumbar spine demonstrate needles and contrast material in the regions of the bilateral L3-4, L4-5, and L5-S1 facet joints. FL/FL guidance in treatment room IMPRESSION: Fluoroscopy during procedure. Please see procedure report for additional information. Electronically signed by: Contreras Hernandez MD 01/29/2025 03:48 PM EDT
--- OUTSIDE RECORDS SUMMARY | 2025-01-29 06:22 | XMS_ITS | Continuity of Care Document ---
Author Organization [facility] Address [address] [facility] [address] [place] [address] Phone Care Team Providers Care Pilot Can Router Name Role Phone Unavailable Unavailable Unavailable Allergies, Adverse Reactions, Alerts Substance Reaction Status Criticality No Known Allergies Active No Inform ation Procedures Procedure Date PREV VISIT, NEW, AGE 18-39 OFFICE/OUTPATIENT VISIT, EST Advance Directives Directive Yes / No Effective Date File Name No Information Encounters Encounter Description Practice Location Reason(s) For Visit Diagnoses Date Provider Providers Copied on Encounter [facility], [address] [place] [address] 2,[address], [place], [place], [id number], tel:[phone] [facility] No Information No Information PREV VISIT, NEW, AGE 18-39 ankush [facility], [address] [place] [address] 2,[address], [place], [place], [id number], tel:[phone] [facility] Follow Up [...]
== END 2025-01-29 06:21 | disposition home or self-care (01) ==
LOC: CF 06:20
PROVIDERS: Visit Provider Anesthesiology
DX: M47.816 Spondylosis without myelopathy or radiculopathy, lumbar region (principal)
CPT/HCPCS: 64493; 64494; J2003; J2795; Q9967

== ENCOUNTER 2025-01-29 14:24 | Outpatient (AMB) | payer OTHER, SELFPAY ==
[2025-01-29 14:31] VITALS: BP 185/84; PULSE 108; RESP 20; O2SAT 97
--- NOTE | 2025-01-29 14:31 | A.OFFVIS_ITS ---
Vital Signs 01/29/25 14:31 01/29/25 14:53 BP 185/84 H 142/80 H Blood Pressure Location Rt brachial Lt brachial Position Sitting Sitting Respiration 20 20 Pulse 108 H 117 H Pulse Source Pulse Oximeter Pulse Oximeter Pulse Oximetry (%) 97 98 Oxygen Delivery Method Room Air Room Air Intake Visit Reasons: BILATERAL DIAGNOSTIC L3, L4, DRL5 MBB Clinical Transplant Coordinator Required: No Allergies No Known Allergies Allergy (Verified 01/29/25 14:32) PFSH Medical History Sacroiliac joint dysfunction Cervical spondylosis Myofascial pain Lumbar disc herniation Necrotizing fasciitis Degenerative disc disease, lumbar Depression Anxiety Surgical History History of throat surgery S/P lumpectomy, right breast Family History Mother COPD (chronic obstructive pulmonary disease) Emphysema lung Mental health disorder Social History Household Members: Friend(s) Both parents involved: No Caregiver staying overnight: No Housing: House Are you a primary career services manager to a significant other at home: No Do you presently have visiting nurse or other home services: No 75 years or older and lives alone: No Alcohol intake: current Alcohol intake frequency: holidays/special occasions only Patient Tobacco Use Status: Former Tobacco user Tobacco use type: Cigarette e-Cigarette/Vaping Use: Former Use Second Hand Smoke Exposure: No service: No Current occupational status: disabled 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 ? ?Informed consent was explained to the patient. All questions were explained and? answered.? The patient was taken inside the operating room where she was positioned prone on the operating table. Time-out was performed delineating correct site, side, the nature of the procedure, patient's allergy, . All operating room staff was participating in OR time-out procedure. ? ? The lower back was prepped with ChloraPrep and draped with sterile towels.? C- arm was brought over the operating field and sq picture of L4-, L5 vertebra and S1 AREA were delineated on the screen.? Point of interest were delineated as confluence of superior articular process of L4 and L5 vertebra bilaterally with corresponding transverse processes as well as confluence of the sacral alae bilaterally with superior articular process of S1.? The projection of the point of interest to the skin were injected with the small amount of local anesthetic lidocaine 2% mixed with ropivacaine 0.5% 1-1 approcimately 1 cc.? After that 22 gauge 5 inch spinal needle was driven sequentially to the points of interest in tunnel vision fashion. The needle was inserted all the way to the hub at the level of the skin to reach the targets. After needles gently contacted the bone at the point of interests the needle was injected with small amount of the contrast.? The injection of the contrast did not demonstrate any intravascular or intrathecal spread of the contrast.? After that injection of the? ropivacaine 0.5%-1cc was performed at each needle location. ?After that the needles were removed and Bandaids were applied. ? Upon completion of the injections? needle was? removed and sterile Band-Aids were applied.? The patient tolerated procedure very well. Orders: Orders FL guidance in treatment room Today M47.816 - Spondylosis without myelopathy or radiculopathy, lumbar region Coding Level of Care Code Procedure Only Diagnoses Spondylosis of lumbar region without myelopathy or radiculopathy M47.816
[2025-01-29 14:53] VITALS: BP 142/80; PULSE 117; RESP 20; O2SAT 98
--- OUTSIDE RECORDS SUMMARY | 2025-01-29 16:14 | XMS_ITS | Patient Health Record ---
Author Organization [facility] Address [address] [facility] [address] [place] [address] Care Team Providers Care [employer] Assistant Manager Name Role Phone Jovani Suárez Primary Care Provider Yang Blas MD MSc, Gisselle Unavailable [phone] Allergies Allergen (clinical drug ingredient) Drug/Non Drug [...] 1 capsule Orally Once a day Active [place] Carbonate 300 MG 1 tablet at bed [...] Problem Status W/U Status Risk Notes Problem [id number] Low back pain, unspecified (M54.50) Active confirmed Plan Of Treatment Pending Test Test Name Order Date [facility] PainComp Profile 06/24/2022 Insurance Providers Payer Name Payer Address Payer Phone Subscriber Number Group Number Insured Name Patient Relationship to Insured Coverage Start Date Coverage End Date [facility] [address] [place] [phone] [id number] Cray Cedillo Self - patient is the insured Medical (General) History Medical History History ICD Code ADHD Lumbago with sciatica Insomnia Anxiety Bipolar Dz Surgical History Surgery Date(Month/Year) [facility] after miscarriage Right breast lumpectomy 2006 Necrotizing fasciitis x6 2012 larynx repair 2019 Right ankle rods placed 06/2020
== END 2025-01-29 14:55 | disposition home or self-care (01) ==
LOC: HO.PMCPRC 14:24
PROVIDERS: PCP Nurse Practitioner Family; Visit Provider Anesthesiology
DX: M47.816 Spondylosis without myelopathy or radiculopathy, lumbar region (principal)
CPT/HCPCS: 64493; 64494

== ENCOUNTER 2025-01-30 12:00 | Outpatient (RCR) | payer OTHER, SELFPAY ==
[2024-12-24 13:50] VITALS: BP 176/86; PULSE 106; RESP 16; TEMP 36.8; O2SAT 96
[2024-12-24] MEDS: Iron Sucrose Complex 200 MG in 0.9 % Sodium Chloride 100 ML 440 MG IV (13:54)
[2025-01-04 13:24] VITALS: BP 165/87; PULSE 98; RESP 20; TEMP 36.3; O2SAT 97
[2025-01-04] MEDS: Iron Sucrose Complex 200 MG in 0.9 % Sodium Chloride 100 ML 440 MG IV (13:35)
[2025-01-08 11:10] VITALS: BP 118/82; PULSE 100; RESP 16; TEMP 36.3; O2SAT 97
[2025-01-08] MEDS: Iron Sucrose Complex 200 MG in 0.9 % Sodium Chloride 100 ML 440 MG IV (11:20)
[2025-01-15 11:25] VITALS: BP 151/93; PULSE 100; RESP 16; TEMP 36.6; O2SAT 98
[2025-01-15] MEDS: Iron Sucrose Complex 200 MG in 0.9 % Sodium Chloride 100 ML 440 MG IV (11:56)
[2025-01-15 12:13] LABS: Hematocrit 35.4 % (37.0-47.0); Hemoglobin 10.8 g/dl (12.0-16.0); Mean Corpuscular HGB Conc 30.5 g/dl (31.0-35.0); Mean Corpuscular Hemoglobin 26.2 pg (27.0-33.0); Mean Corpuscular Volume 85.9 fL (80.0-98.0); Mean Platelet Volume 9.2 fL (9.4-12.3); Platelet Count 351 X10*3/uL (160-400); Red Blood Count 4.12 X10*6/uL (4.20-5.50); Red Cell Distribution Width 18.5 % (11.0-16.0); White Blood Count 6.3 X10*3/uL (4.8-10.8)
[2025-01-15 12:51] LABS: Ferritin 83 ng/mL (10-250)
[2025-01-24 11:41] VITALS: BP 140/87; PULSE 95; RESP 16; TEMP 36.7; O2SAT 100
[2025-01-24] MEDS: Iron Sucrose Complex 200 MG in 0.9 % Sodium Chloride 100 ML 440 MG IV (11:42)
[2025-01-30 11:56] VITALS: BP 135/94; PULSE 105; RESP 20; TEMP 36.3; O2SAT 96
[2025-01-30] MEDS: Iron Sucrose Complex 200 MG in 0.9 % Sodium Chloride 100 ML 440 MG IV (12:20)
[2025-01-30 12:25] LABS: Hematocrit 36.1 % (37.0-47.0); Hemoglobin 11.7 g/dl (12.0-16.0); Mean Corpuscular HGB Conc 32.4 g/dl (31.0-35.0); Mean Corpuscular Hemoglobin 26.9 pg (27.0-33.0); Mean Platelet Volume 9.1 fL (9.4-12.3); Platelet Count 356 X10*3/uL (160-400); Red Blood Count 4.35 X10*6/uL (4.20-5.50); Red Cell Distribution Width 18.5 % (11.0-16.0); White Blood Count 7.2 X10*3/uL (4.8-10.8)
[2025-01-30 12:58] LABS: Ferritin 117 ng/mL (10-250)
== END 2025-01-30 12:44 | disposition home or self-care (01) ==
LOC: HO.INF 12:00
PROVIDERS: Visit Provider Internal Medicine Medical Oncology
DX: D50.9 Iron deficiency anemia, unspecified (principal)
CPT/HCPCS: 36415; 82728; 85027; 96365; J1756

== ENCOUNTER 2025-01-31 13:46 | Outpatient (AMB) | payer OTHER, SELFPAY ==
--- NOTE | 2025-01-31 13:49 | A.OFFVIS_ITS ---
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 She reports some pain relief in the projection of the injections however she reports pain above the level of the injections getting higher. Most likely she has widespread osteoarthritis throughout her entire lumbar spine and including her sacroiliac joints. I offered her to perform diagnostic 2. Medial branch block I will use bupivacaine with epinephrine, and this time I will perform it slightly higher level at L2, L3, L4 medial branches. Results of therapeutic sacroiliac joint injection. She reported pain relief in the projection of the sacral bone, she reports that she does not feel pain there anymore. However now she states that her pain in the projection of the L4 and L5 vertebra is getting worse. She used to reports that her pain was aggravated by flexing forward. Now she feels that flexing forward actually alleviate her pain and it is flexing backwards which makes her pain worse. Loading test is positive bilaterally. I suspected that this patient has combination of the arthritis of the sacroiliac joints and arthritis of the lumbar spine. I will schedule her for diagnostic medial branch block L3, L4, dorsal ramus L5. Patient also reports that she is gaining weight. She is on strict diet. The weight gain might be related to water retention. I recommended her to go to [facility] physician and sort out and possibly treat her water retention with diuretics. If it would not help stop of the gabapentin might help if her water retention related to gabapentin intake. Prior: She underwent epidural steroid injection at C6-7 4 months ago, she had great relief with improvement in the burning, numbness and tingling that was radiating down her left hand. For reports the numbness and tingling is starting to return, pain is also starting to increase. She would like to repeat the injection Pain today is rated as a 910, constant, worse in the evenings and at night Previously on Robaxin that provided her good relief. This was discontinued due to black box warnings. She has not tried any other muscle relaxers. Has been taking ibuprofen twice daily as needed with some improvement but pain has progressively get worse. Prior: C/o pain in the cervical spine with sensation of the numbness of bilateral upper extremities as well as axial pain in lower back which is aggravated by prolonged standing and sitting and aggravated by flexing back forward but alleviated when she flex her back backwards. She reports that her pain started many years ago however became aggravated recently reports pain in neck 4 to 6/10 and pain in lower back is 10+ out of 10. She was under care of pains physician in [facility] she received MRI of the lumbar spine she was not recommended to go for the surgery by neurosurgeon. Never was evaluated by MRI of the cervical spine she is taking gabapentin for her pain and 100 mg 3 times a day maximal does she is taking tramadol 50 mg once a day and muscle relaxant methalaxon. She reports that she received sacroiliac joint injections in the past those were done by Dr. Markham in [facility] she reports very minimal help for 1 or 2 days from steroid sacroiliac joint injection however no prolonged pain relief. She had multiple attempts at physical therapy which aggravated her pain and she refused to go to physical therapy she denies chiropractic manipulations massage therapy or 10s unit. She brought with herself and MRI done on her lumbar spine in [facility] in [facility] which is suspicious for Modic type changes. I would like to send this MRI disc for the review with Radiology to evaluate this MRI for Modic type changes. [facility] Medical History Sacroiliac joint dysfunction Cervical spondylosis Myofascial pain Lumbar disc herniation Necrotizing fasciitis Degenerative disc disease, lumbar Depression Anxiety Surgical History History of throat surgery S/P lumpectomy, right breast Family History Mother COPD (chronic obstructive pulmonary disease) Emphysema lung Mental health disorder Social History Household Members: Friend(s) Both parents involved: No Caregiver staying overnight: No Housing: House Are you a primary personal caregiver to a significant other at home: No Do you presently have visiting nurse or other home services: No 75 years or older and lives alone: No Alcohol intake: current Alcohol intake frequency: holidays/special occasions only Patient Tobacco Use Status: Former Tobacco user Tobacco use type: Cigarette e-Cigarette/Vaping Use: Former Use Second Hand Smoke Exposure: No service: No Current occupational status: disabled 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 Patient was appropriately conversant and oriented. Good historian. MSK: Inspection reveals appropriate head and neck positioning. No pain with palpation over the neck musculature. Cervical ROM was full. Spurling's sign positive with radiation to left arm. Bilateral shoulder, elbow and wrist ROM WNL. No ligamentous laxity or crepitance. No increased effusion. No specific abnormalities or instability found on inspection and palpation of the spine and extremities. No point tenderness on spinous processes, facets, SI or GT. Unable to do lumbar extension due to pain. Negative SLR. Loading test is positive bilaterally. Positive MARCOS for back pain bilateral. Strength is 5/5 in all muscle groups tested. No increased tone noted. Right toes go into spasms while extended with pain. This limits her ankle range of motion. No redness or swelling on right foot or ankle. Neurological: Neurologic examination of the upper and lower extremities was nonfocal with intact sensation, muscle stretch reflexes and without focal motor deficits . Hunter?s negative bilaterally. Babinski was down going bilaterally. Clonus was negative. Gait is non-antalgic without loss of balance. Can stand on heels but cannot do toe walk. No foot drop while seated. Neck Other: Negative Lhermitte sign, positive Spurling sign on the right negative Valsalva maneuver 2 point differentiation is positive on bilateral hands Back/Spine/Pelvis Other: Flexing forward greatly aggravate her pain. In fact she cannot flex forward more than 45 degrees. Flexing backwards alleviates her pain. Prolonged sitting aggravates her pain. Shaji test is positive bilaterally, Gaenslen test is positive bilaterally, pelvic distraction and pelvis compression test as well as 14 finger test are positive bilaterally. Assessment & Plan Assessment & Plan (1) Degeneration, intervertebral disc, cervical: Code(s): M50.30 - Other cervical disc degeneration, unspecified cervical region Category: Medical (2) Cervical stenosis of spinal canal: Code(s): M48.02 - Spinal stenosis, cervical region Category: Medical (3) Lumbar disc herniation: Code(s): M51.26 - Other intervertebral disc displacement, lumbar region Category: Medical (4) Cervical radiculitis: Code(s): M54.12 - Radiculopathy, cervical region Category: Medical (5) Spondylosis of lumbar spine: Code(s): M47.816 - Spondylosis without myelopathy or radiculopathy, lumbar region Category: Medical (6) Vertebrogenic low back pain: Code(s): M54.51 - Vertebrogenic low back pain Category: Medical (7) Chronic sacroiliac joint pain: Code(s): M53.3 - Sacrococcygeal disorders, not elsewhere classified; G89.29 - Other chronic pain Category: Medical (8) Sacroiliitis: Code(s): M46.1 - Sacroiliitis, not elsewhere classified Category: Medical (9) Spondylosis of lumbar region without myelopathy or radiculopathy: Code(s): M47.816 - Spondylosis without myelopathy or radiculopathy, lumbar region Category: Medical Plan The Modic type changes a very subtle on the MRI and mostly pronounced in L2-L3 maybe L4 vertebra. However her pain is alleviated while sitting and is aggravated with standing and walking. Therapeutic sacroiliac joint injection bilateral resulted in good pain relief in the projection of the sacral bone. However the after that patient has started to reports severe pain in the lower lumbar spine. Diagnostic medial branch block L3, L4, dorsal ramus L5 resulted in good pain relief in the projection of the lower lumbar spine but now patient reports pain higher than this level. I offered her diagnostic 2. L2, L3, L4 Medial branches bilateral. I will assess the patient's condition after this procedure. Diagnostic sacroiliac joint injection resulted in very profound good pain relief. However now after the therapeutic sacroiliac joint injection she reports absence of pain in the projection of the sacral bone but severe pain in the projection of the L4 and L5 vertebra. Coding Level of Care Code Est Pt Level 3 (26998) Diagnoses Degeneration, intervertebral disc, cervical M50.30 Cervical stenosis of spinal canal M48.02 Lumbar disc herniation M51.26 Cervical radiculitis M54.12 Spondylosis of lumbar spine M47.816 Vertebrogenic low back pain M54.51 Chronic sacroiliac joint pain M53.3; G89.29 Sacroiliitis M46.1 Spondylosis of lumbar region without myelopathy or radiculopathy M47.816
[2025-01-31 13:51] VITALS: BP 153/90; PULSE 103; RESP 16; O2SAT 95; BMI 49.1
--- OUTSIDE RECORDS SUMMARY | 2025-01-31 16:18 | XMS_ITS | Patient Health Record ---
Author Organization [facility] Address [address] [facility] [facility] [address] [place] [address] Care Team Providers Care Legal Compliance Officer Name Role Phone Jovani Suárez Primary Care Provider Yang Blas MD MSc, Gisselle Unavailable [phone] Allergies Allergen (clinical drug ingredient) Drug/Non Drug [...] 1 capsule Orally Once a day Active [place] Carbonate 300 MG 1 tablet at bed [...] Problem Status W/U Status Risk Notes Problem [id number] Low back pain, unspecified (M54.50) Active confirmed Plan Of Treatment Pending Test Test Name Order Date Aeg[facility] PainComp Profile 06/24/2022 Insurance Providers Payer Name Payer Address Payer Phone Subscriber Number Group Number Insured Name Patient Relationship to Insured Coverage Start Date Coverage End Date [facility] [address] [place] [phone] [id number] Cary Cedillo Self - patient is the insured Medical (General) History Medical History History ICD Code ADHD Lumbago with sciatica Insomnia Anxiety Bipolar Dz Surgical History Surgery Date(Month/Year) [facility] after miscarriage Right breast lumpectomy 2006 Necrotizing fasciitis x6 2012 larynx repair 2019 Right ankle rods placed 06/2020
== END 2025-01-31 14:01 | disposition home or self-care (01) ==
LOC: HO.PMC 13:47
PROVIDERS: PCP Nurse Practitioner Family; Visit Provider Anesthesiology
DX: M50.30 Other cervical disc degeneration, unspecified cervical region (principal); M48.02 Spinal stenosis, cervical region; M51.26 Other intervertebral disc displacement, lumbar region; M54.12 Radiculopathy, cervical region; M47.816 Spondylosis without myelopathy or radiculopathy, lumbar region; M54.51 Vertebrogenic low back pain; M53.3 Sacrococcygeal disorders, not elsewhere classified; G89.29 Other chronic pain; M46.1 Sacroiliitis, not elsewhere classified
CPT/HCPCS: 99213

== ENCOUNTER → 2025-01-31 13:46 | Outpatient (BNVA) | payer OTHER, SELFPAY | PROVIDERS: PCP Nurse Practitioner Family; Visit Provider Anesthesiology | DX: M47.816 Spondylosis without myelopathy or radiculopathy, lumbar region (principal); M54.51 Vertebrogenic low back pain; M53.3 Sacrococcygeal disorders, not elsewhere classified; M46.1 Sacroiliitis, not elsewhere classified; G89.29 Other chronic pain | CPT/HCPCS: 99212 ==

== ENCOUNTER 2025-03-19 06:09 | Outpatient (REF) | payer OTHER, SELFPAY ==
--- OUTSIDE RECORDS SUMMARY | 2015-02-07 12:30 | XMS_ITS | Continuity of Care Document ---
Author Organization [facility] Address [address] [place] [address] Phone Care Team Providers Care Tangled Yarn Worker Name Role Phone Unavailable Unavailable Unavailable Allergies, Adverse Reactions, Alerts Substance Reaction Status Criticality No Known Allergies Active No Inform ation Procedures Procedure Date PREV VISIT, NEW, AGE 18-39 OFFICE/OUTPATIENT VISIT, EST Advance Directives Directive Yes / No Effective Date File Name No Information Encounters Encounter Description Practice Location Reason(s) For Visit Diagnoses Date Provider Providers Copied on Encounter [facility], [address] [place] [address] 2,[address], [place], [place], [id number], tel:[phone] [facility] No Information No Information PREV VISIT, NEW, AGE 18-39 ankush [facility], [address] [place] [address] 2,[address], [place], [place], [id number], tel:[phone] [facility] Follow Up of ED back pain (chief complaint) iunitial visit (chief complaint) Routine adult health maintenanceLow back painTobacco abuseStatus post breast lumpectomy No Information Family History Family Member Type Diagnosis Age At Onset No Information Immunizations Vaccine Date Status Comments Td (adult) preservative free administered Note: per patient ; Source: Source Unspecified Payers Payer name Insurance type Covered green party ID Authoriza tion(s) No Information Social History Type Description Quantity Date Captured Comments Sex Female Smoking Status No Information Sexual Orientation Straight or heterosexual Chief Complaint And Reason For Visit No [...]
--- NOTE | ~2025-03-19 | FL_ITS ---
EXAMINATION: FL GUIDANCE ONLY HISTORY: M47.816 - Spondylosis without myelopathy or radiculopathy, lumbar region COMPARISON: Comparison is made with the prior examination dated 01/29/2025. TECHNIQUE: Fluoroscopy time: 0.76. Cumulative Dose: 21.9 mGy. DAP: 0.336 mGym2 Images: 6. FINDINGS: Fluoroscopic spot films of the lumbar spine demonstrate needles and contrast material in the regions of the bilateral L2-3, L3-4, and L4-5 facet joints. FL/FL guidance in treatment room IMPRESSION: Fluoroscopy during procedure. Please see procedure report for additional information. Electronically signed by: Contreras Hernandez MD 03/19/2025 11:51 AM EDT
--- OUTSIDE RECORDS SUMMARY | 2025-03-19 06:11 | XMS_ITS | Data Portability ---
Author Organization [place] [facility], All[facility] Address [address] [place] [address] Assessment Encounter Date Assessment Date Assessment LastModified [...] Address Organization Details Recorded Time Peritonsillar abscess [id number] Active 2024 GRIFFIN ALANIS MD [address], [address], [place] - [facility] 09:05:51 Problem Notes None recorded. Medical [...] Updated DateTime 10/04/2024 162.56 cm 42.6 kg/m2 000654.91 g Rosy Hutchins [facility] 10/04/2024 08:52:33 Social History None recorded. [...] Disorder N Anesthesia Complications N Heart Attack ([place]) N Other Skin Condition N Diabetes N [...] SNOMED-CT Code Diagnosis ICD10 Code Diagnosis Note [id number] GRIFFIN ALANIS MD [facility] [address] [address] 10/04/2024 08:49:00 10/04/2024 09:06:59 Peritonsillar abscess [id number] J36 Health Concerns Section Related Observation LastModified by Organization Detai ls LastModified Time None Recorded Concern Status LastModified by Organization Details LastModified Time None Recorded Advance Directives Directive None Recorded Payers Insurance Date Sequence Insurance Name Policy Number Policy Raygoza Covered Member ID Raygoza Member ID Guarantor Name 10/04/2024 1 [facility] Cary Sanchez [id number] Cary Sanchez 10/04/2024 1 [facility] - HEALTH NET PLAN (MEDICAID HMO) RADHA Cary Sanchez [id number] Cary Sanchez Notes Date Note Type Note Provider Name and Address Organization Details Recorded Time 10/04/2024 text/html f/u PTA08/24/24 urgent care strep tonsil kmknru19/30/24 [facility] strep tonsillitis, rx augmentin and prednisoneCT neck w con left inferior peritonsillar abscess [id number] collectionunable to drain with needle aspiration in ER, but eventually imroved with medicineWBC 20.6was referred to Dr Galarza but he did not take her insurancetobacco stopped 2022 GRIFFIN ALANIS MD [address] [place] [address], [place], [address], [place] - [facility] 10/04/2024 09:07:26 OBGyn Episode No OBEpisode recorded.
--- OUTSIDE RECORDS SUMMARY | 2025-03-19 06:11 | XMS_ITS | Patient Health Record ---
Author Organization [facility] Address [address] [facility] [address] [place] [address] Care Team Providers Care Airport Utility Worker Name Role Phone Jovani Suárez Primary Care Provider Yang Blas MD MSc, Gisselle Unavailable [phone] Allergies Allergen (clinical drug ingredient) Drug/Non Drug [...] 1 capsule Orally Once a day Active [place] Carbonate 300 MG 1 tablet at bed [...] Problem Status W/U Status Risk Notes Problem [id number] Low back pain, unspecified (M54.50) Active confirmed Plan Of Treatment Pending Test Test Name Order Date [facility]eg[facility] PainComp Profile 06/24/2022 Insurance Providers Payer Name Payer Address Payer Phone Subscriber Number Group Number Insured Name Patient Relationship to Insured Coverage Start Date Coverage End Date [facility] [address] [place] [phone] [id number] Cary Cedillo Self - patient is the insured Medical (General) History Medical History History ICD Code ADHD Lumbago with sciatica Insomnia Anxiety Bipolar Dz Surgical History Surgery Date(Month/Year) [facility] after miscarriage Right breast lumpectomy 2006 Necrotizing fasciitis x6 2012 larynx repair 2019 Right ankle rods placed 06/2020
--- OUTSIDE RECORDS SUMMARY | 2025-03-19 06:11 | XMS_ITS | Clinical Summary ---
Author Organization [address] [place] [address] Address [address] [place] [address] Phone Care Team Providers Care Cardiothoracic Physiotherapist Name Role Phone Jacoby Francis ACID CLEANER Primary Care Provider [phone] Social History Tobacco Use Types Packs/Day Years Used Date Smoking Tobacco: Never Assessed Comments Unknown Sex and Gender Information Value Date Recorded Sex Assigned at Not on file Legal Sex Female 10:25 AM EST Gender Identity Not on file Sexual Orientation Not on file Plan of Treatment Upcoming Encounters Date Type Department Care Team ([facility] Contact Info) Description 06/25/2025 10:30 AM EDT Office Visit Bariatric Surgery [address] [address] Samantha Jones PA [address] [id number] Health Maintenance Due Date Last Done Comments Breast Cancer Screening 1977 DTaP,Tdap,and Td Vaccines (1 - Tdap) 1996 Hepatitis B Vaccines (1 of 3 - 19+ 3-dose series) 1996 Cervical Cancer Screening: P ap Smear 1998 COVID-19 Vaccine ( - 2023-2 5 season) 2024 Depression Screening 08/29/2024 Colorectal Cancer Screening: Colonoscopy 10/18/2024 HIV Screening 10/18/2024 Hepatitis C Screening 10/18/2024 Social Influencers of Health Screening 10/18/2024 Influenza Vaccine (#1) 2025 HIB Vaccines Aged Out No longer [...] 5 Years) and At-Risk Patients (6 to 49 Years) Aged Out No longer eligible b ased on patient's age to complete this topic RSV Immunization Patients Un denis 20 months Aged Out No longer eligible b ased on patient's age to complete this topic Varicella Vaccines Aged Out No longer eligible based on patient's age to complete this topic Insurance [facility] [address] Care Teams Cardiothoracic Physiotherapist Relationship Specialty Start Date End Date Jacoby Francis FNP [address] [place] [address] PCP - General Family Medicine 10/18/24
--- OUTSIDE RECORDS SUMMARY | 2025-03-19 06:11 | XMS_ITS | Patient Health Record ---
Author Organization [facility] Address [address] [place] [address] Care Team Providers Care New Car Make Ready Worker Name Role Phone Jessica Suárezparirobbie Primary Care Provider [phone] Allergies No Known Allergies Reason For Referral No Information Medications Medication SIG (Take, Route, Fr equency, Duration) Notes Start Date End Date Status Depakote ER 500 MG 2 TABLETS Orally BID ; Duration: 30 day(s) 12/10/2021 Active Ibuprofen 800 MG 1 tablet with food o r milk Orally Three times a day; Duration: 30 day(s) 12/10/2021 Active Topiramate 100 MG TAKE 1 TABLET BY HAFSA EVERY DAY FOR 30 DAYS; Duration: 30 Ac tive Ziprasidone HCl 40 MG 1 capsule with mercedes d Orally Twice a day; Duration: 30 day(s) 12/10/2021 Active Adderall XR 20 MG 1 capsule in the mor gagan Orally Once a day 12/10/2021 Active Gabapentin 300 MG 3 capsule Orally THR EE TIMES A DAY PRN 05/14/2021 Active Social History Tobacco Use: Social History Observation Description Date Details (start date - stop date) Current Smoker NA - NA Smoking: Question Answer Notes Are you a: current smoker How often do you smoke cigarettes? every day How many cigarettes a day do you smoke? 5 or les s How soon after you wake up d o you smoke your first cigarette? after 60 min Are you interested in quitting? Thinking about q uitting Alcohol Screening: Question Answer Notes Did you have a drink containing alcohol in the p ast year? No Points 0 Interpretation Negative Section Notes: Single. 2 sons. Unemployed c urrently. No recreational drugs Single. 2 sons. Unemployed c urrently. No recreational drugs Problems Problem Type SNOMED Code ICD Code Onset Dates Problem Status W/U Status Risk Notes Problem Morbid obesity (disorder) (034237396) Morbid (severe) obesity due to excess calories (E66.01) Active confirmed Problem Bipolar disorder , current episode depressed, severe, with psychotic features (F31.5) Active confirmed Problem Insomnia disorder related to another mental disorder (02769035) Insomnia due to other mental disorder (F51.05) Active confirmed Problem Attention deficit hyperactivity disorder (334713320) Attention-deficit hyperactivity disorder, predominantly hyperactive type (F90.1) Active confirmed Problem Sciatica (70583334) Lumbago with sciatica, unspecified side (M54.40) Active confirmed Problem Problem, abnormal examination (78297131) Encounter for general adult medical examination with abnormal findings (Z00.01) Active confirmed Plan Of Treatment Pending Test Test Name Order Date COMPREHENSIVE METABOLIC PANEL W/EGFR C-REACTIVE PROTEIN 04/25/2021 LIPID PANEL 04/25/2021 MAGNESIUM 04/25/2021 CULTURE, URINE, ROUTINE 04/25/2021 URIC ACID 04/25/2021 URINALYSIS WITH CULTURE IF POS UA SEDIMENT 04/25/2021 MRI LUMBAR SPINE W/O CM 03/16/2022 COMPREHENSIVE METABOLIC PANEL 04/24/2021 COMPREHENSIVE METABOLIC PANEL 05/05/2022 URINALYSIS, COMPLETE W/REFLEX TO CULTURE 04/24/2021 URINALYSIS, COMPLETE W/REFLEX TO CULTURE 05/05/2022 TSH W/REFLEX TO FT4 05/05/2022 TSH W/REFLEX TO FT4 04/24/2021 C-REACTIVE PROTEIN 05/05/2022 C-REACTIVE PROTEIN 04/24/2021 MAGNESIUM 04/24/2021 CBC (INCLUDES DIFF/PLT) 04/24/2021 CBC (INCLUDES DIFF/PLT) 05/05/2022 LIPID PANEL 05/05/2022 LIPID PANEL 04/24/2021 URIC ACID 04/24/2021 URIC ACID 05/05/2022 CBC W/ DIFF 04/25/2021 TSH W/ REFLEX FREE T4 04/25/2021 Insurance Providers Payer Name Payer Address Payer Phone Subscriber Number Group Number Insured Name Patient Relationship to Insured Coverage Start Date Coverage End Date [facility] [address] [place] [phone] [id number] PETER MATA Self - patient is the insured Medical (General) History Surgical History Surgery Date(Month/Year) right breast lumpectomy - fibroadenoma 2 008 multiple surgeries in left leg for necro tizing fascitis 2013
== END 2025-03-19 06:10 | disposition home or self-care (01) ==
LOC: CF 06:09
PROVIDERS: Visit Provider Anesthesiology
DX: M47.816 Spondylosis without myelopathy or radiculopathy, lumbar region (principal)
CPT/HCPCS: 64493; 64494; J2003; J2795; Q9967

== ENCOUNTER 2025-03-19 10:21 | Outpatient (AMB) | payer OTHER, SELFPAY ==
[2025-03-19 10:26] VITALS: BP 159/87; PULSE 109; RESP 20; O2SAT 98
--- NOTE | 2025-03-19 10:26 | A.OFFVIS_ITS ---
Vital Signs 03/19/25 10:26 03/19/25 11:01 Weight 286 lb BP 159/87 H 138/87 Blood Pressure Location Lt brachial Lt brachial Position Sitting Sitting Respiration 20 18 Pulse 109 H 87 Pulse Source Pulse Oximeter Pulse Oximeter Pulse Oximetry (%) 98 98 Oxygen Delivery Method Room Air Room Air Intake Visit Reasons: BILATERAL DIAGNOSTIC L2, L3, L4 MBB Residential Leasing Agent Required: No Allergies No Known Allergies Allergy (Verified 01/31/25 13:53) PFSH Medical History Sacroiliac joint dysfunction Cervical spondylosis Myofascial pain Lumbar disc herniation Necrotizing fasciitis Degenerative disc disease, lumbar Depression Anxiety Surgical History History of throat surgery S/P lumpectomy, right breast Family History Mother COPD (chronic obstructive pulmonary disease) Emphysema lung Mental health disorder Social History Household Members: Friend(s) Both parents involved: No Caregiver staying overnight: No Housing: House Are you a primary director day care center to a significant other at home: No Do you presently have visiting nurse or other home services: No 75 years or older and lives alone: No Alcohol intake: current Alcohol intake frequency: holidays/special occasions only Patient Tobacco Use Status: Former Tobacco user Tobacco use type: Cigarette e-Cigarette/Vaping Use: Former Use Second Hand Smoke Exposure: No service: No Current occupational status: disabled 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 ? ?Informed consent was explained to the patient. All questions were explained and? answered.? The patient was taken inside the operating room where she was positioned prone on the operating table. Time-out was performed delineating correct site, side, the nature of the procedure, patient's allergy, . All operating room staff was participating in OR time-out procedure. ? ? The lower back was prepped with ChloraPrep and draped with sterile towels.? C- arm was brought over the operating field and sq picture of L4-, L5 vertebra and S1 AREA were delineated on the screen.? Due to severe morbid obesity the quality of the images was very poor. Point of interest were delineated as confluence of superior articular process of L4 and L5 vertebra bilaterally with corresponding transverse processes as well as confluence of the sacral alae bilaterally with superior articular process of S1.? The projection of the point of interest to the skin were injected with the small amount of local anesthetic lidocaine 2% mixed with ropivacaine 0.5% 1-1 approximately 1 cc.? After that 22 gauge 5 inch spinal needle was driven sequentially to the points of interest in tunnel vision fashion. The needle was inserted all the way to the hub at the level of the skin to reach the targets. After needles gently contacted the bone at the point of interests the needle was injected with small amount of the contrast.? The injection of the contrast did not demonstrate any intravascular or intrathecal spread of the contrast.? After that injection of the? ropivacaine 0.5%-1cc was performed at each needle location. ?After that the needles were removed and Bandaids were applied. ? Upon completion of the injections? needle was? removed and sterile Band-Aids were applied.? The patient tolerated procedure very well. Orders: Orders FL guidance in treatment room Today M47.816 - Spondylosis without myelopathy or radiculopathy, lumbar region Coding Level of Care Code Procedure Only Diagnoses Spondylosis of lumbar region without myelopathy or radiculopathy M47.816
[2025-03-19 11:01] VITALS: BP 138/87; PULSE 87; RESP 18; O2SAT 98
== END 2025-03-19 11:08 | disposition home or self-care (01) ==
LOC: HO.PMCPRC 10:21
PROVIDERS: PCP Nurse Practitioner Family; Visit Provider Anesthesiology
DX: M47.816 Spondylosis without myelopathy or radiculopathy, lumbar region (principal)
CPT/HCPCS: 64493; 64494

== ENCOUNTER 2025-03-21 09:46 | Outpatient (AMB) | payer OTHER, SELFPAY ==
[2025-03-21 09:55] VITALS: BP 167/89; PULSE 108; RESP 18; O2SAT 98
--- NOTE | 2025-03-21 09:55 | MHC.OFFVIS ---
Vital Signs 03/21/25 09:55 Weight 290 lb BP 167/89 H Blood Pressure Location Lt brachial Position Sitting Respiration 18 Pulse 108 H Pulse Oximetry (%) 98 Oxygen Delivery Method Room Air Intake Visit Reasons: BILATERAL DIAGNOSTIC L2, L3, L4 MBB Grazing Aide Required: No Allergies No Known Allergies Allergy (Verified 03/21/25 09:56) HPI Comments Details: Cary is in my office after diagnostic medial branch block bilateral L2, L3, L4. She reports 100% pain improvement after the procedure for the 1st 6 hours. She reports improved mobility although stated that some pressure retained when she was walking. She performed all the maneuvers and positioned which usually aggravated her pain with much easier ability. I will schedule her for the sprint PNS 1st on the right and after that on the left to help her condition. She was noted today to have significant edema in bilateral lower extremities and at the lower portion of the body. I recommended her to go to primary care physician as soon as possible and to schedule her for the appointment to get this condition. She expressed understanding and she said that she will schedule it as soon as possible. Results of therapeutic sacroiliac joint injection. She reported pain relief in the projection of the sacral bone, she reports that she does not feel pain there anymore. However now she states that her pain in the projection of the L4 and L5 vertebra is getting worse. She used to reports that her pain was aggravated by flexing forward. Now she feels that flexing forward actually alleviate her pain and it is flexing backwards which makes her pain worse. Loading test is positive bilaterally. I suspected that this patient has combination of the arthritis of the sacroiliac joints and arthritis of the lumbar spine. I will schedule her for diagnostic medial branch block L3, L4, dorsal ramus L5. Patient also reports that she is gaining weight. She is on strict diet. The weight gain might be related to water retention. I recommended her to go to primary care physician and sort out and possibly treat her water retention with diuretics. If it would not help stop of the gabapentin might help if her water retention related to gabapentin intake. Prior: She underwent epidural steroid injection at [facility] 4 months ago, she had great relief with improvement in the burning, numbness and tingling that was radiating down her left hand. For reports the numbness and tingling is starting to return, pain is also starting to increase. She would like to repeat the injection Pain today is rated as a 910, constant, worse in the evenings and at night Previously on Robaxin that provided her good relief. This was discontinued due to black box warnings. She has not tried any other muscle relaxers. Has been taking ibuprofen twice daily as needed with some improvement but pain has progressively get worse. Prior: C/o pain in the cervical spine with sensation of the numbness of bilateral upper extremities as well as axial pain in lower back which is aggravated by prolonged standing and sitting and aggravated by flexing back forward but alleviated when she flex her back backwards. She reports that her pain started many years ago however became aggravated recently reports pain in neck 4 to 6/10 and pain in lower back is 10+ out of 10. She was under care of pains physician in [facility] she received MRI of the lumbar spine she was not recommended to go for the surgery by neurosurgeon. Never was evaluated by MRI of the cervical spine she is taking gabapentin for her pain and 100 mg 3 times a day maximal does she is taking tramadol 50 mg once a day and muscle relaxant methalaxon. She reports that she received sacroiliac joint injections in the past those were done by Dr. Markham in [facility] she reports very minimal help for 1 or 2 days from steroid sacroiliac joint injection however no prolonged pain relief. She had multiple attempts at physical therapy which aggravated her pain and she refused to go to physical therapy she denies chiropractic manipulations massage therapy or 10s unit. She brought with herself and MRI done on her lumbar spine in [facility] in [facility] which is suspicious for Modic type changes. I would like to send this MRI disc for the review with Radiology to evaluate this MRI for Modic type changes. [facility] Medical History Sacroiliac joint dysfunction Cervical spondylosis Myofascial pain Lumbar disc herniation Necrotizing fasciitis Degenerative disc disease, lumbar Depression Anxiety Surgical History History of throat surgery S/P lumpectomy, right breast Family History Mother COPD (chronic obstructive pulmonary disease) Emphysema lung Mental health disorder Social History Household Members: Friend(s) Both parents involved: No Caregiver staying overnight: No Housing: House Are you a primary career guidance counselor to a significant other at home: No Do you presently have visiting nurse or other home services: No 75 years or older and lives alone: No Alcohol intake: current Alcohol intake frequency: holidays/special occasions only Patient Tobacco Use Status: Former Tobacco user Tobacco use type: Cigarette e-Cigarette/Vaping Use: Former Use Second Hand Smoke Exposure: No service: No Current occupational status: disabled 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 Patient was appropriately conversant and oriented. Good historian. MSK: Inspection reveals appropriate head and neck positioning. No pain with palpation over the neck musculature. Cervical ROM was full. Spurling's sign positive with radiation to left arm. Bilateral shoulder, elbow and wrist ROM WNL. No ligamentous laxity or crepitance. No increased effusion. No specific abnormalities or instability found on inspection and palpation of the spine and extremities. No point tenderness on spinous processes, facets, SI or GT. Unable to do lumbar extension due to pain. Negative SLR. Loading test is positive bilaterally. Positive MARCOS for back pain bilateral. Strength is 5/5 in all muscle groups tested. No increased tone noted. Right toes go into spasms while extended with pain. This limits her ankle range of motion. No redness or swelling on right foot or ankle. Neurological: Neurologic examination of the upper and lower extremities was nonfocal with intact sensation, muscle stretch reflexes and without focal motor deficits . Hunter?s negative bilaterally. Babinski was down going bilaterally. Clonus was negative. Gait is non-antalgic without loss of balance. Can stand on heels but cannot do toe walk. No foot drop while seated. Neck Other: Negative Lhermitte sign, positive Spurling sign on the right negative Valsalva maneuver 2 point differentiation is positive on bilateral hands Back/Spine/Pelvis Other: Flexing forward greatly aggravate her pain. In fact she cannot flex forward more than 45 degrees. Flexing backwards alleviates her pain. Prolonged sitting aggravates her pain. Shaji test is positive bilaterally, Gaenslen test is positive bilaterally, pelvic distraction and pelvis compression test as well as 14 finger test are positive bilaterally. Assessment & Plan Assessment & Plan (1) Degeneration, intervertebral disc, cervical: Code(s): M50.30 - Other cervical disc degeneration, unspecified cervical region Category: Medical (2) Cervical stenosis of spinal canal: Code(s): M48.02 - Spinal stenosis, cervical region Category: Medical (3) Lumbar disc herniation: Code(s): M51.26 - Other intervertebral disc displacement, lumbar region Category: Medical (4) Cervical radiculitis: Code(s): M54.12 - Radiculopathy, cervical region Category: Medical (5) Spondylosis of lumbar spine: Code(s): M47.816 - Spondylosis without myelopathy or radiculopathy, lumbar region Category: Medical (6) Vertebrogenic low back pain: Code(s): M54.51 - Vertebrogenic low back pain Category: Medical (7) Chronic sacroiliac joint pain: Code(s): M53.3 - Sacrococcygeal disorders, not elsewhere classified; G89.29 - Other chronic pain Category: Medical (8) Sacroiliitis: Code(s): M46.1 - Sacroiliitis, not elsewhere classified Category: Medical (9) Spondylosis of lumbar region without myelopathy or radiculopathy: Code(s): M47.816 - Spondylosis without myelopathy or radiculopathy, lumbar region Category: Medical Plan The Modic type changes a very subtle on the MRI and mostly pronounced in L2-L3 maybe L4 vertebra. However her pain is alleviated while sitting and is aggravated with standing and walking. Therapeutic sacroiliac joint injection bilateral resulted in good pain relief in the projection of the sacral bone. Diagnostic medial branch block L3, L4, dorsal ramus L5 resulted in less prominent pain relief. Patient reported that her pain is higher. I schedule her for L2, L3, L4 medial branch block and patient reported 0 pain for the 1st 5 hours after the procedure. She performed maneuvers and motions which used to aggravate her pain with is this time. I will schedule her for sprint PNS bilateral 1st on the right and then on the left. She was noted today to have significant edema of bilateral lower extremities and lower torso. I recommended her to go to a primary care physician to take care of this edema because it compromise the procedures we are planning. Patient expressed understanding. I will see her on the procedure day and follow-up as needed. Coding Level of Care Code Est Pt Level 3 (47913) Diagnoses Degeneration, intervertebral disc, cervical M50.30 Cervical stenosis of spinal canal M48.02 Lumbar disc herniation M51.26 Cervical radiculitis M54.12 Spondylosis of lumbar spine M47.816 Vertebrogenic low back pain M54.51 Chronic sacroiliac joint pain M53.3; G89.29 Sacroiliitis M46.1 Spondylosis of lumbar region without myelopathy or radiculopathy M47.816
--- OUTSIDE RECORDS SUMMARY | 2025-03-21 10:26 | XMS_ITS | Patient Health Record ---
Author Organization [facility] Address [address] [place] [facility] [address] [place] [address] Care Team Providers Care Methods Time Analyst Name Role Phone Jovani Suárez Primary Care Provider Yang Blas MD MSc, Gisselle Unavailable [phone] Allergies Allergen (clinical drug ingredient) Drug/Non Drug [...] 1 capsule Orally Once a day Active [employer] Carbonate 300 MG 1 tablet at bed [...] Problem Status W/U Status Risk Notes Problem [id number] Low back pain, unspecified (M54.50) Active confirmed Plan Of Treatment Pending Test Test Name Order Date [facility] Profile 06/24/2022 Insurance Providers Payer Name Payer Address Payer Phone Subscriber Number Group Number Insured Name Patient Relationship to Insured Coverage Start Date Coverage End Date [facility] [address] [place] [phone] [id number] Cary Cedillo Self - patient is the insured Medical (General) History Medical History History ICD Code ADHD Lumbago with sciatica Insomnia Anxiety Bipolar Dz Surgical History Surgery Date(Month/Year) [facility] after miscarriage Right breast lumpectomy 2006 Necrotizing fasciitis x6 2012 larynx repair 2019 Right ankle rods placed 06/2020
--- OUTSIDE RECORDS SUMMARY | 2025-03-21 10:26 | XMS_ITS | Clinical Summary ---
Author Organization [address] [place] [address] Address [address] [place] [address] Phone Care Team Providers Care Real Estate Consultant Name Role Phone Jacoby Francis WASH DRILLER Primary Care Provider [phone] Social History Tobacco Use Types Packs/Day Years Used Date Smoking Tobacco: Never Assessed Comments Unknown Sex and Gender Information Value Date Recorded Sex Assigned at Not on file Legal Sex Female 10:25 AM EST Gender Identity Not on file Sexual Orientation Not on file Plan of Treatment Upcoming Encounters Date Type Department Care Team ([facility] Contact Info) Description 06/25/2025 10:30 AM EDT Office Visit Bariatric Surgery [address] [address] Samantha Jones PA [address] [id number] Health Maintenance Due Date Last Done Comments [...] patient's age to complete this topic Insurance [facility] Care Teams Real Estate Consultant Relationship Specialty Start Date End Date Jacoby Francis FNP [address] [place] [address] PCP - General Family Medicine 10/18/24
--- OUTSIDE RECORDS SUMMARY | 2025-03-21 10:26 | XMS_ITS | Data Portability ---
Author Organization [place] [facility], All[facility] Address [address] [place] [phone] Assessment Encounter Date Assessment Date Assessment LastModified [...] Address Organization Details Recorded Time Peritonsillar abscess [id number] Active 2024 GRIFFIN ALANIS MD [address], [address], [place] [facility] 09:05:51 Problem Notes None recorded. Medical [...] Updated DateTime 10/04/2024 162.56 cm 42.6 kg/m2 453049.91 g Rosy Hutchins [facility] 10/04/2024 08:52:33 Social History None recorded. [...] Disorder N Anesthesia Complications N Heart Attack (AR) N Other Skin Condition N Diabetes N [...] SNOMED-CT Code Diagnosis ICD10 Code Diagnosis Note [id number] GRIFFIN ALANIS MD [facility] [address] [address] 10/04/2024 08:49:00 10/04/2024 09:06:59 Peritonsillar abscess [id number] J36 Health Concerns Section Related Observation LastModified by Organization Detai ls LastModified Time None Recorded Concern Status LastModified by Organization Details LastModified Time None Recorded Advance Directives Directive None Recorded Payers Insurance Date Sequence Insurance Name Policy Number Policy Raygoza Covered Member ID Raygoza Member ID Guarantor Name 10/04/2024 1 [facility] (POS) Cary Sanchez [id number] Cary Sanchez 10/04/2024 1 [facility] (MEDICAID HMO) RADHA Cary Sanchez [id number] Cary Sanchez Notes Date Note Type Note Provider Name and Address Organization Details Recorded Time 10/04/2024 text/html f/u PTA08/24/24 urgent care strep tonsil nuljjz64/30/24 [facility] strep tonsillitis, rx augmentin and prednisoneCT neck w con left inferior peritonsillar abscess [id number] collectionunable to drain with needle aspiration in ER, but eventually imroved with medicineWBC 20.6was referred to Dr Galarza but he did not take her insurancetobacco stopped 2022 GRIFFIN ALANIS MD [address] [place] [address], [place], [address], [place] - [facility] 10/04/2024 09:07:26 OBGyn Episode No OBEpisode recorded.
--- OUTSIDE RECORDS SUMMARY | 2025-03-21 10:26 | XMS_ITS | Patient Health Record ---
Author Organization [facility] Address [address] [place] [address] Care Team Providers Care Shower Screen Installer Name Role Phone Jessica Suárezparirobbie Primary Care Provider Allergies No Known Allergies Reason For Referral [...] Status Risk Notes Problem Morbid obesity (disorder) (037854429) Morbid (severe) obesity due to excess calories (E66.01) Active confirmed Problem Bipolar disorder , current episode depressed, severe, with psychotic features (F31.5) Active confirmed Problem Insomnia disorder related to another mental disorder (05514462) Insomnia due to other mental disorder (F51.05) Active confirmed Problem Attention deficit hyperactivity disorder (731677305) Attention-deficit hyperactivity disorder, predominantly hyperactive type (F90.1) Active confirmed Problem Sciatica (57262700) Lumbago with sciatica, unspecified side (M54.40) Active confirmed Problem Problem, abnormal examination (67471992) Encounter for general adult medical examination with [...] PANEL 05/05/2022 URINALYSIS, COMPLETE W/REFLEX TO CULTURE 05/05/2022 URINALYSIS, COMPLETE W/REFLEX TO CULTURE 04/24/2021 TSH W/REFLEX TO FT4 04/24/2021 TSH W/REFLEX TO FT4 05/05/2022 C-REACTIVE PROTEIN 05/05/2022 C-REACTIVE PROTEIN 04/24/2021 MAGNESIUM 04/24/2021 CBC (INCLUDES DIFF/PLT) 04/24/2021 CBC (INCLUDES DIFF/PLT) 05/05/2022 LIPID PANEL 05/05/2022 LIPID PANEL 04/24/2021 URIC ACID 04/24/2021 URIC ACID 05/05/2022 CBC W/ DIFF 04/25/2021 TSH W/ REFLEX FREE T4 04/25/2021 Insurance Providers Payer Name Payer Address Payer Phone Subscriber Number Group Number Insured Name Patient Relationship to Insured Coverage Start Date Coverage End Date [facility] [address] [place] [phone] [id number] PETER MATA Self - patient is the insured Medical (General) History Surgical History Surgery Date(Month/Year) right breast lumpectomy - fibroadenoma 2 008 multiple surgeries in left leg for necro tizing fascitis 2013
== END 2025-03-21 10:32 | disposition home or self-care (01) ==
LOC: HO.PMC 09:47
PROVIDERS: PCP Nurse Practitioner Family; Visit Provider Anesthesiology
DX: M54.51 Vertebrogenic low back pain (principal); M53.3 Sacrococcygeal disorders, not elsewhere classified; G89.29 Other chronic pain; M46.1 Sacroiliitis, not elsewhere classified
CPT/HCPCS: 99213

== ENCOUNTER → 2025-03-21 09:46 | Outpatient (BNVA) | payer OTHER, SELFPAY | PROVIDERS: PCP Nurse Practitioner Family; Visit Provider Anesthesiology | DX: R60.0 Localized edema (principal); M50.30 Other cervical disc degeneration, unspecified cervical region; M48.02 Spinal stenosis, cervical region; M51.26 Other intervertebral disc displacement, lumbar region; M54.12 Radiculopathy, cervical region; M47.816 Spondylosis without myelopathy or radiculopathy, lumbar region; M53.3 Sacrococcygeal disorders, not elsewhere classified; G89.29 Other chronic pain; M46.1 Sacroiliitis, not elsewhere classified | CPT/HCPCS: 99212 ==

== ENCOUNTER 2025-03-21 13:26 | Outpatient (AMB) | payer OTHER, SELFPAY ==
--- OUTSIDE RECORDS SUMMARY | 2015-02-07 12:30 | XMS_ITS | Continuity of Care Document ---
Author Organization [facility] Address [address] [place] [address] Phone Care Team Providers Care Diamond Finishing Supervisor Name Role Phone Unavailable Unavailable Unavailable Allergies, Adverse Reactions, Alerts Substance Reaction Status Criticality No Known Allergies Active No Inform ation Procedures Procedure Date PREV VISIT, NEW, AGE 18-39 OFFICE/OUTPATIENT VISIT, EST Advance Directives Directive Yes / No Effective Date File Name No Information Encounters Encounter Description Practice Location Reason(s) For Visit Diagnoses Date Provider Providers Copied on Encounter [facility], [address] [place] [address] 2,[address], [place], [place], [id number], tel:[phone] [facility] No Information No Information PREV VISIT, NEW, AGE 18-39 ankush [facility], [address] [place] [address],[address], [place], [place], [id number], tel:[phone] [facility] Follow Up of ED back pain [...]
[2025-03-21 13:32] VITALS: BP 114/78; PULSE 86; TEMP 36.7; O2SAT 96; BMI 50.2
--- NOTE | 2025-03-21 13:32 | AM.OFFWIN_ITS ---
Intake Vital Signs 03/21/25 13:32 Height 5 ft 4 in Weight 292 lb 4 oz BMI 50.2 BP 114/78 Blood Pressure Location Rt brachial Position Sitting Pulse 86 Pulse Source Pulse Oximeter Temp 98.0 F Temp Source Oral Pulse Oximetry (%) 96 Oxygen Delivery Method Room Air Intake Visit Reasons: EP-b/l legs swollen Patient Tobacco Use Status: Former Tobacco user Physician Aide Required: No Is last menstrual period known: Yes Last menstrual period: 03/09/25 Post menopausal: No Patient : No Allergies No Known Allergies Allergy (Verified 03/21/25 13:37) Medication List - Last Reconciled 03/21/25 by Daniela Rodriguez PA-C aripiprazole 20 mg PO DAILY dextroamphetamine-amphetamine 20 mg (Adderall) 20 mg PO DAILY escitalopram oxalate 15 mg PO DAILY gabapentin 1,200 mg (2 x 600 mg) PO TID 30 days ibuprofen 400 mg PO Q6H PRN lidocaine 5% 1 patch topical DAILY methocarbamol 500 mg PO TID PRN phentermine 15 mg PO DAILY 30 days topiramate XR (Qudexy XR) 200 mg PO DAILY tramadol 100 mg (2 x 50 mg) PO TID PRN 20 days zolpidem ER 12.5 mg PO BEDTIME PRN Do you need a note to return to daycare/school/sports/work: No HPI HPI Comments History of Present Illness Details History - The patient is a 49-year-old female pr esenting with swollen lower extremities. - The swelling began two days ago and jenkins s worsened, with a history of similar symptoms over ten years ago diagnosed as venous stasis. - Denies shortness of breath beyond her baseline, states she is short of breath because she is ?fat . - The patient has tried compression stoc kings, which caused itching, and has not been on diuretics. - The patient has never seen a cardiolog ist, hasn't ever had an echo and is unsure of the underlying cause of the swelling. Physical Exam General: Cooperative, healthy appearing, comfortable, no acute distress and well developed Orientation: Patient oriented x3 Limitations: No limitations Head: Normal to inspection Ears: Hearing grossly normal bilaterally Nose: Normal External nose present Face and sinus: Normal facial exam Mouth: normal, moist oral mucosa Eyes: Appearance normal, both eyes and all related structures Neck: Normal visual inspection and Yes full ROM Respiratory: Normal respiratory effort and able to speak in complete sentences. Clear to auscultation Skin: no rashes or lesions noted Neuro: Patient oriented x3, gait normal Extremities: 1+ pitting edema bilateral lower extremities, large scar on lower left anterior winston (indented with the edema), moving all extremities normally [facility] Medical History Sacroiliac joint dysfunction Cervical spondylosis Myofascial pain Lumbar disc herniation Necrotizing fasciitis Degenerative disc disease, lumbar Depression Anxiety Surgical History History of throat surgery S/P lumpectomy, right breast Family History Mother COPD (chronic obstructive pulmonary disease) Emphysema lung Mental health disorder Social History Household Members: Friend(s) Both parents involved: No Caregiver staying overnight: No Housing: House Are you a primary daycare teacher to a significant other at home: No Do you presently have visiting nurse or other home services: No 75 years or older and lives alone: No Alcohol intake: current Alcohol intake frequency: holidays/special occasions only Patient Tobacco Use Status: Former Tobacco user Tobacco use type: Cigarette e-Cigarette/Vaping Use: Former Use Second Hand Smoke Exposure: No Patient : No service: No Current occupational status: disabled 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 Current occupational exposures/hazards: No Cognitive needs: No Hearing needs: No Vision needs: Yes (glasses) Female Reproductive History Menstrual Date of last menstrual period: 03/09/25 Review of Systems Const All systems reviewed & are unremarkable except as noted in HPI and below Physical Exam Vital Signs: Last Vital Signs Temp 98.0 F 03/21/25 13:32 Pulse 86 03/21/25 13:32 BP 114/78 03/21/25 13:32 Pulse Ox 96 03/21/25 13:32 Oxygen Delivery Method Room Air 03/21/25 13:32 BMI result Body Mass Index 50.2 Assessment & Plan Assessment & Plan (1) Bilateral lower extremity edema: Code(s): R60.0 - Localized edema Plan: Plan Patient was informed and verbally consented to the use of an ambient scribe for clinic note documentation during this visit - Re-checked BP in office, 120/80 - likely 2/2 chronic venous insufficiency. - Continue using compression stockings daily to manage symptoms. - Follow a low salt diet to help reduce edema. - Follow up with primary care physician for further evaluation and potential echocardiogram to assess cardiac function. - elevate legs when possible. - Consult with primary care physician for further management and potential diuretic therapy. Coding Level of Care Code Est Pt Level 3 (31271) Diagnoses Bilateral lower extremity edema R60.0
== END 2025-03-21 14:16 | disposition home or self-care (01) ==
PROVIDERS: PCP Nurse Practitioner Family; Visit Provider Physician Assistant
DX: R60.0 Localized edema (principal)

== ENCOUNTER 2025-03-26 15:34 | Outpatient (AMB) | payer OTHER, SELFPAY ==
--- NOTE | 2025-03-26 15:36 | A.OFFPC_ITS ---
Vital Signs 03/26/25 15:41 Height 5 ft 4 in Weight 295 lb 8 oz BMI 50.7 BP 131/72 Blood Pressure Location Lt brachial Position Sitting Respiration 16 Pulse 92 Pulse Source Pulse Oximeter Temp 99.3 F Temp Source Oral Pulse Oximetry (%) 98 Oxygen Delivery Method Room Air Intake Visit Reasons: medication review Intake Note: patient here for medication review Inspector Balance Wheel Motion Required: No Is last menstrual period known: Yes Last menstrual period: 03/10/25 Post menopausal: No Patient : No Allergies No Known Allergies Allergy (Verified 03/26/25 15:53) Medication List - Last Reconciled 03/26/25 by Jacoby Francis CNP aripiprazole 20 mg PO DAILY dextroamphetamine-amphetamine 20 mg (Adderall) 20 mg PO DAILY escitalopram oxalate 15 mg PO DAILY gabapentin 1,200 mg (2 x 600 mg) PO TID 30 days ibuprofen 400 mg PO Q6H PRN lidocaine 5% 1 patch topical DAILY methocarbamol 500 mg PO TID PRN phentermine 15 mg PO DAILY 30 days topiramate XR (Qudexy XR) 200 mg PO DAILY tramadol 100 mg (2 x 50 mg) PO TID PRN 20 days zolpidem ER 12.5 mg PO BEDTIME PRN Tobacco use date assessed: 03/26/25 Dental Screening Dental Screen Date: 03/26/25 Did you have a dental visit in the last 12 months?: Yes Did you have a dental problem in the last 6 months where you did not have access to dental care?: No Was dental information given to patient?: Patient has dentist HPI HPI Comments History of Present Illness Details 49-year-old female presents with complai nt for swelling to her lower legs for the past 1 week. She denies pain to the extremities. She was evaluated at the [facility] on 03/21/25, was advised to wear compression stockings, which she has been wearing as advised. She notes that she was advised by her dietitian to with a pinch of salt in her water but she recently stopped doing it. [facility] Medical History Sacroiliac joint dysfunction Cervical spondylosis Myofascial pain Lumbar disc herniation Necrotizing fasciitis Degenerative disc disease, lumbar Depression Anxiety Surgical History History of throat surgery S/P lumpectomy, right breast Family History Mother COPD (chronic obstructive pulmonary disease) Emphysema lung Mental health disorder Social History Household Members: Friend(s) Both parents involved: No Caregiver staying overnight: No Housing: House Are you a primary home visit field care manager to a significant other at home: No Do you presently have visiting nurse or other home services: No 75 years or older and lives alone: No Alcohol intake: current Alcohol intake frequency: holidays/special occasions only Patient Tobacco Use Status: Former Tobacco user Tobacco use type: Cigarette e-Cigarette/Vaping Use: Former Use Second Hand Smoke Exposure: No Patient : No service: No Current occupational status: disabled 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 Current occupational exposures/hazards: No Cognitive needs: No Hearing needs: No Vision needs: Yes (glasses) Female Reproductive History Menstrual Date of last menstrual period: 03/10/25 Questionnaire Thrive Questionnaire Date Thrive assessed: 08/31/24 I am a: Patient What is your living situation today?: I have a steady place to live Within the past 12 months, did the food you bought not last and you didn't have the money to get more?: Never true Within the past 12 months, did you worry whether your food would run out before you got money to buy more?: Never true Do you have trouble paying for medicines?: No Do you have trouble getting transportation to medical appointments?: No Do you have trouble paying your heating and electricity bill?: No Do you have trouble taking care of your child, family member or friend?: No Do you have trouble with day-to-day activities such as bathing, preparing meals, shopping, managing finances, etc.?: No Are you currently unemployed and looking for a job?: No Are you interested in more education?: No Please select the resources that you would like help with: None Currently or been in a relationship where the following occur: No concerns reported THRIVE Score: 0 BAYRON-7 AMB Questionnaire BAYRON-7 Date BAYRON - 7 assessed: 06/19/24 Source: Developed by Gisselle Street.W. Axel, Javed Lee and colleagues, with an educational earline from [employer] Review of Systems Const Details: Const Denies chills, Denies fatigue, Denies fever(s), Denies headache(s) and Denies weakness ENT Denies dizziness and Denies headache(s) Card Denies chest pain, Denies lightheadedness, Denies dyspnea and Denies other (Palpitations) Resp Denies cough, Denies dyspnea, Denies wheezing and Denies other ( shortness of breath) GI Denies abdominal pain, Denies melena, Denies hematochezia, Denies change in bowel habits, Denies dyspepsia and Denies nausea Denies hematuria and Denies dysuria Musc Reports as per HPI Skin/Breast Denies rash, Denies unusual bruising and Denies wounds Neuro Denies abnormal gait, Denies dizziness, Denies headache(s), Denies memory loss, Denies numbness, Denies Sensory deficit (Neuro), Denies tingling and Denies weakness Psych Denies anxiety, Denies depression, Denies memory loss Endo Denies cold intolerance, Denies fatigue, Denies heat intolerance, Denies polydipsia and Denies polyuria Aller/Immun Denies wheezing Physical exam (Primary Care) Vital Signs: Last Vital Signs Temp 99.3 F 03/26/25 15:41 Pulse 92 03/26/25 15:41 Resp 16 03/26/25 15:41 BP 131/72 03/26/25 15:41 Pulse Ox 98 03/26/25 15:41 Oxygen Delivery Method Room Air 03/26/25 15:41 BMI result Body Mass Index 50.7 Tobacco/Smoking Status: Tobacco use Status Tobacco use date assessed 03/26/25 03/26/25 15:45 Patient Tobacco Use Status Former Tobacco user 03/26/25 15:38 Tobacco use type Cigarette 03/26/25 15:38 e-Cigarette/Vaping Use Former Use 03/26/25 15:38 Thrive Assessment: Date of Thrive Assessment Date Thrive assessed 08/31/24 03/26/25 15:38 Currently or been in a relationship where the following occur: No concerns reported Const Other: General: no acute distress and well developed Nutritional Appearance: well nourished Orientation/consciousness: patient oriented x3 HENMT Head: Yes normocephalic and Yes atraumatic Eyes General: appearance normal, both eyes and all related structures Pupils: Equal, round and reactive pupils present EOM: EOMs intact bilaterally Resp Effort & Inspection: normal respiratory effort Auscultation: clear to auscultation bilaterally Cardio Rate: regular rate Rhythm: regular rhythm Heart sounds: S1 normal heart sound present, S2 normal heart sound present, no gallops, no murmurs and no rubs GI Palpation (GI): No Abdominal aortic bruit present, Soft to palpation, nontender, No hepatosplenomegaly present and No Rebound tenderness present Auscultation: normal bowel sounds General: Yes no CVA tenderness Back/Spine/Pelvis Back: no CVA tenderness Cervical Spine: cervical ROM normal and No Cervical spine tenderness Thoracic/Lumbar Spine: thoraco-lumbar ROM normal, No pain with thoraco-lumbar ROM, No thoracic spinal tenderness and No lumbar spinal tenderness Extrem General: Yes normal to inspection, and No calf tenderness. 1+ edema to bilateral lower legs and ankles, no erythema, normal skin temp Skin General: warm and dry. Normal skin color. Normal skin turgor Neuro General: patient oriented x3, gait normal and no focal neuro deficit Cranial nerves: Yes Equal, round and reactive pupils present Cognition (Neuro): normal cognition Gait exam (Neuro): Normal gait present Sensory Exam: No Sensory deficit (Neuro) Psych Appearance: grossly normal Affect: normal affect Attitude: cooperative Thought process: Normal thought process present Coding Level of Care Code Est Pt Level 4 (78435) Diagnoses Bilateral lower extremity edema R60.0 Assessment & Plan Assessment & Plan (1) Bilateral lower extremity edema: Code(s): R60.0 - Localized edema Category: Medical Plan: 1+ edema to bilateral lower legs and ankles, no erythema, normal skin temp Furosemide 20 mg daily for 5 days ordered; advised to take as prescribed. Continue to wear compression stockings with prolonged standing or walking. Elevated bilateral lower extremity to reduce edema. Follow-up with worsening or new signs and symptoms. Verbalized understanding and agreed with the plan. Medications: New furosemide (Lasix) 20 mg PO QAM 5 tabs 0RF 5 days
[2025-03-26 15:41] VITALS: BP 131/72; PULSE 92; RESP 16; TEMP 37.4; O2SAT 98; BMI 50.7
--- OUTSIDE RECORDS SUMMARY | 2025-03-26 16:19 | XMS_ITS | Patient Health Record ---
Author Organization [facility] Address [address] [place] [address] Care Team Providers Care Tower Crane Operator Name Role Phone Jovani Suárez Primary Care Provider Yang Blas MD MSc, Gisselle Unavailable [phone] Allergies Allergen (clinical drug ingredient) Drug/Non Drug [...] MG 1 tablet Orally On ce a day; Duration: 30 day(s) Not-Taking traMADol HCl 100 MG 1 tablet as needed Orally TID Active Gabapentin 300 MG 3 capsule Orally TID Active Topiramate 100 MG 1 tablet Orally Once a day; Duration: 30 day(s) Active ARIPiprazole 2 MG 1 tablet Orally Once a day; Duration: 30 day(s) Not-Taking Meloxicam 15 MG 1 tablet Orally Once a day; Duration: 30 day(s) Active Metaxalone 800 MG 1 tablet Orally Thre e times a day; Duration: 30 day(s) Active hydrOXYzine HCl 25 MG 1 tablet at bedtim e as needed Orally TID Not-Taking Ziprasidone HCl 60 MG 1 capsule with mercedes d Orally Twice a day; Duration: 30 day(s) Active Phentermine HCl 37.5 MG 1 capsule Orally Once a day Active Loyal Carbonate 300 MG 1 tablet at bed time Orally Once a day; Duration: 30 day(s) Not-Taking Lithobid 300 MG 1 tablet at bedtime Orally Once a day; Duration: 30 day(s) Not-Taking Nicoderm CQ 21 MG/24HR 1 patch to skin Transdermal Once a day; Duration: 30 day(s) Not-Taking Calcium & Magnesium Carbonates [...] Problem Status W/U Status Risk Notes Problem Low back pain, unspecified (M54.50) Active confirmed Plan Of Treatment Pending Test Test Name Order Date [facility] Profile 06/24/2022 Insurance Providers Payer Name Payer Address Payer Phone Subscriber Number Group Number Insured Name Patient Relationship to Insured Coverage Start Date Coverage End Date [facility] [address] [place] [phone] [id number] Cary Cedillo Self - patient is the insured Medical (General) History Medical History History ICD Code ADHD Lumbago with sciatica Insomnia Anxiety Bipolar Dz Surgical History Surgery Date(Month/Year) [facility] after miscarriage Right breast lumpectomy 2006 Necrotizing fasciitis x6 2013 larynx repair 2019 Right ankle rods placed 06/2020
--- OUTSIDE RECORDS SUMMARY | 2025-03-26 16:20 | XMS_ITS | Data Portability ---
Author Organization [place] [facility], All[facility] Address [address] [place] [address] Assessment Encounter Date Assessment Date Assessment LastModified [...] Address Organization Details Recorded Time Peritonsillar abscess [id number] Active 2024 GRIFFIN ALANIS MD [address], [address], [place] [facility] 09:05:51 Problem Notes None recorded. Medical Equipment [...] Updated DateTime 10/04/2024 162.56 cm 42.6 kg/m2 784017.91 g Rosy Hutchins [facility] 10/04/2024 08:52:33 Social History None recorded. Functional [...] Disorder N Anesthesia Complications N Heart Attack ([place]) N Other Skin Condition N Diabetes N Rhinitis N Bleeding Disorder N Food Allergy N Arthritis N Hearing Loss N Hyperlipidemia N Cancer N Stroke N Dementia N Nasal polyps N Asthma N High Cholesterol N Sleep Disorder Y GERD/Reflux N Liver Disease N Headaches Y Fibromyalgia N Hypertension N Speech Delay N Kidney Disease N Gynecological HistoryNo gynecological history recorded. Obstetrics History GPAL:G 0 P 0 0 0 0 Past Encounters Encounter ID Performer Location Encounter Start Date Encounter Closed Date Diagnosis/Indication Diagnosis SNOMED-CT Code Diagnosis ICD10 Code Diagnosis Note [id number] GRIFFIN ALANIS MD [facility] [address] [address] 10/04/2024 08:49:00 10/04/2024 09:06:59 Peritonsillar abscess [id number] J36 Health Concerns Section Related Observation LastModified by Organization Detai ls LastModified Time None Recorded Concern Status LastModified by Organization Details LastModified Time None Recorded Advance Directives Directive None Recorded Payers Insurance Date Sequence Insurance Name Policy Number Policy Raygoza Covered Member ID Raygoza Member ID Guarantor Name 10/04/2024 1 [facility] Cary Sanchez [id number] Cary Sanchez 10/04/2024 1 [facility] (MEDICAID HMO) RADHA Sanchez [id number] Cary Sanchez OBGyn Episode No OBEpisode recorded.
--- OUTSIDE RECORDS SUMMARY | 2025-03-26 16:20 | XMS_ITS | Clinical Summary ---
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 Name Role Phone Jacoby Francis PROT[employer] SPECIAL [employer]ILD Primary Care Provider [phone] Social History Tobacco Use Types Packs/Day Years Used Date Smoking Tobacco: Never Assessed Comments Unknown Sex and Gender Information Value Date Recorded Sex Assigned at Not on file Legal Sex Female 10:25 AM EST Gender Identity Not on file Sexual Orientation Not on file Plan of Treatment Upcoming Encounters Date Type Department Care Team ([facility] Contact Info) Description 06/25/2025 10:30 AM EDT Office Visit Bariatric Surgery [address] [address] Samantha Jones PA [address] [id number] Health Maintenance Due Date Last Done Comments [...] patient's age to complete this topic Insurance [facility] Care Teams Sheet Metal Mechanic Relationship Specialty Start Date End Date Jacoby Francis FNP [address] [place] [address] PCP - General Family Medicine 10/18/24
--- OUTSIDE RECORDS SUMMARY | 2025-03-26 16:20 | XMS_ITS | Patient Health Record ---
Author Organization [facility] Cardiology & Internal Medicine Address [address] [place] [address] Care Team Providers Care Supervisor Microbiology Technologists Name Role Phone Jessica Suárezparirobbie Primary Care Provider [phone] Allergies No Known Allergies Reason For Referral [...] Status Risk Notes Problem Morbid obesity (disorder) (690147366) Morbid (severe) obesity due to excess calories (E66.01) Active confirmed Problem Bipolar disorder , current episode depressed, severe, with psychotic features (F31.5) Active confirmed Problem Insomnia disorder related to another mental disorder (12000811) Insomnia due to other mental disorder (F51.05) Active confirmed Problem Attention deficit hyperactivity disorder (854895969) Attention-deficit hyperactivity disorder, predominantly hyperactive type (F90.1) Active confirmed Problem Sciatica (48700346) Lumbago with sciatica, unspecified side (M54.40) Active confirmed Problem Problem, abnormal examination (66456121) Encounter for general adult medical examination with [...] Coverage End Date [facility] [address] [place] [phone] [id number] PETER MATA Self - patient is the insured Medical (General) History Surgical History Surgery Date(Month/Year) right breast lumpectomy - fibroadenoma 2 008 multiple surgeries in left leg for necro tizing fascitis 2013
== END 2025-03-26 16:55 | disposition home or self-care (01) ==
LOC: HO.HMCFM 15:35
PROVIDERS: PCP Nurse Practitioner Family; Visit Provider Nurse Practitioner Family
DX: R60.0 Localized edema (principal)

== ENCOUNTER → 2025-03-26 15:34 | Outpatient (BNVA) | payer OTHER, SELFPAY | PROVIDERS: PCP Nurse Practitioner Family; Visit Provider Nurse Practitioner Family | DX: R60.0 Localized edema (principal) | CPT/HCPCS: 99212 ==

== ENCOUNTER 2025-04-23 12:50 | Outpatient (AMB) | payer OTHER, SELFPAY ==
--- OUTSIDE RECORDS SUMMARY | 2015-02-07 12:30 | XMS_ITS | Continuity of Care Document ---
Author Organization [facility] Address [address] [place] [address] Phone Care Team Providers Care Laundry Worker Name Role Phone Unavailable Unavailable Unavailable Allergies, Adverse Reactions, Alerts Substance Reaction Status Criticality No Known Allergies Active No Inform ation Procedures Procedure Date PREV VISIT, NEW, AGE 18-39 OFFICE/OUTPATIENT VISIT, EST Advance Directives Directive Yes / No Effective Date File Name No Information Encounters Encounter Description Practice Location Reason(s) For Visit Diagnoses Date Provider Providers Copied on Encounter [facility], [address] [place] [address],[address], [place], [place], [id number], tel:[phone] [facility] No Information No Information PREV VISIT, NEW, AGE 18-39 ankush [facility], [address] [place] [address],[address], [place], [place], [id number], tel:[phone] 1984 [facility] Follow Up of ED back pain (chief complaint) iunitial visit (chief complaint) Routine adult health maintenanceLow back painTobacco abuseStatus post breast lumpectomy No Information Family History Family Member Type Diagnosis Age At Onset No Information Immunizations Vaccine Date Status Comments Td (adult) preservative free administered Note: per patient ; Source: Source Unspecified Payers Payer name Insurance type Covered constitution party ID Authoriza tion(s) No Information Social History Type Description Quantity Date Captured Comments Sex Female Smoking Status No Information Sexual Orientation Choose not to disclose Chief Complaint And Reason For Visit No [...]
--- NOTE | 2025-04-23 13:16 | MHC.PC.OV ---
Vital Signs 04/23/25 13:24 Height 5 ft 4 in Weight 294 lb 2 oz BMI 50.5 BP 131/84 Blood Pressure Location Rt brachial Position Sitting Respiration 16 Pulse 100 Pulse Source Pulse Oximeter Temp 99.6 F Temp Source Oral Pulse Oximetry (%) 98 Oxygen Delivery Method Room Air Intake Visit Reasons: medication review Intake Note: patient here for med review Identification Technician Required: No Is last menstrual period known: Yes Last menstrual period: 03/10/25 Post menopausal: No Patient : No Allergies No Known Allergies Allergy (Verified 04/23/25 13:42) Medication List - Last Reconciled 04/23/25 by Jacoby Francis CNP aripiprazole 20 mg PO DAILY dextroamphetamine-amphetamine 20 mg (Adderall) 20 mg PO DAILY escitalopram oxalate 15 mg PO DAILY gabapentin 1,200 mg (2 x 600 mg) PO TID 30 days ibuprofen 400 mg PO Q6H PRN lidocaine 5% 1 patch topical DAILY methocarbamol 500 mg PO TID PRN phentermine 15 mg PO DAILY 30 days topiramate XR (Qudexy XR) 200 mg PO DAILY tramadol 100 mg (2 x 50 mg) PO TID PRN 20 days zolpidem ER 12.5 mg PO BEDTIME PRN Tobacco use date assessed: 04/23/25 Dental Screening Dental Screen Date: 04/23/25 Did you have a dental visit in the last 12 months?: Yes Did you have a dental problem in the last 6 months where you did not have access to dental care?: No Was dental information given to patient?: Patient has dentist HPI HPI Comments History of Present Illness Details 49-year-old female presents with requests for pain management. She has chronic low back pain which she describes as stabbing and pressure with ambulation and mild uncomfortable pain at rest. She [place] [facility] [place]. She notes that she was told by [facility] [place] that the her health plan denies coverage for the sprint system for her back pain. She has difficulty with movement due to severe pain low back pain. She wants a stronger pain medication than tramadol for better pain control and mobility. [facility] Medical History Sacroiliac joint dysfunction Cervical spondylosis Myofascial pain Lumbar disc herniation Necrotizing fasciitis Degenerative disc disease, lumbar Depression Anxiety Surgical History History of throat surgery S/P lumpectomy, right breast Family History Mother COPD (chronic obstructive pulmonary disease) Emphysema lung Mental health disorder Social History Household Members: Friend(s) Housing: House Are you a primary animal care assistant to a significant other at home: No Do you presently have visiting nurse or other home services: No Alcohol intake: current Alcohol intake frequency: holidays/special occasions only Patient Tobacco Use Status: Former Tobacco user Tobacco use type: Cigarette e-Cigarette/Vaping Use: Former Use Second Hand Smoke Exposure: No service: No Current occupational status: disabled 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 Current occupational exposures/hazards: No Cognitive needs: No Hearing needs: No Vision needs: Yes (glasses) Female Reproductive History Menstrual Date of last menstrual period: 03/10/25 Questionnaire Thrive Questionnaire Date Thrive assessed: 08/31/24 I am a: Patient What is your living situation today?: I have a steady place to live Within the past 12 months, did the food you bought not last and you didn't have the money to get more?: Never true Within the past 12 months, did you worry whether your food would run out before you got money to buy more?: Never true Do you have trouble paying for medicines?: No Do you have trouble getting transportation to medical appointments?: No Do you have trouble paying your heating and electricity bill?: No Do you have trouble taking care of your child, family member or friend?: No Do you have trouble with day-to-day activities such as bathing, preparing meals, shopping, managing finances, etc.?: No Are you currently unemployed and looking for a job?: No Are you interested in more education?: No Please select the resources that you would like help with: None Currently or been in a relationship where the following occur: No concerns reported THRIVE Score: 0 BAYRON-7 AMB Questionnaire BAYRON-7 Date BAYRON - 7 assessed: 06/19/24 Source: Developed by Drs. Contreras Velazquez, Gisselle BJaved Corrales and colleagues, with an educational earline from [employer]. Review of Systems Const Details: Const Denies chills, Denies fatigue, Denies fever(s), Denies headache(s) and Denies weakness ENT Denies dizziness and Denies headache(s) Card Denies chest pain, Denies lightheadedness, Denies dyspnea and Denies other (Palpitations) Resp Denies cough, Denies dyspnea, Denies wheezing and Denies other ( shortness of breath) GI Denies abdominal pain, Denies melena, Denies hematochezia, Denies change in bowel habits, Denies dyspepsia and Denies nausea Denies hematuria and Denies dysuria Musc Reports as per HPI Skin/Breast Denies rash, Denies unusual bruising and Denies wounds Neuro Denies abnormal gait, Denies dizziness, Denies headache(s), Denies memory loss, Denies numbness, Denies Sensory deficit (Neuro), Denies tingling and Denies weakness Psych Denies anxiety, Denies depression, Denies memory loss Endo Denies cold intolerance, Denies fatigue, Denies heat intolerance, Denies polydipsia and Denies polyuria Aller/Immun Denies wheezing Physical exam (Primary Care) Vital Signs: Last Vital Signs Temp 99.6 F 04/23/25 13:24 Pulse 100 04/23/25 13:24 Resp 16 04/23/25 13:24 BP 131/84 04/23/25 13:24 Pulse Ox 98 04/23/25 13:24 Oxygen Delivery Method Room Air 04/23/25 13:24 BMI result Body Mass Index 50.5 Tobacco/Smoking Status: Tobacco use Status Tobacco use date assessed 04/23/25 04/23/25 13:25 Patient Tobacco Use Status Former Tobacco user 04/23/25 13:19 Tobacco use type Cigarette 04/23/25 13:19 e-Cigarette/Vaping Use Former Use 04/23/25 13:19 Thrive Assessment: Date of Thrive Assessment Date Thrive assessed 08/31/24 04/23/25 13:19 Currently or been in a relationship where the following occur: No concerns reported Const Other: General: no acute distress and well developed Nutritional Appearance: well nourished Orientation/consciousness: patient oriented x3 HENMT Head: Yes normocephalic and Yes atraumatic Eyes General: appearance normal, both eyes and all related structures Pupils: Equal, round and reactive pupils present EOM: EOMs intact bilaterally Resp Effort & Inspection: normal respiratory effort Auscultation: clear to auscultation bilaterally Cardio Rate: regular rate Rhythm: regular rhythm Heart sounds: S1 normal heart sound present, S2 normal heart sound present, no gallops, no murmurs and no rubs GI Palpation (GI): No Abdominal aortic bruit present, Soft to palpation, nontender, No hepatosplenomegaly present and No Rebound tenderness present Auscultation: normal bowel sounds General: Yes no CVA tenderness Back/Spine/Pelvis Back: no CVA tenderness Cervical Spine: cervical ROM normal and No Cervical spine tenderness Thoracic/Lumbar Spine: thoraco-lumbar ROM normal, No pain with thoraco-lumbar ROM, No thoracic spinal tenderness and No lumbar spinal tenderness Extrem General: Yes normal to inspection, No edema and No calf tenderness Skin General: warm and dry. Normal skin color. Normal skin turgor Neuro General: patient oriented x3, gait normal and no focal neuro deficit Cranial nerves: Yes Equal, round and reactive pupils present Cognition (Neuro): normal cognition Gait exam (Neuro): Normal gait present Sensory Exam: No Sensory deficit (Neuro) Psych Appearance: grossly normal Affect: normal affect Attitude: cooperative Thought process: Normal thought process present Coding Level of Care Code Est Pt Level 3 (96163) Diagnoses Chronic back pain M54.9; G89.29 Back pain location: low back pain Sciatica presence: without sciatica Assessment & Plan Assessment & Plan (1) Chronic back pain: Code(s): M54.9 - Dorsalgia, unspecified; G89.29 - Other chronic pain Category: Medical Qualifiers: Back pain location: low back pain Sciatica presence: without sciatica Plan: Message sent [place] [facility] [place] regarding patient's request for better pain control. Meanwhile, continue current treatment regimen. Will follow-up regarding care plan once pain management responds. Verbalized understanding and agreed with the plan.
[2025-04-23 13:24] VITALS: BP 131/84; PULSE 100; RESP 16; TEMP 37.6; O2SAT 98; BMI 50.5
--- OUTSIDE RECORDS SUMMARY | 2025-04-23 13:32 | XMS_ITS | Patient Health Record ---
Author Organization [facility] Address [address] [place] [address] Care Team Providers Care Complaints Coordinator Name Role Phone Jovani Suárez Primary Care Provider Yang Blas MD MSc, Gisselle Unavailable [phone] Allergies Allergen (clinical drug ingredient) Drug/Non Drug [...] 1 capsule Orally Once a day Active [place] Carbonate 300 MG 1 tablet at bed [...] Coverage Start Date Coverage End Date [employer] [facility] [id number] [place] [phone] [id number] Cary Cedillo Self - patient is the insured Medical (General) History Medical History History ICD Code ADHD Lumbago with sciatica Insomnia Anxiety Bipolar Dz Surgical History Surgery Date(Month/Year) [facility] after miscarriage Right breast lumpectomy 2006 Necrotizing fasciitis x6 2013 larynx repair 2019 Right ankle rods placed 06/2020
--- OUTSIDE RECORDS SUMMARY | 2025-04-23 13:32 | XMS_ITS | Patient Health Record ---
Author Organization [facility] Address [address] [place] [address] Care Team Providers Care Screen Stretcher Name Role Phone Jessica Suárezparirobbie Primary Care [...] Status Risk Notes Problem Morbid obesity (disorder) (101168946) Morbid (severe) obesity due to excess calories (E66.01) Active confirmed Problem Bipolar disorder , current episode depressed, severe, with psychotic features (F31.5) Active confirmed Problem Insomnia disorder related to another mental disorder (19066873) Insomnia due to other mental disorder (F51.05) Active confirmed Problem Attention deficit hyperactivity disorder (273389463) Attention-deficit hyperactivity disorder, predominantly hyperactive type (F90.1) Active confirmed Problem Sciatica (04536797) Lumbago with sciatica, unspecified side (M54.40) Active confirmed Problem Problem, abnormal examination (97377648) Encounter for general adult medical examination with abnormal findings (Z00.01) Active confirmed Plan Of Treatment Pending Test Test Name Order Date COMPREHENSIVE METABOLIC PANEL W/EGFR C-REACTIVE PROTEIN 04/25/2021 LIPID PANEL 04/25/2021 MAGNESIUM 04/25/2021 CULTURE, URINE, ROUTINE 04/25/2021 URIC ACID 04/25/2021 URINALYSIS WITH CULTURE IF POS UA SEDIMENT 04/25/2021 MRI LUMBAR SPINE W/O CM 03/16/2022 COMPREHENSIVE METABOLIC PANEL 05/05/2022 COMPREHENSIVE METABOLIC PANEL 04/24/2021 URINALYSIS, COMPLETE W/REFLEX TO CULTURE 04/24/2021 URINALYSIS, COMPLETE W/REFLEX TO CULTURE 05/05/2022 TSH W/REFLEX TO FT4 05/05/2022 TSH W/REFLEX TO FT4 04/24/2021 C-REACTIVE PROTEIN 04/24/2021 C-REACTIVE PROTEIN 05/05/2022 MAGNESIUM 04/24/2021 CBC (INCLUDES DIFF/PLT) 04/24/2021 CBC (INCLUDES DIFF/PLT) 05/05/2022 LIPID PANEL 05/05/2022 LIPID PANEL 04/24/2021 URIC ACID 04/24/2021 URIC ACID 05/05/2022 CBC W/ DIFF 04/25/2021 TSH W/ REFLEX FREE T4 04/25/2021 Insurance Providers Payer Name Payer Address Payer Phone Subscriber Number Group Number Insured Name Patient Relationship to Insured Coverage Start Date Coverage End Date [facility] [address] [place] [phone] [id number] PETER MATA Self - patient is the insured Medical (General) History Surgical History Surgery Date(Month/Year) right breast lumpectomy - fibroadenoma 2 008 multiple surgeries in left leg for necro tizing fascitis 2013
--- OUTSIDE RECORDS SUMMARY | 2025-04-23 13:33 | XMS_ITS | Clinical Summary ---
Author Organization [facility] Address [address] [place] [address] Phone Care Team Providers Care Painter Touch Up Name Role Phone Jacoby Francis LIZETTE Primary Care Provider [phone] Social History Tobacco Use Types Packs/Day Years Used Date Smoking Tobacco: Never Assessed Comments Unknown Sex and Gender Information Value Date Recorded Sex Assigned at Not on file Legal Sex Female 10:25 AM EST Gender Identity Not on file Sexual Orientation Not on file Plan of Treatment Upcoming Encounters Date Type Department Care Team ([facility] Contact Info) Description 06/25/2025 10:30 AM EDT Office Visit Bariatric Surgery [facility] [address] [place] [address] Samantha Jones, GREGORIO [address] [place] [phone] Health Maintenance Due Date Last Done Comments [...] age to complete this topic Insurance [facility] PL[facility] Care Teams Painter Touch Up Relationship Specialty Start Date End Date Jacoby Francis FNP [address] [place] [id number] PCP - General Family Medicine 10/18/24
== END 2025-04-23 14:15 | disposition home or self-care (01) ==
LOC: HO.HMCFM 12:51
PROVIDERS: PCP Nurse Practitioner Family; Visit Provider Nurse Practitioner Family
DX: M54.9 Dorsalgia, unspecified (principal); G89.29 Other chronic pain

== ENCOUNTER → 2025-04-23 12:50 | Outpatient (BNVA) | payer OTHER, SELFPAY | PROVIDERS: PCP Nurse Practitioner Family; Visit Provider Nurse Practitioner Family | DX: M54.50 Low back pain, unspecified (principal); G89.29 Other chronic pain | CPT/HCPCS: 99212 ==

== ENCOUNTER 2025-05-29 14:36 | Outpatient (AMB) | payer OTHER, SELFPAY ==
[2025-05-29 14:47] VITALS: BP 170/96; PULSE 95; RESP 18; O2SAT 97; BMI 53.8
--- NOTE | 2025-05-29 14:47 | MHC.OFFVIS ---
Vital Signs 05/29/25 14:47 Height 5 ft 2 in Weight 294 lb BMI 53.8 BP 170/96 H Blood Pressure Location Lt brachial Position Sitting Respiration 18 Pulse 95 Pulse Source Pulse Oximeter Pulse Oximetry (%) 97 Oxygen Delivery Method Room Air Intake Visit Reasons: Procedure Discussion Follow Up Purchasing Clerk Required: No Allergies No Known Allergies Allergy (Verified 05/29/25 14:45) HPI Comments Details: Cary is in my office 2nd time after diagnostic medial branch block bilateral L2, L3, L4. First time she reported 100% pain improvement after the procedure for the 1st 6 hours. She reports improved mobility although stated that some pressure retained when she was walking. I was considering her body habitus and I offered her sprint PNS. However her insurance company consider sprint PNS experimental and investigational. My recommendations were for her since we are now in May open enrollment. To switch her insurance to traditional [employer] Medicaid. When we started to discuss this issue I explained to her that I can do the RFA of the above-mentioned medial branches however in my opinion it will not be very effective for her. She may have pain relief for 1st 6 months however the pain will come back and the RFA will not be as effective next time. Besides I told her that in the order to do the RFA I need to perform diagnostic 2. Medial branch block again L2, L3, L4. Patient requested me to guarantee her 100% that as a result of the procedures she will be able to walk without difficulty. I explained to her that while I have reasonable believe that her mobility will improve after the procedure I can not make such a guarantee. This patient is morbidly obese and walking for her presents as certain challenge. Results of therapeutic sacroiliac joint injection. She reported pain relief in the projection of the sacral bone, she reports that she does not feel pain there anymore. However now she states that her pain in the projection of the L4 and L5 vertebra is getting worse. She used to reports that her pain was aggravated by flexing forward. Now she feels that flexing forward actually alleviate her pain and it is flexing backwards which makes her pain worse. Loading test is positive bilaterally. I suspected that this patient has combination of the arthritis of the sacroiliac joints and arthritis of the lumbar spine. I will schedule her for diagnostic medial branch block L3, L4, dorsal ramus L5. Patient also reports that she is gaining weight. She is on strict diet. The weight gain might be related to water retention. I recommended her to go to primary care physician and sort out and possibly treat her water retention with diuretics. If it would not help stop of the gabapentin might help if her water retention related to gabapentin intake. Prior: She underwent epidural steroid injection at C[facility]-7 4 months ago, she had great relief with improvement in the burning, numbness and tingling that was radiating down her left hand. For reports the numbness and tingling is starting to return, pain is also starting to increase. She would like to repeat the injection Pain today is rated as a 910, constant, worse in the evenings and at night Previously on Robaxin that provided her good relief. This was discontinued due to black box warnings. She has not tried any other muscle relaxers. Has been taking ibuprofen twice daily as needed with some improvement but pain has progressively get worse. Prior: C/o pain in the cervical spine with sensation of the numbness of bilateral upper extremities as well as axial pain in lower back which is aggravated by prolonged standing and sitting and aggravated by flexing back forward but alleviated when she flex her back backwards. She reports that her pain started many years ago however became aggravated recently reports pain in neck 4 to 6/10 and pain in lower back is 10+ out of 10. She was under care of pains physician in [facility] she received MRI of the lumbar spine she was not recommended to go for the surgery by neurosurgeon. Never was evaluated by MRI of the cervical spine she is taking gabapentin for her pain and 100 mg 3 times a day maximal does she is taking tramadol 50 mg once a day and muscle relaxant methalaxon. She reports that she received sacroiliac joint injections in the past those were done by Dr. Markham in [facility] she reports very minimal help for 1 or 2 days from steroid sacroiliac joint injection however no prolonged pain relief. She had multiple attempts at physical therapy which aggravated her pain and she refused to go to physical therapy she denies chiropractic manipulations massage therapy or 10s unit. COUNT INCLUDES THE [facility] Medical History Sacroiliac joint dysfunction Cervical spondylosis Myofascial pain Lumbar disc herniation Necrotizing fasciitis Degenerative disc disease, lumbar Depression Anxiety Surgical History History of throat surgery S/P lumpectomy, right breast Family History Mother COPD (chronic obstructive pulmonary disease) Emphysema lung Mental health disorder Social History Household Members: Friend(s) Both parents involved: No Caregiver staying overnight: No Housing: House Are you a primary elderly caregiver to a significant other at home: No Do you presently have visiting nurse or other home services: No 75 years or older and lives alone: No Alcohol intake: current Alcohol intake frequency: holidays/special occasions only Patient Tobacco Use Status: Former Tobacco user Tobacco use type: Cigarette e-Cigarette/Vaping Use: Former Use Second Hand Smoke Exposure: No service: No Current occupational status: disabled 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 Patient was appropriately conversant and oriented. Good historian. MSK: Inspection reveals appropriate head and neck positioning. No pain with palpation over the neck musculature. Cervical ROM was full. Spurling's sign positive with radiation to left arm. Bilateral shoulder, elbow and wrist ROM WNL. No ligamentous laxity or crepitance. No increased effusion. No specific abnormalities or instability found on inspection and palpation of the spine and extremities. No point tenderness on spinous processes, facets, SI or GT. Unable to do lumbar extension due to pain. Negative SLR. Loading test is positive bilaterally. Positive MARCOS for back pain bilateral. Strength is 5/5 in all muscle groups tested. No increased tone noted. Right toes go into spasms while extended with pain. This limits her ankle range of motion. No redness or swelling on right foot or ankle. Neurological: Neurologic examination of the upper and lower extremities was nonfocal with intact sensation, muscle stretch reflexes and without focal motor deficits . Hunter?s negative bilaterally. Babinski was down going bilaterally. Clonus was negative. Gait is non-antalgic without loss of balance. Can stand on heels but cannot do toe walk. No foot drop while seated. Neck Other: Negative Lhermitte sign, positive Spurling sign on the right negative Valsalva maneuver 2 point differentiation is positive on bilateral hands Back/Spine/Pelvis Other: Flexing forward greatly aggravate her pain. In fact she cannot flex forward more than 45 degrees. Flexing backwards alleviates her pain. Prolonged sitting aggravates her pain. Shaji test is positive bilaterally, Gaenslen test is positive bilaterally, pelvic distraction and pelvis compression test as well as 14 finger test are positive bilaterally. Assessment & Plan Assessment & Plan (1) Degeneration, intervertebral disc, cervical: Code(s): M50.30 - Other cervical disc degeneration, unspecified cervical region Category: Medical (2) Cervical stenosis of spinal canal: Code(s): M48.02 - Spinal stenosis, cervical region Category: Medical (3) Lumbar disc herniation: Code(s): M51.26 - Other intervertebral disc displacement, lumbar region Category: Medical (4) Cervical radiculitis: Code(s): M54.12 - Radiculopathy, cervical region Category: Medical (5) Spondylosis of lumbar spine: Code(s): M47.816 - Spondylosis without myelopathy or radiculopathy, lumbar region Category: Medical (6) Vertebrogenic low back pain: Code(s): M54.51 - Vertebrogenic low back pain Category: Medical (7) Chronic sacroiliac joint pain: Code(s): M53.3 - Sacrococcygeal disorders, not elsewhere classified; G89.29 - Other chronic pain Category: Medical (8) Sacroiliitis: Code(s): M46.1 - Sacroiliitis, not elsewhere classified Category: Medical (9) Spondylosis of lumbar region without myelopathy or radiculopathy: Code(s): M47.816 - Spondylosis without myelopathy or radiculopathy, lumbar region Category: Medical Plan After diagnostic medial branch block L2-L3 L4 bilateral patient reported 100% pain improvement and improved mobility. However today she changes her story and says that it was still difficult to walk for her. She requests me to guarantee her 100% that she will be able to walk better after the procedure. Considering her body habitus I can not make such bigger and see. Patient left today with intention to find another provider who will be able to help her ambulating. Coding Level of Care Code Est Pt Level 3 (77365) Diagnoses Degeneration, intervertebral disc, cervical M50.30 Cervical stenosis of spinal canal M48.02 Lumbar disc herniation M51.26 Cervical radiculitis M54.12 Spondylosis of lumbar spine M47.816 Vertebrogenic low back pain M54.51 Chronic sacroiliac joint pain M53.3; G89.29 Sacroiliitis M46.1 Spondylosis of lumbar region without myelopathy or radiculopathy M47.816
--- OUTSIDE RECORDS SUMMARY | 2025-05-29 15:48 | XMS_ITS | Clinical Summary ---
Author Organization [address] [place] [address] Address [address] [place] [address] Phone Care Team Providers Care Support Teacher Name Role Phone Jacoby Francis LIZETTE Primary Care Provider [phone] Social History Tobacco Use Types Packs/Day Years Used Date Smoking Tobacco: Never Assessed Comments Unknown Sex and Gender Information Value Date Recorded Sex Assigned at Not on file Legal Sex Female 10:25 AM EST Gender Identity Not on file Sexual Orientation Not on file Plan of Treatment Upcoming Encounters Date Type Department Care Team ([facility] Contact Info) Description 06/25/2025 10:30 AM EDT Office Visit Bariatric Surgery [facility] [address] [facility] [address] [place] [address] Samantha Jones PA [address] [place] [phone] Health Maintenance Due Date Last Done Comments Breast Cancer Screening 1977 DTaP,Tdap,and Td Vaccines (1 - Tdap) 1996 Hepatitis B Vaccines (1 of 3 - 19+ 3-dose series) 1996 Cervical Cancer Screening: P ap Smear 1998 Depression Screening 08/29/2024 Colorectal Cancer Screening: Colonoscopy 10/18/2024 HIV Screening 10/18/2024 Hepatitis C Screening 10/18/2024 Social Influencers of Health Screening 10/18/2024 COVID-19 Vaccine (2023-2 5 season) 2025 Influenza Vaccine (#1) 2025 HIB Vaccines Aged [...] patient's age to complete this topic Insurance [facility] Care Teams Support Teacher Relationship Specialty Start Date End Date Jacoby Francis FNP [address] [place] [address] PCP - General Family Medicine 10/18/24
== END 2025-05-29 14:54 | disposition home or self-care (01) ==
LOC: HO.PMC 14:37
PROVIDERS: PCP Nurse Practitioner Family; Visit Provider Anesthesiology
DX: M50.30 Other cervical disc degeneration, unspecified cervical region (principal); M48.02 Spinal stenosis, cervical region; M51.26 Other intervertebral disc displacement, lumbar region; M54.12 Radiculopathy, cervical region; M47.816 Spondylosis without myelopathy or radiculopathy, lumbar region; M54.51 Vertebrogenic low back pain; M53.3 Sacrococcygeal disorders, not elsewhere classified; G89.29 Other chronic pain; M46.1 Sacroiliitis, not elsewhere classified
CPT/HCPCS: 99213

== ENCOUNTER → 2025-05-29 14:36 | Outpatient (BNVA) | payer OTHER, SELFPAY | PROVIDERS: PCP Nurse Practitioner Family; Visit Provider Anesthesiology | DX: M54.51 Vertebrogenic low back pain (principal); M53.3 Sacrococcygeal disorders, not elsewhere classified; M46.1 Sacroiliitis, not elsewhere classified; M47.816 Spondylosis without myelopathy or radiculopathy, lumbar region; M54.12 Radiculopathy, cervical region; M48.02 Spinal stenosis, cervical region; M50.30 Other cervical disc degeneration, unspecified cervical region; G89.29 Other chronic pain | CPT/HCPCS: 99212 ==

== ENCOUNTER 2025-06-24 10:04 | Outpatient (AMB) | payer OTHER, SELFPAY ==
--- NOTE | 2025-06-24 10:12 | MHC.PC.OV ---
Vital Signs 06/24/25 10:17 Height 5 ft 4 in Weight 288 lb 4 oz BMI 49.5 BP 139/85 Blood Pressure Location Rt brachial Position Sitting Respiration 16 Pulse 84 Pulse Source Pulse Oximeter Temp 97.6 F Temp Source Oral Pulse Oximetry (%) 98 Oxygen Delivery Method Room Air Intake Visit Reasons: Reschedule CPE Intake Note: patient here for CPE Child Care Cook Required: No Is last menstrual period known: Yes Last menstrual period: 05/27/25 Post menopausal: No Patient : No Allergies No Known Allergies Allergy (Verified 06/24/25 10:42) Medication List - Last Reconciled 06/24/25 by Jacoby Francis CNP aripiprazole 20 mg PO DAILY dextroamphetamine-amphetamine 20 mg (Adderall) 20 mg PO DAILY escitalopram oxalate 15 mg PO DAILY gabapentin 1,200 mg (2 x 600 mg) PO TID 30 days lidocaine 5% 1 patch topical DAILY phentermine 15 mg PO DAILY 30 days topiramate XR (Qudexy XR) 200 mg PO DAILY tramadol 100 mg (2 x 50 mg) PO QID PRN 28 days zolpidem ER 12.5 mg PO BEDTIME PRN Tobacco use date assessed: 06/24/25 Dental Screening Dental Screen Date: 06/24/25 Did you have a dental visit in the last 12 months?: Yes Did you have a dental problem in the last 6 months where you did not have access to dental care?: No Was dental information given to patient?: Patient has dentist HPI HPI Comments History of Present Illness Details 49-year-old female presents to critical access hospital care. She admits to taking her medications as prescribed without adverse reactions. She notes that she is always anxious. Her depression is intermittent. She reports mild depression and severe anxiety at this time. 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 Social History - Former smoker, smoked almost 1ppd x 30 years, quit 3 years ago. Does not vape. Drinks 1-2 glasses of mixed drinks on holiday. Denies recreational drug use - Has been making healthy dietary choices. Exercises routinely. Reports difficultly falling and staying asleep. She is followed by sleep medicine and was diagnosed with sleep apnea 2 weeks ago Health maintenance - Last eye exam was 1.5 years ago with [facility]. Her health plan covers 2 years eye exam - Last dental visit was in 10/2024 - Last tetanus vaccine was 5 years ago. Record not currently available - Has not been vaccinated for the flu this season; declines vaccination - Last pap smear test was at [facility] 2 year ago - Last mammogram was in 2008. Mammogram ordered - Last colonoscopy was in 06/21/2024: [facility] - She is followed by a therapist weekly and psychiatrist monthly, [facility] - She is followed by pain management, hematology/oncology, and dietitian - She is on a wait list for [facility] - Sleep Medicine Services REPLACED BY [facility] Medical History (Updated 06/24/25 @ 10:17 by MAIKEL Sánchez) Sleep apnea Sacroiliac joint dysfunction Cervical spondylosis Myofascial pain Lumbar disc herniation Necrotizing fasciitis Degenerative disc disease, lumbar Depression Anxiety Surgical History History of throat surgery S/P lumpectomy, right breast Family History Mother COPD (chronic obstructive pulmonary disease) Emphysema lung Mental health disorder Social History Household Members: Friend(s) Both parents involved: No Caregiver staying overnight: No Housing: House Are you a primary home health care case manager to a significant other at home: No Do you presently have visiting nurse or other home services: No 75 years or older and lives alone: No Alcohol intake: current Alcohol intake frequency: holidays/special occasions only Patient Tobacco Use Status: Former Tobacco user Tobacco use type: Cigarette e-Cigarette/Vaping Use: Former Use Second Hand Smoke Exposure: No service: No Current occupational status: disabled 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 1. Little interest or pleasure in doing things: more than half the days 2. Feeling down, depressed, or hopeless: nearly every day 3. Trouble falling or staying asleep, or sleeping too much: more than half the days 4. Feeling tired or having little energy: nearly every day 5. Poor appetite or overeating: several days 6. Feeling bad about yourself - or that you are a failure or have let yourself or your family down: nearly every day 7. Trouble concentrating on things, such as reading the newspaper or watching television: nearly every day 8. Moving or speaking so slowly that other people could have noticed. Or the opposite - being so fidgety or restless that you have been moving around a lot more than usual: more than half the days 9. Thoughts that you would be better off or of hurting yourself in some way: not at all Total score: 19 Depression Screening Interpretation: Positive Depression Screening Follow-up: Existing condition and In treatment Depression Screening Done: Yes 44926 - PHQ-9 Billing: Yes Source: Developed by Drs. Contreras Velazquez, Gisselle Reyna, Javed Lee and colleagues, with an educational earline from [employer]. Thrive Questionnaire Date Thrive assessed: 06/24/25 I am a: Patient What is your living situation today?: I have a steady place to live Within the past 12 months, did the food you bought not last and you didn't have the money to get more?: Never true Within the past 12 months, did you worry whether your food would run out before you got money to buy more?: Never true Do you have trouble paying for medicines?: No Do you have trouble getting transportation to medical appointments?: No Do you have trouble paying your heating and electricity bill?: No Do you have trouble taking care of your child, family member or friend?: No Do you have trouble with day-to-day activities such as bathing, preparing meals, shopping, managing finances, etc.?: No Are you currently unemployed and looking for a job?: No Are you interested in more education?: No Please select the resources that you would like help with: None Currently or been in a relationship where the following occur: No concerns reported THRIVE Score: 0 AUDIT C Alcohol Use Questionnaire (AUDIT-C) 1. How often do you have a drink containing alcohol?: Monthly or less 2. How many drinks containing alcohol do you have on a typical day when you are drinking?: 1 or 2 3. How often do you have six or more drinks on one occasion?: Never Total Score: 1 Score Reviewed/Action Taken: Yes BAYRON-7 AMB Questionnaire BAYRON-7 Date BAYRON - 7 assessed: 06/24/25 Feeling nervous, anxious, or on edge: 3 = Nearly every day Not being able to stop or control worryin = Nearly every day Worrying too much about different things: 3 = Nearly every day Trouble relaxin = Nearly every day Being so restless that it is hard to sit still: 3 = Nearly every day Becoming easily annoyed or irritable: 3 = Nearly every day Feeling afraid as if something awful might happen: 0 = Not at all Total BAYRON-7 score (0-4 normal; 5-9 mild; 10-14 moderate; 15-21 severe): 18 Source: Developed by Drs. Contreras Velazquez, Gisselle Reyna, Javed Lee and colleagues, with an educational earline from [employer]. BAYRON-7 Assessment Billing BAYRON-7 Assessment Tool: BAYRON-7 Assessment 00979 Review of Systems Const Details: Denies chills, Denies fatigue, Denies fever(s), Denies headache(s) and Denies weakness HEENT Denies change in vision, Denies dizziness, Denies headache(s), Denies hearing loss, Denies nasal congestion, Denies sinus pain, Denies sinus pressure and Denies sore throat Card Denies chest pain, Denies lightheadedness, Denies dyspnea and Denies other (palpitations) Resp Denies cough, Denies dyspnea and Denies wheezing GI Denies abdominal pain, Denies melena, Denies hematochezia, Denies change in bowel habits, Denies dyspepsia and Denies nausea Denies hematuria and Denies dysuria Musc Denies abnormal gait, Denies myalgias, Denies arthralgias, Denies numbness and Denies tingling Skin/Breast Denies rash, Denies unusual bruising and Denies wounds Neuro Denies abnormal gait, Denies dizziness, Denies headache(s), Denies memory loss, Denies numbness, Denies Sensory deficit (Neuro), Denies tingling and Denies weakness Psych Reports anxiety, Reports depression and Denies memory loss Endo Denies cold intolerance, Denies fatigue, Denies heat intolerance, Denies polydipsia and Denies polyuria Marc/Lymph Denies easy bleeding and Denies easy bruising Aller/Immun Denies wheezing Physical exam (Primary Care) Vital Signs: Last Vital Signs Temp 97.6 F 06/24/25 10:17 Pulse 84 06/24/25 10:17 Resp 16 06/24/25 10:17 BP 139/85 06/24/25 10:17 Pulse Ox 98 06/24/25 10:17 Oxygen Delivery Method Room Air 06/24/25 10:17 BMI result Body Mass Index 52.7 Tobacco/Smoking Status: Tobacco use Status Tobacco use date assessed 06/24/25 06/24/25 10:20 Patient Tobacco Use Status Former Tobacco user 06/24/25 10:20 Tobacco use type Cigarette 06/24/25 10:20 e-Cigarette/Vaping Use Former Use 06/24/25 10:20 PHQ-9: PHQ-9 Score PHQ-9: Total score 19 06/24/25 10:23 Depression Screening Interpretation: Positive Depression Screening Follow-up: Existing condition and In treatment Thrive Assessment: Date of Thrive Assessment Date Thrive assessed 06/24/25 06/24/25 10:23 Currently or been in a relationship where the following occur: No concerns reported Const Other: General: no acute distress, well developed, alert and awake Nutritional Appearance: well nourished Orientation/consciousness: patient oriented x3 HENMT Head: Yes normocephalic and Yes atraumatic Ears: hearing grossly normal bilaterally and TM's normal bilaterally General nose exam: Normal external nose present and Normal nares present Mouth: Normal oral and palatal mucosa present and moist mucous membranes Teeth and gingiva: dentition normal Throat: Yes oropharynx normal Eyes Pupils: Equal, round and reactive pupils present and Pupil accommodation reflex normal EOM: EOMs intact bilaterally Neck Neck: Yes normal visual inspection, Yes no lymphadenopathy and Yes trachea midline Thyroid: Thyroid normal Carotids: no bruits Lymphatic: no lymphadenopathy noted Chest Chest palpation & inspection: normal inspection of the chest Resp Effort & Inspection: normal respiratory effort Auscultation: clear to auscultation bilaterally Cardio Rate: regular rate Rhythm: regular rhythm Heart sounds: S1 normal heart sound present, S2 normal heart sound present, no gallops, no murmurs and no rubs Bruits: no abdominal aortic bruits and no carotid bruits GI Palpation (GI): No Abdominal aortic bruit present, Soft to palpation, nontender, No hepatosplenomegaly present and No Rebound tenderness present Auscultation: normal bowel sounds General: Yes no CVA tenderness Back/Spine/Pelvis Back: no CVA tenderness Cervical Spine: cervical ROM normal and No Cervical spine tenderness Thoracic/Lumbar Spine: thoraco-lumbar ROM normal, No pain with thoraco-lumbar ROM, No thoracic spinal tenderness and No lumbar spinal tenderness Skin General: warm and dry. Normal skin color. Normal skin turgor Lesions: no lesions Rashes: no rashes Trauma: no lacerations or abrasions Wounds: no wounds Nails: normal Neuro General: patient oriented x3, gait normal and CN's II-XI intact bilaterally Cranial nerves: Yes Equal, round and reactive pupils present Cognition (Neuro): normal cognition Gait exam (Neuro): Normal gait present Motor exam (neuro): 5/5 motor strength present throughout Sensory Exam: No Sensory deficit (Neuro) Deep tendon reflexes (DTR's): Right patellar reflex intensity grade: 2+ and Left patellar reflex intensity grade: 2+ Extrem General: Yes normal to inspection, No edema and No calf tenderness Psych Appearance: grossly normal Affect: Constricted Mood: Labile Attitude: cooperative Thought process: Normal thought process present Coding Level of Care Code Est Pt Level 3 (83439) Est Pt Prev Care 40-64y(90505) Diagnoses Normal physical examination, routine Z00.00 Depression, unspecified depression type F32.A Depression Type: unspecified Anxiety F41.9 Morbid obesity with BMI of 45.0-49.9, adult E66.01; Z68.42 Laboratory tests ordered as part of a complete physical exam (CPE) Z00.00 Additional Codes BAYRON-7 Assessment Billing - BAYRON-7 Assessment Tool: BAYRON-7 Assessment 72387 ([id number]) PHQ-9 - 39331 - PHQ-9 Billing: Yes ([id number]) Assessment & Plan Assessment & Plan (1) Normal physical examination, routine: Code(s): Z00.00 - Encounter for general adult medical examination without abnormal findings Category: Medical Plan: Minimal physical limitation with ROM/movement due to chronic low back pain. Otherwise normal physical exam. Continue current treatment regimen. Perform lab work follow-up for a telehealth visit for labs review in 2-3 weeks. Follow-up with specialists as planned. Return sooner with symptoms or concerns. Verbalized understanding and agreed with the plan. (2) Depression: Code(s): F32.A - Depression, unspecified Category: Medical Qualifiers: Depression Type: unspecified Qualified Code(s): F32.A - Depression, unspecified Plan: She notes that she is always anxious. Her depression is intermittent. She reports mild depression and severe anxiety at this time. PHQ-9 and BAYRON-7 scores revealed moderately severe depression and severe anxiety respectively. Continue current treatment regimen. Follow-up with psychiatrist and therapist as planned. Call crisis with uncontrolled symptoms. Verbalized understanding and agreed with the plan. (3) Anxiety: Code(s): F41.9 - Anxiety disorder, unspecified Category: Medical Plan: Plan as above. (4) Morbid obesity with BMI of 45.0-49.9, adult: Code(s): E66.01 - Morbid (severe) obesity due to excess calories; Z68.42 - Body mass index [BMI] 45.0-49.9, adult Category: Medical Plan: She currently weighs 288 lb, BMI is 49.5. Healthy diet/weight management encouraged. Follow-up with weight management clinic as planned. Verbalized understanding and agreed with the plan. (5) Laboratory tests ordered as part of a complete physical exam (CPE): Code(s): Z00.00 - Encounter for general adult medical examination without abnormal findings Category: Medical Plan: Fasting labs ordered as part of a complete physical exam. Advised to fast for at least 10 hours before getting labs drawn. May drink water Verbalized understanding and agreed with treatment plan. Orders: Orders Lipid Panel Today Z00.00 - Encounter for general adult medical examination without abnormal findings Vitamin D 25-OH Total Today Z00.00 - Encounter for general adult medical examination without abnormal findings MM screening mammo BI Today Z12.31 - Encounter for screening mammogram for malignant neoplasm of breast TSH reflex Free T4 Today Z00.00 - Encounter for general adult medical examination without abnormal findings Microalbumin, Random (w Creat) Today Z00.00 - Encounter for general adult medical examination without abnormal findings
[2025-06-24 10:17] VITALS: BP 139/85; PULSE 84; RESP 16; TEMP 36.4; O2SAT 98; BMI 49.5
--- OUTSIDE RECORDS SUMMARY | 2025-06-24 12:01 | XMS_ITS | Patient Health Record ---
Author Organization [facility] Address [address] [place] [address] Care Team Providers Care Credit And Collections Analyst Name Role Phone Jovani Suárez Primary Care Provider Yang Blas MD MSc, Gisselle Unavailable [phone] Allergies Allergen (clinical drug ingredient) Drug/Non Drug [...] 1 capsule Orally Once a day Active [place] Carbonate 300 MG 1 tablet at bed [...] W/U Status Risk Notes Problem Low back pain (340165246) Low back pain, unspecified (M54.50) Active confirmed Plan Of Treatment Pending Test Test Name Order Date [facility] Profile 06/24/2022 Insurance Providers Payer Name Payer Address Payer Phone Subscriber Number Group Number Insured Name Patient Relationship to Insured Coverage Start Date Coverage End Date [facility] [address] [place] ARORA [phone] [id number] Cary Cedillo Self - patient is the insured Medical (General) History Medical History History ICD Code ADHD Lumbago with sciatica Insomnia Anxiety Bipolar Dz Surgical History Surgery Date(Month/Year) [facility] after miscarriage Right breast lumpectomy 2006 Necrotizing fasciitis x6 2013 larynx repair 2019 Right ankle rods placed 06/2020
--- OUTSIDE RECORDS SUMMARY | 2025-06-24 12:01 | XMS_ITS | Data Portability ---
Author Organization [place] - [facility], Allergy Address [address] [place] [phone] Assessment Encounter Date Assessment Date Assessment LastModified [...] Address Organization Details Recorded Time Peritonsillar abscess [id number] Active 2024 GRIFFIN ALANIS MD [address], [phone], [place] - [facility] 09:05:51 Problem Notes None recorded. Medical Equipment [...] Updated DateTime 10/04/2024 162.56 cm 42.6 kg/m2 768411.91 g Rosy Hutchins [facility] 10/04/2024 08:52:33 Social History None recorded. Functional Status None recorded. Mental Status None recorded. Family History Nothing Reported. Medical History Condition Response Allergies/Hayfever N Heart Problems N Anxiety Y Tonsil Infections N Emphysema N Migraines Y Thyroid Problems N COPD N Depression Y Developmental Delay N Glaucoma N Nasal or Sinus Problems N Anemia Y Immune System Disorder N Anesthesia Complications N Heart Attack ([place]) N Other Skin Condition N Diabetes N [...] Diagnosis SNOMED-CT Code Diagnosis ICD10 Code Diagnosis IMO Codes Diagnosis Note [id number] GRIFFIN ALANIS MD [facility] [address] [phone] 10/04/2024 08:49:00 10/04/2024 09:06:59 Peritonsillar abscess [id number] J36 Health Concerns Section Related Observation LastModified by Organization Detai ls LastModified Time None Recorded Concern Status LastModified by Organization Details LastModified Time None Recorded Advance Directives Directive None Recorded Payers Insurance Date Sequence Insurance Name Policy Number Policy Raygoza Covered Member ID Raygoza Member ID Guarantor Name 10/04/2024 1 [employer] INSURANCE - [facility] Cary Phoenix Charisseona [id number] Cary Phoenix Anderspadona 10/04/2024 1 [facility] (MEDICAID HMO) [employer] Cary Garibay Cappadona [id number] Cary Sanchez Notes Date Note Type Note Provider Name and Address Organization Details Recorded Time 10/04/2024 text/html ROS as noted in the HPI f/u PTA08/24/24 urgent care strep tonsil fuezav17/30/24 [facility] strep tonsillitis, rx augmentin and prednisoneCT neck w con left inferior peritonsillar abscess [id number] collectionunable to drain with needle aspiration in ER, but eventually imroved with medicineWBC 20.6was referred to Dr Galarza but he did not take her insurancetobacco stopped 2022 GRIFFIN ALANIS MD [address] [place] [address], [phone], [place] - [facility] 10/04/2024 09:07:26 OBGyn Episode No OBEpisode recorded.
--- OUTSIDE RECORDS SUMMARY | 2025-06-24 12:01 | XMS_ITS | Clinical Summary ---
Author Organization [address] [place] [address] Address [address] [place] [address] Phone Care Team Providers Care Bus And Sys Integration Senior Manager Name Role Phone Jacoby Francis LIZETTE Primary Care Provider [phone] Social History Tobacco Use Types Packs/Day Years Used Date Smoking Tobacco: Never Assessed Comments Unknown Sex and Gender Information Value Date Recorded Sex Assigned at Not on file Legal Sex Female 10:25 AM EST Gender Identity Not on file Sexual Orientation Not on file Plan of Treatment Upcoming Encounters Date Type Department Care Team ([facility] Contact Info) Description 06/25/2025 10:30 AM EDT Office Visit Bariatric Surgery [facility] [address] [facility] [address] [place] [address] Samantha Jones PA [address] [place] [phone] Health Maintenance Due Date Last Done Comments Breast Cancer Screening 1977 Colorectal Cancer Screening: Colonoscopy 1977 DTaP,Tdap,and Td Vaccines (1 - Tdap) 1996 Hepatitis B Vaccines (1 of 3 - 19+ 3-dose series) 1996 Cervical Cancer Screening: P ap Smear 1998 Depression Screening 08/29/2024 HIV Screening 10/18/2024 Hepatitis C Screening 10/18/2024 Social Influencers of Health Screening 10/18/2024 COVID-19 Vaccine ( - 2023-2 5 season) 2025 Influenza Vaccine (#1) 2025 RSV Immunization Adult Patie nts (1 - 1-dose 75+ series) 2052 HIB Vaccines Aged Out No longer eligi [...] patient's age to complete this topic Insurance [facility] PLAN Care Teams Bus And Sys Integration Senior Manager Relationship Specialty Start Date End Date Jacoby Francis FNP [address] [place] [phone] PCP - General Family Medicine 10/18/24
--- OUTSIDE RECORDS SUMMARY | 2025-06-24 12:01 | XMS_ITS | Patient Health Record ---
Author Organization [facility] Address [address] [place] [address] Care Team Providers Care Engineering Leader Name Role Phone Jessica Suárezparirobbie Primary Care [...] Status Risk Notes Problem Morbid obesity (disorder) (013371079) Morbid (severe) obesity due to excess calories (E66.01) Active confirmed Problem Bipolar disorder , current episode depressed, severe, with psychotic features (F31.5) Active confirmed Problem Insomnia disorder related to another mental disorder (57094858) Insomnia due to other mental disorder (F51.05) Active confirmed Problem Attention deficit hyperactivity disorder (675809428) Attention-deficit hyperactivity disorder, predominantly hyperactive type (F90.1) Active confirmed Problem Sciatica (34849615) Lumbago with sciatica, unspecified side (M54.40) Active confirmed Problem Problem, abnormal examination (90261279) Encounter for general adult medical examination with [...] Insured Coverage Start Date Coverage End Date [facility] [address] [place] [phone] [id number] PETER MATA Self - patient is the insured Medical (General) History Surgical History Surgery Date(Month/Year) right breast lumpectomy - fibroadenoma 2 008 multiple surgeries in left leg for necro tizing fascitis 2013
== END 2025-06-24 11:03 | disposition home or self-care (01) ==
LOC: HO.HMCFM 10:05
PROVIDERS: PCP Nurse Practitioner Family; Visit Provider Nurse Practitioner Family
DX: Z00.00 Encounter for general adult medical examination without abnormal findings (principal); F32.A Depression, unspecified; E66.01 Morbid (severe) obesity due to excess calories; Z68.42 Body mass index [BMI] 45.0-49.9, adult; F41.9 Anxiety disorder, unspecified

== ENCOUNTER 2025-06-24 10:04 | Outpatient (REF) | payer OTHER, SELFPAY ==
--- OUTSIDE RECORDS SUMMARY | 2015-02-07 12:30 | XMS_ITS | Continuity of Care Document ---
Author Organization [facility] Address [address] [place] [address] Phone Care Team Providers Care Concert Singer Name Role Phone Unavailable Unavailable Unavailable Allergies, Adverse Reactions, Alerts Substance Reaction Status Criticality No Known Allergies Active No Inform ation Procedures Procedure Date PREV VISIT, NEW, AGE 18-39 OFFICE/OUTPATIENT VISIT, EST Advance Directives Directive Yes / No Effective Date File Name No Information Encounters Encounter Description Practice Location Reason(s) For Visit Diagnoses Date Provider Providers Copied on Encounter [facility], [address] [place] [address],[address], [place], [place], [id number], tel:[phone] [facility] No Information No Information PREV VISIT, NEW, AGE 18-39 ankush [facility], [address] [place] [address],[address], [place], [place], [id number], tel:[phone] [facility] Follow Up of ED back pain (chief [...]
[2025-06-24 14:12] LABS: MANUAL DIFF FLAG NO
[2025-06-24 14:23] LABS: Hematocrit 38.5 % (37.0-47.0); Hemoglobin 12.6 g/dl (12.0-16.0); Imm Gran Abs Auto 0.03 X10*3/uL (0.00-0.03); Imm Gran Pct Auto 0.4 % (0.0-0.4); Lymphocytes Absolute Auto 1.5 X10*3/uL (1.2-4.9); Mean Corpuscular HGB Conc 32.7 g/dl (31.0-35.0); Mean Corpuscular Hemoglobin 29.8 pg (27.0-33.0); Mean Corpuscular Volume 91.0 fL (80.0-98.0); NRBC Abs Auto 0.000 X10*3/uL (0.0-0.012); NRBC Pct Auto 0.0 /100WBC (0.0-0.2); Platelet Count 346 X10*3/uL (160-400); Red Blood Count 4.23 X10*6/uL (4.20-5.50); White Blood Count 7.0 X10*3/uL (4.8-10.8)
[2025-06-24 15:10] LABS: Alanine Aminotransferase 20 U/L (0-31); Albumin Level 4.5 g/dL (3.5-5.0); Alkaline Phosphatase 92 U/L (39-117); Anion Gap 16 (12-20); Aspartate Amino Transferase 32 U/L (5-31); Blood Urea Nitrogen 14 mg/dL (9-16); Calcium 9.4 mg/dL (8.4-10.2); Carbon Dioxide 26 mmol/L (22-29); Chloride 103 mmol/L (96-108); Cholesterol 211 mg/dL (<200); Estimated Glomerular Filt Rate > 60; Ferritin 18 ng/mL (10-250); HDL Cholesterol 50 mg/dL (>40); Potassium 4.6 mmol/L (3.3-5.1); Sodium 140 mmol/L (135-145); Total Protein 7.7 g/dL (6.5-8.0); Triglycerides 175 mg/dL (<150)
[2025-06-24 18:40] LABS: Appearance Urine Clear; Glucose Urine UA Negative (Negative); PH 6.5 (5.0-9.0); Specific Gravity - Urine >= 1.030 (1.005-1.025); UMIC TRIGGER UACC YES
[2025-06-24 18:47] LABS: Microalbum/Creatinine Ratio Ur 11.7 ug/mg cr (<30)
== END 2025-06-24 10:05 | disposition home or self-care (01) ==
LOC: HO.WFDLDS 10:04
PROVIDERS: Internal Medicine Medical Oncology; PCP Nurse Practitioner Family; Visit Provider Nurse Practitioner Family
DX: Z00.00 Encounter for general adult medical examination without abnormal findings (principal); D50.9 Iron deficiency anemia, unspecified; F32.A Depression, unspecified; F41.9 Anxiety disorder, unspecified; E66.01 Morbid (severe) obesity due to excess calories; Z68.42 Body mass index [BMI] 45.0-49.9, adult; Z79.899 Other long term (current) drug therapy
CPT/HCPCS: 36415; 80053; 80061; 81001; 82043; 82306; 82570; 82728; 84443; 85025; 96127; 99396

== ENCOUNTER 2025-07-12 13:26 | Outpatient (AMB) | payer OTHER, SELFPAY ==
--- OUTSIDE RECORDS SUMMARY | 2015-02-07 11:30 | XMS_ITS | Continuity of Care Document ---
Author Organization [facility] Address [address] [place] [address] Phone Care Team Providers Care Woods Laborer Name Role Phone Unavailable Unavailable Unavailable Allergies, Adverse Reactions, Alerts Substance Reaction Status Criticality No Known Allergies Active No Inform ation Procedures Procedure Date PREV VISIT, NEW, AGE 18-39 OFFICE/OUTPATIENT VISIT, EST Advance Directives Directive Yes / No Effective Date File Name No Information Encounters Encounter Description Practice Location Reason(s) For Visit Diagnoses Date Provider Providers Copied on Encounter [facility], [address] [place] [address] 2,[address], [place], [place], [id number], tel:[phone] [facility] No Information No Information PREV VISIT, NEW, AGE 18-39 ankush [facility], [address] [place] [address] 2,[address], [place], [place], [id number], tel:[phone] [facility] Follow Up of ED back pain (chief complaint) iunitial visit (chief complaint) Routine adult health maintenanceLow back painTobacco abuseStatus post breast lumpectomy No Information Family History Family Member Type Diagnosis Age At Onset No Information Immunizations Vaccine Date Status Comments Td (adult) preservative free administered Note: per patient ; Source: Source Unspecified Payers Payer name Insurance type Covered alliance party ID Authoriza tion(s) No Information Social History Type Description Quantity Date Captured Comments Sex Female Smoking Status No Information Chief Complaint And Reason For Visit No Information Reason For Referral Reason For Referral No Information Plan Of Treatment Date Type Action Status Goal HPV. Due on due Goal Unhealthy drug use screening . Due on due Goal BPRS. Due on due Goal Document SOGI Information. D ue on due Goal DAST. Due on due Goal PHQ-9. Due on du e Goal IAP. Due on due Goal Lipid panel. Due on 018 due Goal Td vaccine. Due on 23 due Goal Influenza vaccine. Due on due Goal Tdap. Due on due Goal Pap/HPV testing. Due on due Goal PAP. Due on due Goal APE. Due on due Referral Referred To: Physical Therapy Ordered: Referrals: Physical Therapy ordered Referral Ordered: MAMMOGRAM DIAGNOSTIC, BILATERAL Appointment date/timeframe: 01/27/2015 ordered Referral Ordered: X-RAY EXAM OF LUMBAR SPINE COMPLETE, W/ BENDING ordered History Of Present Illness Encounter Date Complaint History Of Prese nt Illness Follow Up of ED back pain Onset: 10 years ago. Severity level is 8. Location of pain is lower back. Pain is radiated to the left thigh.The patient describes the pain as an ache. Symptoms are aggravated by bending and standing. Symptoms are relieved by pain meds/drugs. Additional information: fell and had compression fracture = original injury; has chronic spasm. Fell on stairs about 2 weeks ago and re-injured back. Went to ER and rec'd percocet, ibuprofen, robaxin. no numbness or tingling. iunitial visit PMH: chronic tamra k pain; left leg pain; anemia; Living: uncle (was homeless); has 2 children living with aunt (age 15 and 19) Working: no, applied for disability Vaccinations: rec'd td 05/29/2013 Substances: smoking 6 cig/day working on quitting (was 1-2 ppd x 20 years), declines etoh or hx of ivdu/snorting cocaineSTI Screen: will do Contraception: nothing; not sexually active; does not want contraception Pap/Pelvic: about 2 years ago, denies any abnormal Mammo: right breast lumpectomy fibroadenoma ~2006; has not had mammogram since C-Scope: no known FH Follow Up of ED back pain (comments) Has had MRI and XR of lumbar spin in 2012 which shows scar tissue. Also had Nec Fasc in left lower extremity at the time. Functional Status Date Functional Assessmen t No Information Instructions Date Instruction Additional Infor mation No Information Assessments Type Assessment Date No Information Patient Care Teams Name Effective Dates (start - stop) Status Members No Information
--- NOTE | 2025-07-12 13:11 | A.OFFPC_ITS ---
Intake Visit Reasons: Tele 2 wks labs review Intake Note: patient here for 2 wks Telehealth labs review Beef Skinner Required: No Is last menstrual period known: Yes Last menstrual period: 06/26/25 Post menopausal: No Patient : No Allergies No Known Allergies Allergy (Verified 07/12/25 13:11) Tobacco use date assessed: 07/12/25 Dental Screening Dental Screen Date: 07/12/25 Did you have a dental visit in the last 12 months?: Yes Did you have a dental problem in the last 6 months where you did not have access to dental care?: No Was dental information given to patient?: Patient has dentist HPI HPI Comments History of Present Illness Details 49-year-old female presents for a tele alth visit for review of recent lab results. She admits to taking her medications as prescribed without adverse reactions. She notes that she has been making healthy lifestyle changes. However, she has been eating significant amount of red meat. She established care with [facility] with management clinic and was prescribed zepbound she has been taking as prescribed. She has lost 9 lb within the last 3 weeks. No acute symptoms at this time. [facility] Medical History (Updated 07/12/25 @ 13:48 by Jacoby Francis CNP) Sleep apnea Sacroiliac joint dysfunction Cervical spondylosis Myofascial pain Lumbar disc herniation Necrotizing fasciitis Degenerative disc disease, lumbar Depression Anxiety Surgical History History of throat surgery S/P lumpectomy, right breast Family History Mother COPD (chronic obstructive pulmonary disease) Emphysema lung Mental health disorder Social History Household Members: Friend(s) Both parents involved: No Caregiver staying overnight: No Housing: House Are you a primary managed care provider to a significant other at home: No Do you presently have visiting nurse or other home services: No 75 years or older and lives alone: No Alcohol intake: current Alcohol intake frequency: holidays/special occasions only Patient Tobacco Use Status: Former Tobacco user Tobacco use type: Cigarette e-Cigarette/Vaping Use: Former Use Second Hand Smoke Exposure: No Patient : No service: No Current occupational status: disabled 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 Current occupational exposures/hazards: No Cognitive needs: No Hearing needs: No Vision needs: Yes (glasses) Female Reproductive History Menstrual Date of last menstrual period: 06/26/25 Questionnaire Thrive Questionnaire Date Thrive assessed: 08/31/24 I am a: Patient What is your living situation today?: I have a steady place to live Within the past 12 months, did the food you bought not last and you didn't have the money to get more?: Never true Within the past 12 months, did you worry whether your food would run out before you got money to buy more?: Never true Do you have trouble paying for medicines?: No Do you have trouble getting transportation to medical appointments?: No Do you have trouble paying your heating and electricity bill?: No Do you have trouble taking care of your child, family member or friend?: No Do you have trouble with day-to-day activities such as bathing, preparing meals, shopping, managing finances, etc.?: No Are you currently unemployed and looking for a job?: No Are you interested in more education?: No Please select the resources that you would like help with: None Currently or been in a relationship where the following occur: No concerns reported THRIVE Score: 0 BAYRON-7 AMB Questionnaire BAYRON-7 Date BAYRON - 7 assessed: 06/24/25 Source: Developed by Drs. Contreras Velazquez, Gisselle Reyna, Javed Lee and colleagues, with an educational earline from [employer]. Review of Systems Const Details: Denies chills, Denies fatigue, Denies fever(s), Denies headache(s) and Denies weakness Cardiac Denies chest pain, Denies claudication, Denies leg edema, Denies lightheadedness, Denies palpitations, Denies dyspnea, Denies dyspnea on exe rtion, Denies orthopnea and Denies other (Loss of consciousness) Resp Denies cough, Denies excessive phlegm production, Denies dyspnea, Denies dyspnea on exertion, Denies snoring and Denies wheezing Physical exam (Primary Care) Tobacco/Smoking Status: Tobacco use Status Tobacco use date assessed 07/12/25 07/12/25 13:15 Patient Tobacco Use Status Former Tobacco user 07/12/25 13:15 Tobacco use type Cigarette 07/12/25 13:15 e-Cigarette/Vaping Use Former Use 07/12/25 13:15 Thrive Assessment: Date of Thrive Assessment Date Thrive assessed 08/31/24 07/12/25 13:15 Currently or been in a relationship where the following occur: No concerns reported Const Other: Patient is alert and oriented x3 Telehealth Telehealth Telehealth Platform: Telephone Location of provider rendering services: practice address Location of patient: address on file Patient Identification confirmed using: Name, : Yes Telehealth method: voice only Patient verbally consented to treatment: Yes Patient verbally consented to billing insurance company: Yes Patient informed of any privacy concerns related to visit: Yes Coding Level of Care Code Tele Est Pt Level 3 (97607) Diagnoses Hyperlipidemia E78.5 Vitamin D deficiency E55.9 Morbid obesity with BMI of 45.0-49.9, adult E66.01; Z68.42 Time Spent (min) 10 Assessment & Plan Assessment & Plan (1) Hyperlipidemia: Code(s): E78.5 - Hyperlipidemia, unspecified Category: Medical Plan: Recent triglycerides, total cholesterol, and LDL levels are mildly elevated, 175, 211, and 126 respectively, previous levels were 121, 186, and 113 respectively. HDL level is normal. Advised to limit foods high in saturated fat (including red meat) and avoid foods high in trans fat. Routine exercise encouraged. Fast for 10-12 hours, may drink water, and perform lipid panel blood work in 6 weeks. Follow-up for KO[facility] as planned. Return sooner with symptoms or concerns. Verbalized understanding and agreed with the plan. (2) Vitamin D deficiency: Code(s): E55.9 - Vitamin D deficiency, unspecified Category: Medical Plan: Recent vitamin-D level is significantly low, 14.0. Vitamin D3 50 mcg was ordered 2 weeks ago. Continue current treatment regimen. Recheck vitamin-D level in 6 weeks. Verbalized understanding and agreed with the plan. (3) Morbid obesity with BMI of 45.0-49.9, adult: Code(s): E66.01 - Morbid (severe) obesity due to excess calories; Z68.42 - Body mass index [BMI] 45.0-49.9, adult Category: Medical Plan: She established care with [facility] with management clinic and was prescribed zepbound she has been taking as prescribed. She has lost 9 lb within the last 3 weeks. Continue current treatment regimen. Phentermine discontinued at this time. Follow-up with weight management clinic as planned. Verbalized understanding and agreed with the plan. Orders: Orders Lipid Panel 6 Weeks E78.5 - Hyperlipidemia, unspecified Vitamin D 25-OH Total 6 Weeks E55.9 - Vitamin D deficiency, unspecified
--- OUTSIDE RECORDS SUMMARY | 2025-07-12 19:46 | XMS_ITS | Patient Health Record ---
Author Organization [facility] Address [address] [place] [facility] [address] [place] [address] Care Team Providers Care Gear Machine Operator Name Role Phone Jovani Suárez Primary Care Provider Yang Blas MD MSc, Gisselle Unavailable [phone] Allergies Allergen (clinical drug ingredient) Drug/Non Drug [...] 1 capsule Orally Once a day Active Shelby Carbonate 300 MG 1 tablet at bed [...] Status Risk Notes Problem Low back pain (685150406) Low back pain, unspecified (M54.50) Active confirmed Plan Of Treatment Pending Test Test Name Order Date [facility] Profile 06/24/2022 Insurance Providers Payer Name Payer Address Payer Phone Subscriber Number Group Number Insured Name Patient Relationship to Insured Coverage Start Date Coverage End Date [facility] [address] [place] [phone] [id number] Cary Cedillo Self - patient is the insured Medical (General) History Medical History History ICD Code ADHD Lumbago with sciatica Insomnia Anxiety Bipolar Dz Surgical History Surgery Date(Month/Year) [facility] after miscarriage Right breast lumpectomy 2006 Necrotizing fasciitis x6 2013 larynx repair 2019 Right ankle rods placed 06/2020
--- OUTSIDE RECORDS SUMMARY | 2025-07-12 19:46 | XMS_ITS | Encounter Summary ---
Author Organization [facility] Address [address] [place] [phone] Care Team Providers Care Fire Extinguisher Repairer Inspector Name Role Phone Jacoby Francis LATEX SPOOLER Primary Care Provider [phone] Reason for Visit * Reason Onset Date Comments Med Refill 07/01/2025 zepbound Encounter Details Date Type Department Care Team (Late st Contact Info) Description 07/01/2025 Telephone Bariatric Surgery - [address] [address] Samantha Jones PA [address] [place] [address] Social History Tobacco Use Types Packs/Day Years Used Date Smoking Tobacco: Never Assessed Comments Unknown Sex and Gender Information Value Date Recorded Sex Assigned at Not on file Legal Sex Female 10:25 AM EST Gender Identity Not on file Sexual Orientation Not on file documented as of this encounter Progress Notes * Karla Reyna - 07/12/2025 11:10 AM EST Patient did well on Zepbound 2.5 mgs and would like a refill with titration. If appropriate, please send script for Zepbound 5 mgs to their pharmacy. The patient does have a follow up in 09/24/2025 documented in this encounter Plan of Treatment Upcoming Encounters Date Type Department Care Team (Late st Contact Info) Description 09/24/2025 2:00 PM EST Consult Bariatric Surgery - [place] [address] [address] Faith Monet, RD [address] [address] 11/26/2025 3:15 PM EDT Office Visit Bariatric Surgery - [address] [place] [address] Samantha Jonse PA [address] [place] [phone] documented as of this encounter Visit Diagnoses Not on filedocumented in this encounter Care Teams Fire Extinguisher Repairer Inspector Relationship Specialty Start Date End Date Jacoby Francis FNP [address] [place] [phone] PCP - General Family Medicine 10/18/24 documented as of this encounter
--- OUTSIDE RECORDS SUMMARY | 2025-07-12 19:46 | XMS_ITS | Clinical Summary ---
Author Organization [facility] Address [address] [place] [address] Phone Care Team Providers Care Coffee Sampler Name Role Phone Jacoby Francis LIZETTE Primary Care Provider [phone] Allergies No known active allergies Medications ARIPiprazole (ABILIFY) 15 mg tablet Take 1 tablet (15 mg total) by mouth 1 (one) time each day. 5 Active Vitamin D3 50 mcg (2,000 unit) tablet 5 Active amphetamine-dext roamphetamine (ADDERALL) 20 mg tablet Take 1 tablet (20 mg total) by mouth 1 (one) time each day. 5 Active escitalopram (LEXAPRO) 20 mg tablet Take 1 tablet (20 mg total) by mouth 1 (one) time each day. 5 Active gabapentin (NEURONTIN) 300 mg capsule Take 3 capsules (900 mg total) by mouth. 5 Active gabapentin (NEURONTIN) 600 mg tablet TAKE 2 TABLETS ORALLY 3 TIMES A DAY FOR 30 DAYS 5 Active ibuprofen (ADVIL,MOTRIN) 400 mg tablet Take 1 tablet (400 mg total) by mouth every 6 (six) hours if needed. for pain 4 Active lidocaine (LIDODERM) 5 % patch APPLY 1 PATCH TOPICALLY DAILY LEAVE ON MOST PAINFUL AREA FOR UP TO 12 HRS 5 Active methocarbamoL (ROBAXIN) 500 mg tablet TAKE 1 TABLET ORALLY 3 TIMES A DAY NEEDED FOR MUSCLE SPASM. NO DRIVING OR ALCOHOL WHILE ON MED 5 Active phentermine 15 mg capsule TAKE 1 CAPSULE BY MOUTH DAILY FOR 30 DAYS MUST ADMINISTER 2 HOURS AFTER BREAKFAST 5 Active Qudexy XR 200 mg capsule,sprinkle ,ER 24hr Take 1 capsule by mouth 1 (one) time each day. 5 Active traMADoL (ULTRAM) 50 mg tablet TAKE 2 TABLETS (100 MG) ORALLY 4 TIMES A DAY NEEDED FOR PAIN FOR 28 DAYS 5 Active ziprasidone (GEODON) 20 mg capsule Take 1 capsule (20 mg total) by mouth 2 (two) times a day. 4 Active zolpidem (AMBIEN) 10 mg tablet TAKE HALF TABLET BY MOUTH AT BEDTIME, THEN HALF TABLET AT FIRST WAKING 5 Active tirzepatide, weight loss, (Zepbound) 2.5 mg/0.5 mL injectionIndicat ions:Class 3 severe obesity due to excess calories with body mass index (BMI) of 50.0 to 59.9 in adult, unspecified whether serious comorbidity present ([facility] V24, [facility] V28) Inject 0.5 mL (2.5 mg total) under the skin every 7 (seven) days. 2 mL 5 Active Active Problems Problem Noted Date Diagnosed Date Class 3 severe obesity due t o excess calories with body mass index (BMI) of 50.0 to 59.9 in adult ([facility] V24, [facility] V28) 06/25/2025 Encounters Date Type Department Care Team Description 07/01/2025 Telephone Bariatric Surgery [address] [address] Samantha Jones PA 06/25/2025 10:30 AM EDT Office Visit Bariatric Surgery [address] [phone] Samantha Jones PA Class 3 severe obesity due to excess calories with body mass index (BMI) of 50.0 to 59.9 in adult, unspecified whether serious comorbidity present ([facility] V24, [facility] V28) (Primary Dx) from Last 3 Months Social History Tobacco Use Types Packs/Day Years Used Date Smoking Tobacco: Never Assessed Comments Unknown Sex and Gender Information Value Date Recorded Sex Assigned at Not on file Legal Sex Female 10:25 AM EST Gender Identity Not on file Sexual Orientation Not on file Last Filed Vital Signs Vital Sign Reading Time Taken Comments Blood Pressure 165/99 06/25/2025 10:34 AM EDT Pulse 116 06/25/2025 10:34 AM EDT Temperature - - Respiratory Rate - - Oxygen Saturation - - Inhaled Oxygen Concentration - - Weight 131 kg (289 lb) 06/25/2025 10:34 AM EDT Height 157.5 cm (5' 2 ) 06/25/2025 10:34 AM EDT Body Mass Index 52.86 06/25/2025 10:34 AM EDT Plan of Treatment Upcoming Encounters Date Type Department Care Team (Late st Contact Info) Description 09/24/2025 2:00 PM EST Consult Bariatric Surgery - [address] [phone] Faith Monet, [place] [address] [address] 11/26/2025 3:15 PM EDT Office Visit Bariatric Surgery [address] [address] Samantha Jones PA [address] [place] [address] Health Maintenance Due Date Last Done Comments Breast Cancer Screening 1977 Colorectal Cancer Screening: Colonoscopy 1977 DTaP,Tdap,and Td Vaccines (1 - Tdap) 1996 Hepatitis B Vaccines (1 of 3 - 19+ 3-dose series) 1996 Cervical Cancer Screening: P ap Smear 1998 Depression Screening 08/29/2024 Cholesterol Screening (Lipid Panel) 10/18/2024 HIV Screening 10/18/2024 Hepatitis C Screening 10/18/2024 Social Influencers of Health Screening 10/18/2024 COVID-19 Vaccine ( - 2024-2 6 season) 2025 Influenza Vaccine (#1) 2025 RSV [...] patient's age to complete this topic Insurance [facility] Care Teams Coffee Sampler Relationship Specialty Start Date End Date Jacoby Francis FNP [address] [place] [phone] PCP - General Family Medicine 10/18/24
--- OUTSIDE RECORDS SUMMARY | 2025-07-12 19:47 | XMS_ITS | Patient Health Record ---
Author Organization [facility] Address [address] [place] [phone] Care Team Providers Care Multicraft Operator Name Role Phone KaminiRubens mahajankaylyncornelia Primary Care Provider [phone] Allergies No Known Allergies Reason For Referral No Information Medications Medication SIG (Take, Route, Frequency, Duration) Notes Start Date End Date Status Depakote ER 500 MG Tablet Extended Release 24 Hour 2 TABLETS Orally BID; Duration: 30 day(s) 12/10/2021 Active Ibuprofen 800 MG Tablet 1 tablet with fo od or milk Orally Three times a day; Duration: 30 day(s) 12/10/2021 Active Topiramate 100 MG Tablet TAKE 1 TABLET B Y MOUTH EVERY DAY FOR 30 DAYS; Duration: 30 Active Ziprasidone HCl 40 MG Capsule 1 capsule with food Orally Twice a day; Duration: 30 day(s) 12/10/2021 Active Adderall XR 20 MG Capsule Extended Release 24 Hour 1 capsule in the morning Orally Once a day 12/10/2021 Active Gabapentin 300 MG Capsule 3 capsule Oral ly THREE TIMES A DAY PRN 05/14/2021 Active Social History Tobacco Use: Social History Observation Description Date Details (start date - stop date) Current Smoker NA - NA Social History General Social Info Question Answer Notes Smoking: Are you a: current smoker How often do you smoke cigarettes? every day How many cigarettes a day do you smoke? 5 or less How soon after you wake up do you smoke your first cigarette? after 60 min Are you interested in quitting? Thinking about quitting Alcohol Screening: Did you have a drink containing alc ohol in the past year? No Points 0 Interpretation Negative Additional Details Category Social Info Options Details General Caffeine: 2 pots of coffe e daily until 2 days ago when she moved to [place] [place] , 2-3 jessi cups Section Notes: Single. 2 sons. Unemployed c urrently. No recreational drugs Single. 2 sons. Unemployed c urrently. No recreational drugs Problems Problem Type SNOMED Code ICD Code Onset Dates Problem Status W/U Status Risk Notes Problem Morbid obesity (disorder) (297588678) Morbid (severe) obesity due to excess calories (E66.01) Active confirmed Problem Bipolar disorder , current episode depressed, severe, with psychotic features (F31.5) Active confirmed Problem Insomnia disorder related to another mental disorder (70025940) Insomnia due to other mental disorder (F51.05) Active confirmed Problem Attention deficit hyperactivity disorder (255600778) Attention-deficit hyperactivity disorder, predominantly hyperactive type (F90.1) Active confirmed Problem Sciatica (37292183) Lumbago with sciatica, unspecified side (M54.40) Active confirmed Problem Problem, abnormal examination (41266964) Encounter for general adult medical examination with [...] Coverage End Date [facility] [address] [place] [phone] [id number] PETER MATA Self - patient is the insured Medical (General) History Surgical History Surgery Date(Month/Year) right breast lumpectomy - fibroadenoma 2 008 multiple surgeries in left leg for necro tizing fascitis 2013
--- OUTSIDE RECORDS SUMMARY | 2025-07-12 19:47 | XMS_ITS | Data Portability ---
Author Organization [place] [facility], Allergy Address [address] [place] [phone] Assessment Encounter Date Assessment Date Assessment LastModified [...] Address Organization Details Recorded Time Peritonsillar abscess 30252067 Active 2024 GRIFFIN ALANIS MD [address], [phone], [place] [facility] 09:05:51 Problem Notes None recorded. Medical [...] Updated DateTime 10/04/2024 162.56 cm 42.6 kg/m2 579460.91 g Rosy Hutchins [facility] 10/04/2024 08:52:33 Social History None recorded. [...] Disorder N Anesthesia Complications N Heart Attack ([place]) N Other Skin Condition N Diabetes N [...] ICD10 Code Diagnosis IMO Codes Diagnosis Note [id number] GRIFFIN ALANIS MD [facility] [address] [phone] 10/04/2024 08:49:00 10/04/2024 09:06:59 Peritonsillar abscess 41268070 J36 Health Concerns Section Related Observation LastModified by Organization Detai ls LastModified Time None Recorded Concern Status LastModified by Organization Details LastModified Time None Recorded Advance Directives Directive None Recorded Payers Insurance Date Sequence Insurance Name Policy Number Policy Raygoza Covered Member ID Raygoza Member ID Guarantor Name 10/04/2024 1 [employer] - [facility] [facility] Cary Phoenix Charisseona [id number] Cary Phoenix Anderspadona 10/04/2024 1 [facility] PL[facility] (MEDICAID HMO) [employer] Cary Garibay Cappadona [id number] Cary Sanchez Notes Date Note Type Note Provider Name and Address Organization Details Recorded Time 10/04/2024 text/html ROS as noted in the HPI f/u PTA08/24/24 urgent care strep tonsil ixbfjy67/30/24 [place] [facility] strep tonsillitis, rx augmentin and prednisoneCT neck w con left inferior peritonsillar abscess [id number] collectionunable to drain with needle aspiration in ER, but eventually imroved with medicineWBC 20.6was referred to Dr Galarza but he did not take her insurancetobacco stopped 2022 GRIFFIN ALANIS MD [address] [place] [address], [phone], [place] - [facility] 10/04/2024 09:07:26 OBGyn Episode No OBEpisode recorded.
== END 2025-07-12 15:00 | disposition home or self-care (01) ==
LOC: HO.HMCFM 13:26
PROVIDERS: PCP Nurse Practitioner Family; Visit Provider Nurse Practitioner Family
DX: E78.5 Hyperlipidemia, unspecified (principal); E55.9 Vitamin D deficiency, unspecified; E66.01 Morbid (severe) obesity due to excess calories; Z68.42 Body mass index [BMI] 45.0-49.9, adult

== ENCOUNTER 2025-07-16 09:22 | Outpatient (AMB) | payer OTHER, SELFPAY ==
--- NOTE | 2025-07-16 09:29 | A.OFFVIS_ITS ---
Vital Signs 07/16/25 09:34 07/16/25 10:12 Height 5 ft 4 in Weight 288 lb BMI 49.4 BP 162/89 H 149/82 H Blood Pressure Location Lt brachial Lt brachial Position Sitting Sitting Respiration 16 16 Pulse 86 82 Pulse Source Pulse Oximeter Pulse Oximeter Pulse Oximetry (%) 98 97 Oxygen Delivery Method Room Air Room Air Intake Visit Reasons: BILATERAL DIAGNOSTIC L2 L3 L4 MBB/ Bupi & Epi Allergies No Known Allergies Allergy (Verified 07/18/25 09:25) [facility] Medical History (Updated 07/12/25 @ 13:48 by Jacoby Francis CNP) Sleep apnea Sacroiliac joint dysfunction Cervical spondylosis Myofascial pain Lumbar disc herniation Necrotizing fasciitis Degenerative disc disease, lumbar Depression Anxiety Surgical History History of throat surgery S/P lumpectomy, right breast Family History Mother COPD (chronic obstructive pulmonary disease) Emphysema lung Mental health disorder Social History Household Members: Friend(s) Both parents involved: No Caregiver staying overnight: No Housing: House Are you a primary care tech to a significant other at home: No Do you presently have visiting nurse or other home services: No 75 years or older and lives alone: No Alcohol intake: current Alcohol intake frequency: holidays/special occasions only Patient Tobacco Use Status: Former Tobacco user Tobacco use type: Cigarette e-Cigarette/Vaping Use: Former Use Second Hand Smoke Exposure: No service: No Current occupational status: disabled 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 ? ?Informed consent was explained to the patient. All questions were explained and? answered.? The patient was taken inside the operating room where she was positioned prone on the operating table. Time-out was performed delineating correct site, side, the nature of the procedure, patient's allergy, . All operating room staff was participating in OR time-out procedure. ? ? The lower back was prepped with ChloraPrep and draped with sterile towels.? C- arm was brought over the operating field and sq picture of L3-L4 and L5 vertebras were delineated on the screen.? Point of interest were delineated as confluence of superior articular process of L3-L4 and L 5 vertebra bilaterally with corresponding transverse processes.? The projection of the point of interest to the skin were injected with the small amount of local anesthetic lidocaine 2% mixed with ropivacaine 0.5% 1-1 approcimately 1 cc.? After that 22 gauge 3.5 inch spinal needle was driven sequentially to the points of interest in tunnel vision fashion. After needles gently contacted the bone at the point of interests the needle was injected with small amount of the contrast.? The injection of the contrast did not demonstrate any intravascular or intrathecal spread of the contrast.? After that injection of the? bupivacaine with epi 0.5%- 1cc was performed at each needle location. ?after that the needles were removed and Bandaids were applied. ? Upon completion of the injections? needle was? removed and sterile Band-Aids were applied.? The patient tolerated procedure very well. Orders: Orders: Orders FL guidance in treatment room 07/16/25 M47.816 - Spondylosis without myelopathy or radiculopathy, lumbar region Coding Level of Care Code Procedure Only Diagnoses Spondylosis of lumbar region without myelopathy or radiculopathy M47.816
[2025-07-16 09:34] VITALS: BP 162/89; PULSE 86; RESP 16; O2SAT 98; BMI 49.4
[2025-07-16 10:12] VITALS: BP 149/82; PULSE 82; RESP 16; O2SAT 97
== END 2025-07-16 10:13 | disposition home or self-care (01) ==
LOC: HO.PMCPRC 09:22
PROVIDERS: PCP Nurse Practitioner Family; Visit Provider Anesthesiology
DX: M47.816 Spondylosis without myelopathy or radiculopathy, lumbar region (principal)
CPT/HCPCS: 64493; 64494

== ENCOUNTER 2025-07-18 09:21 | Outpatient (AMB) | payer OTHER, SELFPAY ==
--- NOTE | 2025-07-18 09:24 | MHC.OFFVIS ---
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 Medial branch block L2, L3, L4 bilateral. She reports absence of pain without activities after the procedure. She reports minimal pain no more than 2/10 with the activities. Before the procedure her pain was 8/10. Therefore it is 80 to 90 % pain improvement. She reports that she still have mild pressure in the lateral flank walking after the procedure. I explained to the patient that if he would go for RFA this little pressure after RFA may stay the same. Patient expressed understanding, she said every more so of pain relief counts. I will schedule her for radiofrequency ablation of the L2, L3, L4 medial branches bilateral under sedation. diagnostic medial branch block bilateral L2, L3, L4. First time she reported 100% pain improvement after the procedure for the 1st 6 hours. She reports improved mobility although stated that some pressure retained when she was walking. I was considering her body habitus and I offered her sprint PNS. However her insurance company consider sprint PNS experimental and investigational. My recommendations were for her since we are now in May open enrollment. To switch her insurance to traditional [facility] [employer] ([employer]) Medicaid. When we started to discuss this issue I explained to her that I can do the RFA of the above-mentioned medial branches however in my opinion it will not be very effective for her. She may have pain relief for 1st 6 months however the pain will come back and the RFA will not be as effective next time. Besides I told her that in the order to do the RFA I need to perform diagnostic 2. Medial branch block again L2, L3, L4. Patient requested me to guarantee her 100% that as a result of the procedures she will be able to walk without difficulty. I explained to her that while I have reasonable believe that her mobility will improve after the procedure I can not make such a guarantee. This patient is morbidly obese and walking for her presents as certain challenge. Results of therapeutic sacroiliac joint injection. She reported pain relief in the projection of the sacral bone, she reports that she does not feel pain there anymore. However now she states that her pain in the projection of the L4 and L5 vertebra is getting worse. She used to reports that her pain was aggravated by flexing forward. Now she feels that flexing forward actually alleviate her pain and it is flexing backwards which makes her pain worse. Loading test is positive bilaterally. I suspected that this patient has combination of the arthritis of the sacroiliac joints and arthritis of the lumbar spine. I will schedule her for diagnostic medial branch block L3, L4, dorsal ramus L5. Patient also reports that she is gaining weight. She is on strict diet. The weight gain might be related to water retention. I recommended her to go to primary care physician and sort out and possibly treat her water retention with diuretics. If it would not help stop of the gabapentin might help if her water retention related to gabapentin intake. Prior: She underwent epidural steroid injection at [facility] 4 months ago, she had great relief with improvement in the burning, numbness and tingling that was radiating down her left hand. For reports the numbness and tingling is starting to return, pain is also starting to increase. She would like to repeat the injection Pain today is rated as a 910, constant, worse in the evenings and at night Previously on Robaxin that provided her good relief. This was discontinued due to black box warnings. She has not tried any other muscle relaxers. Has been taking ibuprofen twice daily as needed with some improvement but pain has progressively get worse. Prior: C/o pain in the cervical spine with sensation of the numbness of bilateral upper extremities as well as axial pain in lower back which is aggravated by prolonged standing and sitting and aggravated by flexing back forward but alleviated when she flex her back backwards. She reports that her pain started many years ago however became aggravated recently reports pain in neck 4 to 6/10 and pain in lower back is 10+ out of 10. She was under care of pains physician in [facility] she received MRI of the lumbar spine she was not recommended to go for the surgery by neurosurgeon. Never was evaluated by MRI of the cervical spine she is taking gabapentin for her pain and 100 mg 3 times a day maximal does she is taking tramadol 50 mg once a day and muscle relaxant methalaxon. She reports that she received sacroiliac joint injections in the past those were done by Dr. Markham in [facility] she reports very minimal help for 1 or 2 days from steroid sacroiliac joint injection however no prolonged pain relief. She had multiple attempts at physical therapy which aggravated her pain and she refused to go to physical therapy she denies chiropractic manipulations massage therapy or 10s unit. [facility] Medical History (Updated 07/12/25 @ 13:48 by Jacoby Francis CNP) Sleep apnea Sacroiliac joint dysfunction Cervical spondylosis Myofascial pain Lumbar disc herniation Necrotizing fasciitis Degenerative disc disease, lumbar Depression Anxiety Surgical History History of throat surgery S/P lumpectomy, right breast Family History Mother COPD (chronic obstructive pulmonary disease) Emphysema lung Mental health disorder Social History Household Members: Friend(s) Both parents involved: No Caregiver staying overnight: No Housing: House Are you a primary zoo caretaker to a significant other at home: No Do you presently have visiting nurse or other home services: No 75 years or older and lives alone: No Alcohol intake: current Alcohol intake frequency: holidays/special occasions only Patient Tobacco Use Status: Former Tobacco user Tobacco use type: Cigarette e-Cigarette/Vaping Use: Former Use Second Hand Smoke Exposure: No service: No Current occupational status: disabled 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 Patient was appropriately conversant and oriented. Good historian. MSK: Inspection reveals appropriate head and neck positioning. No pain with palpation over the neck musculature. Cervical ROM was full. Spurling's sign positive with radiation to left arm. Bilateral shoulder, elbow and wrist ROM WNL. No ligamentous laxity or crepitance. No increased effusion. No specific abnormalities or instability found on inspection and palpation of the spine and extremities. No point tenderness on spinous processes, facets, SI or GT. Unable to do lumbar extension due to pain. Negative SLR. Loading test is positive bilaterally. Positive MARCOS for back pain bilateral. Strength is 5/5 in all muscle groups tested. No increased tone noted. Right toes go into spasms while extended with pain. This limits her ankle range of motion. No redness or swelling on right foot or ankle. Neurological: Neurologic examination of the upper and lower extremities was nonfocal with intact sensation, muscle stretch reflexes and without focal motor deficits . Hunter?s negative bilaterally. Babinski was down going bilaterally. Clonus was negative. Gait is non-antalgic without loss of balance. Can stand on heels but cannot do toe walk. No foot drop while seated. Neck Other: Negative Lhermitte sign, positive Spurling sign on the right negative Valsalva maneuver 2 point differentiation is positive on bilateral hands Back/Spine/Pelvis Other: Flexing forward greatly aggravate her pain. In fact she cannot flex forward more than 45 degrees. Flexing backwards alleviates her pain. Prolonged sitting aggravates her pain. Shaji test is positive bilaterally, Gaenslen test is positive bilaterally, pelvic distraction and pelvis compression test as well as 14 finger test are positive bilaterally. Assessment & Plan Assessment & Plan (1) Degeneration, intervertebral disc, cervical: Code(s): M50.30 - Other cervical disc degeneration, unspecified cervical region Category: Medical (2) Cervical stenosis of spinal canal: Code(s): M48.02 - Spinal stenosis, cervical region Category: Medical (3) Lumbar disc herniation: Code(s): M51.26 - Other intervertebral disc displacement, lumbar region Category: Medical (4) Cervical radiculitis: Code(s): M54.12 - Radiculopathy, cervical region Category: Medical (5) Spondylosis of lumbar spine: Code(s): M47.816 - Spondylosis without myelopathy or radiculopathy, lumbar region Category: Medical (6) Vertebrogenic low back pain: Code(s): M54.51 - Vertebrogenic low back pain Category: Medical (7) Chronic sacroiliac joint pain: Code(s): M53.3 - Sacrococcygeal disorders, not elsewhere classified; G89.29 - Other chronic pain Category: Medical (8) Sacroiliitis: Code(s): M46.1 - Sacroiliitis, not elsewhere classified Category: Medical (9) Spondylosis of lumbar region without myelopathy or radiculopathy: Code(s): M47.816 - Spondylosis without myelopathy or radiculopathy, lumbar region Category: Medical Plan After diagnostic #1 medial branch block L2-L3 L4 bilateral patient reported 100% pain improvement and improved mobility for the next 5 hours. Diagnostic 2. Medial branch block also 80-90% pain improvement and improved mobility for the next 8 hours. Some activities are still difficult for the patient under the block, especially walking however standing and doing dishes is greatly improved after the medial branch blocks 1. And 2. We will schedule this patient for L2, L3, L4 radiofrequency ablation of medial branches bilateral under minimal sedation. Coding Level of Care Code Est Pt Level 3 (14348) Diagnoses Degeneration, intervertebral disc, cervical M50.30 Cervical stenosis of spinal canal M48.02 Lumbar disc herniation M51.26 Cervical radiculitis M54.12 Spondylosis of lumbar spine M47.816 Vertebrogenic low back pain M54.51 Chronic sacroiliac joint pain M53.3; G89.29 Sacroiliitis M46.1 Spondylosis of lumbar region without myelopathy or radiculopathy M47.816
[2025-07-18 09:27] VITALS: BP 133/77; PULSE 90; RESP 16; O2SAT 98; BMI 47.7
--- OUTSIDE RECORDS SUMMARY | 2025-07-18 12:11 | XMS_ITS | Patient Health Record ---
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 Plastic Boat Name Role Phone Jovani Suárez Primary Care Provider Yang Blas MD MSc, Gisselle Unavailable [phone] Allergies Allergen (clinical drug ingredient) Drug/Non Drug [...] Date End Date Status lamoTRIgine 25 MG Tablet 2 tablet Orally Once a day Active Divalproex Sodium 500 MG Tablet Delayed Release 2 tablet Orally BID Active tiZANidine HCl 2 MG Tablet 1 tablet as needed Orally Three times a day Not-Taking Propranolol HCl 10 MG Tablet 1 tablet Orally Once a day; Duration: 30 day(s) Not-Taking traMADol HCl 100 MG Tablet 1 tablet as needed Orally TID Active Gabapentin 300 MG Capsule 3 capsule Orally TID Active Topiramate 100 MG Tablet 1 tablet Orally Once a day; Duration: 30 day(s) Active ARIPiprazole 2 MG Tablet 1 tablet Orally Once a day; Duration: 30 day(s) Not-Taking Meloxicam 15 MG Tablet 1 tablet Orally O nce a day; Duration: 30 day(s) Active Metaxalone 800 MG Tablet 1 tablet Orally Three times a day; Duration: 30 day(s) Active hydrOXYzine HCl 25 MG Tablet 1 tablet at bedtime as needed Orally TID Not-Taking Ziprasidone HCl 60 MG Capsule 1 capsule with food Orally Twice a day; Duration: 30 day(s) Active Phentermine HCl 37.5 MG Capsule 1 capsule Orally Once a day Active [place] Carbonate 300 MG Tablet 1 tablet at bedtime Orally Once a day; Duration: 30 day(s) Not-Taking Lithobid 300 MG Tablet Extended Release 1 tablet at bedtime Orally Once a day; Duration: 30 day(s) Not-Taking Nicoderm CQ 21 MG/24HR Patch 24 Hour 1 patch to skin Transdermal Once a day; Duration: 30 day(s) Not-Taking Calcium & Magnesium Carbonates Not-Taking Deltasone Active oxyCODONE HCl 5 MG Tablet 1-2 tablets Or ally every 4 hrs Not-Taking Social History Social History Social History Social Info Question Answer Notes Drug Have you used drugs other than those for medical reasons in the past 12 months? No Exercise Do you Exercise? Yes How often? Three times a week What type of exercise do you do? Stretching, Str engthening walking Opioid Risk Tool Psychological disease ADD Alcohol screen Did you have a drink containing alcohol in the past year? Yes How often did you have a drink containing alcohol in the past year? Monthly or less How many drinks did you have on a typical day when you were drinking in the past year? 1 or 2 How often did you have six or more drinks on one occasion in the past year? Never Points 1 Smoking Are you a current smoker Patient quit before and started again 05/2022 How often do you smoke cigarettes? some days but not everyday How many cigarettes a day do you smoke? 5 or less How soon after you wake up do you smoke your first cigarette? only at noght when she can't sleep Are you interested in quitting? Ready to quit Additional Details Category Social Info Options Details Social History Alcohol Seldom/rare Marital status: No history Children Single Caffeine daily Persons in the home room mate Type of work doesn't work What type of exercise do you do Stretching, Strengthening Problems Problem Type SNOMED Code ICD Code Onset Dates Problem Status W/U Status Risk Notes Problem Low back pain (144967750) Low back pain, unspecified (M54.50) Active confirmed Plan Of Treatment Pending Test Test Name Order Date [facility] Profile 06/24/2022 Insurance Providers Payer Name Payer Address Payer Phone Subscriber Number Group Number Insured Name Patient Relationship to Insured Coverage Start Date Coverage End Date [facility] [address] [place] [phone] [id number] Cary Cedillo Self - patient is the insured Medical (General) History Medical History History ICD Code ADHD Lumbago with sciatica Insomnia Anxiety Bipolar Dz Surgical History Surgery Date(Month/Year) [facility] after miscarriage Right breast lumpectomy 2006 Necrotizing fasciitis x6 2013 larynx repair 2019 Right ankle rods placed 06/2020
--- OUTSIDE RECORDS SUMMARY | 2025-07-18 12:12 | XMS_ITS | Patient Health Record ---
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 2 sons. Unemployed c urrently. No recreational drugs Single. 2 sons. Unemployed c urrently. No recreational drugs Problems Problem Type SNOMED Code ICD Code Onset Dates Problem Status W/U Status Risk Notes Problem Morbid obesity (disorder) (762036789) Morbid (severe) obesity due to excess calories (E66.01) Active confirmed Problem Bipolar disorder , current episode depressed, severe, with psychotic features (F31.5) Active confirmed Problem Insomnia disorder related to another mental disorder (47773507) Insomnia due to other mental disorder (F51.05) Active confirmed Problem Attention deficit hyperactivity disorder (328935974) Attention-deficit hyperactivity disorder, predominantly hyperactive type (F90.1) Active confirmed Problem Sciatica (42917063) Lumbago with sciatica, unspecified side (M54.40) Active confirmed Problem Problem, abnormal examination (49879749) Encounter for general adult medical examination with [...] Start Date Coverage End Date [facility] [address] [place] [phone] [id number] PETER MATA Self - patient is the insured Medical (General) History Surgical History Surgery Date(Month/Year) right breast lumpectomy - fibroadenoma 2 008 multiple surgeries in left leg for necro tizing fascitis 2013
--- OUTSIDE RECORDS SUMMARY | 2025-07-18 12:12 | XMS_ITS | Data Portability ---
Author Organization [place] [facility], [facility] Address [address] [place] [id number] Assessment Encounter Date Assessment Date Assessment LastModified [...] Address Organization Details Recorded Time Peritonsillar abscess [id number] Active 2024 GRIFFIN ALANIS MD [address], [address], [place] [facility] 09:05:51 Problem Notes None recorded. [...] Updated DateTime 10/04/2024 162.56 cm 42.6 kg/m2 953465.91 g Rosy Hutchins [facility] 10/04/2024 08:52:33 Social History None [...] Disorder N Anesthesia Complications N Heart Attack (PR) N Other Skin Condition N Diabetes N [...] ICD10 Code Diagnosis IMO Codes Diagnosis Note 14031 GRIFFIN ALANIS MD [facility] [address] [address] 10/04/2024 08:49:00 10/04/2024 09:06:59 Peritonsillar abscess [id number] J36 Health Concerns Section Related Observation LastModified by Organization Detai ls LastModified Time None Recorded Concern Status LastModified by Organization Details LastModified Time None Recorded Advance Directives Directive None Recorded Payers Insurance Date Sequence Insurance Name Policy Number Policy Raygoza Covered Member ID Raygoza Member ID Guarantor Name 10/04/2024 1 Mr. Number [facility] Cary Phoenix Charisseona [id number] Cary Phoenix Anderspadona 10/04/2024 1 [facility] PL[facility] (MEDICAID HMO) [employer] Cary Garibay Cappadona [id number] Cary Sanchez Notes Date Note Type Note Provider Name and Address Organization Details Recorded Time 10/04/2024 text/html ROS as noted in the HPI f/u PTA08/24/24 urgent care strep tonsil iqlgph75/30/24 [facility] strep tonsillitis, rx augmentin and prednisoneCT neck w con left inferior peritonsillar abscess [id number] collectionunable to drain with needle aspiration in ER, but eventually imroved with medicineWBC 20.6was referred to Dr Galarza but he did not take her insurancetobacco stopped 2022 GRIFFIN ALANIS MD [address] [place] [address], [phone], [place] [facility] 10/04/2024 09:07:26 OBGyn Episode No OBEpisode recorded.
== END 2025-07-18 09:53 | disposition home or self-care (01) ==
LOC: HO.PMC 09:22
PROVIDERS: PCP Nurse Practitioner Family; Visit Provider Anesthesiology
DX: M50.30 Other cervical disc degeneration, unspecified cervical region (principal); M48.02 Spinal stenosis, cervical region; M51.26 Other intervertebral disc displacement, lumbar region; M54.12 Radiculopathy, cervical region; M47.816 Spondylosis without myelopathy or radiculopathy, lumbar region; M54.51 Vertebrogenic low back pain; M53.3 Sacrococcygeal disorders, not elsewhere classified; G89.29 Other chronic pain; M46.1 Sacroiliitis, not elsewhere classified
CPT/HCPCS: 99213

== ENCOUNTER → 2025-07-18 09:21 | Outpatient (BNVA) | payer OTHER, SELFPAY | PROVIDERS: PCP Nurse Practitioner Family; Visit Provider Anesthesiology | DX: M54.51 Vertebrogenic low back pain (principal); M47.816 Spondylosis without myelopathy or radiculopathy, lumbar region; M53.3 Sacrococcygeal disorders, not elsewhere classified; M46.1 Sacroiliitis, not elsewhere classified | CPT/HCPCS: 99212 ==

== ENCOUNTER 2025-08-01 13:06 | Outpatient (AMB) | payer OTHER, SELFPAY ==
--- NOTE | 2025-08-01 13:18 | A.OFFPC_ITS ---
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 Allergies No Known Allergies Allergy (Verified 08/01/25 13:19) Medication List - Last Reconciled 08/01/25 by Avis García PA-C aripiprazole 20 mg PO DAILY cholecalciferol (vitamin D3) 50 mcg PO DAILY 30 days dextroamphetamine-amphetamine 20 mg (Adderall) 20 mg PO DAILY escitalopram oxalate 15 mg PO DAILY gabapentin 1,200 mg (2 x 600 mg) PO TID 30 days lidocaine 5% 1 patch topical DAILY tirzepatide (weight loss) (Zepbound) 5 mg subcut QWEEK topiramate XR (Qudexy XR) 200 mg PO DAILY tramadol 100 mg (2 x 50 mg) PO QID PRN 28 days zolpidem ER 12.5 mg PO BEDTIME PRN Tobacco use date assessed: 08/01/25 Dental Screening Dental Screen Date: 06/24/25 HPI Ja thea /med review HPI Details Patient is a 49-year-old female with a significant anxiety, depression, ADD, insomnia, chronic low back pain, chronic neck pain, anemia, hypertension, hld and vitamin-D deficiency presenting today to transfer internally. She was previously following with Jacoby Francis. CV: Blood pressure today in the office is 118/88. Not currently on any antihypertensives. Recently had labs that showed hyperlipidemia but just started with apartment maintenance. -In August going to weight management jarvis ruiz. She is on 5 mg of zepbound weekly. Down about 12 lbs. Prior to starting this that bound she was able to lose weight on her own with diet as well. Msk: On tramadol and gabapentin. Followed with pain management and getting an ablation. She states that she is waiting for insurance approval. She would like something to help treat her pain. She states that she can not walk more than a few minutes without back pain. The pain management team told her that she likely needs medication. 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 [facility] Medical History (Updated 07/12/25 @ 13:48 by Jacoby Francis CNP) Sleep apnea Sacroiliac joint dysfunction Cervical spondylosis Myofascial pain Lumbar disc herniation Necrotizing fasciitis Degenerative disc disease, lumbar Depression Anxiety Surgical History History of throat surgery S/P lumpectomy, right breast Family History Mother COPD (chronic obstructive pulmonary disease) Emphysema lung Mental health disorder Social History Household Members: Friend(s) Both parents involved: No Caregiver staying overnight: No Housing: House Are you a primary district manager primary care sales to a significant other at home: No Do you presently have visiting nurse or other home services: No 75 years or older and lives alone: No Alcohol intake: current Alcohol intake frequency: holidays/special occasions only Patient Tobacco Use Status: Former Tobacco user Tobacco use type: Cigarette e-Cigarette/Vaping Use: Former Use Second Hand Smoke Exposure: No service: No Current occupational status: disabled 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 Current occupational exposures/hazards: No Cognitive needs: No Hearing needs: No Vision needs: Yes (glasses) Questionnaire Thrive Questionnaire Date Thrive assessed: 08/31/24 I am a: Patient What is your living situation today?: I have a steady place to live Within the past 12 months, did the food you bought not last and you didn't have the money to get more?: Never true Within the past 12 months, did you worry whether your food would run out before you got money to buy more?: Never true Do you have trouble paying for medicines?: No Do you have trouble getting transportation to medical appointments?: No Do you have trouble paying your heating and electricity bill?: No Do you have trouble taking care of your child, family member or friend?: No Do you have trouble with day-to-day activities such as bathing, preparing meals, shopping, managing finances, etc.?: No Are you currently unemployed and looking for a job?: No Are you interested in more education?: No Please select the resources that you would like help with: None Currently or been in a relationship where the following occur: No concerns reported THRIVE Score: 0 AUDIT C Alcohol Use Questionnaire (AUDIT-C) 1. How often do you have a drink containing alcohol?: Monthly or less ([place] time) 2. How many drinks containing alcohol do you have on a typical day when you are drinking?: 1 or 2 3. How often do you have six or more drinks on one occasion?: Never Total Score: 1 BAYRON-7 AMB Questionnaire BAYRON-7 Date BAYRON - 7 assessed: 06/24/25 Source: Developed by Drs. Contreras Velazquez, Gisselle Reyna, Javed Lee and colleagues, with an educational earline from [employer]. Physical exam (Primary Care) Tobacco/Smoking Status: Tobacco use Status Tobacco use date assessed 07/12/25 07/12/25 13:15 Patient Tobacco Use Status Former Tobacco user 07/12/25 13:15 Tobacco use type Cigarette 07/12/25 13:15 e-Cigarette/Vaping Use Former Use 07/12/25 13:15 Thrive Assessment: Date of Thrive Assessment Date Thrive assessed 08/31/24 07/25/25 11:40 Currently or been in a relationship where the following occur: No concerns reported Const Orientation/consciousness: patient oriented x3 HENMT Ears: hearing grossly normal bilaterally Neck Thyroid: Thyroid normal Lymphatic: no lymphadenopathy noted Resp Auscultation: clear to auscultation bilaterally Cardio Rate: regular rate Rhythm: regular rhythm Heart sounds: S1 normal heart sound present and S2 normal heart sound present GI Inspection: Yes normal to inspection Palpation (GI): Soft to palpation and Other GI palpation findings present (nontender, no cva tenderness) Auscultation: normoactive bowel sounds Rectal Exam - Female: deferred Skin General skin exam: no rashes or lesions noted Neuro General: patient oriented x3, gait normal and no focal motor deficits Results Reviewed Results Reviewed: Laboratory Tests 06/24/25 11:47 WBC 7.0 RBC 4.23 Hgb 12.6 Hct 38.5 Plt Count 346 Sodium 140 Potassium 4.6 Chloride 103 Carbon Dioxide 26 Anion Gap 16 BUN 14 Creatinine 0.64 Estimated GFR > 60 Random Glucose 85 Calcium 9.4 Ferritin 18 Total Bilirubin 0.3 AST 32 H ALT 20 Alkaline Phosphatase 92 Total Protein 7.7 Albumin 4.5 Triglycerides 175 H Cholesterol 211 H LDL Cholesterol, Calc 126 H HDL Cholesterol 50 25-OH Vitamin D Total 14.0 L TSH 1.34 Coding Level of Care Code Est Pt Level 4 (15065) Complex visit Add On G2211 Diagnoses Spondylosis of lumbar spine M47.816 Hyperlipidemia E78.5 Vitamin D deficiency E55.9 Assessment & Plan Assessment & Plan (1) Spondylosis of lumbar spine: Code(s): M47.816 - Spondylosis without myelopathy or radiculopathy, lumbar region Category: Medical Plan: We will try Relafen. Discussed risks and benefits and adverse effects of this medication We will continue with tramadol and gabapentin She will let me know if anything improves. (2) Hyperlipidemia: Code(s): E78.5 - Hyperlipidemia, unspecified Category: Medical Plan: Currently working on diet and following with a apartment maintenance. We will recheck labs in a few months (3) Vitamin D deficiency: Code(s): E55.9 - Vitamin D deficiency, unspecified Category: Medical Plan: She has been compliant with the vitamin-D. We will rechecked. Orders: Orders Comprehensive Winger. Panel Fast Today E55.9 - Vitamin D deficiency, unspecified, E78.5 - Hyperlipidemia, unspecified, M47.816 - Spondylosis without myelopathy or radiculopathy, lumbar region, M48.02 - Spinal stenosis, cervical region Lipid Panel Today E55.9 - Vitamin D deficiency, unspecified, E78.5 - Hyperlipidemia, unspecified, M47.816 - Spondylosis without myelopathy or radiculopathy, lumbar region, M48.02 - Spinal stenosis, cervical region Hemoglobin A1c Today E55.9 - Vitamin D deficiency, unspecified, E78.5 - Hyperlipidemia, unspecified, M47.816 - Spondylosis without myelopathy or radiculopathy, lumbar region, M48.02 - Spinal stenosis, cervical region, R73.01 - Impaired fasting glucose UA CC w/rflx Micro + Cult Today E55.9 - Vitamin D deficiency, unspecified, E78.5 - Hyperlipidemia, unspecified, M47.816 - Spondylosis without myelopathy or radiculopathy, lumbar region, M48.02 - Spinal stenosis, cervical region, R30.0 - Dysuria Complete Blood Count Auto Diff Today E55.9 - Vitamin D deficiency, unspecified, E78.5 - Hyperlipidemia, unspecified, M47.816 - Spondylosis without myelopathy or radiculopathy, lumbar region, M48.02 - Spinal stenosis, cervical region TSH reflex Free T4 Today E55.9 - Vitamin D deficiency, unspecified, E78.5 - Hyperlipidemia, unspecified, M47.816 - Spondylosis without myelopathy or radicu lopathy, lumbar region, M48.02 - Spinal stenosis, cervical region Microalbumin, Random (w Creat) Today E55.9 - Vitamin D deficiency, unspecified, E78.5 - Hyperlipidemia, unspecified, M47.816 - Spondylosis without myelopathy or radiculopathy, lumbar region, M48.02 - Spinal stenosis, cervical region Vitamin D 25-OH Total Today E55.9 - Vitamin D deficiency, unspecified, E78.5 - Hyperlipidemia, unspecified, M47.816 - Spondylosis without myelopathy or radiculopathy, lumbar region, M48.02 - Spinal stenosis, cervical region Medications: New nabumetone 500 mg PO BID 180 tabs 0RF
[2025-08-01 13:20] VITALS: BP 118/88; PULSE 86; RESP 16; O2SAT 98; BMI 47.4
== END 2025-08-01 13:49 | disposition home or self-care (01) ==
PROVIDERS: PCP Physician Assistant; Visit Provider Physician Assistant
DX: M47.816 Spondylosis without myelopathy or radiculopathy, lumbar region (principal); E78.5 Hyperlipidemia, unspecified; E55.9 Vitamin D deficiency, unspecified

== ENCOUNTER → 2025-08-01 13:06 | Outpatient (BNVA) | payer OTHER, SELFPAY | PROVIDERS: PCP Nurse Practitioner Family; Visit Provider Physician Assistant | DX: M47.816 Spondylosis without myelopathy or radiculopathy, lumbar region (principal); E78.5 Hyperlipidemia, unspecified; E55.9 Vitamin D deficiency, unspecified | CPT/HCPCS: 99212 ==